=== PATIENT | male | born 1955 | race American Indian/Alaskan Native ===

== ENCOUNTER 2021-02-24 15:54 | Inpatient (IN) | payer MEDICARE ==
--- NOTE | 2021-02-24 18:06 | Event Note ---
ED Screening Note Date of service: 02/24/21 Time: 18:01 ED Screening Note: Patient was brought to the ER today via EMS for hypoglycemia. Patient was at dialysis today when his blood sugar dropped to 24. He states that he was given orange juice. He states that he is not sure why they checked his blood sugar at dialysis, he states that he thinks he may have "blacked out" but is not sure. He states that he did have breakfast prior to going to dialysis this morning but he also stated that he felt dizzy this morning but he states that he did not mention this to the dialysis staff. Patient blood sugar now is in the 60s. He denies any symptoms currently. This initial assessment/diagnostic orders/clinical plan/treatment(s) is/are subject to change based on patients health status, clinical progression and re- assessment by fellow clinical providers in the ED. Further treatment and workup at subsequent clinical providers discretion. Patient/guardian urged not to elope from the ED as their condition may be serious if not clinically assessed and managed. Initial orders include: Labs/EKG
[2021-02-24 18:20] LABS: Basophils # (Auto) 0.1 K/mm3 (0.0-0.1); Basophils % (Auto) 0.8 % (0.0-1.8); Eosinophils % (Auto) 0.4 % (0.0-4.3); Hematocrit 40.9 % (35.5-45.6); Hemoglobin 13.8 gm/dl (11.8-15.2); Lymphocytes # (Auto) 0.5 K/mm3 (1.2-5.4); Lymphocytes % (Auto) 5.1 % (13.4-35.0); Mean Corpuscular HGB Conc 34 % (32-34); Mean Corpuscular Volume 90 fl (84-94); Monocytes # (Auto) 0.4 K/mm3 (0.0-0.8); Monocytes % (Auto) 4.3 % (0.0-7.3); Platelet Count 364 K/mm3 (140-440); Red Blood Count 4.53 M/mm3 (3.65-5.03); Red Cell Distribution Width 14.5 % (13.2-15.2)
[2021-02-24 18:43] LABS: Albumin 4.4 g/dL (3.9-5); Calcium 9.6 mg/dL (8.4-10.2)
--- NOTE | 2021-02-24 19:31 | Emergency Department Report ---
ED General Adult HPI - General Chief complaint: Hypoglycemia Stated complaint: HYPOGLYCEMIA PUI?: No Time Seen by Provider: 02/24/21 19:30 Source: patient, EMS ( EMS documentation not available at time of chart dictation ), RN notes reviewed Mode of arrival: Ambulatory Limitations: No Limitations - History of Present Illness Initial comments: [facility] Dr. Chaney The patient is a 65-year-old gentleman. He is not known to myself previously. His past medical history includes end-stage renal disease on hemodialysis, Wednesday, Wednesday, Wednesday. He also has a history of hypertension, high cholesterol. He also reports a chronic history of "heart murmur", and also reports that he is up-to-date with his COVID-19 vaccination status. Patient reports that he was at hemodialysis today, and was referred here for hypoglycemia, apparently had a glucose of 22. The patient states he ate a meal this morning. He also states that he ate lunch. The patient states he does not have a history of diabetes that he is aware of, nor does he take any oral or injectable insulin therapy or hypoglycemic therapy. He has a dry cough. He denies headache, neck pain, chest pain, abdominal pain. He has mild chronic shortness of breath. He does not produce urine. He reports 6 months of nonbloody painless diarrhea. He feels like he is back to his baseline at this time. He reports no history of hypoglycemia in the past that he is aware of. -: Sudden Consistency: now resolved Improves with: eating, medication Worsens with: none ED Review of Systems ROS: Stated complaint: HYPOGLYCEMIA Other details as noted in HPI Constitutional: other (Denies loss of taste and smell). denies: fever Eyes: denies: eye discharge ENT: congestion Respiratory: cough. denies: shortness of breath Cardiovascular: denies: chest pain Gastrointestinal: diarrhea. denies: abdominal pain Genitourinary: denies: dysuria, frequency Musculoskeletal: denies: back pain Neurological: denies: weakness Hematological/Lymphatic: denies: easy bleeding ED Past Medical Hx - Past Medical History Previous Medical History?: Yes Hx Hypertension: Yes Hx Diabetes: Yes - Surgical History Past Surgical History?: No ED Physical Exam - General Limitations: No Limitations General appearance: alert, in no apparent distress - Head Head exam: Present: atraumatic, normocephalic - Eye Eye exam: Present: normal appearance, EOMI. Absent: nystagmus - ENT ENT exam: Present: normal exam, normal orophraynx, mucous membranes moist, normal external ear exam - Neck Neck exam: Present: normal inspection, full ROM. Absent: tenderness, meningismus - Respiratory Respiratory exam: Present: rhonchi (Rhonchi noted in the right hemithorax). Absent: respiratory distress, rales, stridor - Cardiovascular Cardiovascular Exam: Present: regular rate, normal rhythm, systolic murmur (2 out of 6 systolic murmur noted). Absent: bradycardia, tachycardia, irregular rhythm, rubs, gallop - GI/Abdominal GI/Abdominal exam: Present: soft. Absent: distended, tenderness, guarding, rebound, rigid, pulsatile mass - Rectal Rectal exam: Present: deferred - Extremities Exam Extremities exam: Present: normal inspection (Right upper extremity fistula not ed, without redness, pus or streaking), full ROM, pedal edema (1-2+ edema in the bilateral lower extremities), other (2+ pulses noted in the bilateral upper and lower extremities. There is no palpable cord. negative Homans sign. Muscular compartments are soft. The pelvis is stable.) - Back Exam Back exam: Present: normal inspection, full ROM. Absent: tenderness, CVA tenderness (R), CVA tenderness (L), paraspinal tenderness, vertebral tenderness - Neurological Exam Neurological exam: Present: alert, other (No facial droop. Tongue midline. Extraocular movements intact bilaterally. Facial sensation intact to light touch in V1, V2, V3 distribution bilaterally. 5 and a 5 strength in 4 extremities. Sensation intact to light touch in 4 extremities.) - Psychiatric Psychiatric exam: Present: flat affect - Skin Skin exam: Present: warm, dry, intact, normal color. Absent: rash ED Course Vital Signs 02/24/21 17:07 Temperature 98.5 F Pulse Rate 75 Respiratory 18 Rate Blood Pressure 162/75 [Right] O2 Sat by Pulse 97 Oximetry ED Medical Decision Making - Lab Data Result diagrams: 02/24/21 18:06 02/24/21 18:06 Vital Signs 02/24/21 17:07 Temperature 98.5 F Pulse Rate 75 Respiratory 18 Rate Blood Pressure 162/75 [Right] O2 Sat by Pulse 97 Oximetry - EKG Data -: EKG Interpreted by [facility] EKG shows normal: sinus rhythm - EKG Data When compared to previous EKG there are: previous EKG unavailable 02/24/21 20:28 The EKG is interpreted at 19: 40 This is a sinus rhythm, with a rate of 82 bpm. There is a left axis deviation, with a borderline left anterior fascicular block. There is normal P wave axis. There is left ventricular hypertrophy. The QTC is prolonged. This is an abnormal EKG. This is not a STEMI. There is motion artifact. There is no prior for comparison. - Radiology Data Radiology results: report reviewed, image reviewed [facility] [address] [place] [address] XRay Report Signed Patient: HECTOR EATON MR#: [id number] : 1955 Acct:[id number] Age/Sex: 65 / M ADM Date: 02/24/21 Loc: ED Attending Dr: Ordering Physician: ELENO CHANG Date of Service: 02/24/21 Procedure(s): XR chest routine 2V Accession Number(s): [id number] cc: ELENO CHANG Fluoro Time In Minutes: CHEST 2 VIEWS INDICATION / CLINICAL INFORMATION: cough/lightheaded dizzy. FINDINGS: SUPPORT DEVICES: None. HEART / MEDIASTINUM: No significant abnormality. LUNGS / PLEURA: Mild bibasilar airspace opacity noted especially within the right lower lung. Signer Name: Magno Simons MD Signed: 02/24/2021 8:16 PM Workstation Name: [id number] Transcribed By: Dictated By: Magno Simons MD Electronically Authenticated By: Magno Simons MD Signed Date/Time: 02/24/212015 DD/ 14 - Medical Decision Making Differential diagnosis, including but not limited to: End-stage renal disease on hemodialysis, renal insufficiency, hepatic insufficiency, thyroid derangement, pneumonia, bronchitis, hypoglycemia Assessment and plan: 65-year-old gentleman, who was afebrile, with reassuring v ital signs, with a GCS of 15, who does not take any diabetic medications, who also reports that he is not on [id number] supplements, presenting with resolved complaint of hypoglycemia, found to have clinical and radiographic evidence of pneumonia. Given medical comorbidities, including relative immune compromise associated with end-stage renal disease, hypoglycemia in the field, hypoglycemia here in the emergency room, we have recommended admission to the medical service for glycemic monitoring, and initiation of IV antibiotics. Troponin was ordered prior to my personal evaluation of this patient, he denies chest pain, his EKG is not consistent with a STEMI, this is likely a type II troponin leak, likely secondary to his renal insufficiency. Patient is amenable to admission for IV antibiotics, and for glycemic monitoring. Hospital physician, Dr. Telly Sanz to admit to [facility] Critical care attestation.: If time is entered above; I have spent that time in minutes in the direct care of this critically ill patient, excluding procedure time. ED Disposition Clinical Impression: Hypoglycemia, End stage renal disease on dialysis, Pulmonary infiltrate Disposition: OP ADMIT IP TO THIS HOSP Is pt being admited?: Yes Does the pt Need Aspirin: No Condition: Good Referrals: PRIMARY CARE, [Primary Care Provider] - 3-5 Days
[2021-02-24 19:33] LABS: Chol/HDL Ratio 2.09 %
--- NOTE | 2021-02-24 20:20 | XRay Report ---
CHEST 2 VIEWS INDICATION / CLINICAL INFORMATION: cough/lightheaded dizzy. FINDINGS: SUPPORT DEVICES: None. HEART / MEDIASTINUM: No significant abnormality. LUNGS / PLEURA: Mild bibasilar airspace opacity noted especially within the right lower lung. Signer Name: Magno Simons MD Signed: 02/24/2021 8:16 PM Workstation Name: [id number]
[2021-02-24] MEDS ORDERED: DEXTROSE 50% IN WATER (25GM) 50 ML VIAL IV PRN (20:31)
[2021-02-24] MEDS ORDERED: cefTRIAXone/NS 1 GM/50 ML 1 GM/50 ML BAG IV ONE (21:00)
--- NOTE | 2021-02-24 21:10 | History and Physical Report ---
History of Present Illness Date of examination: 02/24/21 Date of admission: 02/24/21 Chief complaint: Hypoglycemia Pneumonia History of present illness: The patient is a 65-year-old gentleman. He is not known to myself previously. His past medical history includes end-stage renal disease on hemodialysis, Wednesday, Wednesday, Wednesday. He also has a history of hypertension, high cholesterol. He also reports a chronic history of "heart murmur", and also reports that he is up-to-date with his COVID-19 vaccination status. Patient reports that he was at hemodialysis today, and was referred here for hypoglycemia, apparently had a glucose of 22. The patient states he ate a meal this morning. He also states that he ate lunch. The patient states he does not have a history of diabetes that he is aware of, nor does he take any oral or injectable insulin therapy or hypoglycemic therapy. He has a dry cough. He denies headache, neck pain, chest pain, abdominal pain. He has mild chronic shortness of breath. He does not produce urine. He reports 6 months of nonbloody painless diarrhea. He feels like he is back to his baseline at this time. He reports no history of hypoglycemia in the past that he is aware of. WBC 9.0 hemoglobin 13.8 platelets 364 sodium 133, potassium 4.4, BUN 28 creatinine 6.9. Troponin elevated 0.262 and 0.6262. Patient is started on heparin drip and rn unit manager is consulted. Patient seen in the ED at bedside patient is alert oriented x3. Patient reported dizziness while he was on dialysis and blood sugar was checked and it was very low in 20. Patient was brought to the hospital for further care management. I reviewed patient medication record history and physical and vital signs. Checks x-ray done and showed a mild to Shar airspace opacity noted especially within the right lower lung. Patient started on antibiotic empirically blood culture ordered. Past History Past Medical History: ESRD, heart failure, hypertension, hyperlipidemia Past Surgical History: No surgical history Social history: no significant social history, other (Lives in nursing home) Family history: diabetes, hypertension Medications and Allergies Allergies Allergy/AdvReac Type Severity Reaction Status Date / Time shellfish derived AdvReac Anaphylaxis Verified 02/24/21 20:44 Home Medications Medication Instructions Recorded Confirmed Last Taken Type Aspirin [Aspirin BABY CHEW TAB] 81 mg PO QDAY 02/25/21 02/25/21 Unknown History AtorvaSTATin [Lipitor] 40 mg PO QHS 02/25/21 02/25/21 Unknown History Cinacalcet [Sensipar] 60 mg 02/25/21 Unknown History ISOSORBIDE MONOnitrate 60 mg PO QDAY 02/25/21 02/25/21 Unknown History Latanoprost 1 drop OU QDAY 02/25/21 02/25/21 Unknown History Losartan [Cozaar] 100 mg PO QDAY 02/25/21 02/25/21 Unknown History NIFEdipine [Adalat cc] 90 mg PO 02/25/21 Unknown History Vit B Complx C/Folic Acid/Zinc 1 tab PO DAILY 02/25/21 02/25/21 Unknown History [Dialyvite 800-Zinc 50 mg Tab] Vit B Complx C/Folic Acid/Zinc 1 tab PO DAILY 02/25/21 02/25/21 Unknown History [Dialyvite 800-Zinc 50 mg Tab] Vitamin D3 1 tab 02/25/21 Unknown History Zofran 4 mg PO 02/25/21 Unknown History carvediloL [Coreg] 12.5 mg PO BID 02/25/21 02/25/21 Unknown History Active Meds: Active Medications Dextrose (Dextrose 50% In Water (25gm) 50 Ml Vial) 50 gm IV Q30MIN PRN; Protocol PRN Reason: Hypoglycemia Azithromycin (Zithromax/Ns) 500 mg in 250 mls @ 250 mls/hr IV ONCE ONE; Protocol Stop: 02/24/21 22:59 Ceftriaxone Sodium (Rocephin/Ns 1 Gm/50 Ml) 1 gm in 50 mls @ 100 mls/hr IV ONCE ONE; Protocol Stop: 02/24/21 21:29 Review of Systems Ears, nose, mouth and throat: no epistaxis, no bleeding gums Respiratory: cough Gastrointestinal: no melena Rectal: no itching, no hemorrhoids Neurological: no seizures, no tremors Psychiatric: no disorientation, no hallucinations Hematologic/Lymphatic: no easy bruising, no easy bleeding Allergic/Immunologic: no urticaria Exam - Constitutional Vitals: Temp Pulse Resp BP Pulse Ox 98.5 F 80 17 158/75 98 02/24/21 17:07 02/24/21 20:30 02/24/21 20:30 02/24/21 20:30 02/24/21 20:30 General appearance: Present: mild distress, well-nourished - EENT Eyes: Present: PERRL ENT: hearing intact, clear oral mucosa - Neck Neck: Present: supple, normal ROM - Respiratory Respiratory effort: normal Respiratory: bilateral: CTA - Cardiovascular Heart Sounds: Present: S1 & S2. Absent: rub, click - Extremities Extremities: pulses symmetrical, No edema Peripheral Pulses: within normal limits - Abdominal General gastrointestinal: Present: soft, non-tender, non-distended, normal bowel sounds Male genitourinary: Present: normal - Integumentary Integumentary: Present: clear, warm, dry - Musculoskeletal Musculoskeletal: gait normal, strength equal bilaterally - Psychiatric Psychiatric: appropriate mood/affect, intact judgment & insight, cooperative - Neurologic Neurologic: CNII-XII intact, moves all extremities - Allied Health Allied health notes reviewed: nursing, PT HEART Score - HEART Score Troponin: Troponin T 0.262 ng/mL (0.00-0.029) H* 02/24/21 18:06 Results - Labs CBC & Chem 7: 02/25/21 00:35 02/24/21 18:06 Labs: Abnormal lab results 02/24/21 02/24/21 02/24/21 Range/Units 17:09 18:06 18:06 Lymph % (Auto) 5.1 L (13.4-35.0) % Lymph # (Auto) 0.5 L (1.2-5.4) K/mm3 Seg Neutrophils % 89.4 H (40.0-70.0) % Seg Neutrophils # 8.1 H (1.8-7.7) K/mm3 Sodium 133 L (137-145) mmol/L Chloride 93.1 L (98-107) mmol/L BUN 28 H (9-20) mg/dL Creatinine 6.9 H (0.8-1.3) mg/dL Glucose 63 L (75-100) mg/dL POC Glucose 62 L (70-105) mg/dL Troponin T (0.00-0.029) ng/mL Total Protein 8.4 H (6.3-8.2) g/dL 02/24/21 Range/Units 18:06 Lymph % (Auto) (13.4-35.0) % Lymph # (Auto) (1.2-5.4) K/mm3 Seg Neutrophils % (40.0-70.0) % Seg Neutrophils # (1.8-7.7) K/mm3 Sodium (137-145) mmol/L Chloride (98-107) mmol/L BUN (9-20) mg/dL Creatinine (0.8-1.3) mg/dL Glucose (75-100) mg/dL POC Glucose (70-105) mg/dL Troponin T 0.262 H* (0.00-0.029) ng/mL Total Protein (6.3-8.2) g/dL Assessment and Plan - Patient Problems (1) Right lower lobe pneumonia Current Visit: Yes Status: Acute Plan to address problem: Start antibiotic empirically with azithromycin and Rocephin. Respiratory care with bronchodilator oxygen supplement as needed Patient is on room air not in acute distress (2) Hypoglycemia Current Visit: Yes Status: Acute Plan to address problem: Monitor blood sugar Check hemoglobin A1c (3) End stage renal disease on dialysis Current Visit: Yes Status: Acute Plan to address problem: Nephrology consulted Resume hemodialysis today when Monitor electrolytes and kidney function (4) Hyponatremia Current Visit: Yes Status: Acute Plan to address problem: Likely secondary to kidney failure Monitor sodium level Nephrology is following (5) Hypertension Current Visit: Yes Status: Acute Plan to address problem: Monitor blood pressure Resume home antihypertensive As needed hydralazine. (6) DVT prophylaxis Current Visit: Yes Status: Acute Plan to address problem: Subcutaneous heparin
[2021-02-24] MEDS ORDERED: AZITHROMYCIN/NS 500 MG/250 ML 500 MG/250 ML BAG IV ONE (22:00)
[2021-02-24] MEDS ORDERED: DEXTROSE 50% IN WATER (25GM) 50 ML SYRINGE IV ONE (23:10)
[2021-02-24] MEDS ORDERED: MAGNESIUM HYDROXIDE (MOM) ORAL LIQD UDC PO PRN (23:17)
[2021-02-24] MEDS ORDERED: ALUM-MAG HYDROXIDE-SIMETHICONE 200-200-20MG/5ML ORAL LIQD 30 ML PO PRN (23:17)
[2021-02-24] MEDS ORDERED: ACETAMINOPHEN 325 MG TAB PO PRN (23:17)
[2021-02-24] MEDS ORDERED: METOCLOPRAMIDE 10 MG/2 ML INJ IV PRN (23:17)
[2021-02-24] MEDS ORDERED: SENNOSIDES 8.6 MG TAB PO PRN (23:17)
[2021-02-24] MEDS ORDERED: ONDANSETRON 4 MG/2 ML INJ IV PRN (23:17)
[2021-02-24] MEDS ORDERED: traZODone 50 MG TAB PO PRN (23:19)
[2021-02-24] MEDS ORDERED: traMADol 50 MG TAB PO PRN (23:19)
[2021-02-25] MEDS ORDERED: HEPARIN 10,000 UNITS/10 ML VIAL IV PRN (00:25)
[2021-02-25] MEDS ORDERED: HEPARIN/ 0.45% NACL DRIP 25,000 UNIT/500 ML BAG IV SCH (01:00)
[2021-02-25 01:23] LABS: Hematocrit 36.2 % (35.5-45.6); Hemoglobin 12.2 gm/dl (11.8-15.2)
[2021-02-25 01:31] LABS: INR 0.67 (0.87-1.13)
[2021-02-25 01:35] LABS: Partial Thromboplastin Time < 20.0 Sec. (24.2-36.6)
[2021-02-25] MEDS: guaiFENesin 200 MG TAB PO PRN ×2 (02:02→08:00)
[2021-02-25] MEDS: LOPERAMIDE 2 MG CAP PO PRN ×2 (02:23→08:00)
[2021-02-25] MEDS ORDERED: DEXTROSE 50% IN WATER (25GM) 50 ML SYRINGE IV ONE (06:42)
[2021-02-25 07:32] LABS: Basophils # (Auto) 0.1 K/mm3 (0.0-0.1); Basophils % (Auto) 1.3 % (0.0-1.8); Eosinophils # (Auto) 0.1 K/mm3 (0.0-0.4); Eosinophils % (Auto) 1.5 % (0.0-4.3); Hematocrit 35.2 % (35.5-45.6); Hemoglobin 11.7 gm/dl (11.8-15.2); Lymphocytes # (Auto) 1.9 K/mm3 (1.2-5.4); Lymphocytes % (Auto) 22.1 % (13.4-35.0); Mean Corpuscular HGB Conc 33 % (32-34); Mean Corpuscular Volume 90 fl (84-94); Monocytes # (Auto) 0.5 K/mm3 (0.0-0.8); Monocytes % (Auto) 6.3 % (0.0-7.3); Platelet Count 342 K/mm3 (140-440); Red Blood Count 3.93 M/mm3 (3.65-5.03); Red Cell Distribution Width 14.6 % (13.2-15.2)
[2021-02-25 07:46] LABS: Calcium 9.4 mg/dL (8.4-10.2)
[2021-02-25] MEDS ORDERED: METOCLOPRAMIDE 10 MG/2 ML INJ IV PRN (08:00)
[2021-02-25] MEDS: INSULIN LISPRO 100 UNIT/ML SUB-Q SCH ×4 (08:07→22:47)
--- NOTE | 2021-02-25 09:12 | Consultation ---
History of Present Illness - Reason for Consult Consult date: 02/25/21 end stage renal disease Past History Past Medical History: ESRD, heart failure, hypertension, hyperlipidemia Past Surgical History: No surgical history Social history: no significant social history, other (Lives in assisted) Family history: diabetes, hypertension Medications and Allergies Allergies Allergy/AdvReac Type Severity Reaction Status Date / Time shellfish derived AdvReac Anaphylaxis Verified 02/24/21 20:44 Home Medications Medication Instructions Recorded Confirmed Last Taken Type Aspirin [Aspirin BABY CHEW TAB] 81 mg PO QDAY 02/25/21 02/25/21 Unknown History AtorvaSTATin [Lipitor] 40 mg PO QHS 02/25/21 02/25/21 Unknown History Cinacalcet [Sensipar] 60 mg 02/25/21 Unknown History ISOSORBIDE MONOnitrate 60 mg PO QDAY 02/25/21 02/25/21 Unknown History Latanoprost 1 drop OU QDAY 02/25/21 02/25/21 Unknown History Losartan [Cozaar] 100 mg PO QDAY 02/25/21 02/25/21 Unknown History NIFEdipine [Adalat cc] 90 mg PO 02/25/21 Unknown History Vit B Complx C/Folic Acid/Zinc 1 tab PO DAILY 02/25/21 02/25/21 Unknown History [Dialyvite 800-Zinc 50 mg Tab] Vit B Complx C/Folic Acid/Zinc 1 tab PO DAILY 02/25/21 02/25/21 Unknown History [Dialyvite 800-Zinc 50 mg Tab] Vitamin D3 1 tab 02/25/21 Unknown History Zofran 4 mg PO 02/25/21 Unknown History carvediloL [Coreg] 12.5 mg PO BID 02/25/21 02/25/21 Unknown History Active Meds: Active Medications Acetaminophen (Acetaminophen 325 Mg Tab) 650 mg PO Q4H PRN PRN Reason: Pain MILD(1-3)/Fever >100.5/GOINS Al Hydrox/Mg Hydrox/Simethicone (Alum-Mag Hydroxide-Simethicone [id number]/5ml Oral Liqd 30 Ml) 30 ml PO Q4H PRN PRN Reason: Indigestion Amlodipine Besylate (Amlodipine 10 Mg Tab) 10 mg PO QDAY [facility] Carvedilol (Carvedilol 12.5 Mg Tab) 12.5 mg PO BID [facility] Dextrose (Dextrose 50% In Water (25gm) 50 Ml Vial) 50 gm IV Q30MIN PRN; Protocol PRN Reason: Hypoglycemia Last Admin: 02/25/21 06:40 Dose: 50 gm Documented by: Famotidine (Famotidine 20 Mg/2 Ml Inj) 10 mg IV BID [facility] Guaifenesin (Guaifenesin 200 Mg Tab) 200 mg PO Q6H PRN PRN Reason: Cough Last Admin: 02/25/21 08:00 Dose: 200 mg Documented by: Hydralazine HCl (Hydralazine 20 Mg/1 Ml Inj) 5 mg IV Q4HR PRN PRN Reason: Hypertension Azithromycin (Zithromax/Ns) 500 mg in 250 mls @ 250 mls/hr IV Q24H [facility] Stop: 02/28/21 23:59 Heparin Sodium/Sodium Chloride (Heparin/ 0.45% Nacl-25,000 Unit/500 Ml) 25,000 unit in 500 mls @ 30 mls/hr IV TITR [facility]; Protocol Last Titration: 02/25/21 08:09 Dose: 1,524 units/hr, 30.48 mls/hr Documented by: Ceftriaxone Sodium (Rocephin/Ns 2 Gm/100 Ml) 2 gm in 100 mls @ 200 mls/hr IV QHS [facility] Stop: 03/01/21 23:59 Insulin Human Lispro (Insulin Lispro 100 Unit/Ml) 0 unit SUB-Q ACHS [facility]; Protocol Last Admin: 02/25/21 08:07 Dose: Not Given Documented by: Loperamide HCl (Loperamide 2 Mg Cap) 2 mg PO Q2H PRN PRN Reason: Diarrhea Last Admin: 02/25/21 08:00 Dose: 2 mg Documented by: Losartan Potassium (Losartan 50 Mg Tab) 100 mg PO QDAY [facility] Magnesium Hydroxide (Magnesium Hydroxide (Mom) Oral Liqd Udc) 30 ml PO Q4H PRN PRN Reason: Constipation Metoclopramide HCl (Metoclopramide 10 Mg/2 Ml Inj) 5 mg IV Q6H PRN PRN Reason: Nausea And Vomiting Ondansetron HCl (Ondansetron 4 Mg/2 Ml Inj) 4 mg IV Q8H PRN PRN Reason: Nausea And Vomiting Senna (Sennosides 8.6 Mg Tab) 8.6 mg PO Q12HR PRN PRN Reason: Constipation Sodium Chloride (Sodium Chloride 0.9% 10 Ml Flush Syringe) 10 ml IV BID [facility] Sodium Chloride (Sodium Chloride 0.9% 10 Ml Flush Syringe) 10 ml IV PRN PRN PRN Reason: LINE FLUSH Tramadol HCl (Tramadol 50 Mg Tab) 50 mg PO Q6H PRN PRN Reason: Pain, Moderate (4-6) Trazodone HCl (Trazodone 50 Mg Tab) 50 mg PO QHS PRN PRN Reason: Insomnia Exam - Vital Signs Vital signs: Vital Signs Temp Pulse Resp BP Pulse Ox 98.5 F 75 18 162/75 97 02/24/21 17:07 02/24/21 17:07 02/24/21 17:07 02/24/21 17:07 02/24/21 17:07 Results - Lab Results 02/25/21 06:38 02/25/21 06:38 Most recent lab results Calcium 9.4 mg/dL (8.4-10.2) 02/25/21 06:38
[2021-02-25] MEDS ORDERED: HEPARIN 5,000 UNIT/1 ML VIAL SUB-Q SCH (10:00)
[2021-02-25] MEDS: LOSARTAN 50 MG TAB PO SCH (10:13)
[2021-02-25] MEDS: FAMOTIDINE 20 MG/2 ML INJ IV SCH ×2 (10:13→21:33)
[2021-02-25] MEDS: amLODIPine 10 MG TAB PO SCH (10:14)
[2021-02-25] MEDS: carvediloL 12.5 MG TAB PO SCH ×2 (10:14→21:33)
--- NOTE | 2021-02-25 10:52 | Consultation ---
History of Present Illness Consult date: 02/25/21 Consult reason: elevated troponin History of present illness: This is a 65-year old M with end-stage renal disease, who was brought in from dialysis with hypoglycemia, reported blood glucose of 22. On presentation to the emergency department his blood glucose was 61. Patient denies a history of Diabetes. He is managed routinely for hypertension and hyperlipidemia. A cardiac consultation was requested for elevated troponin measurement in the setting of renal disease. Patient has no history of coronary disease. He denies chest pain, denies unusual shortness of breath, and denies palpitations. No edema. Chest x-ray reports evidence of pneumonia. An ECG is sinus rhythm. No acute ST or T wave changes. Past History Past Medical History: ESRD, hypertension, hyperlipidemia Past Surgical History: No surgical history Social history: no significant social history, other (Lives in [facility]) Family history: diabetes, hypertension Medications and Allergies Allergies Allergy/AdvReac Type Severity Reaction Status Date / Time shellfish derived AdvReac Anaphylaxis Verified 02/24/21 20:44 Home Medications Medication Instructions Recorded Confirmed Last Taken Type Aspirin [Aspirin BABY CHEW TAB] 81 mg PO QDAY 02/25/21 02/25/21 02/24/21 History AtorvaSTATin [Lipitor] 40 mg PO QHS 02/25/21 02/25/21 02/24/21 History Cinacalcet [Sensipar] 60 mg PO DAILY 02/25/21 02/25/21 02/24/21 History ISOSORBIDE MONOnitrate 60 mg PO QDAY 02/25/21 02/25/21 02/24/21 History Latanoprost 1 drop OU QDAY 02/25/21 02/25/21 02/24/21 History Losartan [Cozaar] 100 mg PO QDAY 02/25/21 02/25/21 02/24/21 History NIFEdipine [Adalat cc] 90 mg PO DAILY 02/25/21 02/25/21 02/24/21 History Vit B Complx C/Folic Acid/Zinc 1 tab PO DAILY 02/25/21 02/25/21 02/24/21 History [Dialyvite 800-Zinc 50 mg Tab] Vit B Complx C/Folic Acid/Zinc 1 tab PO DAILY 02/25/21 02/25/21 02/24/21 History [Dialyvite 800-Zinc 50 mg Tab] Vitamin D3 1,000 tab PO DAILY 02/25/21 02/25/21 02/24/21 History Zofran 4 mg PO PRN PRN 02/25/21 02/25/21 02/23/21 History carvediloL [Coreg] 12.5 mg PO BID 02/25/21 02/25/21 02/24/21 History Active Meds: Active Medications Acetaminophen (Acetaminophen 325 Mg Tab) 650 mg PO Q4H PRN PRN Reason: Pain MILD(1-3)/Fever >100.5/GOINS Al Hydrox/Mg Hydrox/Simethicone (Alum-Mag Hydroxide-Simethicone [phone]/5ml Oral Liqd 30 Ml) 30 ml PO Q4H PRN PRN Reason: Indigestion Amlodipine Besylate (Amlodipine 10 Mg Tab) 10 mg PO QDAY [facility] Last Admin: 02/25/21 10:14 Dose: 10 mg Documented by: Carvedilol (Carvedilol 12.5 Mg Tab) 12.5 mg PO BID [facility] Last Admin: 02/25/21 10:14 Dose: 12.5 mg Documented by: Dextrose (Dextrose 50% In Water (25gm) 50 Ml Vial) 50 gm IV Q30MIN PRN; Protocol PRN Reason: Hypoglycemia Last Admin: 02/25/21 06:40 Dose: 50 gm Documented by: Famotidine (Famotidine 20 Mg/2 Ml Inj) 10 mg IV BID [facility] Last Admin: 02/25/21 10:13 Dose: 10 mg Documented by: Guaifenesin (Guaifenesin 200 Mg Tab) 200 mg PO Q6H PRN PRN Reason: Cough Last Admin: 02/25/21 08:00 Dose: 200 mg Documented by: Hydralazine HCl (Hydralazine 20 Mg/1 Ml Inj) 5 mg IV Q4HR PRN PRN Reason: Hypertension Azithromycin (Zithromax/Ns) 500 mg in 250 mls @ 250 mls/hr IV Q24H [facility] Stop: 02/28/21 23:59 Heparin Sodium/Sodium Chloride (Heparin/ 0.45% Nacl-25,000 Unit/500 Ml) 25,000 unit in 500 mls @ 30 mls/hr IV TITR [facility]; Protocol Last Titration: 02/25/21 08:09 Dose: 1,524 units/hr, 30.48 mls/hr Documented by: Ceftriaxone Sodium (Rocephin/Ns 2 Gm/100 Ml) 2 gm in 100 mls @ 200 mls/hr IV QHS [facility] Stop: 03/01/21 23:59 Insulin Human Lispro (Insulin Lispro 100 Unit/Ml) 0 unit SUB-Q ACHS [facility]; Protocol Last Admin: 02/25/21 08:07 Dose: Not Given Documented by: Loperamide HCl (Loperamide 2 Mg Cap) 2 mg PO Q2H PRN PRN Reason: Diarrhea Last Admin: 02/25/21 08:00 Dose: 2 mg Documented by: Losartan Potassium (Losartan 50 Mg Tab) 100 mg PO QDAY [facility] Last Admin: 02/25/21 10:13 Dose: 100 mg Documented by: Magnesium Hydroxide (Magnesium Hydroxide (Mom) Oral Liqd Udc) 30 ml PO Q4H PRN PRN Reason: Constipation Metoclopramide HCl (Metoclopramide 10 Mg/2 Ml Inj) 5 mg IV Q6H PRN PRN Reason: Nausea And Vomiting Ondansetron HCl (Ondansetron 4 Mg/2 Ml Inj) 4 mg IV Q8H PRN PRN Reason: Nausea And Vomiting Senna (Sennosides 8.6 Mg Tab) 8.6 mg PO Q12HR PRN PRN Reason: Constipation Sodium Chloride (Sodium Chloride 0.9% 10 Ml Flush Syringe) 10 ml IV BID [facility] Last Admin: 02/25/21 10:15 Dose: 10 ml Documented by: Sodium Chloride (Sodium Chloride 0.9% 10 Ml Flush Syringe) 10 ml IV PRN PRN PRN Reason: LINE FLUSH Tramadol HCl (Tramadol 50 Mg Tab) 50 mg PO Q6H PRN PRN Reason: Pain, Moderate (4-6) Trazodone HCl (Trazodone 50 Mg Tab) 50 mg PO QHS PRN PRN Reason: Insomnia Review of Systems Cardiovascular: no chest pain, no palpitations, no rapid/irregular heart beat, no edema, no syncope, no lightheadedness, no shortness of breath Physical Examination Vital Signs Temp Pulse Resp BP Pulse Ox 98.5 F 75 18 162/75 97 02/24/21 17:07 02/24/21 17:07 02/24/21 17:07 02/24/21 17:07 02/24/21 17:07 General appearance: no acute distress HEENT: Positive: PERRL Neck: Positive: trachea midline Cardiac: Positive: Reg Rate and Rhythm, Systolic Murmur Lungs: Positive: Normal Breath Sounds Neuro: Positive: Grossly Intact Extremities: Absent: edema Results 02/25/21 06:38 02/25/21 06:38 Cardiac Enzymes 02/24/21 Range/Units 18:06 AST 32 (5-40) units/L Coagulation 02/25/21 Range/Units 00:35 PT 10.1 L (12.2-14.9) Sec. INR 0.67 L (0.87-1.13) APTT < 20.0 L (24.2-36.6) Sec. Lipids 02/24/21 Range/Units 18:06 Triglycerides 78 (2-149) mg/dL Cholesterol 111 (50-199) mg/dL HDL Cholesterol 53 (40-59) mg/dL Cholesterol/HDL Ratio 2.09 % CBC 02/24/21 02/25/21 02/25/21 Range/Units 18:06 00:35 06:38 WBC 9.0 8.7 (4.5-11.0) K/mm3 RBC 4.53 3.93 (3.65-5.03) M/mm3 Hgb 13.8 12.2 11.7 L (11.8-15.2) gm/dl Hct 40.9 36.2 35.2 L (35.5-45.6) % Plt Count 364 362 342 (140-440) K/mm3 Lymph # (Auto) 0.5 L 1.9 (1.2-5.4) K/mm3 [place] # (Auto) 0.4 0.5 (0.0-0.8) K/mm3 Eos # (Auto) 0.0 0.1 (0.0-0.4) K/mm3 Baso # (Auto) 0.1 0.1 (0.0-0.1) K/mm3 Comprehensive Metabolic Panel 02/24/21 02/25/21 Range/Units 18:06 06:38 Sodium 133 L 133 L (137-145) mmol/L Potassium 4.4 4.6 (3.6-5.0) mmol/L Chloride 93.1 L 95.3 L (98-107) mmol/L Carbon Dioxide 26 23 (22-30) mmol/L BUN 28 H 36 H (9-20) mg/dL Creatinine 6.9 H 8.0 H (0.8-1.3) mg/dL Glucose 63 L 103 H (75-100) mg/dL Calcium 9.6 9.4 (8.4-10.2) mg/dL AST 32 (5-40) units/L ALT 12 (7-56) units/L Alkaline Phosphatase 102 (35-129) units/L Total Protein 8.4 H (6.3-8.2) g/dL Albumin 4.4 (3.9-5) g/dL Assessment and Plan Elevated troponin, nonspecific in the setting of renal disease an echo this presentation shows a normal LVEF 50-55%. Moderate LA dilated and mild RV dilation. Mild aortic stenosis, mean gradient 16. Hypoglycemia -reason for admission Pneumonia Hypertension ESRD on hemodialysis
--- NOTE | 2021-02-25 11:20 | Progress Note ---
Assessment and Plan Assessment and plan: The patient is a 65-year-old gentleman. He is not known to myself previously. His past medical history includes end-stage renal disease on hemodialysis, Wednesday, Wednesday, Wednesday. He also has a history of hypertension, high cholesterol. He also reports a chronic history of "heart murmur", and also re ports that he is up-to-date with his COVID-19 vaccination status. Patient reports that he was at hemodialysis today, and was referred here for hypoglycemia, apparently had a glucose of 22. The patient states he ate a meal this morning. He also states that he ate lunch. The patient states he does not have a history of diabetes that he is aware of, nor does he take any oral or injectable insulin therapy or hypoglycemic therapy. He has a dry cough. He denies headache, neck pain, chest pain, abdominal pain. He has mild chronic shortness of breath. He does not produce urine. He reports 6 months of nonbloody painless diarrhea. He feels like he is back to his baseline at this time. He reports no history of hypoglycemia in the past that he is aware of. WBC 9.0 hemoglobin 13.8 platelets 364 sodium 133, potassium 4.4, BUN 28 creatinine 6.9. Troponin elevated 0.262 and 0.6262. Patient is started on heparin drip and pay agent is consulted. Patient seen in the ED at bedside patient is alert oriented x3. Patient reported dizziness while he was on dialysis and blood sugar was checked and it was very low in 20. Patient was brought to the hospital for further care management. I reviewed patient medication record history and physical and vital signs. Checks x-ray done and showed a mild to Shar airspace opacity noted especially within the right lower lung. Patient started on antibiotic empirically blood culture ordered. 02/25: Patient with no chest pain. No changes in EKG. Will stop heparin drip start subcu heparin. Discussed with technician support association will try to get further records to further evaluate the low blood sugar will also get a noncontrast CT of the abdomen to evaluate the pancreas. Will like to monitor patient additional night as blood sugar still in the low 90s. If continues to be stable will discharge in a.m. (1) Right lower lobe pneumonia Current Visit: Yes Status: Acute Plan to address problem: Start antibiotic empirically with azithromycin and Rocephin. Respiratory care with bronchodilator oxygen supplement as needed Patient is on room air not in acute distress (2) Hypoglycemia Current Visit: Yes Status: Acute Plan to address problem: Monitor blood sugar Check hemoglobin A1c (3) End stage renal disease on dialysis Current Visit: Yes Status: Acute Plan to address problem: Nephrology consulted Resume hemodialysis today when Monitor electrolytes and kidney function (4) Hyponatremia Current Visit: Yes Status: Acute Plan to address problem: Likely secondary to kidney failure Monitor sodium level Nephrology is following (5) Hypertension Current Visit: Yes Status: Acute Plan to address problem: Monitor blood pressure Resume home antihypertensive As needed hydralazine. (6) type II NSTEMI (7) DVT prophylaxis Current Visit: Yes Status: Acute Plan to address problem: Subcutaneous heparin History Interval history: Patient seen and examined sitting up doing well no acute distress. Still not sure why he became hypoglycemic. Hospitalist Physical - Physical exam Narrative exam: VITAL SIGNS: Reviewed. GENERAL: The patient appears normally developed, Vital signs as documented. HEAD: No signs of head trauma. EYES: Pupils are equal. Extraocular motions intact. EARS: Hearing grossly intact. MOUTH: Oropharynx is normal. NECK: No adenopathy, no JVD. CHEST: Chest with clear breath sounds bilaterally. No wheezes, rales, or rhonchi. CARDIAC: Regular rate and rhythm. S1 and S2, without murmurs, gallops, or rubs. VASCULAR: AV fistula noted no Edema. Peripheral pulses normal and equal in all extremities. ABDOMEN: Soft, non tender and non distended. No rebound or guarding, and no masses palpated. Bowel Sounds normal. MUSCULOSKELETAL: Good range of motion of all major joints. Extremities without clubbing, cyanosis or edema. NEUROLOGIC EXAM: Alert and oriented x 3 No focal sensory or strength deficits. Speech normal. Follows commands. PSYCHIATRIC: Mood normal. SKIN: detail exam as documented in skin assessment - Constitutional Vitals: Temp Pulse Resp BP Pulse Ox 99.1 F 110 H 20 180/100 97 02/25/21 05:02 02/25/21 10:13 02/25/21 05:02 02/25/21 10:13 02/25/21 05:02 General appearance: Present: no acute distress HEART Score - HEART Score Troponin: Troponin T 0.262 ng/mL (0.00-0.029) H* 02/25/21 00:24 Results - Labs CBC & Chem 7: 02/25/21 06:38 02/25/21 06:38 Labs: Laboratory Last Values WBC 8.7 K/mm3 (4.5-11.0) 02/25/21 06:38 RBC 3.93 M/mm3 (3.65-5.03) 02/25/21 06:38 Hgb 11.7 gm/dl (11.8-15.2) L 02/25/21 06:38 Hct 35.2 % (35.5-45.6) L 02/25/21 06:38 MCV 90 fl (84-94) 02/25/21 06:38 MCH 30 pg (28-32) 02/25/21 06:38 MCHC 33 % (32-34) 02/25/21 06:38 RDW 14.6 % (13.2-15.2) 02/25/21 06:38 Plt Count 342 K/mm3 (140-440) 02/25/21 06:38 Lymph % (Auto) 22.1 % (13.4-35.0) 02/25/21 06:38 [place] % (Auto) 6.3 % (0.0-7.3) 02/25/21 06:38 Eos % (Auto) 1.5 % (0.0-4.3) 02/25/21 06:38 Baso % (Auto) 1.3 % (0.0-1.8) 02/25/21 06:38 Lymph # (Auto) 1.9 K/mm3 (1.2-5.4) 02/25/21 06:38 [place] # (Auto) 0.5 K/mm3 (0.0-0.8) 02/25/21 06:38 Eos # (Auto) 0.1 K/mm3 (0.0-0.4) 02/25/21 06:38 Baso # (Auto) 0.1 K/mm3 (0.0-0.1) 02/25/21 06:38 Seg Neutrophils % 68.8 % (40.0-70.0) 02/25/21 06:38 Seg Neutrophils # 6.0 K/mm3 (1.8-7.7) 02/25/21 06:38 PT 10.1 Sec. (12.2-14.9) L 02/25/21 00:35 INR 0.67 (0.87-1.13) L 02/25/21 00:35 APTT < 20.0 Sec. (24.2-36.6) L 02/25/21 00:35 Heparin Anti-Xa Level 0.29 U.I./ml (0.3-0.7) L 02/25/21 06:38 Sodium 133 mmol/L (137-145) L 02/25/21 06:38 Potassium 4.6 mmol/L (3.6-5.0) 02/25/21 06:38 Chloride 95.3 mmol/L (98-107) L 02/25/21 06:38 Carbon Dioxide 23 mmol/L (22-30) 02/25/21 06:38 Anion Gap 19 mmol/L 02/25/21 06:38 BUN 36 mg/dL (9-20) H 02/25/21 06:38 Creatinine 8.0 mg/dL (0.8-1.3) H 02/25/21 06:38 Estimated GFR 8 ml/min 02/25/21 06:38 BUN/Creatinine Ratio 5 % 02/25/21 06:38 Glucose 103 mg/dL (75-100) H 02/25/21 06:38 POC Glucose 45 mg/dL (70-105) L 02/25/21 06:26 Hemoglobin A1c 4.8 % (4-6) 02/25/21 06:38 Lactic Acid 1.60 mmol/L (0.7-2.0) 02/24/21 20:33 Calcium 9.4 mg/dL (8.4-10.2) 02/25/21 06:38 Total Bilirubin 0.30 mg/dL (0.1-1.2) 02/24/21 18:06 AST 32 units/L (5-40) 02/24/21 18:06 ALT 12 units/L (7-56) 02/24/21 18:06 Alkaline Phosphatase 102 units/L (35-129) 02/24/21 18:06 Troponin T 0.262 ng/mL (0.00-0.029) H* 02/25/21 00:24 Total Protein 8.4 g/dL (6.3-8.2) H 02/24/21 18:06 Albumin 4.4 g/dL (3.9-5) 02/24/21 18:06 Albumin/Globulin Ratio 1.1 % 02/24/21 18:06 Triglycerides 78 mg/dL (2-149) 02/24/21 18:06 Cholesterol 111 mg/dL (50-199) 02/24/21 18:06 LDL Cholesterol Direct 53 mg/dL (50-130) 02/24/21 18:06 HDL Cholesterol 53 mg/dL (40-59) 02/24/21 18:06 Cholesterol/HDL Ratio 2.09 % 02/24/21 18:06 TSH 0.518 mlU/mL (0.270-4.200) 02/24/21 19:00 Microbiology: Microbiology 02/24/21 20:33 Peripheral/Venous Blood Culture - Preliminary Culture in Progress 02/24/21 20:39 Peripheral/Venous Blood Culture - Preliminary Culture in Progress Monk/IV: Voiding Method Toilet Active Medications - Current Medications Current Medications: Generic Name Dose Route Start Last Admin Trade Name Freq PRN Reason Stop Dose Admin Acetaminophen 650 mg 02/24/21 23:17 Acetaminophen 325 Mg Tab PO Q4H PRN Pain MILD(1-3)/Fever >100.5/GOINS Al Hydrox/Mg Hydrox/Simethicone 30 ml 02/24/21 23:17 Alum-Mag Hydroxide-Simethicone [phone]/5ml Oral Liqd 30 Ml PO Q4H PRN Indigestion Amlodipine Besylate 10 mg 02/25/21 10:00 02/25/21 10:14 Amlodipine 10 Mg Tab PO 10 mg QDAY [facility] Administration Carvedilol 12.5 mg 02/25/21 10:00 02/25/21 10:14 Carvedilol 12.5 Mg Tab PO 12.5 mg BID [facility] Administration Dextrose 50 gm 02/24/21 20:31 02/25/21 06:40 Dextrose 50% In Water (25gm) 50 Ml Vial IV 50 gm Q30MIN PRN Administration Hypoglycemia Protocol Famotidine 10 mg 02/25/21 10:00 02/25/21 10:13 Famotidine 20 Mg/2 Ml Inj IV 10 mg BID [facility] Administration Guaifenesin 200 mg 02/24/21 23:24 02/25/21 08:00 Guaifenesin 200 Mg Tab PO 200 mg Q6H PRN Administration Cough Hydralazine HCl 5 mg 02/24/21 23:19 Hydralazine 20 Mg/1 Ml Inj IV Q4HR PRN Hypertension Azithromycin 500 mg in 250 mls @ 250 mls/hr 02/25/21 23:00 Zithromax/Ns IV 02/28/21 23:59 Q24H [facility] Heparin Sodium/Sodium Chloride 25,000 unit in 500 mls @ 30 mls/hr 02/25/21 01:00 02/25/21 08:09 Heparin/ 0.45% Nacl-25,000 Unit/500 Ml IV 1,524 units/hr TITR [facility] 30.48 mls/hr Titration Protocol 1,500 UNITS/HR Ceftriaxone Sodium 2 gm in 100 mls @ 200 mls/hr 02/25/21 22:00 Rocephin/Ns 2 Gm/100 Ml IV 03/01/21 23:59 QHS [facility] Insulin Human Lispro 0 unit 02/25/21 07:30 02/25/21 08:07 Insulin Lispro 100 Unit/Ml SUB-Q Not Given ACHS [facility] Protocol Loperamide HCl 2 mg 02/25/21 02:13 02/25/21 08:00 Loperamide 2 Mg Cap PO 2 mg Q2H PRN Administration Diarrhea Losartan Potassium 100 mg 02/25/21 10:00 02/25/21 10:13 Losartan 50 Mg Tab PO 100 mg QDAY [facility] Administration Magnesium Hydroxide 30 ml 02/24/21 23:17 Magnesium Hydroxide (Mom) Oral Liqd Udc PO Q4H PRN Constipation Metoclopramide HCl 5 mg 02/25/21 08:00 Metoclopramide 10 Mg/2 Ml Inj IV Q6H PRN Nausea And Vomiting Ondansetron HCl 4 mg 02/24/21 23:17 Ondansetron 4 Mg/2 Ml Inj IV Q8H PRN Nausea And Vomiting Senna 8.6 mg 02/24/21 23:17 Sennosides 8.6 Mg Tab PO Q12HR PRN Constipation Sodium Chloride 10 ml 02/25/21 10:00 02/25/21 10:15 Sodium Chloride 0.9% 10 Ml Flush Syringe IV 10 ml BID [facility] Administration Sodium Chloride 10 ml 02/24/21 23:17 Sodium Chloride 0.9% 10 Ml Flush Syringe IV PRN PRN LINE FLUSH Tramadol HCl 50 mg 02/24/21 23:19 Tramadol 50 Mg Tab PO Q6H PRN Pain, Moderate (4-6) Trazodone HCl 50 mg 02/24/21 23:19 Trazodone 50 Mg Tab PO QHS PRN Insomnia
[2021-02-25] MEDS ORDERED: guaiFENesin 100 MG/5 ML ORAL LIQD PO PRN (14:11)
[2021-02-25] MEDS: hydrALAZINE 20 MG/1 ML INJ IV PRN (15:14)
--- NOTE | 2021-02-25 16:00 | Cat Scan Report ---
CT ABDOMEN AND PELVIS WITHOUT CONTRAST HISTORY: pancreatic mass. COMPARISON: None. TECHNIQUE: CT images of the abdomen and pelvis were obtained without administration of intravenous co ntrast. All CT scans at this location are performed using CT dose reduction for ALARA by means of au tomated exposure control. FINDINGS: Limited evaluation of the lung bases shows right basilar areas of subtle ground glass and nodular opa cities. The appearance may reflect some degree of infection in the appropriate clinical setting. Pres ence of pulmonary nodule cannot be excluded, particularly a 1 cm nodular within the posterior right m iddle lobe is noted for which follow-up imaging is recommended. Partially visualized density in the l eft inferior breast. The clinical history states the presence of a pancreatic mass. Evaluation is significantly limited du e to lack of intravenous contrast, no discrete mass is identified, however there is generalized fulln ess in the region of the pancreatic head. Presence of a mass in this region cannot be excluded. No ev idence of common bile duct dilation. No intrahepatic biliary ductal dilation. The partially visualize d pancreatic duct is unremarkable in appearance. Trace amount of perihepatic ascites is present. There is a 2.8 cm low-density right adrenal nodule wi th appears most consistent with an adenoma. Diffuse fairly symmetric bilateral adrenal gland thickeni ng. The kidneys demonstrate numerous cysts in an appearance most consistent with polycystic change. N o hydronephrosis. Extensive atherosclerotic calcifications throughout the abdominal aorta and its major branch vessels. The spleen, gallbladder, and liver are unremarkable. There is a fat-containing periumbilical hernia without protrusion measuring 3.1 cm. Evidence of suspe cted prior ventral abdominal wall hernia repair. Gastrointestinal tract shows no evidence of pathologic distention or focal bowel wall thickening. No pathologically enlarged lymph nodes. The urinary bladder is collapsed and is poorly evaluated. The prostate is enlarged measuring up to 6. 6 cm in transverse dimension. The appendix is normal in appearance. Osseous structures show no evidence of acute fracture or aggressive osseous destructive lesion. Exten sive spondylosis throughout the thoracic and portions of the mid lumbar spine. The lack of intravenous and oral contrast limits evaluation of solid parenchymal organs, vasculature, and gastrointestinal tract. This report should not be felt to be definitive for exclusion of soft ti ssue and vascular pathology. IMPRESSION: 1. Clinical history states the presence of a pancreatic mass. Evaluation is significantly limited due to lack of intravenous contrast and no discrete mass is identified, however there is generalized ful lness in the region of the pancreatic head and an indistinct mass cannot be excluded. If patient is a ble to tolerate intravenous contrast, a dedicated CT of the pancreas with intravenous contrast is rec ommended. If intravenous contrast is not possible, an MRI may be beneficial for further characterizat ion. 2. Partially visualized groundglass and nodular opacities within the right lung base. This may repres ent infection in the appropriate clinical setting. Consider short interval follow-up CT in 2-3 months if the patient has signs and symptoms of infection to ensure resolution. 3. Polycystic appearance of the kidneys. 4. Trace amount of perihepatic ascites. 5. Partially visualized density within the left inferior breast. This may represent portions of gynec omastia. Recommend clinical exam to exclude the presence of breast mass. Signer Name: Edgardo Casas MD Signed: 02/25/2021 3:55 PM Workstation Name: [id number]
[2021-02-25] MEDS: BENZOCAINE/MENTHOL LOZENGE MM PRN (16:25)
[2021-02-25] MEDS: CALCIUM ACETATE 667 MG CAP PO SCH (17:16)
[2021-02-25] MEDS ORDERED: cefTRIAXone/NS 1 GM/50 ML 1 GM/50 ML BAG IV SCH (21:00)
[2021-02-25] MEDS: HEPARIN 5,000 UNIT/1 ML VIAL SUB-Q SCH (21:33)
[2021-02-25] MEDS: cefTRIAXone/NS 2 GM/100 ML 2 GM/100 ML BAG IV SCH (21:33)
[2021-02-25] MEDS: AZITHROMYCIN/NS 500 MG/250 ML 500 MG/250 ML BAG IV SCH (22:43)
[2021-02-26] MEDS: HEPARIN 5,000 UNIT/1 ML VIAL SUB-Q SCH ×3 (06:04→22:15)
[2021-02-26] MEDS: hydrALAZINE 20 MG/1 ML INJ IV PRN (06:04)
[2021-02-26 06:42] LABS: Calcium 9.9 mg/dL (8.4-10.2)
--- NOTE | 2021-02-26 09:12 | Progress Note ---
Assessment and Plan Impression: * End stage renal disease * Hypoglycemia * Anemia secondary to ESRD * Secondary hyperparathyroidism Plan: * Hemodialysis today - UF as tolerated * Continue MWF schedule * Dose medications for renal function * Epogen TIW prn * Renal diet Subjective Date of service: 02/26/21 Objective - Vital Signs Vital signs: Vital Signs - 12hr 02/25/21 02/25/21 02/26/21 21:31 22:54 04:34 Temperature 98.4 F 98.6 F 97.8 F Pulse Rate 69 69 68 Respiratory 18 20 22 Rate Blood Pressure 164/73 157/73 179/76 O2 Sat by Pulse 100 97 99 Oximetry 02/26/21 02/26/21 05:58 07:09 Temperature Pulse Rate 76 73 Respiratory 18 18 Rate Blood Pressure 179/80 165/65 O2 Sat by Pulse 95 99 Oximetry - Lab 02/25/21 06:38 02/26/21 05:42 Most recent lab results Calcium 9.9 mg/dL (8.4-10.2) 02/26/21 05:42 Medications & Allergies - Medications Allergies/Adverse Reactions: Allergies shellfish derived Adverse Reaction (Verified 02/24/21 20:44) Anaphylaxis Home Medications: Home Medications Medication Instructions Recorded Confirmed Last Taken Type Aspirin [Aspirin BABY CHEW TAB] 81 mg PO QDAY 02/25/21 02/25/21 02/24/21 History AtorvaSTATin [Lipitor] 40 mg PO QHS 02/25/21 02/25/21 02/24/21 History Cinacalcet [Sensipar] 60 mg PO DAILY 02/25/21 02/25/21 02/24/21 History ISOSORBIDE MONOnitrate 60 mg PO QDAY 02/25/21 02/25/21 02/24/21 History Latanoprost 1 drop OU QDAY 02/25/21 02/25/21 02/24/21 History Losartan [Cozaar] 100 mg PO QDAY 02/25/21 02/25/21 02/24/21 History NIFEdipine [Adalat cc] 90 mg PO DAILY 02/25/21 02/25/21 02/24/21 History Vit B Complx C/Folic Acid/Zinc 1 tab PO DAILY 02/25/21 02/25/21 02/24/21 History [Dialyvite 800-Zinc 50 mg Tab] Vit B Complx C/Folic Acid/Zinc 1 tab PO DAILY 02/25/21 02/25/21 02/24/21 History [Dialyvite 800-Zinc 50 mg Tab] Vitamin D3 1,000 tab PO DAILY 02/25/21 02/25/21 02/24/21 History Zofran 4 mg PO PRN PRN 02/25/21 02/25/21 02/23/21 History carvediloL [Coreg] 12.5 mg PO BID 02/25/21 02/25/21 02/24/21 History Active Medications: Generic Name Dose Route Start Last Admin Trade Name Freq PRN Reason Stop Dose Admin Acetaminophen 650 mg 02/24/21 23:17 Acetaminophen 325 Mg Tab PO Q4H PRN Pain MILD(1-3)/Fever >100.5/GOINS Al Hydrox/Mg Hydrox/Simethicone 30 ml 02/24/21 23:17 Alum-Mag Hydroxide-Simethicone [id number]/5ml Oral Liqd 30 Ml PO Q4H PRN Indigestion Amlodipine Besylate 10 mg 02/25/21 10:00 02/25/21 10:14 Amlodipine 10 Mg Tab PO 10 mg QDAY LYNDON Administration Benzocaine/Menthol 1 each 02/25/21 15:00 02/25/21 16:25 Benzocaine/Menthol Lozenge MM 1 each Q2HR PRN Administration Sore Throat Calcium Acetate 1,334 mg 02/25/21 17:00 02/25/21 17:16 Calcium Acetate 667 Mg Cap PO 1,334 mg TIDWM LYNDON Administration Carvedilol 12.5 mg 02/25/21 10:00 02/25/21 21:33 Carvedilol 12.5 Mg Tab PO 12.5 mg BID LYNDON Administration Dextrose 50 gm 02/24/21 20:31 02/25/21 06:40 Dextrose 50% In Water (25gm) 50 Ml Vial IV 50 gm Q30MIN PRN Administration Hypoglycemia Protocol Famotidine 10 mg 02/26/21 10:00 Famotidine 10 Mg Tab PO BID LYNDON Guaifenesin 200 mg 02/25/21 14:11 02/25/21 14:28 Guaifenesin 100 Mg/5 Ml Oral Liqd PO 200 mg Q4H PRN Administration Cough Heparin Sodium (Porcine) 5,000 unit 02/25/21 22:00 02/26/21 06:04 Heparin 5,000 Unit/1 Ml Vial SUB-Q 5,000 unit Q8HR LYNDON Administration Hydralazine HCl 5 mg 02/24/21 23:19 02/26/21 06:04 Hydralazine 20 Mg/1 Ml Inj IV 5 mg Q4HR PRN Administration Hypertension Azithromycin 500 mg in 250 mls @ 250 mls/hr 02/25/21 23:00 02/25/21 22:43 Zithromax/Ns IV 02/28/21 23:59 250 mls/hr Q24H LYNDON Administration Ceftriaxone Sodium 2 gm in 100 mls @ 200 mls/hr 02/25/21 22:00 02/25/21 21:33 Rocephin/Ns 2 Gm/100 Ml IV 03/01/21 23:59 200 mls/hr QHS LYNDON Administration Insulin Human Lispro 0 unit 02/25/21 07:30 02/25/21 22:47 Insulin Lispro 100 Unit/Ml SUB-Q Not Given ACHS [facility] Protocol Loperamide HCl 2 mg 02/25/21 02:13 02/25/21 08:00 Loperamide 2 Mg Cap PO 2 mg Q2H PRN Administration Diarrhea Losartan Potassium 100 mg 02/25/21 10:00 02/25/21 10:13 Losartan 50 Mg Tab PO 100 mg QDAY LYNDON Administration Magnesium Hydroxide 30 ml 02/24/21 23:17 Magnesium Hydroxide (Mom) Oral Liqd Udc PO Q4H PRN Constipation Metoclopramide HCl 5 mg 02/25/21 08:00 Metoclopramide 10 Mg/2 Ml Inj IV Q6H PRN Nausea And Vomiting Ondansetron HCl 4 mg 02/24/21 23:17 Ondansetron 4 Mg/2 Ml Inj IV Q8H PRN Nausea And Vomiting Senna 8.6 mg 02/24/21 23:17 Sennosides 8.6 Mg Tab PO Q12HR PRN Constipation Sodium Chloride 10 ml 02/25/21 10:00 02/25/21 21:34 Sodium Chloride 0.9% 10 Ml Flush Syringe IV 10 ml BID LYNDON Administration Sodium Chloride 10 ml 02/24/21 23:17 Sodium Chloride 0.9% 10 Ml Flush Syringe IV PRN PRN LINE FLUSH Tramadol HCl 50 mg 02/24/21 23:19 Tramadol 50 Mg Tab PO Q6H PRN Pain, Moderate (4-6) Trazodone HCl 50 mg 02/24/21 23:19 Trazodone 50 Mg Tab PO QHS PRN Insomnia
[2021-02-26] MEDS ORDERED: SODIUM CHLORIDE 0.9% 100 ML IV PRN (09:30)
[2021-02-26] MEDS: carvediloL 12.5 MG TAB PO SCH ×2 (10:56→22:15)
[2021-02-26] MEDS: amLODIPine 10 MG TAB PO SCH (10:56)
[2021-02-26] MEDS: CALCIUM ACETATE 667 MG CAP PO SCH ×4 (10:56→22:26)
[2021-02-26] MEDS: LOSARTAN 50 MG TAB PO SCH (10:57)
[2021-02-26] MEDS: FAMOTIDINE 10 MG TAB PO SCH ×2 (10:58→22:14)
--- NOTE | 2021-02-26 10:59 | Progress Note ---
Assessment and Plan Elevated troponin, nonspecific in the setting of renal disease an echo this presentation shows a normal LVEF 50-55%. Moderate LA dilated and mild RV dilation. Mild aortic stenosis, mean gradient 16. Hypoglycemia -reason for admission Pneumonia Hypertension ESRD on hemodialysis Recommend: Mild aortic stenosis seen on echo will be managed conservatively. Subjective Date of service: 02/26/21 Interval history: Patient is resting in bed comfortably. No cardiac complaints. Objective Vital Signs Temp Pulse Resp BP Pulse Ox 02/26/21 07:09 73 18 165/65 99 02/26/21 05:58 76 18 179/80 95 02/26/21 04:34 97.8 F 68 22 179/76 99 02/25/21 22:54 98.6 F 69 20 157/73 97 02/25/21 21:31 98.4 F 69 18 164/73 100 02/25/21 16:55 73 99 02/25/21 15:14 67 175/59 02/25/21 15:05 68 100 02/25/21 11:13 75 99 02/25/21 11:12 95.7 F L 75 20 184/82 99 - Physical Examination General: No Apparent Distress HEENT: Positive: PERRL Neck: Positive: trachea midline Cardiac: Positive: Reg Rate and Rhythm Lungs: Positive: Normal Breath Sounds Neuro: Positive: Grossly Intact Extremities: Absent: edema - Labs and Meds Comprehensive Metabolic Panel 02/26/21 Range/Units 05:42 Sodium 134 L (137-145) mmol/L Potassium 5.6 H D (3.6-5.0) mmol/L Chloride 95.6 L (98-107) mmol/L Carbon Dioxide 23 (22-30) mmol/L BUN 48 H (9-20) mg/dL Creatinine 9.5 H (0.8-1.3) mg/dL Glucose 74 L (75-100) mg/dL Calcium 9.9 (8.4-10.2) mg/dL
--- NOTE | 2021-02-26 13:40 | Progress Note ---
Assessment and Plan Assessment and plan: The patient is a 65-year-old gentleman. He is not known to myself previously. His past medical history includes end-stage renal disease on hemodialysis, Wednesday, Wednesday, Wednesday. He also has a history of hypertension, high cholesterol. He also reports a chronic history of "heart murmur", and also re ports that he is up-to-date with his COVID-19 vaccination status. Patient reports that he was at hemodialysis today, and was referred here for hypoglycemia, apparently had a glucose of 22. The patient states he ate a meal this morning. He also states that he ate lunch. The patient states he does not have a history of diabetes that he is aware of, nor does he take any oral or injectable insulin therapy or hypoglycemic therapy. He has a dry cough. He denies headache, neck pain, chest pain, abdominal pain. He has mild chronic shortness of breath. He does not produce urine. He reports 6 months of nonbloody painless diarrhea. He feels like he is back to his baseline at this time. He reports no history of hypoglycemia in the past that he is aware of. WBC 9.0 hemoglobin 13.8 platelets 364 sodium 133, potassium 4.4, BUN 28 creatinine 6.9. Troponin elevated 0.262 and 0.6262. Patient is started on heparin drip and kinesiotherapist is consulted. Patient seen in the ED at bedside patient is alert oriented x3. Patient reported dizziness while he was on dialysis and blood sugar was checked and it was very low in 20. Patient was brought to the hospital for further care management. I reviewed patient medication record history and physical and vital signs. Checks x-ray done and showed a mild to Shar airspace opacity noted especially within the right lower lung. Patient started on antibiotic empirically blood culture ordered. 02/25: Patient with no chest pain. No changes in EKG. Will stop heparin drip start subcu heparin. Discussed with ibm bpm developer will try to get further records to further evaluate the low blood sugar will also get a noncontrast CT of the abdomen to evaluate the pancreas. Will like to monitor patient additional night as blood sugar still in the low 90s. If continues to be stable will discharge in a.m. 02/26: Obtain CT abdomen and Pelvis to evaluate for possible Insulin mass. Discussed plan with Foot Specialist and Patient. Imaging study reviewed, shows some fullness at the pancreatic head, some groundglass opacities noted. Check insulin level and c-peptid (1) Right lower lobe pneumonia Current Visit: Yes Status: Acute Plan to address problem: Start antibiotic empirically with azithromycin and Rocephin. Respiratory care with bronchodilator oxygen supplement as needed Patient is on room air not in acute distress (2) Hypoglycemia Current Visit: Yes Status: Acute Plan to address problem: Monitor blood sugar Check hemoglobin A1c (3) End stage renal disease on dialysis Current Visit: Yes Status: Acute Plan to address problem: Nephrology consulted Resume hemodialysis today when Monitor electrolytes and kidney function (4) Hyponatremia Current Visit: Yes Status: Acute Plan to address problem: Likely secondary to kidney failure Monitor sodium level Nephrology is following (5) Hypertension Current Visit: Yes Status: Acute Plan to address problem: Monitor blood pressure Resume home antihypertensive As needed hydralazine. (6) type II NSTEMI (7) DVT prophylaxis Current Visit: Yes Status: Acute Plan to address problem: Subcutaneous heparin History Interval history: Patient seen and examined sitting up doing well no acute distress. Still with hypoglycemia. Hospitalist Physical - Physical exam Narrative exam: VITAL SIGNS: Reviewed. GENERAL: The patient appears normally developed, Vital signs as documented. HEAD: No signs of head trauma. EYES: Pupils are equal. Extraocular motions intact. EARS: Hearing grossly intact. MOUTH: Oropharynx is normal. NECK: No adenopathy, no JVD. CHEST: Chest with clear breath sounds bilaterally. No wheezes, rales, or rhonchi. CARDIAC: Regular rate and rhythm. S1 and S2, without murmurs, gallops, or rubs. VASCULAR: AV fistula noted no Edema. Peripheral pulses normal and equal in all extremities. ABDOMEN: Soft, non tender and non distended. No rebound or guarding, and no masses palpated. Bowel Sounds normal. MUSCULOSKELETAL: Good range of motion of all major joints. Extremities without clubbing, cyanosis or edema. NEUROLOGIC EXAM: Alert and oriented x 3 No focal sensory or strength deficits. Speech normal. Follows commands. PSYCHIATRIC: Mood normal. SKIN: detail exam as documented in skin assessment - Constitutional Vitals: Temp Pulse Resp BP Pulse Ox 98.3 F 71 16 192/92 100 02/26/21 13:00 02/26/21 13:00 02/26/21 13:00 02/26/21 13:00 02/26/21 11:37 General appearance: Present: no acute distress HEART Score - HEART Score Troponin: Troponin T 0.262 ng/mL (0.00-0.029) H* 02/25/21 00:24 Results - Labs CBC & Chem 7: 02/25/21 06:38 02/26/21 05:42 Labs: Laboratory Last Values WBC 8.7 K/mm3 (4.5-11.0) 02/25/21 06:38 RBC 3.93 M/mm3 (3.65-5.03) 02/25/21 06:38 Hgb 11.7 gm/dl (11.8-15.2) L 02/25/21 06:38 Hct 35.2 % (35.5-45.6) L 02/25/21 06:38 MCV 90 fl (84-94) 02/25/21 06:38 MCH 30 pg (28-32) 02/25/21 06:38 MCHC 33 % (32-34) 02/25/21 06:38 RDW 14.6 % (13.2-15.2) 02/25/21 06:38 Plt Count 342 K/mm3 (140-440) 02/25/21 06:38 Lymph % (Auto) 22.1 % (13.4-35.0) 02/25/21 06:38 [place] % (Auto) 6.3 % (0.0-7.3) 02/25/21 06:38 Eos % (Auto) 1.5 % (0.0-4.3) 02/25/21 06:38 Baso % (Auto) 1.3 % (0.0-1.8) 02/25/21 06:38 Lymph # (Auto) 1.9 K/mm3 (1.2-5.4) 02/25/21 06:38 [place] # (Auto) 0.5 K/mm3 (0.0-0.8) 02/25/21 06:38 Eos # (Auto) 0.1 K/mm3 (0.0-0.4) 02/25/21 06:38 Baso # (Auto) 0.1 K/mm3 (0.0-0.1) 02/25/21 06:38 Seg Neutrophils % 68.8 % (40.0-70.0) 02/25/21 06:38 Seg Neutrophils # 6.0 K/mm3 (1.8-7.7) 02/25/21 06:38 PT 10.1 Sec. (12.2-14.9) L 02/25/21 00:35 INR 0.67 (0.87-1.13) L 02/25/21 00:35 APTT < 20.0 Sec. (24.2-36.6) L 02/25/21 00:35 Heparin Anti-Xa Level < 0.10 U.I./ml (0.3-0.7) L 02/26/21 09:09 Sodium 134 mmol/L (137-145) L 02/26/21 05:42 Potassium 5.6 mmol/L (3.6-5.0) H D 02/26/21 05:42 Chloride 95.6 mmol/L (98-107) L 02/26/21 05:42 Carbon Dioxide 23 mmol/L (22-30) 02/26/21 05:42 Anion Gap 21 mmol/L 02/26/21 05:42 BUN 48 mg/dL (9-20) H 02/26/21 05:42 Creatinine 9.5 mg/dL (0.8-1.3) H 02/26/21 05:42 Estimated GFR 7 ml/min 02/26/21 05:42 BUN/Creatinine Ratio 5 % 02/26/21 05:42 Glucose 74 mg/dL (75-100) L 02/26/21 05:42 POC Glucose 109 mg/dL (70-105) H 02/26/21 11:39 Hemoglobin A1c 4.8 % (4-6) 02/25/21 06:38 Lactic Acid 1.60 mmol/L (0.7-2.0) 02/24/21 20:33 Calcium 9.9 mg/dL (8.4-10.2) 02/26/21 05:42 Total Bilirubin 0.30 mg/dL (0.1-1.2) 02/24/21 18:06 AST 32 units/L (5-40) 02/24/21 18:06 ALT 12 units/L (7-56) 02/24/21 18:06 Alkaline Phosphatase 102 units/L (35-129) 02/24/21 18:06 Troponin T 0.262 ng/mL (0.00-0.029) H* 02/25/21 00:24 Total Protein 8.4 g/dL (6.3-8.2) H 02/24/21 18:06 Albumin 4.4 g/dL (3.9-5) 02/24/21 18:06 Albumin/Globulin Ratio 1.1 % 02/24/21 18:06 Triglycerides 78 mg/dL (2-149) 02/24/21 18:06 Cholesterol 111 mg/dL (50-199) 02/24/21 18:06 LDL Cholesterol Direct 53 mg/dL (50-130) 02/24/21 18:06 HDL Cholesterol 53 mg/dL (40-59) 02/24/21 18:06 Cholesterol/HDL Ratio 2.09 % 02/24/21 18:06 TSH 0.518 mlU/mL (0.270-4.200) 02/24/21 19:00 Microbiology: Microbiology 02/24/21 20:33 Peripheral/Venous Blood Culture - Preliminary NO GROWTH AFTER 24 HOURS 02/24/21 20:39 Peripheral/Venous Blood Culture - Preliminary NO GROWTH AFTER 24 HOURS Monk/IV: Voiding Method Toilet Active Medications - Current Medications Current Medications: Generic Name Dose Route Start Last Admin Trade Name Freq PRN Reason Stop Dose Admin Acetaminophen 650 mg 02/24/21 23:17 Acetaminophen 325 Mg Tab PO Q4H PRN Pain MILD(1-3)/Fever >100.5/GOINS Al Hydrox/Mg Hydrox/Simethicone 30 ml 02/24/21 23:17 Alum-Mag Hydroxide-Simethicone [id number]/5ml Oral Liqd 30 Ml PO Q4H PRN Indigestion Amlodipine Besylate 10 mg 02/25/21 10:00 02/26/21 10:56 Amlodipine 10 Mg Tab PO 10 mg QDAY LYNDON Administration Benzocaine/Menthol 1 each 02/25/21 15:00 02/25/21 16:25 Benzocaine/Menthol Lozenge MM 1 each Q2HR PRN Administration Sore Throat Calcium Acetate 1,334 mg 02/25/21 17:00 02/26/21 10:56 Calcium Acetate 667 Mg Cap PO 1,334 mg TIDWM LYNDON Administration Carvedilol 12.5 mg 06/22/21 10:00 02/26/21 10:56 Carvedilol 12.5 Mg Tab PO 12.5 mg BID LYNDON Administration Dextrose 50 gm 02/24/21 20:31 02/25/21 06:40 Dextrose 50% In Water (25gm) 50 Ml Vial IV 50 gm Q30MIN PRN Administration Hypoglycemia Protocol Famotidine 10 mg 02/26/21 10:00 02/26/21 10:58 Famotidine 10 Mg Tab PO 10 mg BID LYNDON Administration Guaifenesin 200 mg 02/25/21 14:11 02/25/21 14:28 Guaifenesin 100 Mg/5 Ml Oral Liqd PO 200 mg Q4H PRN Administration Cough Heparin Sodium (Porcine) 5,000 unit 02/25/21 22:00 02/26/21 06:04 Heparin 5,000 Unit/1 Ml Vial SUB-Q 5,000 unit Q8HR LYNDON Administration Hydralazine HCl 5 mg 02/24/21 23:19 02/26/21 06:04 Hydralazine 20 Mg/1 Ml Inj IV 5 mg Q4HR PRN Administration Hypertension Azithromycin 500 mg in 250 mls @ 250 mls/hr 02/25/21 23:00 02/25/21 22:43 Zithromax/Ns IV 02/28/21 23:59 250 mls/hr Q24H LYNDON Administration Ceftriaxone Sodium 2 gm in 100 mls @ 200 mls/hr 02/25/21 22:00 02/25/21 21:33 Rocephin/Ns 2 Gm/100 Ml IV 03/01/21 23:59 200 mls/hr QHS LYNDON Administration Sodium Chloride 100 mls @ 999 mls/hr 02/26/21 09:30 Nacl 0.9% IV CALI PRN Hypotension Loperamide HCl 2 mg 02/25/21 02:13 02/25/21 08:00 Loperamide 2 Mg Cap PO 2 mg Q2H PRN Administration Diarrhea Losartan Potassium 100 mg 02/25/21 10:00 02/26/21 10:57 Losartan 50 Mg Tab PO 100 mg QDAY LYNDON Administration Magnesium Hydroxide 30 ml 02/24/21 23:17 Magnesium Hydroxide (Mom) Oral Liqd Udc PO Q4H PRN Constipation Metoclopramide HCl 5 mg 02/25/21 08:00 Metoclopramide 10 Mg/2 Ml Inj IV Q6H PRN Nausea And Vomiting Ondansetron HCl 4 mg 02/24/21 23:17 Ondansetron 4 Mg/2 Ml Inj IV Q8H PRN Nausea And Vomiting Senna 8.6 mg 02/24/21 23:17 Sennosides 8.6 Mg Tab PO Q12HR PRN Constipation Sodium Chloride 10 ml 02/25/21 10:00 02/26/21 10:59 Sodium Chloride 0.9% 10 Ml Flush Syringe IV 10 ml BID LYNDON Administration Sodium Chloride 10 ml 02/24/21 23:17 02/26/21 10:58 Sodium Chloride 0.9% 10 Ml Flush Syringe IV 10 ml PRN PRN Administration LINE FLUSH Tramadol HCl 50 mg 02/24/21 23:19 Tramadol 50 Mg Tab PO Q6H PRN Pain, Moderate (4-6) Trazodone HCl 50 mg 02/24/21 23:19 Trazodone 50 Mg Tab PO QHS PRN Insomnia
--- NOTE | 2021-02-26 13:42 | Cat Scan Report ---
CT ABDOMEN AND PELVIS WITH CONTRAST INDICATION / CLINICAL INFORMATION: pancreatic mass, [id number] 100ml. TECHNIQUE: Axial CT images were obtained through the abdomen and pelvis after 100 cc of Omnipaque [address] scans at this location are performed using CT dose reduction for ALARA by means of automated exposure control. COMPARISON: Noncontrast CT scan of the abdomen and pelvis dated 02/25/2021 FINDINGS: LOWER CHEST: Nodular groundglass opacities in the right lung base are again noted. LIVER: No acute abnormality GALLBLADDER: No significant abnormality. BILE DUCTS: No significant abnormality. PANCREAS: No significant abnormality. SPLEEN: No significant abnormality. ADRENALS: There are bilateral adrenal nodules. Right adrenal nodule measures 9 Hounsfield units and m easures 3 cm there is a 4.5 cm nodule left adrenal gland. There are additional smaller nodules in bot h adrenal glands. RIGHT KIDNEY / URETER: Polycystic kidney disease LEFT KIDNEY / URETER: Polycystic kidney disease is again noted. STOMACH / SMALL BOWEL: There is some wall thickening noted in the distal stomach COLON: No significant abnormality. APPENDIX: No significant abnormality. PERITONEUM: No free fluid. No free air. No fluid collection. LYMPH NODES: No significant adenopathy. AORTA / ARTERIES: Moderate atherosclerotic calcification without acute abnormality. IVC / VEINS: No significant abnormality. URINARY BLADDER: No significant abnormality. REPRODUCTIVE ORGANS: Prostate is enlarged. ADDITIONAL FINDINGS: There is a fat-containing ventral hernia. SKELETAL SYSTEM: No significant abnormality. IMPRESSION: 1. No discrete pancreatic mass is identified. There is no biliary or pancreatic ductal dilatation. 2. There are bilateral adrenal nodules differential diagnosis includes benign and malignant etiologie s. 3. Nodular groundglass densities in the right lower lung zone appear unchanged from yesterday's study . 4. There is wall thickening noted in the distal stomach which is not specific but could indicate vic ritis. 5. Polycystic kidney disease. Signer Name: Gilberto Payne MD Signed: 02/26/2021 1:37 PM Workstation Name: [email or web address]
[2021-02-26 17:07] LABS: Hepatitis B Surface Antigen Non-Reactive (Negative); Hepatitis C Virus Antibody Non-Reactive (NonReactive)
--- NOTE | 2021-02-26 19:15 | Electrocardiograph Report ---
[facility] Test Date: 2021-02-24 Test Time: 19:38:59 Pat Name: HECTOR EATON Department: Room: A376 1 Gender: M [employer]: ROSEMARY : [id number] Requested By: ELENO CHANG Order Number: [id number] Reading MD: Ugo Cody Measurements Intervals [place] Rate: 82 P: 62 OK: 167 QRS: -22 QRSD: 83 T: 60 QT: 421 QTc: 492 Interpretive Statements Sinus rhythm Probable left atrial enlargement No previous ECG available for comparison Electronically Signed On 02-26-2021 19:15:03 EDT by Ugo Cody
[2021-02-26] MEDS: cefTRIAXone/NS 2 GM/100 ML 2 GM/100 ML BAG IV SCH (22:14)
[2021-02-26] MEDS: AZITHROMYCIN/NS 500 MG/250 ML 500 MG/250 ML BAG IV SCH (23:15)
[2021-02-27] MEDS: HEPARIN 5,000 UNIT/1 ML VIAL SUB-Q SCH ×2 (05:41→13:09)
[2021-02-27] MEDS: hydrALAZINE 20 MG/1 ML INJ IV PRN (05:42)
[2021-02-27 08:21] LABS: Hematocrit 36.3 % (35.5-45.6); Hemoglobin 12.2 gm/dl (11.8-15.2); Mean Corpuscular HGB Conc 34 % (32-34); Mean Corpuscular Volume 89 fl (84-94); Platelet Count 331 K/mm3 (140-440); Red Cell Distribution Width 14.4 % (13.2-15.2)
[2021-02-27 08:44] LABS: Albumin 3.7 g/dL (3.9-5); Calcium 9.9 mg/dL (8.4-10.2)
[2021-02-27] MEDS: CALCIUM ACETATE 667 MG CAP PO SCH ×2 (09:52→13:08)
[2021-02-27] MEDS: LOSARTAN 50 MG TAB PO SCH (09:52)
[2021-02-27] MEDS: amLODIPine 10 MG TAB PO SCH (09:53)
[2021-02-27] MEDS: carvediloL 12.5 MG TAB PO SCH (09:53)
[2021-02-27] MEDS: FAMOTIDINE 10 MG TAB PO SCH (09:53)
[2021-02-27] MEDS ORDERED: ISOSORBIDE MONONITRATE 60 MG PO SCH (10:00)
[2021-02-27] MEDS ORDERED: NON-FORMULARY EACH (Nifedipine [Adalat Cc] 90 MG Tablet.Er) PO SCH (10:00)
[2021-02-27] MEDS ORDERED: CINACALCET 30 MG TAB PO SCH (10:00)
--- NOTE | 2021-02-27 10:17 | Progress Note ---
Assessment and Plan Elevated troponin, nonspecific in the setting of renal disease an echo this presentation shows a normal LVEF 50-55%. Moderate LA dilated and mild RV dilation. Mild aortic stenosis, mean gradient 16. Hypoglycemia -reason for admission Pneumonia Hypertension ESRD on hemodialysis Conservative cardiac management. Subjective Date of service: 02/27/21 Interval history: No cardiac complaints. Objective Vital Signs Temp Pulse Resp BP Pulse Ox 02/27/21 05:42 76 190/89 02/27/21 04:10 98.8 F 73 16 171/78 97 02/27/21 04:07 98.8 F 76 18 190/89 95 02/26/21 22:15 74 162/68 02/26/21 22:00 100 02/26/21 21:15 98.3 F 74 16 162/68 100 02/26/21 17:33 98.5 F 79 16 189/90 99 02/26/21 17:15 74 156/80 02/26/21 17:00 70 148/64 02/26/21 16:45 71 167/93 02/26/21 16:30 71 182/88 02/26/21 16:15 73 148/74 02/26/21 16:00 75 146/86 02/26/21 15:45 70 204/90 02/26/21 15:30 69 201/92 02/26/21 15:15 71 194/91 02/26/21 15:00 69 197/95 02/26/21 14:45 70 200/90 02/26/21 14:30 69 202/92 02/26/21 14:15 72 190/95 02/26/21 14:00 70 192/95 02/26/21 13:45 73 186/92 02/26/21 13:30 73 186/101 02/26/21 13:15 71 192/92 02/26/21 13:00 98.3 F 71 16 192/92 02/26/21 11:37 98.6 F 76 16 182/81 100 - Physical Examination General: No Apparent Distress HEENT: Positive: PERRL Neck: Positive: trachea midline Cardiac: Positive: Reg Rate and Rhythm Lungs: Positive: Decreased Breath Sounds Neuro: Positive: Grossly Intact Extremities: Absent: edema - Labs and Meds Cardiac Enzymes 02/27/21 Range/Units 07:30 AST 19 (5-40) units/L CBC 02/27/21 Range/Units 07:30 WBC 6.3 (4.5-11.0) K/mm3 RBC 4.10 (3.65-5.03) M/mm3 Hgb 12.2 (11.8-15.2) gm/dl Hct 36.3 (35.5-45.6) % Plt Count 331 (140-440) K/mm3 Comprehensive Metabolic Panel 02/27/21 Range/Units 07:30 Sodium 138 (137-145) mmol/L Potassium 4.6 (3.6-5.0) mmol/L Chloride 97.6 L (98-107) mmol/L Carbon Dioxide 26 (22-30) mmol/L BUN 34 H (9-20) mg/dL Creatinine 7.9 H (0.8-1.3) mg/dL Glucose 70 L (75-100) mg/dL Calcium 9.9 (8.4-10.2) mg/dL AST 19 (5-40) units/L ALT 9 (7-56) units/L Alkaline Phosphatase 88 (35-129) units/L Total Protein 6.0 L D (6.3-8.2) g/dL Albumin 3.7 L (3.9-5) g/dL
[2021-02-27] MEDS ORDERED: NIFEdipine XL 90 MG TAB PO SCH (12:00)
[2021-02-27] MEDS ORDERED: ASPIRIN 81 MG TAB CHEW PO SCH (12:00)
--- NOTE | 2021-02-27 12:02 | Discharge Summary ---
Providers - Providers Date of Admission: 02/25/21 15:57 Attending physician: OCTAVIA BUTTERFIELD MD 02/24/21 23:21 Consult to Physician [CONS] Routine Comment: Consulting Provider: JENNY NIXON Physician Instructions: Reason For Exam: esrd 02/25/21 03:22 Consult to Physician [CONS] Routine Comment: Consulting Provider: BOLA MANJARREZ Physician Instructions: Reason For Exam: troponin Primary care physician: RADIATION PHYSICIST Hospitalization Reason for admission: Altered mental status Condition: Good Hospital course: The patient is a 65-year-old gentleman. He is not known to myself previously. His past medical history includes end-stage renal disease on hemodialysis, Wednesday, Wednesday, Wednesday. He also has a history of hypertension, high cholesterol. He also reports a chronic history of "heart murmur", and also reports that he is up-to-date with his COVID-19 vaccination status. Patient reports that he was at hemodialysis today, and was referred here for hypoglycemia, apparently had a glucose of 22. The patient states he ate a meal this morning. He also states that he ate lunch. The patient states he does not have a history of diabetes that he is aware of, nor does he take any oral or injectable insulin therapy or hypoglycemic therapy. He has a dry cough. He denies headache, neck pain, chest pain, abdominal pain. He has mild chronic shortness of breath. He does not produce urine. He reports 6 months of nonbloody painless diarrhea. He feels like he is back to his baseline at this time. He reports no history of hypoglycemia in the past that he is aware of. WBC 9.0 hemoglobin 13.8 platelets 364 sodium 133, potassium 4.4, BUN 28 creatinine 6.9. Troponin elevated 0.262 and 0.6262. Patient is started on heparin drip and cp bleacher operator is consulted. Patient seen in the ED at bedside patient is alert oriented x3. Patient reported dizziness while he was on dialysis and blood sugar was checked and it was very low in 20. Patient was brought to the hospital for further care management. I reviewed patient medication record history and physical and vital signs. Checks x-ray done and showed a mild to Shar airspace opacity noted especially within the right lower lung. Patient started on antibiotic empirically blood culture ordered. 02/25: Patient with no chest pain. No changes in EKG. Will stop heparin drip start subcu heparin. Discussed with siebel architect will try to get further records to further evaluate the low blood sugar will also get a noncontrast CT of the abdomen to evaluate the pancreas. Will like to monitor patient additional night as blood sugar still in the low 90s. If continues to be stable will discharge in a.m. 02/26: Obtain CT abdomen and Pelvis to evaluate for possible Insulin mass. Discussed plan with Marketing Producer and Patient. Imaging study reviewed, shows some fullness at the pancreatic head, some groundglass opacities noted. Check insulin level and c-peptid 02/27: Patient clinically stable and improving. CT abdomen and pelvis with contrast did not reveal any discrete pancreatic mass. I have discussed with the patient importance of following up outpatient for continued work-up. He verbalized understanding. Especially during dialysis days to ensure that he eats. (1) Right lower lobe pneumonia Current Visit: Yes Status: Acute Plan to address problem: Start antibiotic empirically with azithromycin and Rocephin. Respiratory care with bronchodilator oxygen supplement as needed Patient is on room air not in acute distress (2) Hypoglycemia Current Visit: Yes Status: Acute Plan to address problem: Monitor blood sugar Check hemoglobin A1c (3) End stage renal disease on dialysis Current Visit: Yes Status: Acute Plan to address problem: Nephrology consulted Resume hemodialysis today when Monitor electrolytes and kidney function (4) Hyponatremia Current Visit: Yes Status: Acute Plan to address problem: Likely secondary to kidney failure Monitor sodium level Nephrology is following (5) Hypertension Current Visit: Yes Status: Acute Plan to address problem: Monitor blood pressure Resume home antihypertensive As needed hydralazine. (6) type II NSTEMI Disposition: - TO HOME OR SELFCARE Final Discharge Diagnosis (Prints w/discharge instructions): Hypoglycemia with altered mental status Time spent for discharge: 35 minutes Core Measure Documentation - Palliative Care Palliative Care/ Comfort Measures: Not Applicable - Core Measures Any of the following diagnoses?: none Exam - Physical Exam Narrative exam: VITAL SIGNS: Reviewed. GENERAL: The patient appears normally developed, Vital signs as documented. HEAD: No signs of head trauma. EYES: Pupils are equal. Extraocular motions intact. EARS: Hearing grossly intact. MOUTH: Oropharynx is normal. NECK: No adenopathy, no JVD. CHEST: Chest with clear breath sounds bilaterally. No wheezes, rales, or rhonchi. CARDIAC: Regular rate and rhythm. S1 and S2, without murmurs, gallops, or rubs. VASCULAR: AV fistula noted no Edema. Peripheral pulses normal and equal in all extremities. ABDOMEN: Soft, non tender and non distended. No rebound or guarding, and no masses palpated. Bowel Sounds normal. MUSCULOSKELETAL: Good range of motion of all major joints. Extremities without clubbing, cyanosis or edema. NEUROLOGIC EXAM: Alert and oriented x 3 No focal sensory or strength deficits. Speech normal. Follows commands. PSYCHIATRIC: Mood normal. SKIN: detail exam as documented in skin assessment - Constitutional Vitals: Temp Pulse Resp BP Pulse Ox 98.8 F 76 16 190/89 97 02/27/21 04:10 02/27/21 05:42 02/27/21 04:10 02/27/21 05:42 02/27/21 04:10 Plan Activity: advance as tolerated, fall precautions Diet: renal Special Instructions: record daily weights, record daily BP diary, record blood sugar diary Follow up with: PRIMARY MD YARI [Primary Care Provider] - 3-5 Days JOSE DANIEL MILLER MD [Staff Physician] - 7 Days Prescriptions: Dextrose/Maltodextrin [Glucose Powder Packets] 1 each PO PRN #30 [email or web address]
[2021-02-27 12:51] VITALS: BP 169/81
[2021-02-27] MEDS: BENZOCAINE/MENTHOL LOZENGE MM PRN (14:51)
== END 2021-02-27 16:15 | disposition home or self-care (01) | DRG 193 ==
LOC: ED 15:54 → 3A 20:52 → OBSVTOIN 02-25 15:57
PROVIDERS: ADMIT Internal Medicine Geriatric Medicine; ATTEND Internal Medicine
PROC: 5A1D70Z Performance of Urinary Filtration, Intermittent, Less than 6 Hours Per Day (ICD-10-PCS; principal; 2021-02-26)
DX: J18.1 Lobar pneumonia, unspecified organism (principal); N18.6 End stage renal disease; I21.A1 Myocardial infarction type 2; I13.2 Hypertensive heart and chronic kidney disease with heart failure and with stage 5 chronic kidney disease, or end stage renal disease; E87.1 Hypo-osmolality and hyponatremia; N25.81 Secondary hyperparathyroidism of renal origin; E16.2 Hypoglycemia, unspecified; I50.9 Heart failure, unspecified; E78.00 Pure hypercholesterolemia, unspecified; E78.5 Hyperlipidemia, unspecified; I35.0 Nonrheumatic aortic (valve) stenosis; D63.1 Anemia in chronic kidney disease; Z99.2 Dependence on renal dialysis; Z79.4 Long term (current) use of insulin; Z83.3 Family history of diabetes mellitus; Z82.49 Family history of ischemic heart disease and other diseases of the circulatory system; Z88.2 Allergy status to sulfonamides; Z79.899 Other long term (current) drug therapy; Z79.891 Long term (current) use of opiate analgesic; Z79.01 Long term (current) use of anticoagulants; Z79.82 Long term (current) use of aspirin
CPT/HCPCS: 36415; 71046; 74176; 74177; 80048; 80053; 80061; 80074; 82140; 82962; 83036; 83525; 84443; 84484; 84681; 85014; 85018; 85025; 85027; 85049; 85520; 85610; 85730; 87040; 93005; 93306; 96374; 96375; G0378; J0360; J0456; J0696; J1644; Q9967

== ENCOUNTER 2021-09-22 08:13 | Inpatient (IN) | payer MEDICARE ==
--- NOTE | 2021-09-22 08:21 | Emergency Department Report ---
ED General Adult HPI - General Chief complaint: Dyspnea/Respdistress Stated complaint: DIFFICULTY BREATHING PUI?: No Time Seen by Provider: 09/22/21 08:16 Source: patient, EMS (Verbal report received from emergency medical services. EMS documentation not available at time of chart dictation ), RN notes reviewed, old records reviewed Limitations: Physical Limitation - History of Present Illness Initial comments: The patient was evaluated in the emergency department for symptoms described in the history of present illness. He/she was evaluated in the context of the global COVID-19 pandemic, which necessitated consideration that the patient might be at risk for infection with the virus that causes COVID-19. Institutional protocols and algorithms that pertain to the evaluation of patients at risk for COVID-19 are in a state of rapid change based on information released by regulatory bodies including the CDC and federal and state organizations. These policies and algorithms were followed during the patient's care in the emergency department. Please note that these policies, procedures and recommendations changed on a rapid basis. Nephrology: Dr. Perez Past medical history: End-stage renal disease on hemodialysis, Wednesday. Hypertension, hypoxic respiratory failure, hyperlipidemia, does not produce urine, recently had CT scan of the chest at this hospital which demonstrated no pulmonary embolism, but prominent left lower lobe pneumonia. The patient was discharged from this hospital yesterday. He is brought to the hospital today by emergency medical services with a complaint of painless shortness of breath. The patient reports that he is not having physical pain, he endorses that he has received his COVID-19 vaccinations and boosters. He also reports that he has lower extremity swelling. He was found to be hypoxic in the field by EMS, and they started him on CPAP. The patient states this improved his symptoms. -: Sudden Consistency: constant Improves with: rest Worsens with: movement - Related Data Home Medications Medication Instructions Recorded Confirmed Last Taken AtorvaSTATin [Lipitor] 40 mg PO QHS 02/25/21 09/22/21 09/14/21 Cinacalcet [Sensipar] 60 mg PO DAILY 02/25/21 09/22/21 09/14/21 Losartan [Cozaar] 100 mg PO QDAY 02/25/21 09/22/21 09/14/21 Vit B Complx C/Folic Acid/Zinc 1 tab PO DAILY 02/25/21 09/22/21 09/14/21 [Dialyvite 800-Zinc 50 mg Tab] carvediloL [Coreg] 12.5 mg PO QDAY 02/25/21 09/22/21 09/14/21 Calcium Acetate 2,001 mg PO TID 09/15/21 09/22/21 09/14/21 Aspirin EC [Halfprin EC] 81 mg PO QDAY 09/18/21 09/22/21 09/14/21 Isosorbide Mononitrate [Isosorbide 60 mg PO QAM 09/18/21 09/22/21 09/14/21 Mononitrate ER] Latanoprost 0.005% 1 drop OU QPM 09/18/21 09/22/21 09/14/21 Previous Rx's Medication Instructions Recorded Last Taken Type Cholecalciferol Vit D3 [Vitamin D3 1,000 unit PO DAILY tablet 09/21/21 Unknown Rx 1,000 UNIT TAB] Latanoprost 0.005% 1 drops OU QPM #1 bottle 09/21/21 Unknown Rx NIFEdipine [Adalat cc] 90 mg PO DAILY #90 09/21/21 Unknown Rx levoFLOXacin [Levaquin TAB] 500 mg PO QDAY #7 tablet 09/21/21 Unknown Rx Allergies Allergy/AdvReac Type Severity Reaction Status Date / Time shellfish derived AdvReac Anaphylaxis Verified 09/22/21 09:46 ED Review of Systems ROS: Stated complaint: DIFFICULTY BREATHING Other details as noted in HPI Comment: Unobtainable due to pts medical conditions Constitutional: malaise, weakness ENT: congestion Respiratory: shortness of breath Cardiovascular: dyspnea on exertion, edema. denies: chest pain Gastrointestinal: denies: abdominal pain Neurological: weakness ED Past Medical Hx - Past Medical History Hx Hypertension: Yes Hx Diabetes: Yes Hx Renal Disease: Yes (HD mwf) Hx HIV: No - Social History Smoking Status: Unknown if ever smoked - Medications Home Medications: Home Medications Medication Instructions Recorded Confirmed Last Taken Type AtorvaSTATin [Lipitor] 40 mg PO QHS 02/25/21 09/22/21 09/14/21 History Cinacalcet [Sensipar] 60 mg PO DAILY 02/25/21 09/22/21 09/14/21 History Losartan [Cozaar] 100 mg PO QDAY 02/25/21 09/22/21 09/14/21 History Vit B Complx C/Folic Acid/Zinc 1 tab PO DAILY 02/25/21 09/22/21 09/14/21 History [Dialyvite 800-Zinc 50 mg Tab] carvediloL [Coreg] 12.5 mg PO QDAY 02/25/21 09/22/21 09/14/21 History Calcium Acetate 2,001 mg PO TID 09/15/21 09/22/21 09/14/21 History Aspirin EC [Halfprin EC] 81 mg PO QDAY 09/18/21 09/22/21 09/14/21 History Isosorbide Mononitrate [Isosorbide 60 mg PO QAM 09/18/21 09/22/21 09/14/21 History Mononitrate ER] Latanoprost 0.005% 1 drop OU QPM 09/18/21 09/22/21 09/14/21 History Cholecalciferol Vit D3 [Vitamin D3 1,000 unit PO DAILY tablet 09/21/21 09/22/21 Unknown Rx 1,000 UNIT TAB] Latanoprost 0.005% 1 drops OU QPM #1 bottle 09/21/21 09/22/21 Unknown Rx NIFEdipine [Adalat cc] 90 mg PO DAILY #90 09/21/21 09/22/21 Unknown Rx levoFLOXacin [Levaquin TAB] 500 mg PO QDAY #7 tablet 09/21/21 09/22/21 Unknown Rx ED Physical Exam - General Limitations: Physical Limitation General appearance: anxious, in distress - Head Head exam: Present: atraumatic, normocephalic - Eye Eye exam: Present: normal appearance, EOMI. Absent: nystagmus - ENT ENT exam: Present: normal exam, normal orophraynx, mucous membranes moist, normal external ear exam - Neck Neck exam: Present: normal inspection, full ROM. Absent: tenderness, meningismus - Respiratory Respiratory exam: Present: respiratory distress, wheezes, rales, rhonchi - Cardiovascular Cardiovascular Exam: Present: regular rate, normal rhythm, JVD. Absent: bradycardia, tachycardia, irregular rhythm, systolic murmur, diastolic murmur, rubs, gallop - GI/Abdominal GI/Abdominal exam: Present: soft. Absent: distended, tenderness, guarding, rebound, rigid, pulsatile mass - Rectal Rectal exam: Present: deferred - Extremities Exam Extremities exam: Present: normal inspection (Right upper extremity fistula, without redness, pus or streaking.), full ROM, pedal edema (2-3+ edema in the bilateral lower extremities.), other (2+ pulses noted in the bilateral upper and lower extremities. There is no palpable cord. negative Homans sign. Muscular compartments are soft. The pelvis is stable.). Absent: calf tenderness - Back Exam Back exam: Present: normal inspection. Absent: tenderness, CVA tenderness (R), CVA tenderness (L), paraspinal tenderness, vertebral tenderness - Neurological Exam Neurological exam: Present: alert, other (No facial droop. Tongue midline. Extraocular movements intact bilaterally. Facial sensation intact to light touch in V1, V2, V3 distribution bilaterally. 5 and a 5 strength in 4 extre mities. Sensation intact to light touch in 4 extremities.) - Psychiatric Psychiatric exam: Present: anxious - Skin Skin exam: Present: warm, dry, intact, normal color. Absent: rash ED Course Vital Signs 09/22/21 09/22/21 09/22/21 08:24 08:30 08:46 Temperature Pulse Rate 86 87 Respiratory 22 19 Rate Blood Pressure 197/62 197/62 O2 Sat by Pulse 93 92 94 Oximetry 09/22/21 09/22/21 09/22/21 08:53 09:00 09:16 Temperature 98.5 F Pulse Rate 90 84 74 Respiratory 21 20 17 Rate Blood Pressure 191/61 162/47 162/47 O2 Sat by Pulse 91 97 100 Oximetry 09/22/21 09/22/21 09/22/21 09:30 09:35 09:46 Temperature Pulse Rate 73 74 Respiratory 17 21 18 Rate Blood Pressure 179/58 179/58 O2 Sat by Pulse 98 100 99 Oximetry - Reevaluation(s) Reevaluation #1: 09/22/21 08:56 Differential diagnosis, including but not limited to: Hypertensive cardiomyopathy, flash pulmonary edema, pneumonia, DVT, pulmonary embolism Assessment and plan: 66-year-old gentleman with acute hypoxic respiratory failure, who is COVID-19 vaccinated, recently admitted to this hospital for acute hypoxic respiratory failure, had CT scan of the chest, CT angiogram chest recently which were negative for pulmonary embolism but positive for left lower lobe pneumonia, who presents today with recurrent hypoxic respiratory failure. Patient rather hypertensive and has labored work of breathing. He will not be able to lay flat for recurrent CT angiogram chest, and I suspect flash pulmonary edema and recurrence of pneumonia symptoms as the primary etiology of his presentation. We will obtain appropriate laboratory studies, x-ray the chest, bilateral lower extremity DVT study, and admit this patient to the medical service once his initial diagnostics have resulted. We will also discuss with his nephrology group once his diagnostics have resulted. I discussed this plan of care with the patient. He articulated understanding. 09/22/21 10:06 Patient clinically improved on BiPAP. Laboratory studies demonstrate azotemia, uremia, mild hyperkalemia, leukocytosis and elevated troponin. Nephrology consultation pending. X-ray shows worsening multilobar infiltrates. Uncertain if this is worsening community-acquired pneumonia or healthcare associated pneumonia. We will therefore cover with vancomycin, cefepime and azithromycin. Aspirin ordered, although elevated troponin is likely a type II troponin leak. Hospital physician, Dr. Prasad, to admit patient to the IMCU. 09/22/21 10:08 Appreciate that patient ruling in sepsis/systemic inflammatory response syndrome. However, he has objective evidence of fluid overload, manifest by JVD, hypoxia, and lower extremity edema. Therefore, we will not administer 30 cc/kg bolus of IV fluids. Reevaluation #2: 09/22/21 10:31 Bilateral lower extremity DVT study negative for DVT. - Consultations Consultation #1: 09/22/21 10:13 Discussed the patient's history, physical, laboratory studies imaging studies and clinical impression with nephrology on-call, Dr. Barriga. She is in agreement with the plan of care, and the nephrology group will follow in consultation. ED Medical Decision Making - Lab Data Result diagrams: 09/22/21 09:07 09/22/21 09:07 Vital Signs 09/22/21 08:46 Pulse Rate 81 Respiratory 22 Rate Blood Pressure 197/62 O2 Sat by Pulse 96 Oximetry Lab Results 09/22/21 09/22/21 09/22/21 Range/Units 09:07 09:07 09:07 WBC 18.5 H (4.5-11.0) K/mm3 RBC 3.39 L (3.65-5.03) M/mm3 Hgb 9.7 L (11.8-15.2) gm/dl Hct 29.6 L (35.5-45.6) % MCV 87 (84-94) fl MCH 29 (28-32) pg MCHC 33 (32-34) % RDW 15.3 H (13.2-15.2) % Plt Count 450 H (140-440) K/mm3 Eos % (Auto) Private Wealth Advisor PT 14.0 (12.2-14.9) Sec. INR 0.97 (0.87-1.13) APTT 31.1 (24.2-36.6) Sec. Sodium 135 L (137-145) mmol/L Potassium 5.5 H (3.6-5.0) mmol/L Chloride 96.1 L (98-107) mmol/L Carbon Dioxide 19 L (22-30) mmol/L Anion Gap 25 mmol/L BUN 63 H (9-20) mg/dL Creatinine 10.6 H (0.8-1.3) mg/dL Estimated GFR 6 ml/min BUN/Creatinine Ratio 6 % Glucose 124 H (75-100) mg/dL Lactic Acid (0.7-2.0) mmol/L Calcium 9.5 (8.4-10.2) mg/dL Magnesium 2.10 (1.7-2.3) mg/dL Total Bilirubin 0.30 (0.1-1.2) mg/dL AST 61 H (5-40) units/L ALT 50 (7-56) units/L Alkaline Phosphatase 92 (35-129) units/L Troponin T 1.410 H* (0.00-0.029) ng/mL Total Protein 7.3 (6.3-8.2) g/dL Albumin 3.6 L (3.9-5) g/dL Albumin/Globulin Ratio 1.0 % Triglycerides 150 H (2-149) mg/dL Cholesterol 113 (50-199) mg/dL LDL Cholesterol Direct 52 (50-130) mg/dL HDL Cholesterol 39 L (40-59) mg/dL Cholesterol/HDL Ratio 2.89 % 09/22/21 Range/Units 09:07 WBC (4.5-11.0) K/mm3 RBC (3.65-5.03) M/mm3 Hgb (11.8-15.2) gm/dl Hct (35.5-45.6) % MCV (84-94) fl MCH (28-32) pg MCHC (32-34) % RDW (13.2-15.2) % Plt Count (140-440) K/mm3 Eos % (Auto) PT (12.2-14.9) Sec. INR (0.87-1.13) APTT (24.2-36.6) Sec. Sodium (137-145) mmol/L Potassium (3.6-5.0) mmol/L Chloride (98-107) mmol/L Carbon Dioxide (22-30) mmol/L Anion Gap mmol/L BUN (9-20) mg/dL Creatinine (0.8-1.3) mg/dL Estimated GFR ml/min BUN/Creatinine Ratio % Glucose (75-100) mg/dL Lactic Acid 0.90 (0.7-2.0) mmol/L Calcium (8.4-10.2) mg/dL Magnesium (1.7-2.3) mg/dL Total Bilirubin (0.1-1.2) mg/dL AST (5-40) units/L ALT (7-56) units/L Alkaline Phosphatase (35-129) units/L Troponin T (0.00-0.029) ng/mL Total Protein (6.3-8.2) g/dL Albumin (3.9-5) g/dL Albumin/Globulin Ratio % Triglycerides (2-149) mg/dL Cholesterol (50-199) mg/dL LDL Cholesterol Direct (50-130) mg/dL HDL Cholesterol (40-59) mg/dL Cholesterol/HDL Ratio % - EKG Data -: EKG Interpreted by Ga EKG shows normal: sinus rhythm Rate: normal - EKG Data 09/22/21 09:01 The EKG is interpreted at 08: 53 Sinus rhythm, rate 76 bpm. Motion artifact. Normal axis, normal P wave axis, left ventricular hypertrophy. Abnormal EKG. Not a STEMI. - Radiology Data Radiology results: pending, report reviewed, image reviewed CHEST 1 VIEW 09/22/2021 8:21 AM INDICATION / CLINICAL INFORMATION: Dyspnea. COMPARISON: 09/19/2021 FINDINGS: SUPPORT DEVICES: None. HEART / MEDIASTINUM: No significant abnormality. LUNGS / PLEURA: Diffuse bilateral pulmonary opacities have increased since prior exam No pneumothorax. ADDITIONAL FINDINGS: No significant additional findings. IMPRESSION: 1. Worsening bilateral pulmonary opacities Signer Name: Cedric love MD Signed: 09/22/2021 8:32 AM Workstation Name: [id number] Critical Care Time: Yes Critical care time in (mins) excluding proc time.: 35 Critical care attestation.: If time is entered above; I have spent that time in minutes in the direct care of this critically ill patient, excluding procedure time. ED Disposition Clinical Impression: End stage renal disease on dialysis, Pulmonary infiltrate, Acute respiratory failure with hypoxia, Hypertension, Lower extremity edema Disposition: 09 ADMITTED INPATIENT Is pt being admited?: Yes Condition: Fair Instructions: Hypertension (ED) Referrals: PRIMARY CAREMD [Primary Care Provider] - 3-5 Days
[2021-09-22 09:20] LABS: Hematocrit 29.6 % (35.5-45.6); Hemoglobin 9.7 gm/dl (11.8-15.2); Mean Corpuscular HGB Conc 33 % (32-34); Mean Corpuscular Volume 87 fl (84-94); Platelet Count 450 K/mm3 (140-440); Red Blood Count 3.39 M/mm3 (3.65-5.03); Red Cell Distribution Width 15.3 % (13.2-15.2)
--- NOTE | 2021-09-22 09:37 | XRay Report ---
CHEST 1 VIEW 09/22/2021 8:21 AM INDICATION / CLINICAL INFORMATION: Dyspnea. COMPARISON: 09/19/2021 FINDINGS: SUPPORT DEVICES: None. HEART / MEDIASTINUM: No significant abnormality. LUNGS / PLEURA: Diffuse bilateral pulmonary opacities have increased since prior exam No pneumothorax . ADDITIONAL FINDINGS: No significant additional findings. IMPRESSION: 1. Worsening bilateral pulmonary opacities Signer Name: Cderic Moore MD Signed: 09/22/2021 9:32 AM Workstation Name: [id number]
[2021-09-22 09:40] LABS: INR 0.97 (0.87-1.13)
[2021-09-22 09:42] LABS: Albumin 3.6 g/dL (3.9-5); Calcium 9.5 mg/dL (8.4-10.2); Partial Thromboplastin Time 31.1 Sec. (24.2-36.6)
[2021-09-22 10:00] LABS: Chol/HDL Ratio 2.89 %
[2021-09-22] MEDS ORDERED: VANCOMYCIN/NS 1 GM/250 ML 1 GM/250 ML BAG IV ONE ×2 (10:05→16:00)
[2021-09-22] MEDS ORDERED: ASPIRIN 325 MG TAB PO ONE (10:05)
[2021-09-22] MEDS ORDERED: AZITHROMYCIN/NS 500 MG/250 ML 500 MG/250 ML BAG IV ONE (10:05)
[2021-09-22] MEDS ORDERED: CEFEPIME/NS 1 GM/100 ML 1 GM/100 ML BAG IV ONE (10:05)
--- NOTE | 2021-09-22 10:11 | Vascular Lab Report ---
DUPLEX DOPPLER LOWER EXTREMITY VEINS, BILATERAL INDICATION / CLINICAL INFORMATION: Shortness of Breath R/O DVT. TECHNIQUE: Duplex doppler imaging was performed through the veins of both lower extremities using venous gayla jackeline and other maneuvers. COMPARISON: None available. FINDINGS: RIGHT COMMON FEMORAL VEIN: Negative. RIGHT FEMORAL VEIN: Negative. RIGHT POPLITEAL VEIN: Negative. RIGHT CALF VEINS: Negative. LEFT COMMON FEMORAL VEIN: Negative. LEFT FEMORAL VEIN: Negative. LEFT POPLITEAL VEIN: Negative. LEFT CALF VEINS: Negative. ADDITIONAL FINDINGS: None. IMPRESSION: 1. No sonographic evidence for DVT in either lower extremity. Signer Name: Lenin Adame MD Signed: 09/22/2021 10:07 AM Workstation Name: [id number]
[2021-09-22 10:24] LABS: Anisocytosis 1+; Platelet Estimate Consistent w Auto; Total Cells Counted 100
--- NOTE | 2021-09-22 10:34 | History and Physical Report ---
History of Present Illness Date of examination: 09/22/21 History of present illness: HPI: 66-year-old female with past medical history of ESRD on HD, hypertension who presents as a readmission to our facility after being discharged yesterday for shortness of breath. Patient was found on the field with swelling in lower extremities and was tachypneic. CPAP was admitted initiated by emergency medical services with immediate improvement of symptomology. Patient states that he was feeling well yesterday. This morning, he noticed he was very short of breath. Denied GOINS, Chest pain, jaw pain, abd pain, n/v, change in bowel habits. He denied leg swelling however leg swelling was noted on his exam. Remainder of ROS negative. ED Course: ASA, zithromax, cefepime, vanocmycin. Initiation of BIPAP. PMHx: ESRD on HD MWF, HTN, PSHx: right arm fistula placement FHx: hypertension SHx: Tobacco use- denies ETOH Use-denies Recreational Drug Use- denies COVID vaccination x3 Lives in a detention Medications and Allergies Allergies Allergy/AdvReac Type Severity Reaction Status Date / Time shellfish derived AdvReac Anaphylaxis Verified 09/22/21 09:46 Home Medications Medication Instructions Recorded Confirmed Last Taken Type AtorvaSTATin [Lipitor] 40 mg PO QHS 02/25/21 09/22/21 09/14/21 History Cinacalcet [Sensipar] 60 mg PO DAILY 02/25/21 09/22/21 09/14/21 History Losartan [Cozaar] 100 mg PO QDAY 02/25/21 09/22/21 09/14/21 History Vit B Complx C/Folic Acid/Zinc 1 tab PO DAILY 02/25/21 09/22/21 09/14/21 History [Dialyvite 800-Zinc 50 mg Tab] carvediloL [Coreg] 12.5 mg PO QDAY 02/25/21 09/22/21 09/14/21 History Calcium Acetate 2,001 mg PO TID 09/15/21 09/22/21 09/14/21 History Aspirin EC [Halfprin EC] 81 mg PO QDAY 09/18/21 09/22/21 09/14/21 History Isosorbide Mononitrate [Isosorbide 60 mg PO QAM 09/18/21 09/22/21 09/14/21 History Mononitrate ER] Latanoprost 0.005% 1 drop OU QPM 09/18/21 09/22/21 09/14/21 History Cholecalciferol Vit D3 [Vitamin D3 1,000 unit PO DAILY tablet 09/21/21 09/22/21 Unknown Rx 1,000 UNIT TAB] Latanoprost 0.005% 1 drops OU QPM #1 bottle 09/21/21 09/22/21 Unknown Rx NIFEdipine [Adalat cc] 90 mg PO DAILY #90 09/21/21 09/22/21 Unknown Rx levoFLOXacin [Levaquin TAB] 500 mg PO QDAY #7 tablet 09/21/21 09/22/21 Unknown Rx Active Meds: Active Medications Azithromycin (Zithromax/Ns) 500 mg in 250 mls @ 250 mls/hr IV ONCE ONE; Protocol Stop: 09/22/21 11:04 Cefepime HCl (Cefepime/Ns 1 Gm/100 Ml) 1 gm in 100 mls @ 200 mls/hr IV ONCE ONE; Protocol Stop: 09/22/21 10:34 Vancomycin HCl (Vancomycin/Ns 1 Gm/250 Ml) 1 gm in 250 mls @ 167.007 mls/hr IV ONCE ONE; Protocol Stop: 09/22/21 11:34 Review of Systems All systems: negative Cardiovascular: edema Respiratory: shortness of breath Exam - Physical Exam Narrative exam: Physical Exam: VITAL SIGNS: Reviewed. GENERAL: The patient appears normally developed, Vital signs as documented. B IPAP mask in place. morbid obese male in no distress. HEAD: No signs of head trauma. EYES: Pupils are equal. Extraocular motions intact. EARS: Hearing grossly intact. MOUTH: Oropharynx is normal. NECK: No adenopathy, no JVD. CHEST: BL Rales. SYstolic ejection murmur 4/6 noted on left chest wall. VASCULAR: BL lower extremity edema. right arm fistula noted. Peripheral pulses normal and equal in all extremities. ABDOMEN: Soft, non tender and non distended. No rebound or guarding, and no masses palpated. Bowel Sounds normal. MUSCULOSKELETAL: Good range of motion of all major joints. BL LE edema 1-2 + NEUROLOGIC EXAM: Alert and oriented x 4. no focal sensory or strength deficits. PSYCHIATRIC: Mood normal. SKIN: detail exam as documented in skin assessment - Constitutional Vitals: Temp Pulse Resp BP Pulse Ox 98.5 F 74 18 179/58 99 09/22/21 08:53 09/22/21 09:46 09/22/21 09:46 09/22/21 09:46 09/22/21 09:46 HEART Score - HEART Score Troponin: Troponin T 1.410 ng/mL (0.00-0.029) H* 09/22/21 09:07 Results - Labs CBC & Chem 7: 09/22/21 09:07 09/22/21 09:07 Labs: Laboratory Last Values WBC 18.5 K/mm3 (4.5-11.0) H 09/22/21 09:07 RBC 3.39 M/mm3 (3.65-5.03) L 09/22/21 09:07 Hgb 9.7 gm/dl (11.8-15.2) L 09/22/21 09:07 Hct 29.6 % (35.5-45.6) L 09/22/21 09:07 MCV 87 fl (84-94) 09/22/21 09:07 MCH 29 pg (28-32) 09/22/21 09:07 MCHC 33 % (32-34) 09/22/21 09:07 RDW 15.3 % (13.2-15.2) H 09/22/21 09:07 Plt Count 450 K/mm3 (140-440) H 09/22/21 09:07 Eos % (Auto) Corrosion Control Specialist 09/22/21 09:07 Add Manual Diff Complete 09/22/21 09:07 Total Counted 100 09/22/21 09:07 Seg Neuts % (Manual) 60.0 % (40.0-70.0) 09/22/21 09:07 Band Neutrophils % 0 % 09/22/21 09:07 Lymphocytes % (Manual) 4.0 % (13.4-35.0) L 09/22/21 09:07 Reactive Lymphs % (Man) 0 % 09/22/21 09:07 Monocytes % (Manual) 1.0 % (0.0-7.3) 09/22/21 09:07 Eosinophils % (Manual) 34.0 % (0.0-4.3) H 09/22/21 09:07 Basophils % (Manual) 1.0 % (0.0-1.8) 09/22/21 09:07 Metamyelocytes % 0 % 09/22/21 09:07 Myelocytes % 0 % 09/22/21 09:07 Promyelocytes % 0 % 09/22/21 09:07 Blast Cells % 0 % 09/22/21 09:07 Nucleated RBC % Not Reportable 09/22/21 09:07 Seg Neutrophils # Man 11.1 K/mm3 (1.8-7.7) H 09/22/21 09:07 Band Neutrophils # 0.0 K/mm3 09/22/21 09:07 Lymphocytes # (Manual) 0.7 K/mm3 (1.2-5.4) L 09/22/21 09:07 Abs React Lymphs (Man) 0.0 K/mm3 09/22/21 09:07 Monocytes # (Manual) 0.2 K/mm3 (0.0-0.8) 09/22/21 09:07 Eosinophils # (Manual) 6.3 K/mm3 (0.0-0.4) H 09/22/21 09:07 Basophils # (Manual) 0.2 K/mm3 (0.0-0.1) H 09/22/21 09:07 Metamyelocytes # 0.0 K/mm3 09/22/21 09:07 Myelocytes # 0.0 K/mm3 09/22/21 09:07 Promyelocytes # 0.0 K/mm3 09/22/21 09:07 Blast Cells # 0.0 K/mm3 09/22/21 09:07 WBC Morphology Not Reportable 09/22/21 09:07 Hypersegmented Neuts Not Reportable 09/22/21 09:07 Hyposegmented Neuts Not Reportable 09/22/21 09:07 Hypogranular Neuts Not Reportable 09/22/21 09:07 Smudge Cells Not Reportable 09/22/21 09:07 Toxic Granulation Not Reportable 09/22/21 09:07 Toxic Vacuolation Not Reportable 09/22/21 09:07 Dohle Bodies Not Reportable 09/22/21 09:07 Pelger-Huet Anomaly Not Reportable 09/22/21 09:07 Jessica Rods Not Reportable 09/22/21 09:07 Platelet Estimate Consistent w auto 09/22/21 09:07 Clumped Platelets Not Reportable 09/22/21 09:07 Plt Clumps, EDTA Not Reportable 09/22/21 09:07 Large Platelets Not Reportable 09/22/21 09:07 Giant Platelets Not Reportable 09/22/21 09:07 Platelet Satelliting Not Reportable 09/22/21 09:07 Plt Morphology Comment Not Reportable 09/22/21 09:07 RBC Morphology Not Reportable 09/22/21 09:07 Dimorphic RBCs Not Reportable 09/22/21 09:07 Polychromasia Not Reportable 09/22/21 09:07 Hypochromasia Not Reportable 09/22/21 09:07 Poikilocytosis Not Reportable 09/22/21 09:07 Anisocytosis 1+ 09/22/21 09:07 Microcytosis Not Reportable 09/22/21 09:07 Macrocytosis Not Reportable 09/22/21 09:07 Spherocytes Not Reportable 09/22/21 09:07 Pappenheimer Bodies Not Reportable 09/22/21 09:07 Sickle Cells Not Reportable 09/22/21 09:07 Target Cells Not Reportable 09/22/21 09:07 Tear Drop Cells Not Reportable 09/22/21 09:07 Ovalocytes Not Reportable 09/22/21 09:07 Helmet Cells Not Reportable 09/22/21 09:07 Vill[place] Bodies Not Reportable 09/22/21 09:07 [place] Rings Not Reportable 09/22/21 09:07 [place] Cells Not Reportable 09/22/21 09:07 Bite Cells Not Reportable 09/22/21 09:07 Crenated Cell Not Reportable 09/22/21 09:07 Elliptocytes Not Reportable 09/22/21 09:07 Acanthocytes (Spur) Not Reportable 09/22/21 09:07 Rouleaux Not Reportable 09/22/21 09:07 Hemoglobin C Crystals Not Reportable 09/22/21 09:07 Schistocytes Not Reportable 09/22/21 09:07 Malaria parasites Not Reportable 09/22/21 09:07 Giovani Bodies Not Reportable 09/22/21 09:07 Hem Pathologist Commnt No 09/22/21 09:07 PT 14.0 Sec. (12.2-14.9) 09/22/21 09:07 INR 0.97 (0.87-1.13) 09/22/21 09:07 APTT 31.1 Sec. (24.2-36.6) 09/22/21 09:07 Sodium 135 mmol/L (137-145) L 09/22/21 09:07 Potassium 5.5 mmol/L (3.6-5.0) H 09/22/21 09:07 Chloride 96.1 mmol/L (98-107) L 09/22/21 09:07 Carbon Dioxide 19 mmol/L (22-30) L 09/22/21 09:07 Anion Gap 25 mmol/L 09/22/21 09:07 BUN 63 mg/dL (9-20) H 09/22/21 09:07 Creatinine 10.6 mg/dL (0.8-1.3) H 09/22/21 09:07 Estimated GFR 6 ml/min 09/22/21 09:07 BUN/Creatinine Ratio 6 % 09/22/21 09:07 Glucose 124 mg/dL (75-100) H 09/22/21 09:07 Lactic Acid 0.90 mmol/L (0.7-2.0) 09/22/21 09:07 Calcium 9.5 mg/dL (8.4-10.2) 09/22/21 09:07 Magnesium 2.10 mg/dL (1.7-2.3) 09/22/21 09:07 Total Bilirubin 0.30 mg/dL (0.1-1.2) 09/22/21 09:07 AST 61 units/L (5-40) H 09/22/21 09:07 ALT 50 units/L (7-56) 09/22/21 09:07 Alkaline Phosphatase 92 units/L (35-129) 09/22/21 09:07 Troponin T 1.410 ng/mL (0.00-0.029) H* 09/22/21 09:07 Total Protein 7.3 g/dL (6.3-8.2) 09/22/21 09:07 Albumin 3.6 g/dL (3.9-5) L 09/22/21 09:07 Albumin/Globulin Ratio 1.0 % 09/22/21 09:07 Triglycerides 150 mg/dL (2-149) H 09/22/21 09:07 Cholesterol 113 mg/dL (50-199) 09/22/21 09:07 LDL Cholesterol Direct 52 mg/dL (50-130) 09/22/21 09:07 HDL Cholesterol 39 mg/dL (40-59) L 09/22/21 09:07 Cholesterol/HDL Ratio 2.89 % 09/22/21 09:07 Assessment and Plan Assessment and plan: #Acute hypoxic respiratory failure -Currently requiring BiPAP 08/11 ,50%, will admit to IMCU -Multifactorial between pulmonary edema and treatment failure for community- acquired pneumonia treated last admission (was d/c on 07/22) - CT chest noncontrast and CTA chest were performed on 09/17/2021 revealing no PE but significant pneumonia of left lower lobe with consolidations present. - 07/23 admission CXR worsening of bilateral pulmonary opacities - pulmonology consultation - albuterol/budesonide ordered COVID PCR negative on 09/17, reordered by emergency room physician IV antibiotics as below #Pulmonary edema Cardiogenic (?HFpEF) versus fluid overload from IV fluid administration last admission. -Lower extremity edema, systolic ejection murmur noted on exam BNP [id number] - 02/2021 echo: LVEF 50-55%. calcified aortic valve, mean gradient 16, mitral annular calcification Pulmonology consulted Cardiology consulted -We will hold off on echocardiogram at this time and follow-up assessments by both pulmonology and cardiology -May benefit from fluid removal, will defer to nephrology for this. #Hospital-acquired pneumonia - initiated on vancomycin/cefepime IV, pharamcy to dose #Sepsis POA - tachycardic, tachypneic, wbc: 18.5 - bcx/ucx/scx, - Bcx 1/2 coag negative Staphylococcus on 09/17 however this was ruled out to be contaminant - covid pcr ordered this admission - abx as above #Recent diagnosis of left lower lobe pneumonia - was treated with azithromycin and rocephin, treatment failure #ESRD on hemodialysis - MWF dialysis OP, appears to be anuric. - avoid nephrotoxic agents - renally adjust medications - strict I/O monitoring - nephrology consulted on admission #Type II HI - troponin 1.410, was 0.373 - likley supply demand - will re-consult cardiology #Systolic ejection murmur - 4/6 MATT noted on exam. -Appears to be in the mitral region -will follow-up with cardiology regarding the significance of this #Thrombocytosis Likely reactive to underlying sepsis #Hypertension - resume home coreg/imdur #Hyperkalemia - K= 5.5, hold losartan at this time - will continue to monitor - correct with HD #Hyperlipidemia - resume home atorvastatin/asa #Morbid obesity - behavioral health counseling on calorie restricted diet, +15 mins #Advance care planning Disease education conducted, care plan discussed, diagnoses discussed, prognosis discussed, patient is full code, patient acknowledges understanding and agree with care plan, +30 minutes. Code Status: Full Code Diet: NPO VTE PPx: Heparin 5000 units subq bid Dispo: IMCU The high probability of a clinically significant, sudden or life threatening deterioration of the [pulmonary, neuro] system(s) required my full and direct attention, intervention and personal management. The aggregate critical care time was [60] minutes. This time is in addition to time spent performing reported procedures but includes the following: [x] Data Review and interpretation [x] Patient assessment and monitoring of vital signs [x] Documentation [x] Medication orders and management
[2021-09-22] MEDS ORDERED: ACETAMINOPHEN 325 MG TAB PO PRN (13:47)
[2021-09-22] MEDS ORDERED: ONDANSETRON 4 MG/2 ML INJ IV PRN (13:47)
[2021-09-22] MEDS ORDERED: ALBUTEROL 2.5 MG/3 ML NEBU IH NR (14:00)
[2021-09-22] MEDS ORDERED: BUDESONIDE 0.5 MG/2 ML NEBU IH NR (14:00)
[2021-09-22] MEDS ORDERED: NON-FORMULARY EACH (Nifedipine [Adalat Cc] 90 MG Tablet.Er) PO SCH (14:30)
[2021-09-22] MEDS ORDERED: SODIUM CHLORIDE 0.9% 100 ML IV PRN (14:30)
[2021-09-22] MEDS ORDERED: VANCOMYCIN PHARMACY TO DOSE IV SCH (15:00)
[2021-09-22] MEDS ORDERED: CEFEPIME/NS 1 GM/100 ML 1 GM/100 ML BAG IV SCH (15:00)
[2021-09-22] MEDS: CINACALCET 30 MG TAB PO SCH (15:15)
[2021-09-22] MEDS: carvediloL 12.5 MG TAB PO SCH (15:15)
[2021-09-22] MEDS: HEPARIN 5,000 UNIT/1 ML VIAL SUB-Q SCH (15:15)
[2021-09-22] MEDS: NIFEdipine XL 90 MG TAB PO SCH (15:15)
[2021-09-22] MEDS: CHOLECALCIFEROL (VIT D3) 1000 UNIT (25 mcg) TAB PO SCH (15:15)
[2021-09-22] MEDS: ASPIRIN EC 81 MG TAB PO SCH (15:30)
[2021-09-22] MEDS ORDERED: CEFEPIME 0.5 GM in SODIUM CHLORIDE 0.9% 100 ML IV ONE (15:45)
[2021-09-22] MEDS ORDERED: LATANOPROST 0.005% OPHTH SOLN 2.5 ML OU SCH (18:00)
[2021-09-22] MEDS: LATANOPROST 0.005% OPHTH SOLN 2.5 ML OU SCH (18:40)
[2021-09-23 07:12] LABS: Hematocrit 29.2 % (35.5-45.6); Hemoglobin 9.2 gm/dl (11.8-15.2); Mean Corpuscular HGB Conc 31 % (32-34); Mean Corpuscular Volume 89 fl (84-94); Platelet Count 431 K/mm3 (140-440); Red Blood Count 3.29 M/mm3 (3.65-5.03); Red Cell Distribution Width 15.2 % (13.2-15.2)
[2021-09-23 07:32] LABS: Albumin 3.6 g/dL (3.9-5); Calcium 9.2 mg/dL (8.4-10.2)
[2021-09-23 08:28] LABS: Anisocytosis 1+; Band Neutrophils # (Manual) 0.3 K/mm3; Platelet Estimate Consistent w Auto; Total Cells Counted 100
--- NOTE | 2021-09-23 09:08 | Progress Note ---
Assessment and Plan Impression: * End stage renal disease * Acute hypoxic respiratory failure secondary to pulmonary edema --COVID 19 negative x 2 (Sep 17 and Sep 22) * Elevated troponin * Anemia secondary to ESRD * Secondary hyperparathyroidism Plan: * Patient is s/p HD yesterday * Will plan for isolated UF today for additional fluid removal * Continue MWF schedule * Cardiology consultation pending - patient will benefit from ischemic evaluation given readmission for pulmonary edema * Dose medications for renal function * Epogen TIW prn * Renal diet Subjective Date of service: 09/23/21 Interval history: Patient recently discharged from [facility] on Sep 21, 2021 following hospitalization for acute hypoxic respiratory failure. He represented to the ED the following day, Sep 22, with difficulty breathing and hypoxia Presently, patient denies chest pain, cough, fever. Objective - Vital Signs Vital signs: Vital Signs - 12hr 09/22/21 09/22/21 09/22/21 21:30 21:45 22:00 Temperature 98.5 F Pulse Rate 79 67 69 Respiratory 18 Rate Blood Pressure 177/101 174/95 172/91 O2 Sat by Pulse Oximetry O2 Sat by Pulse 97 Oximetry [ Throughout] 09/22/21 09/22/21 09/22/21 22:15 22:30 22:45 Temperature Pulse Rate 70 69 70 Respiratory Rate Blood Pressure 163/80 170/84 159/79 O2 Sat by Pulse Oximetry O2 Sat by Pulse Oximetry [ Throughout] 09/22/21 09/22/21 09/22/21 23:00 23:15 23:30 Temperature Pulse Rate 70 74 69 Respiratory Rate Blood Pressure 159/79 169/90 159/86 O2 Sat by Pulse Oximetry O2 Sat by Pulse Oximetry [ Throughout] 09/22/21 09/23/21 09/23/21 23:45 00:00 00:15 Temperature Pulse Rate 74 70 75 Respiratory Rate Blood Pressure 155/85 177/89 171/97 O2 Sat by Pulse Oximetry O2 Sat by Pulse Oximetry [ Throughout] 09/23/21 09/23/21 09/23/21 00:30 00:45 01:00 Temperature Pulse Rate 74 72 74 Respiratory Rate Blood Pressure 170/96 168/94 170/90 O2 Sat by Pulse Oximetry O2 Sat by Pulse Oximetry [ Throughout] 09/23/21 09/23/21 09/23/21 01:12 01:30 01:34 Temperature 98.4 F Pulse Rate 75 76 Respiratory 21 18 Rate Blood Pressure 172/96 O2 Sat by Pulse 99 100 Oximetry O2 Sat by Pulse 97 Oximetry [ Throughout] 09/23/21 09/23/21 09/23/21 01:46 02:00 02:30 Temperature Pulse Rate 71 69 72 Respiratory 17 13 15 Rate Blood Pressure 150/80 156/73 145/72 O2 Sat by Pulse 100 100 100 Oximetry O2 Sat by Pulse Oximetry [ Throughout] 09/23/21 09/23/21 09/23/21 03:00 03:30 04:00 Temperature Pulse Rate 73 72 78 Respiratory 11 L 17 16 Rate Blood Pressure 149/72 132/112 136/70 O2 Sat by Pulse 99 100 99 Oximetry O2 Sat by Pulse Oximetry [ Throughout] 09/23/21 09/23/21 09/23/21 04:30 05:00 05:03 Temperature Pulse Rate 71 69 72 Respiratory 16 18 18 Rate Blood Pressure 152/71 159/70 132/112 O2 Sat by Pulse 100 100 99 Oximetry O2 Sat by Pulse Oximetry [ Throughout] 09/23/21 09/23/21 09/23/21 05:30 06:00 06:30 Temperature Pulse Rate 70 67 78 Respiratory 26 H 16 17 Rate Blood Pressure 148/64 151/60 149/68 O2 Sat by Pulse 99 99 97 Oximetry O2 Sat by Pulse Oximetry [ Throughout] 09/23/21 09/23/21 09/23/21 07:00 07:30 08:00 Temperature Pulse Rate 70 69 67 Respiratory 30 H 16 17 Rate Blood Pressure 147/65 145/63 141/61 O2 Sat by Pulse 99 99 100 Oximetry O2 Sat by Pulse Oximetry [ Throughout] - General Appearance General appearance: well-developed, well-nourished EENT: ATNC Respiratory: Present: Decreased Breath Sounds Cardiology: regular, S1S2 Gastrointestinal: normal Integumentary: no rash, warm and dry Neurologic: no focal deficit, alert and oriented x3 - Lab 09/23/21 05:16 09/23/21 05:16 Most recent lab results Calcium 9.2 mg/dL (8.4-10.2) 09/23/21 05:16 Magnesium 2.10 mg/dL (1.7-2.3) 09/22/21 09:07 Medications & Allergies - Medications Allergies/Adverse Reactions: Allergies shellfish derived Adverse Reaction (Verified 09/22/21 09:46) Anaphylaxis Home Medications: Home Medications Medication Instructions Recorded Confirmed Last Taken Type AtorvaSTATin [Lipitor] 40 mg PO QHS 02/25/21 09/22/21 09/14/21 History Cinacalcet [Sensipar] 60 mg PO DAILY 02/25/21 09/22/21 09/14/21 History Losartan [Cozaar] 100 mg PO QDAY 02/25/21 09/22/21 09/14/21 History Vit B Complx C/Folic Acid/Zinc 1 tab PO DAILY 02/25/21 09/22/21 09/14/21 History [Dialyvite 800-Zinc 50 mg Tab] carvediloL [Coreg] 12.5 mg PO QDAY 02/25/21 09/22/21 09/14/21 History Calcium Acetate 2,001 mg PO TID 09/15/21 09/22/21 09/14/21 History Aspirin EC [Halfprin EC] 81 mg PO QDAY 09/18/21 09/22/21 09/14/21 History Isosorbide Mononitrate [Isosorbide 60 mg PO QAM 09/18/21 09/22/21 09/14/21 History Mononitrate ER] Latanoprost 0.005% 1 drop OU QPM 09/18/21 09/22/21 09/14/21 History Cholecalciferol Vit D3 [Vitamin D3 1,000 unit PO DAILY tablet 09/21/21 09/22/21 Unknown Rx 1,000 UNIT TAB] Latanoprost 0.005% 1 drops OU QPM #1 bottle 09/21/21 09/22/21 Unknown Rx NIFEdipine [Adalat cc] 90 mg PO DAILY #90 09/21/21 09/22/21 Unknown Rx levoFLOXacin [Levaquin TAB] 500 mg PO QDAY #7 tablet 09/21/21 09/22/21 Unknown Rx Active Medications: Generic Name Dose Route Start Last Admin Trade Name Freq PRN Reason Stop Dose Admin Acetaminophen 650 mg 09/22/21 13:47 Acetaminophen 325 Mg Tab PO Q4H PRN Pain MILD(1-3)/Fever >100.5/GOINS Aspirin 81 mg 09/22/21 15:00 09/22/21 15:30 Aspirin Ec 81 Mg Tab PO 81 mg QDAY LYNDON Administration Atorvastatin Calcium 40 mg 09/22/21 22:00 Atorvastatin 40 Mg Tab PO QHS LYNDON Carvedilol 12.5 mg 09/22/21 15:00 09/22/21 15:15 Carvedilol 12.5 Mg Tab PO 12.5 mg QDAY LYNDON Administration Cholecalciferol 1,000 unit 09/22/21 15:00 09/22/21 15:15 Cholecalciferol (Vit D3) 1000 Unit (25 Mcg) Tab PO 1,000 unit DAILY LYNDON Administration Cinacalcet 60 mg 09/22/21 15:00 09/22/21 15:15 Cinacalcet 30 Mg Tab PO 60 mg DAILY [facility] Administration Heparin Sodium (Porcine) 5,000 unit 09/22/21 14:00 09/22/21 15:15 Heparin 5,000 Unit/1 Ml Vial SUB-Q 5,000 unit Q12HR [facility] Administration Sodium Chloride 100 mls @ 999 mls/hr 09/22/21 14:30 Nacl 0.9% IV CALI PRN Hypotension Cefepime HCl 2 gm in 100 mls @ 200 mls/hr 09/23/21 10:00 Cefepime/Ns 2 Gm/100 Ml IV Q24HR [facility] Protocol Isosorbide Mononitrate 60 mg 09/23/21 10:00 Isosorbide Mononitrate Er 60 Mg Tab PO QAM [facility] Latanoprost 1 drops 09/22/21 18:00 09/22/21 18:40 Latanoprost 0.005% Ophth Soln 2.5 Ml OU 1 drops QPM LYNDON Administration Morphine Sulfate 2 mg 09/22/21 13:47 Morphine 2 Mg/1 Ml Inj IV Q4H PRN Pain, Moderate (4-6) Nifedipine 90 mg 09/22/21 14:30 09/22/21 15:15 Nifedipine Xl 90 Mg Tab PO 90 mg QDAY [facility] Administration Ondansetron HCl 4 mg 09/22/21 13:47 Ondansetron 4 Mg/2 Ml Inj IV Q8H PRN Nausea And Vomiting Sodium Chloride 10 ml 09/22/21 14:00 09/22/21 15:00 Sodium Chloride 0.9% 10 Ml Flush Syringe IV 10 ml BID LYNDON Administration Sodium Chloride 10 ml 09/22/21 13:47 Sodium Chloride 0.9% 10 Ml Flush Syringe IV PRN PRN LINE FLUSH
--- NOTE | 2021-09-23 09:46 | Progress Note ---
Assessment and Plan Assessment and plan: HPI: 66-year-old female with past medical history of ESRD on HD, hypertension who presents as a readmission to our facility after being discharged yesterday for shortness of breath. Patient was found on the field with swelling in lower extremities and was tachypneic. CPAP was admitted initiated by emergency medical services with immediate improvement of symptomology. Patient states that he was feeling well yesterday. This morning, he noticed he was very short of breath. Denied GOINS, Chest pain, jaw pain, abd pain, n/v, change in bowel habits. He denied leg swelling however leg swelling was noted on his exam. Admitted to [facility] for respiratory failure on bipap. Hospital Course: 09/23: Currently on minimal bipap settings. Sats excellent. COVID 19 pcr negative. Recieved dialysis x 1 tx yesterday. D/w nephrology who will continue to pull fluid, recs noted. Cardiology recs noted. D/w Dr Cook (Pulmonology) case, will see patient today. Will titrate bipap down as patient tolerates. Once off bipap, can be downgraded to regular medical floor. Assessment and Plan: #Acute hypoxic respiratory failure -Currently requiring BiPAP 08/11 ,50%, will admit to IMCU -Multifactorial between pulmonary edema and treatment failure for community- acquired pneumonia treated last admission (was d/c on 07/22) - CT chest noncontrast and CTA chest were performed on 09/17/2021 revealing no PE but significant pneumonia of left lower lobe with consolidations present. - 07/23 admission CXR worsening of bilateral pulmonary opacities - pulmonology consultation - albuterol/budesonide ordered COVID PCR negative on 09/17, reordered by emergency room physician IV antibiotics as below #Pulmonary edema Cardiogenic (?HFpEF) versus fluid overload from IV fluid administration last admission. -Lower extremity edema, systolic ejection murmur noted on exam BNP [id number] - 02/2021 echo: LVEF 50-55%. calcified aortic valve, mean gradient 16, mitral annular calcification Pulmonology consulted Cardiology consulted -We will hold off on echocardiogram at this time and follow-up assessments by both pulmonology and cardiology -May benefit from fluid removal, will defer to nephrology for this. #Hospital-acquired pneumonia - initiated on vancomycin/cefepime IV, pharmacy to dose #Sepsis POA - tachycardic, tachypneic, wbc: 18.5 - bcx/ucx/scx, - Bcx 09/07 coag negative Staphylococcus on 09/17 however this was ruled out to be contaminant - covid pcr ordered 09/22: negative - abx as above #Recent diagnosis of left lower lobe pneumonia - was treated with azithromycin and rocephin, treatment failure - covid pcr ordered 09/22: negative #ESRD on hemodialysis - MWF dialysis OP, appears to be anuric. - avoid nephrotoxic agents - renally adjust medications - strict I/O monitoring - nephrology consulted on admission #Type II SD - troponin 1.410, was 0.373 - likley supply demand - will re-consult cardiology #Systolic ejection murmur - 4/6 MATT noted on exam. -Appears to be in the mitral region -will follow-up with cardiology regarding the significance of this #Thrombocytosis Likely reactive to underlying sepsis #Hypertension - resume home coreg/imdur #Hyperkalemia - K= 5.5, hold losartan at this time - will continue to monitor - correct with HD #Hyperlipidemia - resume home atorvastatin/asa #Morbid obesity - behavioral health counseling on calorie restricted diet, +15 mins #Advance care planning Disease education conducted, care plan discussed, diagnoses discussed, prognosis discussed, patient is full code, patient acknowledges understanding and agree with care plan, +30 minutes. Code Status: Full Code Diet: NPO VTE PPx: Heparin 5000 units subq bid Dispo: IMCU The high probability of a clinically significant, sudden or life threatening deterioration of the [pulmonary, neuro] system(s) required my full and direct attention, intervention and personal management. The aggregate critical care ti me was [60] minutes. This time is in addition to time spent performing reported procedures but includes the following: [x] Data Review and interpretation [x] Patient assessment and monitoring of vital signs [x] Documentation [x] Medication orders and management History Interval history: Doing well on encounter. Satting 100%, on bipap Fio2: 15%. Hospitalist Physical - Physical exam Narrative exam: Physical Exam: VITAL SIGNS: Reviewed. GENERAL: The patient appears normally developed, Vital signs as documented. BIPAP mask in place. morbid obese male in no distress. HEAD: No signs of head trauma. EYES: Pupils are equal. Extraocular motions intact. EARS: Hearing grossly intact. MOUTH: Oropharynx is normal. NECK: No adenopathy, no JVD. CHEST: BL Rales. SYstolic ejection murmur 4/6 noted on left chest wall. VASCULAR: BL lower extremity edema. right arm fistula noted. Peripheral pulses normal and equal in all extremities. ABDOMEN: Soft, non tender and non distended. No rebound or guarding, and no masses palpated. Bowel Sounds normal. MUSCULOSKELETAL: Good range of motion of all major joints. BL LE edema 1-2 + NEUROLOGIC EXAM: Alert and oriented x 4. no focal sensory or strength deficits. PSYCHIATRIC: Mood normal. SKIN: detail exam as documented in skin assessment - Constitutional Vitals: Temp Pulse Resp BP Pulse Ox 98.4 F 67 15 132/58 100 09/23/21 01:30 09/23/21 08:51 09/23/21 08:51 09/23/21 08:51 09/23/21 08:51 HEART Score - HEART Score Troponin: Troponin T 1.410 ng/mL (0.00-0.029) H* 09/22/21 09:07 Results - Labs CBC & Chem 7: 09/23/21 05:16 09/23/21 05:16 Labs: Laboratory Last Values WBC 11.6 K/mm3 (4.5-11.0) H 09/23/21 05:16 RBC 3.29 M/mm3 (3.65-5.03) L 09/23/21 05:16 Hgb 9.2 gm/dl (11.8-15.2) L 09/23/21 05:16 Hct 29.2 % (35.5-45.6) L 09/23/21 05:16 MCV 89 fl (84-94) 09/23/21 05:16 MCH 28 pg (28-32) 09/23/21 05:16 MCHC 31 % (32-34) L 09/23/21 05:16 RDW 15.2 % (13.2-15.2) 09/23/21 05:16 Plt Count 431 K/mm3 (140-440) 09/23/21 05:16 Eos % (Auto) [employer] 09/23/21 05:16 Add Manual Diff Complete 09/23/21 05:16 Total Counted 100 09/23/21 05:16 Seg Neuts % (Manual) 58.0 % (40.0-70.0) 09/23/21 05:16 Band Neutrophils % 3.0 % 09/23/21 05:16 Lymphocytes % (Manual) 3.0 % (13.4-35.0) L 09/23/21 05:16 Reactive Lymphs % (Man) 0 % 09/23/21 05:16 Monocytes % (Manual) 6.0 % (0.0-7.3) 09/23/21 05:16 Eosinophils % (Manual) 29.0 % (0.0-4.3) H 09/23/21 05:16 Basophils % (Manual) 1.0 % (0.0-1.8) 09/23/21 05:16 Metamyelocytes % 0 % 09/23/21 05:16 Myelocytes % 0 % 09/23/21 05:16 Promyelocytes % 0 % 09/23/21 05:16 Blast Cells % 0 % 09/23/21 05:16 Nucleated RBC % Not Reportable 09/23/21 05:16 Seg Neutrophils # Man 6.7 K/mm3 (1.8-7.7) 09/23/21 05:16 Band Neutrophils # 0.3 K/mm3 09/23/21 05:16 Lymphocytes # (Manual) 0.3 K/mm3 (1.2-5.4) L 09/23/21 05:16 Abs React Lymphs (Man) 0.0 K/mm3 09/23/21 05:16 Monocytes # (Manual) 0.7 K/mm3 (0.0-0.8) 09/23/21 05:16 Eosinophils # (Manual) 3.4 K/mm3 (0.0-0.4) H 09/23/21 05:16 Basophils # (Manual) 0.1 K/mm3 (0.0-0.1) 09/23/21 05:16 Metamyelocytes # 0.0 K/mm3 09/23/21 05:16 Myelocytes # 0.0 K/mm3 09/23/21 05:16 Promyelocytes # 0.0 K/mm3 09/23/21 05:16 Blast Cells # 0.0 K/mm3 09/23/21 05:16 WBC Morphology Not Reportable 09/23/21 05:16 Hypersegmented Neuts Not Reportable 09/23/21 05:16 Hyposegmented Neuts Not Reportable 09/23/21 05:16 Hypogranular Neuts Not Reportable 09/23/21 05:16 Smudge Cells Not Reportable 09/23/21 05:16 Toxic Granulation Not Reportable 09/23/21 05:16 Toxic Vacuolation Not Reportable 09/23/21 05:16 Dohle Bodies Not Reportable 09/23/21 05:16 Pelger-Huet Anomaly Not Reportable 09/23/21 05:16 Jessica Rods Not Reportable 09/23/21 05:16 Platelet Estimate Consistent w auto 09/23/21 05:16 Clumped Platelets Not Reportable 09/23/21 05:16 Plt Clumps, EDTA Not Reportable 09/23/21 05:16 Large Platelets Not Reportable 09/23/21 05:16 Giant Platelets Not Reportable 09/23/21 05:16 Platelet Satelliting Not Reportable 09/23/21 05:16 Plt Morphology Comment Not Reportable 09/23/21 05:16 RBC Morphology Not Reportable 09/23/21 05:16 Dimorphic RBCs Not Reportable 09/23/21 05:16 Polychromasia Not Reportable 09/23/21 05:16 Hypochromasia Not Reportable 09/23/21 05:16 Poikilocytosis Not Reportable 09/23/21 05:16 Anisocytosis 1+ 09/23/21 05:16 Microcytosis Not Reportable 09/23/21 05:16 Macrocytosis Not Reportable 09/23/21 05:16 Spherocytes Not Reportable 09/23/21 05:16 Pappenheimer Bodies Not Reportable 09/23/21 05:16 Sickle Cells Not Reportable 09/23/21 05:16 Target Cells Not Reportable 09/23/21 05:16 Tear Drop Cells Not Reportable 09/23/21 05:16 Ovalocytes Not Reportable 09/23/21 05:16 Helmet Cells Not Reportable 09/23/21 05:16 Villanueva-Matlacha Bodies Not Reportable 09/23/21 05:16 [place] Rings Not Reportable 09/23/21 05:16 Jameel Cells Not Reportable 09/23/21 05:16 Bite Cells Not Reportable 09/23/21 05:16 Crenated Cell Not Reportable 09/23/21 05:16 Elliptocytes Not Reportable 09/23/21 05:16 Acanthocytes (Spur) Not Reportable 09/23/21 05:16 Rouleaux Not Reportable 09/23/21 05:16 Hemoglobin C Crystals Not Reportable 09/23/21 05:16 Schistocytes Not Reportable 09/23/21 05:16 Malaria parasites Not Reportable 09/23/21 05:16 Giovani Bodies Not Reportable 09/23/21 05:16 Hem Pathologist Commnt No 09/23/21 05:16 PT 14.0 Sec. (12.2-14.9) 09/22/21 09:07 INR 0.97 (0.87-1.13) 09/22/21 09:07 APTT 31.1 Sec. (24.2-36.6) 09/22/21 09:07 Sodium 134 mmol/L (137-145) L 09/23/21 05:16 Potassium 4.5 mmol/L (3.6-5.0) 09/23/21 05:16 Chloride 93.8 mmol/L (98-107) L 09/23/21 05:16 Carbon Dioxide 26 mmol/L (22-30) D 09/23/21 05:16 Anion Gap 19 mmol/L 09/23/21 05:16 BUN 43 mg/dL (9-20) H 09/23/21 05:16 Creatinine 7.9 mg/dL (0.8-1.3) H 09/23/21 05:16 Estimated GFR 8 ml/min 09/23/21 05:16 BUN/Creatinine Ratio 5 % 09/23/21 05:16 Glucose 73 mg/dL (75-100) L 09/23/21 05:16 Lactic Acid 0.90 mmol/L (0.7-2.0) 09/22/21 09:07 Calcium 9.2 mg/dL (8.4-10.2) 09/23/21 05:16 Magnesium 2.10 mg/dL (1.7-2.3) 09/22/21 09:07 Total Bilirubin 0.40 mg/dL (0.1-1.2) 09/23/21 05:16 AST 56 units/L (5-40) H 09/23/21 05:16 ALT 45 units/L (7-56) 09/23/21 05:16 Alkaline Phosphatase 94 units/L (35-129) 09/23/21 05:16 Troponin T 1.410 ng/mL (0.00-0.029) H* 09/22/21 09:07 NT-Pro-B Natriuret Pep 46122 pg/mL (0-900) H 09/22/21 09:07 Total Protein 6.9 g/dL (6.3-8.2) 09/23/21 05:16 Albumin 3.6 g/dL (3.9-5) L 09/23/21 05:16 Albumin/Globulin Ratio 1.1 % 09/23/21 05:16 Triglycerides 150 mg/dL (2-149) H 09/22/21 09:07 Cholesterol 113 mg/dL (50-199) 09/22/21 09:07 LDL Cholesterol Direct 52 mg/dL (50-130) 09/22/21 09:07 HDL Cholesterol 39 mg/dL (40-59) L 09/22/21 09:07 Cholesterol/HDL Ratio 2.89 % 09/22/21 09:07 Coronavirus (PCR) Negative (Negative) 09/22/21 08:53 Microbiology: Microbiology 09/22/21 09:07 Peripheral/Venous Blood Culture - Preliminary Culture in Progress 09/22/21 09:07 Peripheral/Venous Blood Culture - Preliminary Culture in Progress Active Medications - Current Medications Current Medications: Generic Name Dose Route Start Last Admin Trade Name Freq PRN Reason Stop Dose Admin Acetaminophen 650 mg 09/22/21 13:47 Acetaminophen 325 Mg Tab PO Q4H PRN Pain MILD(1-3)/Fever >100.5/GOINS Aspirin 81 mg 09/22/21 15:00 09/22/21 15:30 Aspirin Ec 81 Mg Tab PO 81 mg QDAY LYNDON Administration Atorvastatin Calcium 40 mg 09/22/21 22:00 Atorvastatin 40 Mg Tab PO QHS LYNDON Carvedilol 12.5 mg 09/22/21 15:00 09/22/21 15:15 Carvedilol 12.5 Mg Tab PO 12.5 mg QDAY LYNDON Administration Cholecalciferol 1,000 unit 09/22/21 15:00 09/22/21 15:15 Cholecalciferol (Vit D3) 1000 Unit (25 Mcg) Tab PO 1,000 unit DAILY LYNDON Administration Cinacalcet 60 mg 09/22/21 15:00 09/22/21 15:15 Cinacalcet 30 Mg Tab PO 60 mg DAILY LYNDON Administration Heparin Sodium (Porcine) 5,000 unit 09/22/21 14:00 09/22/21 15:15 Heparin 5,000 Unit/1 Ml Vial SUB-Q 5,000 unit Q12HR LYNDON Administration Sodium Chloride 100 mls @ 999 mls/hr 09/22/21 14:30 Nacl 0.9% IV CALI PRN Hypotension Cefepime HCl 2 gm in 100 mls @ 200 mls/hr 09/23/21 10:00 Cefepime/Ns 2 Gm/100 Ml IV Q24HR [facility] Protocol Isosorbide Mononitrate 60 mg 09/23/21 10:00 Isosorbide Mononitrate Er 60 Mg Tab PO QAM LYNDON Latanoprost 1 drops 09/22/21 18:00 09/22/21 18:40 Latanoprost 0.005% Ophth Soln 2.5 Ml OU 1 drops QPM LYNDON Administration Morphine Sulfate 2 mg 09/22/21 13:47 Morphine 2 Mg/1 Ml Inj IV Q4H PRN Pain, Moderate (4-6) Nifedipine 90 mg 09/22/21 14:30 09/22/21 15:15 Nifedipine Xl 90 Mg Tab PO 90 mg QDAY LYNDON Administration Ondansetron HCl 4 mg 09/22/21 13:47 Ondansetron 4 Mg/2 Ml Inj IV Q8H PRN Nausea And Vomiting Sodium Chloride 10 ml 09/22/21 14:00 09/22/21 15:00 Sodium Chloride 0.9% 10 Ml Flush Syringe IV 10 ml BID LYNDON Administration Sodium Chloride 10 ml 09/22/21 13:47 Sodium Chloride 0.9% 10 Ml Flush Syringe IV PRN PRN LINE FLUSH
[2021-09-23] MEDS: HEPARIN 5,000 UNIT/1 ML VIAL SUB-Q SCH ×3 (10:30→23:02)
[2021-09-23] MEDS: CHOLECALCIFEROL (VIT D3) 1000 UNIT (25 mcg) TAB PO SCH (10:30)
[2021-09-23] MEDS: ASPIRIN EC 81 MG TAB PO SCH (10:30)
--- NOTE | 2021-09-23 11:50 | Consultation ---
History of Present Illness Consult date: 09/23/21 Consult reason: elevated troponin History of present illness: The patient is a 66-year-old man with end-stage renal disease on hemodialysis, admitted with shortness of breath. He denies any missed dialysis sessions. On the chest x-ray, there is bilateral acute pulmonary edema. Previous work-up in this hospital with an echocardiogram done 8 months ago showed normal left ventricular systolic function with ejection fraction 55 to 60%. There is no documented history of coronary artery disease, or prior invasive cardiac work-up. On the current presentation, the troponin level was elevated at 1.4, but the ECG was sinus rhythm with no acute ST or T wave changes of ischemia or infarction. Past History Past Medical History: hypertension Medications and Allergies Allergies Allergy/AdvReac Type Severity Reaction Status Date / Time shellfish derived AdvReac Anaphylaxis Verified 09/22/21 09:46 Home Medications Medication Instructions Recorded Confirmed Last Taken Type AtorvaSTATin [Lipitor] 40 mg PO QHS 02/25/21 09/22/21 09/14/21 History Cinacalcet [Sensipar] 60 mg PO DAILY 02/25/21 09/22/21 09/14/21 History Losartan [Cozaar] 100 mg PO QDAY 02/25/21 09/22/21 09/14/21 History Vit B Complx C/Folic Acid/Zinc 1 tab PO DAILY 02/25/21 09/22/21 09/14/21 History [Dialyvite 800-Zinc 50 mg Tab] carvediloL [Coreg] 12.5 mg PO QDAY 02/25/21 09/22/21 09/14/21 History Calcium Acetate 2,001 mg PO TID 09/15/21 09/22/21 09/14/21 History Aspirin EC [Halfprin EC] 81 mg PO QDAY 09/18/21 09/22/21 09/14/21 History Isosorbide Mononitrate [Isosorbide 60 mg PO QAM 09/18/21 09/22/21 09/14/21 History Mononitrate ER] Latanoprost 0.005% 1 drop OU QPM 09/18/21 09/22/21 09/14/21 History Cholecalciferol Vit D3 [Vitamin D3 1,000 unit PO DAILY tablet 09/21/21 09/22/21 Unknown Rx 1,000 UNIT TAB] Latanoprost 0.005% 1 drops OU QPM #1 bottle 09/21/21 09/22/21 Unknown Rx NIFEdipine [Adalat cc] 90 mg PO DAILY #90 09/21/21 09/22/21 Unknown Rx levoFLOXacin [Levaquin TAB] 500 mg PO QDAY #7 tablet 09/21/21 09/22/21 Unknown Rx Active Meds: Active Medications Acetaminophen (Acetaminophen 325 Mg Tab) 650 mg PO Q4H PRN PRN Reason: Pain MILD(1-3)/Fever >100.5/GOINS Aspirin (Aspirin Ec 81 Mg Tab) 81 mg PO QDAY [facility] Last Admin: 09/22/21 15:30 Dose: 81 mg Atorvastatin Calcium (Atorvastatin 40 Mg Tab) 40 mg PO QHS [facility] Carvedilol (Carvedilol 12.5 Mg Tab) 12.5 mg PO QDAY [facility] Last Admin: 09/22/21 15:15 Dose: 12.5 mg Cholecalciferol (Cholecalciferol (Vit D3) 1000 Unit (25 Mcg) Tab) 1,000 unit PO DAILY [facility] Last Admin: 09/22/21 15:15 Dose: 1,000 unit Cinacalcet (Cinacalcet 30 Mg Tab) 60 mg PO DAILY [facility] Last Admin: 09/22/21 15:15 Dose: 60 mg Heparin Sodium (Porcine) (Heparin 5,000 Unit/1 Ml Vial) 5,000 unit SUB-Q Q12HR [facility] Last Admin: 09/22/21 15:15 Dose: 5,000 unit Sodium Chloride (Nacl 0.9%) 100 mls @ 999 mls/hr IV CALI PRN PRN Reason: Hypotension Cefepime HCl (Cefepime/Ns 2 Gm/100 Ml) 2 gm in 100 mls @ 200 mls/hr IV Q24HR [facility]; Protocol Isosorbide Mononitrate (Isosorbide Mononitrate Er 60 Mg Tab) 60 mg PO QAM [facility] Latanoprost (Latanoprost 0.005% Ophth Soln 2.5 Ml) 1 drops OU QPM [facility] Last Admin: 09/22/21 18:40 Dose: 1 drops Morphine Sulfate (Morphine 2 Mg/1 Ml Inj) 2 mg IV Q4H PRN PRN Reason: Pain, Moderate (4-6) Nifedipine (Nifedipine Xl 90 Mg Tab) 90 mg PO QDAY [facility] Last Admin: 09/22/21 15:15 Dose: 90 mg Ondansetron HCl (Ondansetron 4 Mg/2 Ml Inj) 4 mg IV Q8H PRN PRN Reason: Nausea And Vomiting Sodium Chloride (Sodium Chloride 0.9% 10 Ml Flush Syringe) 10 ml IV BID [facility] Last Admin: 09/22/21 15:00 Dose: 10 ml Sodium Chloride (Sodium Chloride 0.9% 10 Ml Flush Syringe) 10 ml IV PRN PRN PRN Reason: LINE FLUSH Review of Systems Cardiovascular: shortness of breath, no chest pain, no orthopnea, no palpitations, no rapid/irregular heart beat, no edema, no syncope, no lightheadedness Physical Examination Vital Signs Pulse Ox 93 09/22/21 08:24 General appearance: no acute distress HEENT: Positive: PERRL Neck: Positive: neck supple Cardiac: Positive: Reg Rate and Rhythm Lungs: Positive: Decreased Breath Sounds Neuro: Positive: Grossly Intact Abdomen: Positive: Soft Male genitourinary: Positive: deferred Skin: Positive: Clear Extremities: Absent: edema Results 09/23/21 05:16 09/23/21 05:16 Cardiac Enzymes 09/23/21 Range/Units 05:16 AST 56 H (5-40) units/L CBC 09/23/21 Range/Units 05:16 WBC 11.6 H (4.5-11.0) K/mm3 RBC 3.29 L (3.65-5.03) M/mm3 Hgb 9.2 L (11.8-15.2) gm/dl Hct 29.2 L (35.5-45.6) % Plt Count 431 (140-440) K/mm3 Comprehensive Metabolic Panel 09/23/21 Range/Units 05:16 Sodium 134 L (137-145) mmol/L Potassium 4.5 (3.6-5.0) mmol/L Chloride 93.8 L (98-107) mmol/L Carbon Dioxide 26 D (22-30) mmol/L BUN 43 H (9-20) mg/dL Creatinine 7.9 H (0.8-1.3) mg/dL Glucose 73 L (75-100) mg/dL Calcium 9.2 (8.4-10.2) mg/dL AST 56 H (5-40) units/L ALT 45 (7-56) units/L Alkaline Phosphatase 94 (35-129) units/L Total Protein 6.9 (6.3-8.2) g/dL Albumin 3.6 L (3.9-5) g/dL EKG interpretations - Telemetry EKG Rhythm: Sinus Rhythm Assessment and Plan - Patient Problems (1) Acute pulmonary edema Current Visit: Yes Status: Acute Plan to address problem: 66-year-old male with end-stage renal disease, presents with acute pulmonary edema representing heart failure with preserved ejection fraction. Previous echocardiogram had demonstrated left ventricular ejection fraction normal at 55 to 60%. EKG shows no acute ischemic changes, but troponin level is elevated at 1.4. The patient has not missed any dialysis sessions. Continue optimal hemodialysis for fluid management. Further cardiac ischemic evaluation will depend on clinical course. Invasive angiography may be indicated for further evaluation of heart failure and pulmonary edema.
--- NOTE | 2021-09-23 12:38 | Consultation ---
History of Present Illness Consult date: 09/23/21 Reason for consult: dyspnea, pneumonia History of present illness: The patient was discharged from this hospital yesterday. He is brought to the hospital today by emergency medical services with a complaint of shortness of breath. The patient reports that he is not having physical pain, he endorses that he has received his COVID-19 vaccinations and boosters. He also reports that he has lower extremity swelling. He was found to be hypoxic in the field by EMS, and they started him on CPAP. The patient states this improved his symptoms. The patient was evaluated in the emergency department . He was evaluated in the context of the global COVID-19 pandemic, which necessitated consideration that the patient might be at risk for infection with the virus that causes COVID-19. Institutional protocols and algorithms that pertain to the evaluation of patients at risk for COVID-19 are followed. Past medical history: End-stage renal disease on hemodialysis, Wednesday. Hypertension, hypoxic respiratory failure, hyperlipidemia, does not produce urine, recently had CT scan of the chest at this hospital which demonstrated no pulmonary embolism, but prominent left lower lobe pneumonia. Patient lives in alf. Denies smoking, alcohol or drug abuse. Patient allergic to shellfish derivatives. Patients schwarz virus PCR test reported negative. Patient was seen in the emergency room. Patient sleeping at this time. Patient is on BIPAP 08/11, rate 25,FIO2 50% and o2 saturation running 98%. Patient afebrile, Has leukocytosis, Blood pressure 155/79, Pulse 73, Respirations 15. Chest xray done 07/23/22 reported Worsening bilateral pulmonary opacities . Venous doppler studies of legs 09/22/21 reported No sonographic evidence for DVT in either lower extremity. Patient is on cefepime and S/C Heparin. Past History Past Medical History: ESRD, hypertension Medications and Allergies Allergies Allergy/AdvReac Type Severity Reaction Status Date / Time shellfish derived AdvReac Anaphylaxis Verified 09/22/21 09:46 Home Medications Medication Instructions Recorded Confirmed Last Taken Type AtorvaSTATin [Lipitor] 40 mg PO QHS 02/25/21 09/22/21 09/14/21 History Cinacalcet [Sensipar] 60 mg PO DAILY 02/25/21 09/22/21 09/14/21 History Losartan [Cozaar] 100 mg PO QDAY 02/25/21 09/22/21 09/14/21 History Vit B Complx C/Folic Acid/Zinc 1 tab PO DAILY 02/25/21 09/22/21 09/14/21 History [Dialyvite 800-Zinc 50 mg Tab] carvediloL [Coreg] 12.5 mg PO QDAY 02/25/21 09/22/21 09/14/21 History Calcium Acetate 2,001 mg PO TID 09/15/21 09/22/21 09/14/21 History Aspirin EC [Halfprin EC] 81 mg PO QDAY 09/18/21 09/22/21 09/14/21 History Isosorbide Mononitrate [Isosorbide 60 mg PO QAM 09/18/21 09/22/21 09/14/21 History Mononitrate ER] Latanoprost 0.005% 1 drop OU QPM 09/18/21 09/22/21 09/14/21 History Cholecalciferol Vit D3 [Vitamin D3 1,000 unit PO DAILY tablet 09/21/21 09/22/21 Unknown Rx 1,000 UNIT TAB] Latanoprost 0.005% 1 drops OU QPM #1 bottle 09/21/21 09/22/21 Unknown Rx NIFEdipine [Adalat cc] 90 mg PO DAILY #90 09/21/21 09/22/21 Unknown Rx levoFLOXacin [Levaquin TAB] 500 mg PO QDAY #7 tablet 09/21/21 09/22/21 Unknown Rx Active Meds: Active Medications Acetaminophen (Acetaminophen 325 Mg Tab) 650 mg PO Q4H PRN PRN Reason: Pain MILD(1-3)/Fever >100.5/GOINS Aspirin (Aspirin Ec 81 Mg Tab) 81 mg PO QDAY [facility] Last Admin: 09/22/21 15:30 Dose: 81 mg Atorvastatin Calcium (Atorvastatin 40 Mg Tab) 40 mg PO QHS [facility] Carvedilol (Carvedilol 12.5 Mg Tab) 12.5 mg PO QDAY [facility] Last Admin: 09/22/21 15:15 Dose: 12.5 mg Cholecalciferol (Cholecalciferol (Vit D3) 1000 Unit (25 Mcg) Tab) 1,000 unit PO DAILY [facility] Last Admin: 09/22/21 15:15 Dose: 1,000 unit Cinacalcet (Cinacalcet 30 Mg Tab) 60 mg PO DAILY [facility] Last Admin: 09/22/21 15:15 Dose: 60 mg Heparin Sodium (Porcine) (Heparin 5,000 Unit/1 Ml Vial) 5,000 unit SUB-Q Q12HR [facility] Last Admin: 09/22/21 15:15 Dose: 5,000 unit Sodium Chloride (Nacl 0.9%) 100 mls @ 999 mls/hr IV CALI PRN PRN Reason: Hypotension Cefepime HCl (Cefepime/Ns 2 Gm/100 Ml) 2 gm in 100 mls @ 200 mls/hr IV Q24HR [facility]; Protocol Sodium Chloride (Nacl 0.9%) 100 mls @ 999 mls/hr IV CALI PRN PRN Reason: Hypotension Isosorbide Mononitrate (Isosorbide Mononitrate Er 60 Mg Tab) 60 mg PO QAM [facility] Latanoprost (Latanoprost 0.005% Ophth Soln 2.5 Ml) 1 drops OU QPM [facility] Last Admin: 09/22/21 18:40 Dose: 1 drops Morphine Sulfate (Morphine 2 Mg/1 Ml Inj) 2 mg IV Q4H PRN PRN Reason: Pain, Moderate (4-6) Nifedipine (Nifedipine Xl 90 Mg Tab) 90 mg PO QDAY [facility] Last Admin: 09/22/21 15:15 Dose: 90 mg Ondansetron HCl (Ondansetron 4 Mg/2 Ml Inj) 4 mg IV Q8H PRN PRN Reason: Nausea And Vomiting Sodium Chloride (Sodium Chloride 0.9% 10 Ml Flush Syringe) 10 ml IV BID [facility] Last Admin: 09/22/21 15:00 Dose: 10 ml Sodium Chloride (Sodium Chloride 0.9% 10 Ml Flush Syringe) 10 ml IV PRN PRN PRN Reason: LINE FLUSH Review of Systems All systems: negative Physical Examination Vital signs: Vital Signs Pulse Ox 93 09/22/21 08:24 General appearance: no acute distress, asleep, other (Resting on BIPAP.) Eyes: non-icteric ENT: oropharynx moist Neck: supple, no JVD Effort: mildly labored Ascultation: Bilateral: rales, rhonchi Cardiovascular: regular rate and rhythm Gastrointestinal: normoactive bowel sounds, soft, non-tender Integumentary: normal Extremities: no cyanosis, no edema Musculoskeletal: no deformities Gait: other (Patient is in bed.) non-focal exam, pupils equal and round other (Unable to assess. Patient sleeping.) Results - Laboratory Findings CBC and BMP: 09/24/21 11:58 09/23/21 05:16 PT/INR, D-dimer PT 14.0 Sec. (12.2-14.9) 09/22/21 09:07 INR 0.97 (0.87-1.13) 09/22/21 09:07 Abnormal lab findings: Abnormal Labs 09/22/21 09/22/21 09/22/21 09:07 09:07 09:07 WBC 18.5 H RBC 3.39 L Hgb 9.7 L Hct 29.6 L MCHC RDW 15.3 H Plt Count 450 H Lymphocytes % (Manual) 4.0 L Eosinophils % (Manual) 34.0 H Seg Neutrophils # Man 11.1 H Lymphocytes # (Manual) 0.7 L Eosinophils # (Manual) 6.3 H Basophils # (Manual) 0.2 H Sodium 135 L Potassium 5.5 H Chloride 96.1 L Carbon Dioxide 19 L BUN 63 H Creatinine 10.6 H Glucose 124 H AST 61 H Troponin T 1.410 H* NT-Pro-B Natriuret Pep 81147 H Albumin 3.6 L Triglycerides 150 H HDL Cholesterol 39 L 09/23/21 09/23/21 05:16 05:16 WBC 11.6 H RBC 3.29 L Hgb 9.2 L Hct 29.2 L MCHC 31 L RDW Plt Count Lymphocytes % (Manual) 3.0 L Eosinophils % (Manual) 29.0 H Seg Neutrophils # Man Lymphocytes # (Manual) 0.3 L Eosinophils # (Manual) 3.4 H Basophils # (Manual) Sodium 134 L Potassium Chloride 93.8 L Carbon Dioxide BUN 43 H Creatinine 7.9 H Glucose 73 L AST 56 H Troponin T NT-Pro-B Natriuret Pep Albumin 3.6 L Triglycerides HDL Cholesterol - Diagnostic Findings Chest x-ray: report reviewed, image reviewed U/S of Legs: report reviewed, image reviewed Additional studies: CHEST 1 VIEW 09/22/2021 8:21 AM INDICATION / CLINICAL INFORMATION: Dyspnea. COMPARISON: 09/19/2021 FINDINGS: SUPPORT DEVICES: None. HEART / MEDIASTINUM: No significant abnormality. LUNGS / PLEURA: Diffuse bilateral pulmonary opacities have increased since prior exam No pneumothorax. ADDITIONAL FINDINGS: No significant additional findings. IMPRESSION: 1. Worsening bilateral pulmonary opacities DUPLEX DOPPLER LOWER EXTREMITY VEINS, BILATERAL 09/22/21 INDICATION / CLINICAL INFORMATION: Shortness of Breath R/O DVT. TECHNIQUE: Duplex doppler imaging was performed through the veins of both lower extremities using venous compression and other maneuvers. COMPARISON: None available. FINDINGS: RIGHT COMMON FEMORAL VEIN: Negative. RIGHT FEMORAL VEIN: Negative. RIGHT POPLITEAL VEIN: Negative. RIGHT CALF VEINS: Negative. LEFT COMMON FEMORAL VEIN: Negative. LEFT FEMORAL VEIN: Negative. LEFT POPLITEAL VEIN: Negative. LEFT CALF VEINS: Negative. ADDITIONAL FINDINGS: None. IMPRESSION: 1. No sonographic evidence for DVT in either lower extremity. Assessment and Plan The patient was discharged from this hospital yesterday. He is brought to the hospital today by emergency medical services with a complaint of shortness of breath. The patient reports that he is not having physical pain, he endorses that he has received his COVID-19 vaccinations and boosters. He also reports that he has lower extremity swelling. He was found to be hypoxic in the field by EMS, and they started him on CPAP. The patient states this improved his s ymptoms. The patient was evaluated in the emergency department . He was evaluated in the context of the global COVID-19 pandemic, which necessitated consideration that the patient might be at risk for infection with the virus that causes COVID-19. Institutional protocols and algorithms that pertain to the evaluation of patients at risk for COVID-19 are followed. Past medical history: End-stage renal disease on hemodialysis, Wednesday. Hypertension, hypoxic respiratory failure, hyperlipidemia, does not produce urine, recently had CT scan of the chest at this hospital which demon strated no pulmonary embolism, but prominent left lower lobe pneumonia. Patient lives in alf. Denies smoking, alcohol or drug abuse. Patient allergic to shellfish derivatives. Patients schwarz virus PCR test reported negative. Patient was seen in the emergency room. Patient sleeping at this time. Patient is on BIPAP 08/11, rate 25,FIO2 50% and o2 saturation running 98%. Patient afebrile, Has leukocytosis, Blood pressure 155/79, Pulse 73, Respirations 15. Chest xray done 07/23/22 reported Worsening bilateral pulmonary opacities . Venous doppler studies of legs 09/22/21 reported No sonographic evidence for DVT in either lower extremity. Patient is on cefepime and S/C Heparin. I spent critical care time of 40 minutes, reviewing the chart, examine the patient, review xrays and labs, talking to the nursing staff and respiratory therapy and work up plan of treatment in this citically ill patient. - Patient Problems (1) Acute respiratory failure with hypoxia Current Visit: Yes Status: Acute Plan to address problem: BIPAP 12/6, rate 25, FIO2 50%. Recommend Albuterol/atrovent aerosol treatments q 6 hours Continue S/C Heparin. ABGs on BIPAP. (2) Acute pulmonary edema Current Visit: Yes Status: Acute Plan to address problem: Patient is on Hemodialysis. (3) Lower extremity edema Current Visit: Yes Status: Acute Plan to address problem: Venous doppler studies of both legs reported negative. (4) Pulmonary infiltrate Current Visit: Yes Status: Acute Plan to address problem: Patient is on cefepime. (5) End stage renal disease on dialysis Current Visit: Yes Status: Chronic Plan to address problem: Patient is on hemodialysis. Management as per nephrology. (6) Suspected COVID-19 virus infection Current Visit: No Status: Acute Plan to address problem: Coronavirus PCR test reported Negative.
[2021-09-23] MEDS ORDERED: SODIUM CHLORIDE 0.9% 100 ML IV PRN (13:00)
[2021-09-23] MEDS: CEFEPIME/NS 2 GM/100 ML 2 GM/100 ML BAG IV SCH (13:30)
[2021-09-23] MEDS: carvediloL 12.5 MG TAB PO SCH (13:45)
[2021-09-23] MEDS: CINACALCET 30 MG TAB PO SCH (14:15)
[2021-09-23] MEDS: NIFEdipine XL 90 MG TAB PO SCH (14:15)
[2021-09-23] MEDS: LATANOPROST 0.005% OPHTH SOLN 2.5 ML OU SCH (18:31)
[2021-09-24] MEDS: MORPHINE 2 MG/1 ML INJ IV PRN (00:36)
--- NOTE | 2021-09-24 09:18 | Progress Note ---
Assessment and Plan Assessment and plan: HPI: 66-year-old female with past medical history of ESRD on HD, hypertension who presents as a readmission to our facility after being discharged yesterday for shortness of breath. Patient was found on the field with swelling in lower extremities and was tachypneic. CPAP was admitted initiated by emergency medical services with immediate improvement of symptomology. Patient states that he was feeling well yesterday. This morning, he noticed he was very short of breath. Denied GOINS, Chest pain, jaw pain, abd pain, n/v, change in bowel habits. He denied leg swelling however leg swelling was noted on his exam. Admitted to [facility] for respiratory failure on bipap. Hospital Course: 09/23: Currently on minimal bipap settings. Sats excellent. COVID 19 pcr negative. Recieved dialysis x 1 tx yesterday. D/w nephrology who will continue to pull fluid, recs noted. Cardiology recs noted. D/w Dr Cook (Pulmonology) case, will see patient today. Will titrate bipap down as patient tolerates. Once off bipap, can be downgraded to regular medical floor. 09/24 : off bipap, on nasal cannula. transfer to [facility] bed. GPC positive in blood culture. Can start vancomycin IV. Cardiology plan for cath potentially tomorrow. Assessment and Plan: #Acute hypoxic respiratory failure -Currently requiring BiPAP 08/11 ,50%, will admit to IMCU -Multifactorial between pulmonary edema and treatment failure for community- acquired pneumonia treated last admission (was d/c on 07/22) - CT chest noncontrast and CTA chest were performed on 09/17/2021 revealing no PE but significant pneumonia of left lower lobe with consolidations present. - 07/23 admission CXR worsening of bilateral pulmonary opacities - pulmonology consultation - albuterol/budesonide ordered COVID PCR negative on 09/17, reordered by emergency room physician IV antibiotics as below #Pulmonary edema Cardiogenic (?HFpEF) versus fluid overload from IV fluid administration last admission. -Lower extremity edema, systolic ejection murmur noted on exam BNP 48769 - 02/2021 echo: LVEF 50-55%. calcified aortic valve, mean gradient 16, mitral annular calcification Pulmonology consulted Cardiology consulted -We will hold off on echocardiogram at this time and follow-up assessments by both pulmonology and cardiology -May benefit from fluid removal, will defer to nephrology for this. #Hospital-acquired pneumonia - initiated on vancomycin/cefepime IV, pharmacy to dose #Sepsis POA - tachycardic, tachypneic, wbc: 18.5 - bcx/ucx/scx, - Bcx 1/ coag negative Staphylococcus on 09/17 however this was ruled out to be contaminant - covid pcr ordered 09/22: negative - abx as above #Recent diagnosis of left lower lobe pneumonia - was treated with azithromycin and rocephin, treatment failure - covid pcr ordered 09/22: negative #ESRD on hemodialysis - MWF dialysis OP, appears to be anuric. - avoid nephrotoxic agents - renally adjust medications - strict I/O monitoring - nephrology consulted on admission #Type II MO - troponin 1.410, was 0.373 - likley supply demand - will re-consult cardiology #Systolic ejection murmur - 4/6 MATT noted on exam. -Appears to be in the mitral region -will follow-up with cardiology regarding the significance of this #Thrombocytosis Likely reactive to underlying sepsis #Hypertension - resume home coreg/imdur #Hyperkalemia - K= 5.5, hold losartan at this time - will continue to monitor - correct with HD #Hyperlipidemia - resume home atorvastatin/asa #Morbid obesity - behavioral health counseling on calorie restricted diet, +15 mins #Advance care planning Disease education conducted, care plan discussed, diagnoses discussed, prognosis discussed, patient is full code, patient acknowledges understanding and agree with care plan, +30 minutes. Code Status: Full Code Diet: NPO VTE PPx: Heparin 5000 units subq bid Dispo: IMCU The high probability of a clinically significant, sudden or life threatening deterioration of the [pulmonary, neuro] system(s) required my full and direct attention, intervention and personal management. The aggregate critical care time was [60] minutes. This time is in addition to time spent performing reported procedures but includes the following: [x] Data Review and interpretation [x] Patient assessment and monitoring of vital signs [x] Documentation [x] Medication orders and management History Interval history: Doing well on nasal cannula now. Hospitalist Physical - Physical exam Narrative exam: Physical Exam: VITAL SIGNS: Reviewed. GENERAL: The patient appears normally developed, Vital signs as documented. BIPAP mask in place. morbid obese male in no distress. HEAD: No signs of head trauma. EYES: Pupils are equal. Extraocular motions intact. EARS: Hearing grossly intact. MOUTH: Oropharynx is normal. NECK: No adenopathy, no JVD. CHEST: BL Rales. SYstolic ejection murmur 4/6 noted on left chest wall. VASCULAR: BL lower extremity edema. right arm fistula noted. Peripheral pulses normal and equal in all extremities. ABDOMEN: Soft, non tender and non distended. No rebound or guarding, and no masses palpated. Bowel Sounds normal. MUSCULOSKELETAL: Good range of motion of all major joints. BL LE edema 1-2 + NEUROLOGIC EXAM: Alert and oriented x 4. no focal sensory or strength deficits. PSYCHIATRIC: Mood normal. SKIN: detail exam as documented in skin assessment - Constitutional Vitals: Temp Pulse Resp BP Pulse Ox 98.4 F 73 16 157/64 98 09/24/21 08:00 09/24/21 08:56 09/24/21 04:11 09/24/21 08:30 09/24/21 08:55 General appearance: Present: no acute distress HEART Score - HEART Score Troponin: Troponin T 1.480 ng/mL (0.00-0.029) H* 09/23/21 14:41 Results - Labs CBC & Chem 7: 09/24/21 11:58 09/24/21 11:58 Labs: Laboratory Last Values WBC 11.6 K/mm3 (4.5-11.0) H 09/23/21 05:16 RBC 3.29 M/mm3 (3.65-5.03) L 09/23/21 05:16 Hgb 9.2 gm/dl (11.8-15.2) L 09/23/21 05:16 Hct 29.2 % (35.5-45.6) L 09/23/21 05:16 MCV 89 fl (84-94) 09/23/21 05:16 MCH 28 pg (28-32) 09/23/21 05:16 MCHC 31 % (32-34) L 09/23/21 05:16 RDW 15.2 % (13.2-15.2) 09/23/21 05:16 Plt Count 431 K/mm3 (140-440) 09/23/21 05:16 Eos % (Auto) Top Precipitator Operator 09/23/21 05:16 Add Manual Diff Complete 09/23/21 05:16 Total Counted 100 09/23/21 05:16 Seg Neuts % (Manual) 58.0 % (40.0-70.0) 09/23/21 05:16 Band Neutrophils % 3.0 % 09/23/21 05:16 Lymphocytes % (Manual) 3.0 % (13.4-35.0) L 09/23/21 05:16 Reactive Lymphs % (Man) 0 % 09/23/21 05:16 Monocytes % (Manual) 6.0 % (0.0-7.3) 09/23/21 05:16 Eosinophils % (Manual) 29.0 % (0.0-4.3) H 09/23/21 05:16 Basophils % (Manual) 1.0 % (0.0-1.8) 09/23/21 05:16 Metamyelocytes % 0 % 09/23/21 05:16 Myelocytes % 0 % 09/23/21 05:16 Promyelocytes % 0 % 09/23/21 05:16 Blast Cells % 0 % 09/23/21 05:16 Nucleated RBC % Not Reportable 09/23/21 05:16 Seg Neutrophils # Man 6.7 K/mm3 (1.8-7.7) 09/23/21 05:16 Band Neutrophils # 0.3 K/mm3 09/23/21 05:16 Lymphocytes # (Manual) 0.3 K/mm3 (1.2-5.4) L 09/23/21 05:16 Abs React Lymphs (Man) 0.0 K/mm3 09/23/21 05:16 Monocytes # (Manual) 0.7 K/mm3 (0.0-0.8) 09/23/21 05:16 Eosinophils # (Manual) 3.4 K/mm3 (0.0-0.4) H 09/23/21 05:16 Basophils # (Manual) 0.1 K/mm3 (0.0-0.1) 09/23/21 05:16 Metamyelocytes # 0.0 K/mm3 09/23/21 05:16 Myelocytes # 0.0 K/mm3 09/23/21 05:16 Promyelocytes # 0.0 K/mm3 09/23/21 05:16 Blast Cells # 0.0 K/mm3 09/23/21 05:16 WBC Morphology Not Reportable 09/23/21 05:16 Hypersegmented Neuts Not Reportable 09/23/21 05:16 Hyposegmented Neuts Not Reportable 09/23/21 05:16 Hypogranular Neuts Not Reportable 09/23/21 05:16 Smudge Cells Not Reportable 09/23/21 05:16 Toxic Granulation Not Reportable 09/23/21 05:16 Toxic Vacuolation Not Reportable 09/23/21 05:16 Dohle Bodies Not Reportable 09/23/21 05:16 Pelger-Huet Anomaly Not Reportable 09/23/21 05:16 Jessica Rods Not Reportable 09/23/21 05:16 Platelet Estimate Consistent w auto 09/23/21 05:16 Clumped Platelets Not Reportable 09/23/21 05:16 Plt Clumps, EDTA Not Reportable 09/23/21 05:16 Large Platelets Not Reportable 09/23/21 05:16 Giant Platelets Not Reportable 09/23/21 05:16 Platelet Satelliting Not Reportable 09/23/21 05:16 Plt Morphology Comment Not Reportable 09/23/21 05:16 RBC Morphology Not Reportable 09/23/21 05:16 Dimorphic RBCs Not Reportable 09/23/21 05:16 Polychromasia Not Reportable 09/23/21 05:16 Hypochromasia Not Reportable 09/23/21 05:16 Poikilocytosis Not Reportable 09/23/21 05:16 Anisocytosis 1+ 09/23/21 05:16 Microcytosis Not Reportable 09/23/21 05:16 Macrocytosis Not Reportable 09/23/21 05:16 Spherocytes Not Reportable 09/23/21 05:16 Pappenheimer Bodies Not Reportable 09/23/21 05:16 Sickle Cells Not Reportable 09/23/21 05:16 Target Cells Not Reportable 09/23/21 05:16 Tear Drop Cells Not Reportable 09/23/21 05:16 Ovalocytes Not Reportable 09/23/21 05:16 Helmet Cells Not Reportable 09/23/21 05:16 [place] Bodies Not Reportable 09/23/21 05:16 [place] Rings Not Reportable 09/23/21 05:16 Jameel Cells Not Reportable 09/23/21 05:16 Bite Cells Not Reportable 09/23/21 05:16 Crenated Cell Not Reportable 09/23/21 05:16 Elliptocytes Not Reportable 09/23/21 05:16 Acanthocytes (Spur) Not Reportable 09/23/21 05:16 Rouleaux Not Reportable 09/23/21 05:16 Hemoglobin C Crystals Not Reportable 09/23/21 05:16 Schistocytes Not Reportable 09/23/21 05:16 Malaria parasites Not Reportable 09/23/21 05:16 Giovani Bodies Not Reportable 09/23/21 05:16 Hem Pathologist Commnt No 09/23/21 05:16 PT 14.0 Sec. (12.2-14.9) 09/22/21 09:07 INR 0.97 (0.87-1.13) 09/22/21 09:07 APTT 31.1 Sec. (24.2-36.6) 09/22/21 09:07 Sodium 134 mmol/L (137-145) L 09/23/21 05:16 Potassium 4.5 mmol/L (3.6-5.0) 09/23/21 05:16 Chloride 93.8 mmol/L (98-107) L 09/23/21 05:16 Carbon Dioxide 26 mmol/L (22-30) D 09/23/21 05:16 Anion Gap 19 mmol/L 09/23/21 05:16 BUN 43 mg/dL (9-20) H 09/23/21 05:16 Creatinine 7.9 mg/dL (0.8-1.3) H 09/23/21 05:16 Estimated GFR 8 ml/min 09/23/21 05:16 BUN/Creatinine Ratio 5 % 09/23/21 05:16 Glucose 73 mg/dL (75-100) L 09/23/21 05:16 Lactic Acid 0.90 mmol/L (0.7-2.0) 09/22/21 09:07 Calcium 9.2 mg/dL (8.4-10.2) 09/23/21 05:16 Magnesium 2.10 mg/dL (1.7-2.3) 09/22/21 09:07 Total Bilirubin 0.40 mg/dL (0.1-1.2) 09/23/21 05:16 AST 56 units/L (5-40) H 09/23/21 05:16 ALT 45 units/L (7-56) 09/23/21 05:16 Alkaline Phosphatase 94 units/L (35-129) 09/23/21 05:16 Troponin T 1.480 ng/mL (0.00-0.029) H* 09/23/21 14:41 NT-Pro-B Natriuret Pep 74693 pg/mL (0-900) H 09/22/21 09:07 Total Protein 6.9 g/dL (6.3-8.2) 09/23/21 05:16 Albumin 3.6 g/dL (3.9-5) L 09/23/21 05:16 Albumin/Globulin Ratio 1.1 % 09/23/21 05:16 Triglycerides 150 mg/dL (2-149) H 09/22/21 09:07 Cholesterol 113 mg/dL (50-199) 09/22/21 09:07 LDL Cholesterol Direct 52 mg/dL (50-130) 09/22/21 09:07 HDL Cholesterol 39 mg/dL (40-59) L 09/22/21 09:07 Cholesterol/HDL Ratio 2.89 % 09/22/21 09:07 Coronavirus (PCR) Negative (Negative) 09/22/21 08:53 Microbiology: Microbiology 09/22/21 09:07 Peripheral/Venous Blood Culture - Preliminary 09/22/21 09:07 Peripheral/Venous Blood Culture - Preliminary NO GROWTH AFTER 24 HOURS Active Medications - Current Medications Current Medications: Generic Name Dose Route Start Last Admin Trade Name Joeq PRN Reason Stop Dose Admin Acetaminophen 650 mg 09/22/21 13:47 Acetaminophen 325 Mg Tab PO Q4H PRN Pain MILD(1-3)/Fever >100.5/GOINS Aspirin 81 mg 09/22/21 15:00 09/23/21 10:30 Aspirin Ec 81 Mg Tab PO 81 mg QDAY [facility] Administration Atorvastatin Calcium 40 mg 09/22/21 22:00 09/23/21 22:56 Atorvastatin 40 Mg Tab PO Not Given QHS [facility] Carvedilol 12.5 mg 09/22/21 15:00 09/23/21 13:45 Carvedilol 12.5 Mg Tab PO 12.5 mg QDAY [facility] Administration Cholecalciferol 1,000 unit 09/22/21 15:00 09/23/21 10:30 Cholecalciferol (Vit D3) 1000 Unit (25 Mcg) Tab PO 1,000 unit DAILY LYNDON Administration Cinacalcet 60 mg 09/22/21 15:00 09/23/21 14:15 Cinacalcet 30 Mg Tab PO 60 mg DAILY LYNDON Administration Heparin Sodium (Porcine) 5,000 unit 09/22/21 14:00 09/23/21 23:02 Heparin 5,000 Unit/1 Ml Vial SUB-Q Not Given Q12HR LYNDON Cefepime HCl 2 gm in 100 mls @ 200 mls/hr 09/23/21 10:00 09/23/21 13:30 Cefepime/Ns 2 Gm/100 Ml IV 200 mls/hr Q24HR LYNDON Administration Protocol Sodium Chloride 100 mls @ 999 mls/hr 09/23/21 13:00 Nacl 0.9% IV CALI PRN Hypotension Isosorbide Mononitrate 60 mg 09/23/21 10:00 09/23/21 14:15 Isosorbide Mononitrate Er 60 Mg Tab PO 60 mg QAM LYNDON Administration Latanoprost 1 drops 09/22/21 18:00 09/23/21 18:31 Latanoprost 0.005% Ophth Soln 2.5 Ml OU 1 drops QPM LYNDON Administration Morphine Sulfate 2 mg 09/22/21 13:47 09/24/21 00:36 Morphine 2 Mg/1 Ml Inj IV 2 mg Q4H PRN Administration Pain, Moderate (4-6) Nifedipine 90 mg 09/22/21 14:30 09/23/21 14:15 Nifedipine Xl 90 Mg Tab PO 90 mg QDAY LYNDON Administration Ondansetron HCl 4 mg 09/22/21 13:47 Ondansetron 4 Mg/2 Ml Inj IV Q8H PRN Nausea And Vomiting Pneumococcal Polyvalent Vaccine 0.5 ml 09/24/21 12:00 Pneumococcal 23 Valent 0.5 Ml Vial IM 09/24/21 12:01 .ONCE ONE Sodium Chloride 10 ml 09/22/21 14:00 09/23/21 22:56 Sodium Chloride 0.9% 10 Ml Flush Syringe IV 10 ml BID LYNDON Administration Sodium Chloride 10 ml 09/22/21 13:47 Sodium Chloride 0.9% 10 Ml Flush Syringe IV PRN PRN LINE FLUSH
--- NOTE | 2021-09-24 09:57 | Progress Note ---
Assessment and Plan Impression: * End stage renal disease * Acute hypoxic respiratory failure secondary to pulmonary edema --COVID 19 negative x 2 (Sep 17 and Sep 22) * Elevated troponin * Anemia secondary to ESRD * Secondary hyperparathyroidism Plan: * Patient is s/p HD on Wednesday. Isolated UF was ordered for Wednesday but not performed * Hemodialysis today - UF as tolerated * Continue MWF schedule * Cardiology recommendations noted * Dose medications for renal function * Epogen TIW prn * Renal diet Subjective Date of service: 09/24/21 Interval history: Patient has no complaints. Reports breathing has improved. Objective - Vital Signs Vital signs: Vital Signs - 12hr 09/23/21 09/23/21 09/23/21 22:00 22:30 23:00 Temperature Pulse Rate 69 72 Pulse Rate [ From Monitor] Respiratory 19 19 Rate Blood Pressure 161/75 169/80 138/89 O2 Sat by Pulse 98 98 100 Oximetry 09/24/21 09/24/21 09/24/21 00:02 00:10 00:20 Temperature Pulse Rate 75 94 H 87 Pulse Rate [ From Monitor] Respiratory Rate Blood Pressure 159/76 O2 Sat by Pulse 100 91 94 Oximetry 09/24/21 09/24/21 09/24/21 00:30 00:36 00:40 Temperature Pulse Rate 83 83 Pulse Rate [ From Monitor] Respiratory 20 Rate Blood Pressure 159/76 159/76 O2 Sat by Pulse 91 92 Oximetry 09/24/21 09/24/21 09/24/21 00:50 01:00 01:10 Temperature Pulse Rate 79 81 84 Pulse Rate [ From Monitor] Respiratory Rate Blood Pressure 159/76 155/83 155/83 O2 Sat by Pulse 98 99 98 Oximetry 09/24/21 09/24/21 09/24/21 01:20 01:23 01:30 Temperature 98.5 F Pulse Rate 85 90 Pulse Rate [ From Monitor] Respiratory Rate Blood Pressure 155/83 155/83 O2 Sat by Pulse 98 96 Oximetry 09/24/21 09/24/21 09/24/21 02:00 02:30 03:00 Temperature Pulse Rate 80 79 82 Pulse Rate [ From Monitor] Respiratory Rate Blood Pressure 134/56 134/56 135/60 O2 Sat by Pulse 99 96 95 Oximetry 09/24/21 09/24/21 09/24/21 03:30 04:00 04:11 Temperature 98.6 F Pulse Rate 82 78 Pulse Rate [ From Monitor] Respiratory 16 Rate Blood Pressure 135/60 141/61 O2 Sat by Pulse 100 98 97 Oximetry 09/24/21 09/24/21 09/24/21 04:20 04:30 05:00 Temperature Pulse Rate 75 75 73 Pulse Rate [ From Monitor] Respiratory Rate Blood Pressure 141/61 154/72 O2 Sat by Pulse 97 100 Oximetry 09/24/21 09/24/21 09/24/21 05:08 05:30 06:00 Temperature Pulse Rate 79 76 Pulse Rate [ 78 From Monitor] Respiratory Rate Blood Pressure 154/72 148/58 O2 Sat by Pulse 98 95 98 Oximetry 09/24/21 09/24/21 09/24/21 06:30 07:00 07:30 Temperature Pulse Rate 78 71 79 Pulse Rate [ From Monitor] Respiratory Rate Blood Pressure 148/58 158/79 158/79 O2 Sat by Pulse 97 100 91 Oximetry 09/24/21 09/24/21 09/24/21 08:00 08:30 08:55 Temperature 98.4 F Pulse Rate 71 66 Pulse Rate [ 78 From Monitor] Respiratory Rate Blood Pressure 157/64 157/64 O2 Sat by Pulse 98 98 98 Oximetry 09/24/21 08:56 Temperature Pulse Rate 73 Pulse Rate [ From Monitor] Respiratory Rate Blood Pressure O2 Sat by Pulse Oximetry - General Appearance General appearance: well-developed, well-nourished EENT: ATNC Respiratory: Present: Decreased Breath Sounds Gastrointestinal: normal, no tenderness, no distended Integumentary: no rash, warm and dry Psychiatric: cooperative - Lab 09/24/21 11:58 09/24/21 11:58 Most recent lab results Calcium 9.2 mg/dL (8.4-10.2) 09/23/21 05:16 Magnesium 2.10 mg/dL (1.7-2.3) 09/22/21 09:07 Medications & Allergies - Medications Allergies/Adverse Reactions: Allergies shellfish derived Adverse Reaction (Verified 09/22/21 09:46) Anaphylaxis Home Medications: Home Medications Medication Instructions Recorded Confirmed Last Taken Type AtorvaSTATin [Lipitor] 40 mg PO QHS 02/25/21 09/22/21 09/14/21 History Cinacalcet [Sensipar] 60 mg PO DAILY 02/25/21 09/22/21 09/14/21 History Losartan [Cozaar] 100 mg PO QDAY 02/25/21 09/22/21 09/14/21 History Vit B Complx C/Folic Acid/Zinc 1 tab PO DAILY 02/25/21 09/22/21 09/14/21 History [Dialyvite 800-Zinc 50 mg Tab] carvediloL [Coreg] 12.5 mg PO QDAY 02/25/21 09/22/21 09/14/21 History Calcium Acetate 2,001 mg PO TID 09/15/21 09/22/21 09/14/21 History Aspirin EC [Halfprin EC] 81 mg PO QDAY 09/18/21 09/22/21 09/14/21 History Isosorbide Mononitrate [Isosorbide 60 mg PO QAM 09/18/21 09/22/21 09/14/21 History Mononitrate ER] Latanoprost 0.005% 1 drop OU QPM 09/18/21 09/22/21 09/14/21 History Cholecalciferol Vit D3 [Vitamin D3 1,000 unit PO DAILY tablet 09/21/21 09/22/21 Unknown Rx 1,000 UNIT TAB] Latanoprost 0.005% 1 drops OU QPM #1 bottle 09/21/21 09/22/21 Unknown Rx NIFEdipine [Adalat cc] 90 mg PO DAILY #90 09/21/21 09/22/21 Unknown Rx levoFLOXacin [Levaquin TAB] 500 mg PO QDAY #7 tablet 09/21/21 09/22/21 Unknown Rx Active Medications: Generic Name Dose Route Start Last Admin Trade Name Blayne PRN Reason Stop Dose Admin Acetaminophen 650 mg 09/22/21 13:47 Acetaminophen 325 Mg Tab PO Q4H PRN Pain MILD(1-3)/Fever >100.5/GOINS Aspirin 81 mg 09/22/21 15:00 09/23/21 10:30 Aspirin Ec 81 Mg Tab PO 81 mg QDAY [facility] Administration Atorvastatin Calcium 40 mg 09/22/21 22:00 09/23/21 22:56 Atorvastatin 40 Mg Tab PO Not Given QHS LYNDON Carvedilol 12.5 mg 09/22/21 15:00 09/23/21 13:45 Carvedilol 12.5 Mg Tab PO 12.5 mg QDAY [facility] Administration Cholecalciferol 1,000 unit 09/22/21 15:00 09/23/21 10:30 Cholecalciferol (Vit D3) 1000 Unit (25 Mcg) Tab PO 1,000 unit DAILY LYNDON Administration Cinacalcet 60 mg 09/22/21 15:00 09/23/21 14:15 Cinacalcet 30 Mg Tab PO 60 mg DAILY LYNDON Administration Heparin Sodium (Porcine) 5,000 unit 09/22/21 14:00 09/23/21 23:02 Heparin 5,000 Unit/1 Ml Vial SUB-Q Not Given Q12HR [facility]ON Cefepime HCl 2 gm in 100 mls @ 200 mls/hr 09/23/21 10:00 09/23/21 13:30 Cefepime/Ns 2 Gm/100 Ml IV 200 mls/hr Q24HR [facility]YNDON Administration Protocol Sodium Chloride 100 mls @ 999 mls/hr 09/23/21 13:00 Nacl 0.9% IV CALI PRN Hypotension Isosorbide Mononitrate 60 mg 09/23/21 10:00 09/23/21 14:15 Isosorbide Mononitrate Er 60 Mg Tab PO 60 mg QAM [facility] Administration Latanoprost 1 drops 09/22/21 18:00 09/23/21 18:31 Latanoprost 0.005% Ophth Soln 2.5 Ml OU 1 drops QPM [facility] Administration Morphine Sulfate 2 mg 09/22/21 13:47 09/24/21 00:36 Morphine 2 Mg/1 Ml Inj IV 2 mg Q4H PRN Administration Pain, Moderate (4-6) Nifedipine 90 mg 09/22/21 14:30 09/23/21 14:15 Nifedipine Xl 90 Mg Tab PO 90 mg QDAY [facility] Administration Ondansetron HCl 4 mg 09/22/21 13:47 Ondansetron 4 Mg/2 Ml Inj IV Q8H PRN Nausea And Vomiting Pneumococcal Polyvalent Vaccine 0.5 ml 09/24/21 12:00 Pneumococcal 23 Valent 0.5 Ml Vial IM 09/24/21 12:01 .ONCE ONE Sodium Chloride 10 ml 09/22/21 14:00 09/23/21 22:56 Sodium Chloride 0.9% 10 Ml Flush Syringe IV 10 ml BID LYNDON Administration Sodium Chloride 10 ml 09/22/21 13:47 Sodium Chloride 0.9% 10 Ml Flush Syringe IV PRN PRN LINE FLUSH
[2021-09-24] MEDS ORDERED: SODIUM CHLORIDE 0.9% 100 ML IV PRN (10:00)
[2021-09-24] MEDS: ASPIRIN EC 81 MG TAB PO SCH (10:00)
--- NOTE | 2021-09-24 10:16 | Progress Note ---
Assessment and Plan - Patient Problems (1) Acute pulmonary edema Current Visit: Yes Status: Acute Plan to address problem: 66-year-old male with end-stage renal disease, presents with acute pulmonary edema representing heart failure with preserved ejection fraction. Previous echocardiogram had demonstrated left ventricular ejection fraction normal at 55 to 60%. EKG shows no acute ischemic changes, but troponin level is elevated at 1.4. The patient has not missed any dialysis sessions. Continue optimal hemodialysis for fluid management. Further cardiac ischemic evaluation will depend on clinical course. Invasive angiography may be indicated for further evaluation of heart failure and pulmonary edema. Subjective Date of service: 09/24/21 Interval history: Patient is comfortable in no acute distress, on monitor technician he has a stable sinus rhythm. Objective Vital Signs Temp Pulse Pulse Resp BP BP Pulse Ox 09/24/21 08:56 73 09/24/21 08:55 78 98 09/24/21 08:30 66 157/64 98 09/24/21 08:00 98.4 F 71 157/64 98 09/24/21 07:30 79 158/79 91 09/24/21 07:00 71 158/79 100 09/24/21 06:30 78 148/58 97 09/24/21 06:00 76 148/58 98 09/24/21 05:30 79 154/72 95 09/24/21 05:08 78 98 09/24/21 05:00 73 154/72 100 09/24/21 04:30 75 141/61 97 09/24/21 04:20 75 09/24/21 04:11 98.6 F 16 97 09/24/21 04:00 78 141/61 98 09/24/21 03:30 82 135/60 100 09/24/21 03:00 82 135/60 95 09/24/21 02:30 79 134/56 96 09/24/21 02:00 80 134/56 99 09/24/21 01:30 90 155/83 96 09/24/21 01:23 98.5 F 09/24/21 01:20 85 155/83 98 09/24/21 01:10 84 155/83 98 09/24/21 01:00 81 155/83 99 09/24/21 00:50 79 159/76 98 09/24/21 00:40 83 159/76 92 09/24/21 00:36 20 09/24/21 00:30 83 159/76 91 09/24/21 00:20 87 159/76 94 09/24/21 00:10 94 H 91 09/24/21 00:02 75 100 09/23/21 23:00 138/89 100 09/23/21 22:30 72 19 169/80 98 09/23/21 22:00 69 19 161/75 98 09/23/21 21:30 78 17 161/74 97 09/23/21 21:00 76 17 163/73 98 09/23/21 20:30 71 27 H 154/70 96 09/23/21 20:00 70 15 154/68 98 09/23/21 19:30 97.7 F 73 16 155/79 155/79 99 09/23/21 19:00 73 18 178/76 93 09/23/21 18:42 76 21 161/74 98 09/23/21 18:30 72 14 173/78 97 09/23/21 18:00 73 16 171/78 99 09/23/21 17:30 72 14 165/77 100 09/23/21 17:00 75 15 160/85 100 09/23/21 16:30 74 19 161/78 98 09/23/21 16:00 79 16 161/82 100 09/23/21 15:45 70 14 160/77 100 09/23/21 15:30 67 16 160/77 100 09/23/21 15:00 68 18 160/82 96 09/23/21 14:30 71 16 160/77 82 L 09/23/21 14:00 66 14 153/76 100 09/23/21 13:30 75 14 154/69 100 09/23/21 13:00 69 14 176/83 100 09/23/21 12:30 73 15 161/78 90 09/23/21 12:00 72 13 152/83 100 09/23/21 11:30 72 14 152/74 100 09/23/21 11:28 71 28 H 158/81 100 09/23/21 11:00 75 15 158/81 99 09/23/21 10:30 73 15 133/54 99 - Physical Examination General: No Apparent Distress HEENT: Positive: PERRL Neck: Positive: neck supple Cardiac: Positive: Reg Rate and Rhythm Lungs: Positive: Decreased Breath Sounds Neuro: Positive: Grossly Intact Abdomen: Positive: Soft Skin: Positive: Clear Extremities: Absent: edema
[2021-09-24] MEDS: HEPARIN 5,000 UNIT/1 ML VIAL SUB-Q SCH ×2 (10:36→22:10)
[2021-09-24] MEDS: CINACALCET 30 MG TAB PO SCH (10:37)
[2021-09-24] MEDS: CEFEPIME/NS 2 GM/100 ML 2 GM/100 ML BAG IV SCH (10:37)
[2021-09-24] MEDS: NIFEdipine XL 90 MG TAB PO SCH (10:37)
[2021-09-24] MEDS: CHOLECALCIFEROL (VIT D3) 1000 UNIT (25 mcg) TAB PO SCH (10:38)
[2021-09-24] MEDS: carvediloL 12.5 MG TAB PO SCH (10:38)
[2021-09-24] MEDS ORDERED: PNEUMOCOCCAL 23 Valent 0.5 ML VIAL IM ONE (12:00)
[2021-09-24 13:00] LABS: Hematocrit 25.4 % (35.5-45.6); Hemoglobin 8.3 gm/dl (11.8-15.2); Mean Corpuscular HGB Conc 33 % (32-34); Mean Corpuscular Volume 89 fl (84-94); Platelet Count 382 K/mm3 (140-440); Red Blood Count 2.87 M/mm3 (3.65-5.03); Red Cell Distribution Width 15.3 % (13.2-15.2)
[2021-09-24 13:19] LABS: Calcium 8.7 mg/dL (8.4-10.2)
[2021-09-24 13:44] LABS: Total Cells Counted 100
[2021-09-24 13:45] LABS: Anisocytosis 1+; Platelet Estimate Consistent w Auto
[2021-09-24] MEDS ORDERED: VANCOMYCIN 1,500 MG in SODIUM CHLORIDE 0.9% 500 ML 500 ML IV SCH (15:30)
--- NOTE | 2021-09-24 16:26 | Progress Note ---
Assessment and Plan The patient was discharged from this hospital yesterday. He is brought to the hospital today by emergency medical services with a complaint of shortness of breath. The patient reports that he is not having physical pain, he endorses that he has received his COVID-19 vaccinations and boosters. He also reports that he has lower extremity swelling. He was found to be hypoxic in the field by EMS, and they started him on CPAP. The patient states this improved his symptoms. The patient was evaluated in the emergency department . He was evaluated in the context of the global COVID-19 pandemic, which necessitated consideration that t he patient might be at risk for infection with the virus that causes COVID-19. Institutional protocols and algorithms that pertain to the evaluation of patients at risk for COVID-19 are followed. Past medical history: End-stage renal disease on hemodialysis, Wednesday. Hypertension, hypoxic respiratory failure, hyperlipidemia, does not produce urine, recently had CT scan of the chest at this hospital which demonstrated no pulmonary embolism, but prominent left lower lobe pneumonia. Patient lives in [place]. Denies smoking, alcohol or drug abuse. Patient allergic to shellfish derivatives. Patients schwarz virus PCR test reported negative. Patient sleepy at this time.But arousable. Patient is on 1 litre O2. O2 saturation 97%. BIPAP 12/6, rate 25,FIO2 50% stand by in the room. Patient afebrile, Has leukocytosis, Blood pressure 151/61, Pulse 71, Respirations 16 Chest xray done 07/23/22 reported Worsening bilateral pulmonary opacities . Venous doppler studies of legs 09/22/21 reported No sonographic evidence for DVT in either lower extremity. Patient is on cefepime and S/C Heparin. I spent critical care time of 35 minutes, reviewing the chart, examine the patient, review xrays and labs, talking to the nursing staff and respiratory therapy and work up plan of treatment in this citically ill patient. - Patient Problems (1) Acute respiratory failure with hypoxia Current Visit: Yes Status: Acute Plan to address problem: Improved. On 1 litre O2 via nasal canula. BIPAP 12/6, rate 25, FIO2 50%. stand by in the room. Recommend Albuterol/atrovent aerosol treatments q 6 hours Continue S/C Heparin. ABGs on room air. (2) Acute pulmonary edema Current Visit: Yes Status: Acute Plan to address problem: Patient is on Hemodialysis. (3) Lower extremity edema Current Visit: Yes Status: Acute Plan to address problem: Venous doppler studies of both legs reported negative. (4) Pulmonary infiltrate Current Visit: Yes Status: Acute Plan to address problem: Patient is on cefepime. (5) End stage renal disease on dialysis Current Visit: Yes Status: Chronic Plan to address problem: Patient is on hemodialysis. Management as per nephrology. (6) Suspected COVID-19 virus infection Current Visit: No Status: Acute Plan to address problem: Coronavirus PCR test reported Negative. Subjective Date of service: 09/24/21 Interval history: The patient was discharged from this hospital yesterday. He is brought to the hospital today by emergency medical services with a complaint of shortness of breath. The patient reports that he is not having physical pain, he endorses that he has received his COVID-19 vaccinations and boosters. He also reports that he has lower extremity swelling. He was found to be hypoxic in the field by EMS, and they started him on CPAP. The patient states this improved his symptoms. The patient was evaluated in the emergency department . He was evaluated in the context of the global COVID-19 pandemic, which necessitated consideration that the patient might be at risk for infection with the virus that causes COVID-19. Institutional protocols and algorithms that pertain to the evaluation of patients at risk for COVID-19 are followed. Past medical history: End-stage renal disease on hemodialysis, Wednesday. Hypertension, hypoxic respiratory failure, hyperlipidemia, does not produce urine, recently had CT scan of the chest at this hospital which demonstrated no pulmonary embolism, but prominent left lower lobe pneumonia. Patient lives in [place]. Denies smoking, alcohol or drug abuse. Patient allergic to shellfish derivatives. Patients schwarz virus PCR test reported negative. Patient sleepy at this time.But arousable. Patient is on 1 litre O2. O2 satur ation 97%. BIPAP /, rate 25,FIO2 50% stand by in the room. Patient afebrile, Has leukocytosis, Blood pressure 151/61, Pulse 71, Respirations 16. Chest xray done 07/23/22 reported Worsening bilateral pulmonary opacities . Venous doppler studies of legs 09/22/21 reported No sonographic evidence for DVT in either lower extremity. Patient is on cefepime and S/C Heparin. Objective Vital Signs - 12hr 09/24/21 09/24/21 09/24/21 04:30 05:00 05:08 Temperature Pulse Rate 75 73 Pulse Rate [ 78 From Monitor] Blood Pressure 141/61 154/72 O2 Sat by Pulse 97 100 98 Oximetry 09/24/21 09/24/21 09/24/21 05:30 06:00 06:30 Temperature Pulse Rate 79 76 78 Pulse Rate [ From Monitor] Blood Pressure 154/72 148/58 148/58 O2 Sat by Pulse 95 98 97 Oximetry 09/24/21 09/24/21 09/24/21 07:00 07:30 08:00 Temperature 98.4 F Pulse Rate 71 79 71 Pulse Rate [ From Monitor] Blood Pressure 158/79 158/79 157/64 O2 Sat by Pulse 100 91 98 Oximetry 09/24/21 09/24/21 09/24/21 08:30 08:55 08:56 Temperature Pulse Rate 66 73 Pulse Rate [ 78 From Monitor] Blood Pressure 157/64 O2 Sat by Pulse 98 98 Oximetry 09/24/21 09/24/21 09/24/21 09:00 09:30 09:45 Temperature 98.4 F Pulse Rate 81 73 Pulse Rate [ From Monitor] Blood Pressure 146/73 146/73 O2 Sat by Pulse 92 98 97 Oximetry 09/24/21 09/24/21 09/24/21 10:00 10:30 10:38 Temperature Pulse Rate 75 70 74 Pulse Rate [ From Monitor] Blood Pressure 155/67 155/67 O2 Sat by Pulse 94 92 Oximetry 09/24/21 09/24/21 09/24/21 11:00 11:30 12:00 Temperature Pulse Rate 72 70 70 Pulse Rate [ From Monitor] Blood Pressure 148/66 148/66 140/77 O2 Sat by Pulse 95 96 97 Oximetry 09/24/21 09/24/21 09/24/21 12:30 12:53 13:00 Temperature 98.2 F Pulse Rate 74 71 Pulse Rate [ 78 From Monitor] Blood Pressure 140/77 158/74 O2 Sat by Pulse 94 97 Oximetry 09/24/21 09/24/21 09/24/21 13:30 14:00 14:30 Temperature Pulse Rate 75 75 69 Pulse Rate [ From Monitor] Blood Pressure 158/74 152/84 152/84 O2 Sat by Pulse 98 100 Oximetry 09/24/21 09/24/21 09/24/21 15:00 15:30 16:00 Temperature Pulse Rate 71 71 75 Pulse Rate [ From Monitor] Blood Pressure 152/68 152/68 152/68 O2 Sat by Pulse 98 99 100 Oximetry Constitutional: no acute distress, asleep Eyes: non-icteric ENT: oropharynx moist Neck: supple, no JVD Effort: mildly labored Ascultation: Bilateral: rales, rhonchi Cardiovascular: regular rate and rhythm Gastrointestinal: normoactive bowel sounds, soft, non-tender Integumentary: normal Extremities: no cyanosis, no edema Neurologic: non-focal exam, pupils equal and round Psychiatric: other (Unable to assess. Patient sleeping.) CBC and BMP: 09/24/21 11:58 09/24/21 11:58 ABG, PT/INR, D-dimer: PT/INR, D-dimer PT 14.0 Sec. (12.2-14.9) 09/22/21 09:07 INR 0.97 (0.87-1.13) 09/22/21 09:07 Abnormal lab findings: Abnormal Labs 09/22/21 09/22/21 09/22/21 09:07 09:07 09:07 WBC 18.5 H RBC 3.39 L Hgb 9.7 L Hct 29.6 L MCHC RDW 15.3 H Plt Count 450 H Lymphocytes % (Manual) 4.0 L Eosinophils % (Manual) 34.0 H Basophils % (Manual) Seg Neutrophils # Man 11.1 H Lymphocytes # (Manual) 0.7 L Monocytes # (Manual) Eosinophils # (Manual) 6.3 H Basophils # (Manual) 0.2 H Sodium 135 L Potassium 5.5 H Chloride 96.1 L Carbon Dioxide 19 L BUN 63 H Creatinine 10.6 H Glucose 124 H AST 61 H Troponin T 1.410 H* NT-Pro-B Natriuret Pep 09113 H Albumin 3.6 L Triglycerides 150 H HDL Cholesterol 39 L 09/23/21 09/23/21 09/23/21 05:16 05:16 14:41 WBC 11.6 H RBC 3.29 L Hgb 9.2 L Hct 29.2 L MCHC 31 L RDW Plt Count Lymphocytes % (Manual) 3.0 L Eosinophils % (Manual) 29.0 H Basophils % (Manual) Seg Neutrophils # Man Lymphocytes # (Manual) 0.3 L Monocytes # (Manual) Eosinophils # (Manual) 3.4 H Basophils # (Manual) Sodium 134 L Potassium Chloride 93.8 L Carbon Dioxide BUN 43 H Creatinine 7.9 H Glucose 73 L AST 56 H Troponin T 1.480 H* NT-Pro-B Natriuret Pep Albumin 3.6 L Triglycerides HDL Cholesterol 09/24/21 09/24/21 11:58 11:58 WBC 15.5 H RBC 2.87 L Hgb 8.3 L Hct 25.4 L MCHC RDW 15.3 H Plt Count Lymphocytes % (Manual) 8.0 L Eosinophils % (Manual) 39.0 H Basophils % (Manual) 4.0 H Seg Neutrophils # Man Lymphocytes # (Manual) Monocytes # (Manual) 0.9 H Eosinophils # (Manual) 6.0 H Basophils # (Manual) 0.6 H Sodium 134 L Potassium 5.3 H Chloride 95.4 L Carbon Dioxide BUN 63 H Creatinine 10.9 H Glucose AST Troponin T NT-Pro-B Natriuret Pep Albumin Triglycerides HDL Cholesterol
[2021-09-24] MEDS: LATANOPROST 0.005% OPHTH SOLN 2.5 ML OU SCH (18:17)
[2021-09-25] MEDS: MORPHINE 2 MG/1 ML INJ IV PRN (02:31)
--- NOTE | 2021-09-25 08:05 | Progress Note ---
Assessment and Plan Acute hypoxic respiratory failure Pulmonary edema Hospital-acquired pneumonia Sepsis POA Recent diagnosis of left lower lobe pneumonia ESRD on hemodialysis Type II AR Thrombocytosis Hyperkalemia -Titrate supplemental oxygen to keep SpO2 88-90% -BIPAP qhs and prn -Follow ABG once done -On antibiotics for HAP( Vancomycin and Cefepime)-deescalate based on culture data and clinical response - Bronchodilators as clinically indicated -Supportive HD, optimize UF as tolerated by renal function and hemodynamics -[facility] today -Heart failure measures per Cardiology -PT/OT to evaluate and treat, increase activity -Adjust all medications for CrCL/GFR -Weight loss and lifestyle modifications -Optimization of medical management of heart failure -Follow up CXR -Home oxygen evaluation prior to discharge Subjective Date of service: 09/25/21 Interval history: SUMMARY 66-year-old female with past medical history of ESRD on HD, hypertension who presents as a readmission to our facility after being discharged yesterday for shortness of breath. Patient was found on the field with swelling in lower extremities and was tachypneic. CPAP was admitted initiated by emergency medical services with immediate improvement of symptomology. ED Course: ASA, zithromax, cefepime, vanocmycin. Initiation of BIPAP. Follow up for acute hypoxemic resp failure; Patient seen and examined. Vitals, labs, medications,chart reviewed. Discussed with respiratory care and nursing staff. When I evaluated the patient he had increased work of breathing and appeared cponfused. A CXR and ABG was ordered. Cardiac catheterization today Objective Vital Signs - 12hr 09/24/21 09/24/21 09/24/21 20:17 20:30 20:41 Temperature Pulse Rate 71 75 Pulse Rate [ From Monitor] Respiratory Rate Blood Pressure 128/58 132/58 O2 Sat by Pulse 98 100 Oximetry O2 Sat by Pulse Oximetry [ Posterior Bilateral Throughout] 09/24/21 09/24/21 09/24/21 20:45 21:00 21:15 Temperature Pulse Rate 74 71 75 Pulse Rate [ 84 From Monitor] Respiratory Rate Blood Pressure 128/61 128/61 128/60 O2 Sat by Pulse 98 Oximetry O2 Sat by Pulse Oximetry [ Posterior Bilateral Throughout] 09/24/21 09/24/21 09/24/21 21:30 21:45 22:00 Temperature Pulse Rate 75 75 76 Pulse Rate [ From Monitor] Respiratory Rate Blood Pressure 125/58 137/62 134/63 O2 Sat by Pulse 99 98 Oximetry O2 Sat by Pulse Oximetry [ Posterior Bilateral Throughout] 09/24/21 09/24/21 09/24/21 22:22 22:30 23:00 Temperature 98.1 F Pulse Rate 77 82 76 Pulse Rate [ From Monitor] Respiratory 16 Rate Blood Pressure 145/63 145/63 140/70 O2 Sat by Pulse 96 93 Oximetry O2 Sat by Pulse 100 Oximetry [ Posterior Bilateral Throughout] 09/24/21 09/25/21 09/25/21 23:30 00:00 00:01 Temperature 98.3 F Pulse Rate 80 Pulse Rate [ From Monitor] Respiratory Rate Blood Pressure 142/69 159/83 O2 Sat by Pulse 92 91 Oximetry O2 Sat by Pulse Oximetry [ Posterior Bilateral Throughout] 09/25/21 09/25/21 09/25/21 00:31 01:00 01:30 Temperature Pulse Rate 84 80 Pulse Rate [ From Monitor] Respiratory Rate Blood Pressure 159/83 140/96 140/50 O2 Sat by Pulse 92 96 92 Oximetry O2 Sat by Pulse Oximetry [ Posterior Bilateral Throughout] 09/25/21 09/25/21 09/25/21 02:00 03:15 03:34 Temperature 98.3 F Pulse Rate 88 77 Pulse Rate [ From Monitor] Respiratory 18 Rate Blood Pressure 144/51 120/41 O2 Sat by Pulse 89 98 94 Oximetry O2 Sat by Pulse Oximetry [ Posterior Bilateral Throughout] Constitutional: asleep, appears uncomfortable, other (mild resp distress, tachypnea) Eyes: non-icteric ENT: oropharynx moist Neck: supple, no JVD, other (short neck) Effort: mildly labored Ascultation: Bilateral: rales, rhonchi Cardiovascular: regular rate and rhythm, other (S1,S2) Gastrointestinal: normoactive bowel sounds, soft, non-tender Integumentary: normal Extremities: no cyanosis, no edema Neurologic: non-focal exam, pupils equal and round Psychiatric: other (Unable to assess. Patient sleeping.) CBC and BMP: 09/25/21 10:07 09/25/21 10:04 ABG, PT/INR, D-dimer: PT/INR, D-dimer PT 14.0 Sec. (12.2-14.9) 09/22/21 09:07 INR 0.97 (0.87-1.13) 09/22/21 09:07 Abnormal lab findings: Abnormal Labs 09/22/21 09/22/21 09/22/21 09:07 09:07 09:07 WBC 18.5 H RBC 3.39 L Hgb 9.7 L Hct 29.6 L MCHC RDW 15.3 H Plt Count 450 H Lymphocytes % (Manual) 4.0 L Eosinophils % (Manual) 34.0 H Basophils % (Manual) Seg Neutrophils # Man 11.1 H Lymphocytes # (Manual) 0.7 L Monocytes # (Manual) Eosinophils # (Manual) 6.3 H Basophils # (Manual) 0.2 H Sodium 135 L Potassium 5.5 H Chloride 96.1 L Carbon Dioxide 19 L BUN 63 H Creatinine 10.6 H Glucose 124 H AST 61 H Troponin T 1.410 H* NT-Pro-B Natriuret Pep 29440 H Albumin 3.6 L Triglycerides 150 H HDL Cholesterol 39 L 09/23/21 09/23/21 09/23/21 05:16 05:16 14:41 WBC 11.6 H RBC 3.29 L Hgb 9.2 L Hct 29.2 L MCHC 31 L RDW Plt Count Lymphocytes % (Manual) 3.0 L Eosinophils % (Manual) 29.0 H Basophils % (Manual) Seg Neutrophils # Man Lymphocytes # (Manual) 0.3 L Monocytes # (Manual) Eosinophils # (Manual) 3.4 H Basophils # (Manual) Sodium 134 L Potassium Chloride 93.8 L Carbon Dioxide BUN 43 H Creatinine 7.9 H Glucose 73 L AST 56 H Troponin T 1.480 H* NT-Pro-B Natriuret Pep Albumin 3.6 L Triglycerides HDL Cholesterol 09/24/21 09/24/21 11:58 11:58 WBC 15.5 H RBC 2.87 L Hgb 8.3 L Hct 25.4 L MCHC RDW 15.3 H Plt Count Lymphocytes % (Manual) 8.0 L Eosinophils % (Manual) 39.0 H Basophils % (Manual) 4.0 H Seg Neutrophils # Man Lymphocytes # (Manual) Monocytes # (Manual) 0.9 H Eosinophils # (Manual) 6.0 H Basophils # (Manual) 0.6 H Sodium 134 L Potassium 5.3 H Chloride 95.4 L Carbon Dioxide BUN 63 H Creatinine 10.9 H Glucose AST Troponin T NT-Pro-B Natriuret Pep Albumin Triglycerides HDL Cholesterol Chest x-ray: image reviewed Additional Studies: 02/2021 echo: LVEF 50-55%. calcified aortic valve, mean gradient 16, mitral annular calcification Allied health notes reviewed: RT (Bilateral alveolar infiltrates with right layering pleural effusion)
[2021-09-25 09:28] LABS: ABG Base Excess 2.5 mmol/L (-2.0-3.0); ABG HCO3 26.2 mmol/L (20.0-26.0); ABG Methemoglobin 0.4 % (0.0-1.5); ABG Oxygen Saturation 89.9 % (95.0-99.0); ABG PCO2 36.8 mm Hg; ABG PH 7.471 pH Units (7.350-7.450); ABG PO2 57.6 mm Hg (80.0-90.0)
--- NOTE | 2021-09-25 09:38 | Progress Note ---
Assessment and Plan Impression: * End stage renal disease * Acute hypoxic respiratory failure secondary to pulmonary edema --COVID 19 negative x 2 (Sep 17 and Sep 22) * Elevated troponin * Anemia secondary to ESRD * Secondary hyperparathyroidism Plan: * Patient is scheduled for [facility] today * Continue MWF schedule * UF as tolerated * Dose medications for renal function * Epogen TIW prn * Renal diet Subjective Date of service: 09/25/21 Interval history: Patient has no complaints today. Objective - Vital Signs Vital signs: Vital Signs - 12hr 09/24/21 09/24/21 09/24/21 21:45 22:00 22:22 Temperature 98.1 F Pulse Rate 75 76 77 Respiratory 16 Rate Blood Pressure 137/62 134/63 145/63 O2 Sat by Pulse 98 Oximetry O2 Sat by Pulse 100 Oximetry [ Posterior Bilateral Throughout] 09/24/21 09/24/21 09/24/21 22:30 23:00 23:30 Temperature Pulse Rate 82 76 80 Respiratory Rate Blood Pressure 145/63 140/70 142/69 O2 Sat by Pulse 96 93 92 Oximetry O2 Sat by Pulse Oximetry [ Posterior Bilateral Throughout] 09/25/21 09/25/21 09/25/21 00:00 00:01 00:31 Temperature 98.3 F Pulse Rate Respiratory Rate Blood Pressure 159/83 159/83 O2 Sat by Pulse 91 92 Oximetry O2 Sat by Pulse Oximetry [ Posterior Bilateral Throughout] 09/25/21 09/25/21 09/25/21 01:00 01:30 02:00 Temperature Pulse Rate 84 80 88 Respiratory Rate Blood Pressure 140/96 140/50 144/51 O2 Sat by Pulse 96 92 89 Oximetry O2 Sat by Pulse Oximetry [ Posterior Bilateral Throughout] 09/25/21 09/25/21 09/25/21 03:15 03:34 09:31 Temperature 98.3 F Pulse Rate 77 Respiratory 18 Rate Blood Pressure 120/41 O2 Sat by Pulse 98 94 98 Oximetry O2 Sat by Pulse Oximetry [ Posterior Bilateral Throughout] - General Appearance General appearance: well-developed, well-nourished EENT: ATNC Respiratory: Present: Clear to Ascultation Cardiology: regular, S1S2 Gastrointestinal: normal, no tenderness, no distended Integumentary: warm and dry Neurologic: alert and oriented x3 Psychiatric: cooperative - Lab 09/25/21 10:07 09/25/21 10:04 Most recent lab results ABG pH 7.471 pH Units (7.350-7.450) H 09/25/21 09:15 ABG pCO2 36.8 mm Hg 09/25/21 09:15 ABG pO2 57.6 mm Hg (80.0-90.0) L 09/25/21 09:15 ABG HCO3 26.2 mmol/L (20.0-26.0) H 09/25/21 09:15 ABG O2 Saturation 89.9 % (95.0-99.0) L 09/25/21 09:15 Calcium 8.7 mg/dL (8.4-10.2) 09/24/21 11:58 Magnesium 2.10 mg/dL (1.7-2.3) 09/22/21 09:07 Medications & Allergies - Medications Allergies/Adverse Reactions: Allergies shellfish derived Adverse Reaction (Verified 09/22/21 09:46) Anaphylaxis Home Medications: Home Medications Medication Instructions Recorded Confirmed Last Taken Type AtorvaSTATin [Lipitor] 40 mg PO QHS 02/25/21 09/22/21 09/14/21 History Cinacalcet [Sensipar] 60 mg PO DAILY 02/25/21 09/22/21 09/14/21 History Losartan [Cozaar] 100 mg PO QDAY 02/25/21 09/22/21 09/14/21 History Vit B Complx C/Folic Acid/Zinc 1 tab PO DAILY 02/25/21 09/22/21 09/14/21 History [Dialyvite 800-Zinc 50 mg Tab] carvediloL [Coreg] 12.5 mg PO QDAY 02/25/21 09/22/21 09/14/21 History Calcium Acetate 2,001 mg PO TID 09/15/21 09/22/21 09/14/21 History Aspirin EC [Halfprin EC] 81 mg PO QDAY 09/18/21 09/22/21 09/14/21 History Isosorbide Mononitrate [Isosorbide 60 mg PO QAM 09/18/21 09/22/21 09/14/21 History Mononitrate ER] Latanoprost 0.005% 1 drop OU QPM 09/18/21 09/22/21 09/14/21 History Cholecalciferol Vit D3 [Vitamin D3 1,000 unit PO DAILY tablet 09/21/21 09/22/21 Unknown Rx 1,000 UNIT TAB] Latanoprost 0.005% 1 drops OU QPM #1 bottle 09/21/21 09/22/21 Unknown Rx NIFEdipine [Adalat cc] 90 mg PO DAILY #90 09/21/21 09/22/21 Unknown Rx levoFLOXacin [Levaquin TAB] 500 mg PO QDAY #7 tablet 09/21/21 09/22/21 Unknown Rx Active Medications: Generic Name Dose Route Start Last Admin Trade Name Freq PRN Reason Stop Dose Admin Acetaminophen 650 mg 09/22/21 13:47 Acetaminophen 325 Mg Tab PO Q4H PRN Pain MILD(1-3)/Fever >100.5/GOINS Aspirin 81 mg 09/22/21 15:00 09/24/21 10:00 Aspirin Ec 81 Mg Tab PO 81 mg QDAY LYNDON Administration Atorvastatin Calcium 40 mg 09/22/21 22:00 09/24/21 22:10 Atorvastatin 40 Mg Tab PO 40 mg QHS LYNDON Administration Carvedilol 12.5 mg 09/22/21 15:00 09/24/21 10:38 Carvedilol 12.5 Mg Tab PO 12.5 mg QDAY LYNDON Administration Cholecalciferol 1,000 unit 09/22/21 15:00 09/24/21 10:38 Cholecalciferol (Vit D3) 1000 Unit (25 Mcg) Tab PO 1,000 unit DAILY LYNDON Administration Cinacalcet 60 mg 09/22/21 15:00 09/24/21 10:37 Cinacalcet 30 Mg Tab PO 60 mg DAILY LYNDON Administration Heparin Sodium (Porcine) 5,000 unit 09/22/21 14:00 09/24/21 22:10 Heparin 5,000 Unit/1 Ml Vial SUB-Q 5,000 unit Q12HR LYNDON Administration Cefepime HCl 2 gm in 100 mls @ 200 mls/hr 09/23/21 10:00 09/24/21 10:37 Cefepime/Ns 2 Gm/100 Ml IV 200 mls/hr Q24HR LYNDON Administration Protocol Sodium Chloride 100 mls @ 999 mls/hr 09/24/21 10:00 Nacl 0.9% IV CALI PRN Hypotension Isosorbide Mononitrate 60 mg 09/23/21 10:00 09/24/21 10:38 Isosorbide Mononitrate Er 60 Mg Tab PO 60 mg QAM LYNDON Administration Latanoprost 1 drops 09/22/21 18:00 09/24/21 18:17 Latanoprost 0.005% Ophth Soln 2.5 Ml OU 1 drops QPM LYNDON Administration Morphine Sulfate 2 mg 09/22/21 13:47 09/25/21 02:31 Morphine 2 Mg/1 Ml Inj IV 2 mg Q4H PRN Administration Pain, Moderate (4-6) Nifedipine 90 mg 09/22/21 14:30 09/24/21 10:37 Nifedipine Xl 90 Mg Tab PO 90 mg QDAY LYNDON Administration Ondansetron HCl 4 mg 09/22/21 13:47 Ondansetron 4 Mg/2 Ml Inj IV Q8H PRN Nausea And Vomiting Sodium Chloride 10 ml 09/22/21 14:00 09/24/21 22:10 Sodium Chloride 0.9% 10 Ml Flush Syringe IV 10 ml BID LYNDON Administration Sodium Chloride 10 ml 09/22/21 13:47 Sodium Chloride 0.9% 10 Ml Flush Syringe IV PRN PRN LINE FLUSH
--- NOTE | 2021-09-25 09:39 | Progress Note ---
Assessment and Plan 66-year-old female with past medical history of ESRD on HD, hypertension who presents as a readmission to our facility after being discharged yesterday for shortness of breath. Patient was found on the field with swelling in lower extremities and was tachypneic. CPAP was admitted initiated by emergency medical services with immediate improvement of symptomology. Patient states that he was feeling well yesterday. This morning, he noticed he was very short of breath. Denied GOINS, Chest pain, jaw pain, abd pain, n/v, change in bowel habits. He denied leg swelling however leg swelling was noted on his exam. Admitted to [facility] for respiratory failure on bipap. Hospital Course: 09/23: Currently on minimal bipap settings. Sats excellent. COVID 19 pcr negative. Recieved dialysis x 1 tx yesterday. D/w nephrology who will continue to pull fluid, recs noted. Cardiology recs noted. D/w Dr Cook (Pulmonology) case, will see patient today. Will titrate bipap down as patient tolerates. Once off bipap, can be downgraded to regular medical floor. 09/24 : off bipap, on nasal cannula. transfer to tele bed. GPC positive in blood culture. Can start vancomycin IV. Cardiology plan for cath potentially tomorrow. 09/25; patient is planned for cardiac cath today, continue to follow clinically, hemodialysis tomorrow. If cleared by cardiology patient will be possible discharge tomorrow after hemodialysis. Assessment and Plan: #Acute hypoxic respiratory failure -s/p Bipap -Multifactorial between pulmonary edema and treatment failure for community- acquired pneumonia treated last admission (was d/c on 07/22) - CT chest noncontrast and CTA chest were performed on 09/17/2021 revealing no PE but significant pneumonia of left lower lobe with consolidations present. - 07/23 admission CXR worsening of bilateral pulmonary opacities - pulmonology consultation requested - albuterol/budesonide ordered COVID PCR negative on 09/17, reordered by emergency room physician Continue IV antibiotics #Pulmonary edema Cardiogenic (?HFpEF) versus fluid overload from IV fluid administration last admission. -Lower extremity edema, systolic ejection murmur noted on exam BNP 70810 - 02/2021 echo: LVEF 50-55%. calcified aortic valve, mean gradient 16, mitral annular calcification Pulmonology consulted Cardiology consulted -We will hold off on echocardiogram at this time and follow-up assessments by both pulmonology and cardiology -May benefit from fluid removal, will defer to nephrology for this. #Hospital-acquired pneumonia - initiated on vancomycin/cefepime IV, pharmacy to dose #Sepsis POA - tachycardic, tachypneic, wbc: 18.5 - bcx/ucx/scx, - Bcx 1/ coag negative Staphylococcus on 09/17 however this was ruled out to be contaminant - covid pcr ordered 09/22: negative - abx as above #Recent diagnosis of left lower lobe pneumonia - was treated with azithromycin and rocephin, treatment failure - covid pcr ordered 09/22: negative #ESRD on hemodialysis - MWF dialysis OP, appears to be anuric. - avoid nephrotoxic agents - renally adjust medications - strict I/O monitoring - nephrology consulted on admission #Type II NJ - troponin 1.410, was 0.373 - likley supply demand - will re-consult cardiology #Systolic ejection murmur - 4/6 MATT noted on exam. -Appears to be in the mitral region -will follow-up with cardiology regarding the significance of this #Thrombocytosis Likely reactive to underlying sepsis #Hypertension - resume home coreg/imdur #Hyperkalemia - K= 5.5, hold losartan at this time - will continue to monitor - correct with HD #Hyperlipidemia - resume home atorvastatin/asa # obesity - behavioral health counseling on calorie restricted diet, +15 mins #Advance care planning Disease education conducted, care plan discussed, diagnoses discussed, prognosis discussed, patient is full code, patient acknowledges understanding and agree with care plan, +30 minutes. Code Status: Full Code Diet: Renal VTE PPx: Heparin 5000 units subq bid Dispo: DC likely tomorrow if cleared by cardiology. Subjective Date of service: 09/25/21 Objective - Exam Narrative Exam: GENERAL: well-developed and well-nourished -Maldivian male lying on bed appeared to be in no discomfort. HEENT: Normocephalic. Atraumatic. No conjunctival congestion or icterus. Patient has moist mucous membranes. NECK: Supple. Trachea midline. CHEST/LUNGS: breathing nonlabored. No wheezes crackles or rhonchi. HEART/CARDIOVASCULAR: Regular in rate and rhythm. S1 and S2 positive. ABDOMEN: Abdomen is soft, nontender. Patient has normal bowel sounds. SKIN: There is no rash. Warm and dry. NEURO: No focal motor deficit. Follows command. MUSCULOSKELETAL: No joint effusion or tenderness. EXTRIMITY: No edema, no cyanosis or clubbing. PSYCH: Cooperative. - Constitutional Vitals: Vital Signs - 12hr 09/24/21 09/24/21 09/24/21 21:45 22:00 22:22 Temperature 98.1 F Pulse Rate 75 76 77 Respiratory 16 Rate Blood Pressure 137/62 134/63 145/63 O2 Sat by Pulse 98 Oximetry O2 Sat by Pulse 100 Oximetry [ Posterior Bilateral Throughout] 09/24/21 09/24/21 09/24/21 22:30 23:00 23:30 Temperature Pulse Rate 82 76 80 Respiratory Rate Blood Pressure 145/63 140/70 142/69 O2 Sat by Pulse 96 93 92 Oximetry O2 Sat by Pulse Oximetry [ Posterior Bilateral Throughout] 09/25/21 09/25/21 09/25/21 00:00 00:01 00:31 Temperature 98.3 F Pulse Rate Respiratory Rate Blood Pressure 159/83 159/83 O2 Sat by Pulse 91 92 Oximetry O2 Sat by Pulse Oximetry [ Posterior Bilateral Throughout] 09/25/21 09/25/21 09/25/21 01:00 01:30 02:00 Temperature Pulse Rate 84 80 88 Respiratory Rate Blood Pressure 140/96 140/50 144/51 O2 Sat by Pulse 96 92 89 Oximetry O2 Sat by Pulse Oximetry [ Posterior Bilateral Throughout] 09/25/21 09/25/21 09/25/21 03:15 03:34 09:31 Temperature 98.3 F Pulse Rate 77 Respiratory 18 Rate Blood Pressure 120/41 O2 Sat by Pulse 98 94 98 Oximetry O2 Sat by Pulse Oximetry [ Posterior Bilateral Throughout] - Labs CBC & Chem 7: 09/26/21 13:35 09/26/21 13:35 Labs: Abnormal lab results 09/24/21 09/24/21 09/25/21 Range/Units 11:58 11:58 09:15 WBC 15.5 H (4.5-11.0) K/mm3 RBC 2.87 L (3.65-5.03) M/mm3 Hgb 8.3 L (11.8-15.2) gm/dl Hct 25.4 L (35.5-45.6) % RDW 15.3 H (13.2-15.2) % Lymphocytes % (Manual) 8.0 L (13.4-35.0) % Eosinophils % (Manual) 39.0 H (0.0-4.3) % Basophils % (Manual) 4.0 H (0.0-1.8) % Monocytes # (Manual) 0.9 H (0.0-0.8) K/mm3 Eosinophils # (Manual) 6.0 H (0.0-0.4) K/mm3 Basophils # (Manual) 0.6 H (0.0-0.1) K/mm3 ABG pH 7.471 H (7.350-7.450) pH Units ABG pO2 57.6 L (80.0-90.0) mm Hg ABG HCO3 26.2 H (20.0-26.0) mmol/L ABG O2 Saturation 89.9 L (95.0-99.0) % ABG Hemoglobin 8.0 L (14.0-18.0) gm/dl Oxyhemoglobin 88.0 L (95.0-99.0) % Sodium 134 L (137-145) mmol/L Potassium 5.3 H (3.6-5.0) mmol/L Chloride 95.4 L (98-107) mmol/L BUN 63 H (9-20) mg/dL Creatinine 10.9 H (0.8-1.3) mg/dL HEART Score - HEART Score Troponin: Troponin T 1.480 ng/mL (0.00-0.029) H* 09/23/21 14:41
--- NOTE | 2021-09-25 09:54 | XRay Report ---
CHEST 1 VIEW 09/25/2021 9:37 AM INDICATION / CLINICAL INFORMATION: resp failure. COMPARISON: 09/22/2021 FINDINGS: SUPPORT DEVICES: None. HEART / MEDIASTINUM: Unchanged LUNGS / PLEURA: There is worsening airspace opacity bilaterally greater on the right than the left. N o pneumothorax. ADDITIONAL FINDINGS: No significant additional findings. IMPRESSION: 1. Interval worsening. Signer Name: Gilberto Payne MD Signed: 09/25/2021 9:49 AM Workstation Name: [id number]
--- NOTE | 2021-09-25 10:11 | Progress Note ---
Assessment and Plan - Patient Problems (1) Acute pulmonary edema Current Visit: Yes Status: Acute Plan to address problem: 66-year-old male with end-stage renal disease, presents with acute pulmonary edema representing heart failure with preserved ejection fraction. Previous echocardiogram had demonstrated left ventricular ejection fraction normal at 55 to 60%. EKG shows no acute ischemic changes, but troponin level is elevated at 1.4. The patient has not missed any dialysis sessions. Continue optimal hemodialysis for fluid management. Cardiac catheterization and invasive angiography is recommended for further evaluation of heart failure and pulmonary edema. Subjective Date of service: 09/25/21 Interval history: Patient is comfortable, alert and oriented x3, we discussed extensively, risks and benefits of cardiac catheterization, patient affirms understanding, and has signed the consent. Objective Vital Signs Temp Pulse Pulse Resp BP Pulse Ox Pulse Ox 09/25/21 09:31 98 09/25/21 03:34 98.3 F 77 18 120/41 94 09/25/21 03:15 98 09/25/21 02:00 88 144/51 89 09/25/21 01:30 80 140/50 92 09/25/21 01:00 84 140/96 96 09/25/21 00:31 159/83 92 09/25/21 00:01 159/83 91 09/25/21 00:00 98.3 F 09/24/21 23:30 80 142/69 92 09/24/21 23:00 76 140/70 93 09/24/21 22:30 82 145/63 96 09/24/21 22:22 98.1 F 77 16 145/63 100 09/24/21 22:00 76 134/63 98 09/24/21 21:45 75 137/62 09/24/21 21:30 75 125/58 99 09/24/21 21:15 75 128/60 09/24/21 21:00 71 84 128/61 98 09/24/21 20:45 74 128/61 09/24/21 20:41 100 09/24/21 20:30 75 132/58 98 09/24/21 20:17 71 128/58 09/24/21 20:00 97.6 F 71 134/62 100 09/24/21 19:45 98.1 F 72 16 124/56 100 09/24/21 19:30 71 140/77 100 09/24/21 19:01 74 140/77 99 09/24/21 18:31 74 145/75 98 09/24/21 18:05 76 145/75 100 09/24/21 18:00 74 145/75 98 09/24/21 17:31 77 150/51 97 09/24/21 17:01 81 151/61 97 09/24/21 17:00 78 98 09/24/21 16:43 98.1 F 09/24/21 16:30 67 151/61 98 09/24/21 16:00 75 152/68 100 09/24/21 15:30 71 152/68 99 09/24/21 15:00 71 152/68 98 09/24/21 14:30 69 152/84 100 09/24/21 14:00 75 152/84 98 09/24/21 13:30 75 158/74 09/24/21 13:00 71 78 158/74 97 09/24/21 12:53 98.2 F 09/24/21 12:30 74 140/77 94 09/24/21 12:00 70 140/77 97 09/24/21 11:30 70 148/66 96 09/24/21 11:00 72 148/66 95 09/24/21 10:38 74 09/24/21 10:30 70 155/67 92 - Physical Examination General: No Apparent Distress HEENT: Positive: PERRL Neck: Positive: neck supple Cardiac: Positive: Reg Rate and Rhythm Lungs: Positive: Decreased Breath Sounds Neuro: Positive: Grossly Intact Abdomen: Positive: Soft Skin: Positive: Clear Extremities: Absent: edema - Labs and Meds CBC 09/24/21 Range/Units 11:58 WBC 15.5 H (4.5-11.0) K/mm3 RBC 2.87 L (3.65-5.03) M/mm3 Hgb 8.3 L (11.8-15.2) gm/dl Hct 25.4 L (35.5-45.6) % Plt Count 382 (140-440) K/mm3 Comprehensive Metabolic Panel 09/24/21 Range/Units 11:58 Sodium 134 L (137-145) mmol/L Potassium 5.3 H (3.6-5.0) mmol/L Chloride 95.4 L (98-107) mmol/L Carbon Dioxide 23 (22-30) mmol/L BUN 63 H (9-20) mg/dL Creatinine 10.9 H (0.8-1.3) mg/dL Glucose 78 (75-100) mg/dL Calcium 8.7 (8.4-10.2) mg/dL
[2021-09-25] MEDS: ASPIRIN EC 81 MG TAB PO SCH ×2 (10:21)
[2021-09-25] MEDS: CEFEPIME/NS 2 GM/100 ML 2 GM/100 ML BAG IV SCH (10:21)
[2021-09-25] MEDS: CINACALCET 30 MG TAB PO SCH (10:24)
[2021-09-25] MEDS: carvediloL 12.5 MG TAB PO SCH (10:24)
[2021-09-25] MEDS: NIFEdipine XL 90 MG TAB PO SCH (10:24)
[2021-09-25] MEDS: HEPARIN 5,000 UNIT/1 ML VIAL SUB-Q SCH ×2 (10:24→21:27)
[2021-09-25] MEDS: CHOLECALCIFEROL (VIT D3) 1000 UNIT (25 mcg) TAB PO SCH (10:25)
[2021-09-25 10:32] LABS: Hematocrit 25.8 % (35.5-45.6); Hemoglobin 8.3 gm/dl (11.8-15.2); Mean Corpuscular HGB Conc 32 % (32-34); Mean Corpuscular Volume 88 fl (84-94); Red Blood Count 2.92 M/mm3 (3.65-5.03); Red Cell Distribution Width 15.6 % (13.2-15.2)
[2021-09-25 10:33] LABS: Platelet Count 360 K/mm3 (140-440)
[2021-09-25 10:43] LABS: INR 0.93 (0.87-1.13)
[2021-09-25 10:44] LABS: Partial Thromboplastin Time 35.3 Sec. (24.2-36.6)
[2021-09-25 10:53] LABS: Calcium 8.6 mg/dL (8.4-10.2)
[2021-09-25] MEDS ORDERED: HEPARIN 10,000 UNITS/10 ML VIAL ONE (11:03)
[2021-09-25] MEDS ORDERED: HEPARIN/NS 5000 UNIT/500ML 1,000 ML IR ONE (11:03)
[2021-09-25] MEDS ORDERED: LIDOCAINE (2%) 20 MG/1 ML VIAL 20 ML MDV INFILTRATI ONE (11:04)
[2021-09-25] MEDS ORDERED: fentaNYL 100 MCG/2 ML INJ ONE (11:04)
[2021-09-25] MEDS ORDERED: MIDAZOLAM 2 MG/2 ML INJ ONE (11:04)
[2021-09-25] MEDS ORDERED: HYDROCORTISONE SOD SUCC 100 MG/2 ML VIAL ONE (11:17)
[2021-09-25] MEDS ORDERED: diphenhydrAMINE 50 MG/ML VIAL ONE (11:17)
[2021-09-25] MEDS ORDERED: traMADol 50 MG TAB PO PRN (17:17)
--- NOTE | 2021-09-25 17:24 | Event Note ---
Date: 09/25/21 Cardiac catheterization completed via the right femoral approach, no complications. Cardiac catheterization showed nonobstructive atherosclerosis and a mild to moderate nonischemic cardiomyopathy. Please see dictated report for details. Patient is recommended for medical therapy and aggressive risk factor modification.
--- NOTE | 2021-09-25 19:33 | Cardiac Catherization Report ---
DATE OF SERVICE: 09/25/2021 CARDIAC CATHETERIZATION REPORT REASON FOR PROCEDURE: Acute pulmonary edema. PROCEDURES: 1. Left heart catheterization. 2. Selective left and right coronary angiography. 3. Left ventricular angiography. 4. Sedation time start 11:40, end 11:55. DESCRIPTION OF PROCEDURE: The patient was prepped and draped in a sterile fashion after informed consent. The right femoral artery was entered using Seldinger technique followed by placement of a 6-Khmer sheath. Selective left and right coronary angiography was performed using a #4 left Flory and a #4 right Flory. The pigtail catheter was used for left ventricular angiography. The catheters were then removed, sheath removed and hemostasis achieved using manual compression. The patient was returned to the postprocedure unit in stable condition. There were no complications. FINDINGS: HEMODYNAMICS: Left ventricular end-diastolic pressure was 27, following coronary angiography. Ascending aortic pressure was 160/71. There was no significant pressure gradient on pullback across the aortic valve. CORONARY ANGIOGRAPHY: The left main coronary artery contained moderate ectasia with mild luminal irregularities, no significant obstructive disease. There was severe, heavy calcification of the proximal to mid LAD, associated with mild luminal irregularities. Following that, there was another 30-40% stenosis of the mid LAD, just after the origin of his small mid diagonal branch. The rest of the LAD including the apical segments contained diffuse mild atherosclerosis. The diagonal branches of the LAD were very small caliber vessels that contained diffuse [id number] atherosclerosis. The circumflex artery contained a 60-70% stenosis of its proximal segment, extending from its ostium. This vessel also contained [id number] calcification in its proximal to mid segments. The rest of the circumflex system and the obtuse marginals contained mild luminal irregularities. The right coronary artery was a small caliber, but dominant vessel. This vessel contained diffuse moderate atherosclerosis involving its proximal and mid segments. No severe obstructive lesions were noted. A small caliber acute marginal branch of the right coronary artery was completely occluded in its mid segment, this appeared to be a chronic total occlusion of this small right ventricular branch of the right coronary artery. The left ventricle was moderately dilated. There was moderate left ventricular systolic dysfunction with diffuse hypokinesis, left ventricular ejection fraction 40-45%. CONCLUSION: 1. Small vessel coronary disease, with diffuse calcification and nonobstructive lesions in the large vessels as detailed above. 2. Moderate severity, nonischemic cardiomyopathy, ejection fraction 40-45%. RECOMMENDATIONS: 1. Aggressive risk factor modification. 2. Medical therapy for small vessel disease. TID: [id number] RECEIPT: [id number] FRANK/RUTH MTDD
--- NOTE | 2021-09-26 09:30 | Progress Note ---
Assessment and Plan Impression: * End stage renal disease * Acute hypoxic respiratory failure secondary to pulmonary edema --COVID 19 negative x 2 (Sep 17 and Sep 22) * Nonischemic cardiomyopathy --[facility] nonobstructive atherosclerosis and a mild to moderate nonischemic cardiomyopathy (Sep 25) * Elevated troponin * Anemia secondary to ESRD * Secondary hyperparathyroidism Plan: * Continue MWF schedule * UF as tolerated * Cardiology findings noted * Dose medications for renal function * Epogen TIW prn * Renal diet Subjective Date of service: 09/26/21 Interval history: Patient is s/p [facility] yesterday. Objective - Vital Signs Vital signs: Vital Signs - 12hr 09/25/21 09/26/21 09/26/21 23:35 00:00 02:35 Temperature 98.3 F Pulse Rate 78 77 Respiratory 18 Rate Blood Pressure 154/52 O2 Sat by Pulse 99 98 Oximetry 09/26/21 09/26/21 03:23 07:29 Temperature 98.5 F 98.1 F Pulse Rate 82 76 Respiratory 18 18 Rate Blood Pressure 140/47 140/63 O2 Sat by Pulse 99 99 Oximetry - General Appearance General appearance: well-developed, well-nourished EENT: ATNC Respiratory: Present: Clear to Ascultation Cardiology: regular, S1S2, systolic murmur Gastrointestinal: normal - Lab 09/26/21 13:35 09/26/21 13:35 Most recent lab results ABG pH 7.471 pH Units (7.350-7.450) H 09/25/21 09:15 ABG pCO2 36.8 mm Hg 09/25/21 09:15 ABG pO2 57.6 mm Hg (80.0-90.0) L 09/25/21 09:15 ABG HCO3 26.2 mmol/L (20.0-26.0) H 09/25/21 09:15 ABG O2 Saturation 89.9 % (95.0-99.0) L 09/25/21 09:15 Calcium 8.6 mg/dL (8.4-10.2) 09/25/21 10:04 Magnesium 2.10 mg/dL (1.7-2.3) 09/22/21 09:07 Medications & Allergies - Medications Allergies/Adverse Reactions: Allergies shellfish derived Adverse Reaction (Verified 09/22/21 09:46) Anaphylaxis Home Medications: Home Medications Medication Instructions Recorded Confirmed Last Taken Type AtorvaSTATin [Lipitor] 40 mg PO QHS 02/25/21 09/22/21 09/14/21 History Cinacalcet [Sensipar] 60 mg PO DAILY 02/25/21 09/22/21 09/14/21 History Vit B Complx C/Folic Acid/Zinc 1 tab PO DAILY 02/25/21 09/22/21 09/14/21 History [Dialyvite 800-Zinc 50 mg Tab] carvediloL [Coreg] 12.5 mg PO QDAY 02/25/21 09/22/21 09/14/21 History Calcium Acetate 2,001 mg PO TID 09/15/21 09/22/21 09/14/21 History Aspirin EC [Halfprin EC] 81 mg PO QDAY 09/18/21 09/22/21 09/14/21 History Isosorbide Mononitrate [Isosorbide 60 mg PO QAM 09/18/21 09/22/21 09/14/21 History Mononitrate ER] Latanoprost 0.005% 1 drop OU QPM 09/18/21 09/22/21 09/14/21 History Cholecalciferol Vit D3 [Vitamin D3 1,000 unit PO DAILY tablet 09/21/21 09/22/21 Unknown Rx 1,000 UNIT TAB] Latanoprost 0.005% 1 drops OU QPM #1 bottle 09/21/21 09/22/21 Unknown Rx NIFEdipine [Adalat cc] 90 mg PO DAILY #90 09/21/21 09/22/21 Unknown Rx levoFLOXacin [Levaquin] 250 mg PO QDAY #3 tablet 09/26/21 Unknown Rx Active Medications: Generic Name Dose Route Start Last Admin Trade Name Freq PRN Reason Stop Dose Admin Acetaminophen 650 mg 09/22/21 13:47 Acetaminophen 325 Mg Tab PO Q4H PRN Pain MILD(1-3)/Fever >100.5/GOINS Aspirin 81 mg 09/22/21 15:00 09/25/21 10:21 Aspirin Ec 81 Mg Tab PO 81 mg QDAY LYNDON Administration Atorvastatin Calcium 40 mg 09/22/21 22:00 09/25/21 21:27 Atorvastatin 40 Mg Tab PO 40 mg QHS LYNDON Administration Carvedilol 12.5 mg 09/22/21 15:00 09/25/21 10:24 Carvedilol 12.5 Mg Tab PO 12.5 mg QDAY LYNDON Administration Cholecalciferol 1,000 unit 09/22/21 15:00 09/25/21 10:25 Cholecalciferol (Vit D3) 1000 Unit (25 Mcg) Tab PO 1,000 unit DAILY LYNDON Administration Cinacalcet 60 mg 09/22/21 15:00 09/25/21 10:24 Cinacalcet 30 Mg Tab PO 60 mg DAILY LYNDON Administration Heparin Sodium (Porcine) 5,000 unit 09/22/21 14:00 09/25/21 21:27 Heparin 5,000 Unit/1 Ml Vial SUB-Q 5,000 unit Q12HR LYNDON Administration Sodium Chloride 100 mls @ 999 mls/hr 09/24/21 10:00 Nacl 0.9% IV CALI PRN Hypotension Isosorbide Mononitrate 60 mg 09/23/21 10:00 09/25/21 10:24 Isosorbide Mononitrate Er 60 Mg Tab PO 60 mg QAM LYNDON Administration Latanoprost 1 drops 09/22/21 18:00 09/24/21 18:17 Latanoprost 0.005% Ophth Soln 2.5 Ml OU 1 drops QPM LYNDON Administration Morphine Sulfate 2 mg 09/22/21 13:47 09/25/21 02:31 Morphine 2 Mg/1 Ml Inj IV 2 mg Q4H PRN Administration Pain, Moderate (4-6) Nifedipine 90 mg 09/22/21 14:30 09/25/21 10:24 Nifedipine Xl 90 Mg Tab PO 90 mg QDAY LYNDON Administration Ondansetron HCl 4 mg 09/22/21 13:47 Ondansetron 4 Mg/2 Ml Inj IV Q8H PRN Nausea And Vomiting Sodium Chloride 10 ml 09/22/21 14:00 09/25/21 21:27 Sodium Chloride 0.9% 10 Ml Flush Syringe IV 10 ml BID LYNDON Administration Sodium Chloride 10 ml 09/22/21 13:47 Sodium Chloride 0.9% 10 Ml Flush Syringe IV PRN PRN LINE FLUSH Tramadol HCl 50 mg 09/25/21 17:17 Tramadol 50 Mg Tab PO Q4H PRN Pain, Mild (1-3)
[2021-09-26] MEDS: NIFEdipine XL 90 MG TAB PO SCH (09:52)
[2021-09-26] MEDS: ASPIRIN EC 81 MG TAB PO SCH (09:52)
[2021-09-26] MEDS: carvediloL 12.5 MG TAB PO SCH (09:52)
[2021-09-26] MEDS: CHOLECALCIFEROL (VIT D3) 1000 UNIT (25 mcg) TAB PO SCH (09:52)
[2021-09-26] MEDS: CINACALCET 30 MG TAB PO SCH (09:52)
[2021-09-26] MEDS: HEPARIN 5,000 UNIT/1 ML VIAL SUB-Q SCH ×2 (09:52→21:36)
--- NOTE | 2021-09-26 12:43 | Progress Note ---
Assessment and Plan - Patient Problems (1) Acute pulmonary edema Current Visit: Yes Status: Acute Plan to address problem: 66-year-old male with end-stage renal disease, presented with acute pulmonary edema representing heart failure with preserved ejection fraction. Cardiac catheterization showed small vessel disease, and patent but calcified larger caliber coronaries. Recommended for aggressive risk factor modification and medical therapy. Subjective Date of service: 09/26/21 Interval history: Patient is comfortable, no cardiac complaints. Right groin cath site is well-h ealed, no significant hematoma. On environmental monitoring specialist he has a sinus rhythm at 81. Objective Vital Signs Temp Pulse Pulse Pulse Pulse Resp BP 09/26/21 10:00 09/26/21 07:29 98.1 F 76 18 140/63 09/26/21 03:23 98.5 F 82 18 140/47 09/26/21 02:35 09/26/21 00:00 77 09/25/21 23:35 98.3 F 78 18 154/52 09/25/21 19:36 98.5 F 102 H 18 128/41 09/25/21 17:17 86 85 98 H 09/25/21 16:50 98.2 F 99 H 18 201/68 BP BP BP Pulse Ox 09/26/21 10:00 99 09/26/21 07:29 99 09/26/21 03:23 99 09/26/21 02:35 98 09/26/21 00:00 09/25/21 23:35 99 09/25/21 19:36 96 09/25/21 17:17 137/80 140/76 144/64 09/25/21 16:50 92 - Physical Examination General: Appears Well, No Apparent Distress HEENT: Positive: PERRL Neck: Positive: neck supple Cardiac: Positive: Reg Rate and Rhythm Lungs: Positive: Decreased Breath Sounds Neuro: Positive: Grossly Intact Abdomen: Positive: Soft Skin: Positive: Clear Extremities: Absent: edema
--- NOTE | 2021-09-26 14:01 | Progress Note ---
Assessment and Plan Acute hypoxic respiratory failure Pulmonary edema Hospital-acquired pneumonia Sepsis POA Recent diagnosis of left lower lobe pneumonia ESRD on hemodialysis Type II [place] Thrombocytosis Hyperkalemia -Titrate supplemental oxygen to keep SpO2 88-90% -BIPAP qhs and prne -On antibiotics for HAP( Vancomycin and Cefepime)-deescalate based on culture data and clinical response - Bronchodilators as clinically indicated -Supportive HD, optimize UF as tolerated by renal function and hemodynamics -Heart failure measures per Cardiology -PT/OT- increase activity -Adjust all medications for CrCL/GFR -Weight loss and lifestyle modifications -Optimization of medical management of heart failure -Follow up CXR -Home oxygen evaluation prior to discharge Discharge planning per hospital medicine Subjective Date of service: 09/26/21 Interval history: SUMMARY 66-year-old female with past medical history of ESRD on HD, hypertension who presents as a readmission to our facility after being discharged yesterday for shortness of breath. Patient was found on the field with swelling in lower extremities and was tachypneic. CPAP was admitted initiated by emergency medical services with immediate improvement of symptomology. ED Course: ASA, zithromax, cefepime, vanocmycin. Initiation of BIPAP. Follow up for acute hypoxemic resp failure; Patient seen and examined. Vitals, labs, medications,chart reviewed. No acute events overnight. Cardiac catheterization showed nonobstructive atherosclerosis and a mild to moderate nonischemic cardiomyopathy Discharge planning Objective Vital Signs - 12hr 09/26/21 09/26/21 09/26/21 02:35 03:23 07:29 Temperature 98.5 F 98.1 F Pulse Rate 82 76 Respiratory 18 18 Rate Blood Pressure 140/47 140/63 O2 Sat by Pulse 98 99 99 Oximetry 09/26/21 10:00 Temperature Pulse Rate Respiratory Rate Blood Pressure O2 Sat by Pulse 99 Oximetry Constitutional: no acute distress Eyes: non-icteric ENT: oropharynx moist Neck: supple, no JVD, other (short neck) Effort: mildly labored Ascultation: Bilateral: rales, rhonchi Cardiovascular: regular rate and rhythm, other (S1,S2) Gastrointestinal: normoactive bowel sounds, soft, non-tender Integumentary: normal Extremities: no cyanosis, no edema Neurologic: non-focal exam, pupils equal and round Psychiatric: mood appropriate, affect normal CBC and BMP: 09/26/21 13:35 01/21/22 13:35 ABG, PT/INR, D-dimer: ABG ABG pH 7.471 pH Units (7.350-7.450) H 09/25/21 09:15 ABG pCO2 36.8 mm Hg 09/25/21 09:15 ABG pO2 57.6 mm Hg (80.0-90.0) L 09/25/21 09:15 ABG O2 Saturation 89.9 % (95.0-99.0) L 09/25/21 09:15 PT/INR, D-dimer PT 13.5 Sec. (12.2-14.9) 09/25/21 10:17 INR 0.93 (0.87-1.13) 09/25/21 10:17 Abnormal lab findings: Abnormal Labs 09/22/21 09/22/21 09/22/21 09:07 09:07 09:07 WBC 18.5 H RBC 3.39 L Hgb 9.7 L Hct 29.6 L MCHC RDW 15.3 H Plt Count 450 H Lymphocytes % (Manual) 4.0 L Eosinophils % (Manual) 34.0 H Basophils % (Manual) Seg Neutrophils # Man 11.1 H Lymphocytes # (Manual) 0.7 L Monocytes # (Manual) Eosinophils # (Manual) 6.3 H Basophils # (Manual) 0.2 H ABG pH ABG pO2 ABG HCO3 ABG O2 Saturation ABG Hemoglobin Oxyhemoglobin Sodium 135 L Potassium 5.5 H Chloride 96.1 L Carbon Dioxide 19 L BUN 63 H Creatinine 10.6 H Glucose 124 H AST 61 H Troponin T 1.410 H* NT-Pro-B Natriuret Pep 20532 H Albumin 3.6 L Triglycerides 150 H HDL Cholesterol 39 L 09/23/21 09/23/21 09/23/21 05:16 05:16 14:41 WBC 11.6 H RBC 3.29 L Hgb 9.2 L Hct 29.2 L MCHC 31 L RDW Plt Count Lymphocytes % (Manual) 3.0 L Eosinophils % (Manual) 29.0 H Basophils % (Manual) Seg Neutrophils # Man Lymphocytes # (Manual) 0.3 L Monocytes # (Manual) Eosinophils # (Manual) 3.4 H Basophils # (Manual) ABG pH ABG pO2 ABG HCO3 ABG O2 Saturation ABG Hemoglobin Oxyhemoglobin Sodium 134 L Potassium Chloride 93.8 L Carbon Dioxide BUN 43 H Creatinine 7.9 H Glucose 73 L AST 56 H Troponin T 1.480 H* NT-Pro-B Natriuret Pep Albumin 3.6 L Triglycerides HDL Cholesterol 09/24/21 09/24/21 09/25/21 11:58 11:58 09:15 WBC 15.5 H RBC 2.87 L Hgb 8.3 L Hct 25.4 L MCHC RDW 15.3 H Plt Count Lymphocytes % (Manual) 8.0 L Eosinophils % (Manual) 39.0 H Basophils % (Manual) 4.0 H Seg Neutrophils # Man Lymphocytes # (Manual) Monocytes # (Manual) 0.9 H Eosinophils # (Manual) 6.0 H Basophils # (Manual) 0.6 H ABG pH 7.471 H ABG pO2 57.6 L ABG HCO3 26.2 H ABG O2 Saturation 89.9 L ABG Hemoglobin 8.0 L Oxyhemoglobin 88.0 L Sodium 134 L Potassium 5.3 H Chloride 95.4 L Carbon Dioxide BUN 63 H Creatinine 10.9 H Glucose AST Troponin T NT-Pro-B Natriuret Pep Albumin Triglycerides HDL Cholesterol 09/25/21 09/25/21 10:04 10:07 WBC 18.4 H RBC 2.92 L Hgb 8.3 L Hct 25.8 L MCHC RDW 15.6 H Plt Count Lymphocytes % (Manual) Eosinophils % (Manual) Basophils % (Manual) Seg Neutrophils # Man Lymphocytes # (Manual) Monocytes # (Manual) Eosinophils # (Manual) Basophils # (Manual) ABG pH ABG pO2 ABG HCO3 ABG O2 Saturation ABG Hemoglobin Oxyhemoglobin Sodium Potassium Chloride Carbon Dioxide BUN 56 H Creatinine 9.2 H Glucose AST Troponin T NT-Pro-B Natriuret Pep Albumin Triglycerides HDL Cholesterol
[2021-09-26 14:30] LABS: Hematocrit 27.3 % (35.5-45.6); Hemoglobin 8.8 gm/dl (11.8-15.2); Mean Corpuscular HGB Conc 32 % (32-34); Mean Corpuscular Volume 89 fl (84-94); Platelet Count 364 K/mm3 (140-440); Red Blood Count 3.08 M/mm3 (3.65-5.03); Red Cell Distribution Width 15.5 % (13.2-15.2)
[2021-09-26 14:45] LABS: Calcium 9.1 mg/dL (8.4-10.2)
--- NOTE | 2021-09-26 16:08 | Discharge Summary ---
Providers - Providers Date of Admission: 09/22/21 13:47 Date of discharge: 09/26/21 Attending physician: ERUM JACOBO 09/22/21 08:19 Consult to Physician [CONS] Urgent Comment: Consulting Provider: CONG JACKMAN Physician Instructions: Reason For Exam: esrd 09/22/21 13:47 Consult to Physician [CONS] Routine Comment: Consulting Provider: EDDIE COOK Physician Instructions: Reason For Exam: hap , covid, 09/22/21 13:53 Consult to Physician [CONS] Routine Comment: Consulting Provider: KATERIN MADRIGAL Physician Instructions: Reason For Exam: elevated troponin 09/25/21 17:17 Consult to Cardiac Rehabilitation [CONS] Routine Reason For Exam: Cardiac Rehab Evaluation 09/26/21 10:03 Physical Therapy Evaluation and Treat [CONS] Routine Comment: Reason For Exam: Debility Primary care physician: PRODUCTION EXPEDITER Hospitalization Condition: Fair Hospital course: 66-year-old female with past medical history of ESRD on HD, hypertension who presents as a readmission to our facility after being discharged yesterday for shortness of breath. Patient was found on the field with swelling in lower extremities and was tachypneic. CPAP was admitted initiated by emergency medical services with immediate improvement of symptomology. Patient states that he was feeling well yesterday. This morning, he noticed he was very short of breath. Denied GOINS, Chest pain, jaw pain, abd pain, n/v, change in bowel habits. He denied leg swelling however leg swelling was noted on his exam. Admitted to [facility] for respiratory failure on bipap. Hospital Course: 09/23: Currently on minimal bipap settings. Sats excellent. COVID 19 pcr negative. Recieved dialysis x 1 tx yesterday. D/w nephrology who will continue to pull fluid, recs noted. Cardiology recs noted. D/w Dr Cook (Pulmonology) case, will see patient today. Will titrate bipap down as patient tolerates. Once off bipap, can be downgraded to regular medical floor. 09/24 : off bipap, on nasal cannula. transfer to [facility]. GPC positive in blood culture. Can start vancomycin IV. Cardiology plan for cath potentially tomorrow. 09/25; patient is planned for cardiac cath today, continue to follow clinically, hemodialysis tomorrow. If cleared by cardiology patient will be possible discharge tomorrow after hemodialysis. 09/27: Blood culture 1 out of 2 positive for coag negative staph, likely contamination. Cardiac cath yesterday showed small vessel disease, patent but calcified major coronary arteries. Cardiology recommended medical management and risk factors modification. EF found to be 40 to 45%. Patient clinically stable and cleared for discharge by cardiology. Patient will be discharged home with home health after dialysis. Disposition: 01 HOME / SELF CARE / HOMELESS Final Discharge Diagnosis (Prints w/discharge instructions): #Acute hypoxic respiratory failure. -Multifactorial : pulmonary edema and treatment failure for community-acquired pneumonia treated last admission (was d/c on 07/22). - CT chest noncontrast and CTA chest were performed on 09/17/2021 revealing no PE but significant pneumonia of left lower lobe with consolidations present. #Pulmonary edema. Cardiogenic (?HFpEF) versus fluid overload from IV fluid administration last admission. #Hospital-acquired pneumonia. -Treated with vancomycin and cefepime. #Sepsis POA. - tachycardic, tachypneic, wbc: 18.5. #Recent diagnosis of left lower lobe pneumonia. - was treated with azithromycin and rocephin, treatment failure. - covid pcr ordered 09/22: negative. #ESRD on hemodialysis. - MWF dialysis OP, appears to be anuric. #Type II MO, status post cardiac cath showed small vessel disease. #Thrombocytosis. Likely reactive to underlying sepsis. #Hypertension. - resumed home coreg/imdur. #Hyperkalemia. - K= 5.5, hold losartan at this time. #Hyperlipidemia. - r esume home atorvastatin/asa. # obesity. - behavioral health counseling on calorie restricted diet, +15 mins Time spent for discharge: 34 minutes Core Measure Documentation - Palliative Care Palliative Care/ Comfort Measures: Not Applicable - Core Measures Any of the following diagnoses?: history only Exam - Physical Exam Narrative exam: GENERAL: well-developed and well-nourished -Mal[place]ian male lying on bed appeared to be in no discomfort. HEENT: Normocephalic. Atraumatic. No conjunctival congestion or icterus. Patient has moist mucous membranes. NECK: Supple. Trachea midline. CHEST/LUNGS: breathing nonlabored. No wheezes crackles or rhonchi. HEART/CARDIOVASCULAR: Regular in rate and rhythm. S1 and S2 positive. ABDOMEN: Abdomen is soft, nontender. Patient has normal bowel sounds. SKIN: There is no rash. Warm and dry. NEURO: No focal motor deficit. Follows command. MUSCULOSKELETAL: No joint effusion or tenderness. EXTRIMITY: No edema, no cyanosis or clubbing. PSYCH: Cooperative. - Constitutional Vitals: Temp Pulse Resp BP Pulse Ox 98.1 F 76 18 140/63 97 09/26/21 07:29 09/26/21 07:29 09/26/21 07:29 09/26/21 07:09/26/21 10:00 Plan Activity: advance as tolerated Weight Bearing Status: Weight Bear as Tolerated Diet: renal Special Instructions: restrict fluid intake to (1.2L per day) Follow up with: PRIMARY MD YARI [Primary Care Provider] - 3-5 Days MARCELINO REBOLLAR MD [Staff Physician] - 7 Days Prescriptions: levoFLOXacin [Levaquin] 250 mg PO QDAY #3 tablet
[2021-09-26 21:38] VITALS: BP 125/61
--- NOTE | 2021-09-28 20:29 | Electrocardiograph Report ---
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
== END 2021-09-27 01:55 | disposition home or self-care (01) | DRG 871 ==
LOC: ED 08:13 → IMCU 13:47 → 4A 09-25 02:58
PROVIDERS: ADMIT Internal Medicine; ATTEND Internal Medicine
PROC: 5A1D70Z Performance of Urinary Filtration, Intermittent, Less than 6 Hours Per Day (ICD-10-PCS; 2021-09-22)
PROC: 5A09457 Assistance with Respiratory Ventilation, 24-96 Consecutive Hours, Continuous Positive Airway Pressure (ICD-10-PCS; 2021-09-22)
PROC: 5A1D70Z Performance of Urinary Filtration, Intermittent, Less than 6 Hours Per Day (ICD-10-PCS; 2021-09-24)
PROC: 4A023N7 Measurement of Cardiac Sampling and Pressure, Left Heart, Percutaneous Approach (ICD-10-PCS; principal; 2021-09-25)
PROC: B2111ZZ Fluoroscopy of Multiple Coronary Arteries using Low Osmolar Contrast (ICD-10-PCS; 2021-09-25)
PROC: B2151ZZ Fluoroscopy of Left Heart using Low Osmolar Contrast (ICD-10-PCS; 2021-09-25)
PROC: 4A033R1 Measurement of Arterial Saturation, Peripheral, Percutaneous Approach (ICD-10-PCS; 2021-09-25)
PROC: 5A1D70Z Performance of Urinary Filtration, Intermittent, Less than 6 Hours Per Day (ICD-10-PCS; 2021-09-26)
DX: A41.9 Sepsis, unspecified organism (principal); J96.01 Acute respiratory failure with hypoxia; J18.9 Pneumonia, unspecified organism; I21.A1 Myocardial infarction type 2; N18.6 End stage renal disease; J81.1 Chronic pulmonary edema; I12.0 Hypertensive chronic kidney disease with stage 5 chronic kidney disease or end stage renal disease; N25.81 Secondary hyperparathyroidism of renal origin; I42.8 Other cardiomyopathies; E87.5 Hyperkalemia; E78.5 Hyperlipidemia, unspecified; D75.839 Thrombocytosis, unspecified; E66.01 Morbid (severe) obesity due to excess calories; Z68.37 Body mass index [BMI] 37.0-37.9, adult; Z20.822 Contact with and (suspected) exposure to COVID-19; D63.1 Anemia in chronic kidney disease
CPT/HCPCS: 36415; 36600; 71045; 80048; 80053; 80061; 80202; 82140; 82803; 82962; 83735; 83880; 84484; 85007; 85014; 85018; 85025; 85027; 85610; 85730; 87040; 87641; 93005; 93458; 93970; 94660; 94760; G0378; J3490; C1894; J0456; J0692; J1200; J1644; J1720; J2250; J2270; J3010; J3370; J7040; Q9967; U0003

== ENCOUNTER 2021-10-02 18:31 | Inpatient (IN) | payer MEDICARE ==
[2021-10-02] MEDS ORDERED: SODIUM CHLORIDE 0.9% 250ML 250 ML IV ONE ×2 (18:51→19:35)
--- NOTE | 2021-10-02 19:18 | Emergency Department Report ---
- General Chief complaint: Weakness Stated complaint: WEAKNESS Time Seen by Provider: 10/02/21 18:34 Source: patient, EMS, old records reviewed Mode of arrival: Stretcher Limitations: No Limitations - History of Present Illness Initial comments: 66-year-old male with a past medical history end-stage renal disease on dialysis Wednesday, Wednesday, and Wednesday presents to the hospital complaints of generalized weakness since receiving dialysis yesterday. Patient complains of back pain. Questionable fever. Denies cough, chest pain, or abdominal pain. Patient is drowsy upon ED arrival and somewhat lethargic. When aroused he is oriented x3 then falls back to sleep. Room air saturation 90 to 91% with a systolic blood pressure in the 80s. 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 Patient had a cardiac cath performed on September 25. EF 40 to 45%. Medical management for small vessel disease recommended. Acute hypoxic respiratory failure felt to be multifactorial secondary to pulmonary edema and treatment failure community- acquired pneumonia during last admission. He had a CT chest noncontrast and CTA chest performed September 17 that was negative for pulmonary embolism but positive for pneumonia. Patient was treated with vancomycin and cefepime for community- acquired pneumonia after treatment failure with azithromycin and Rocephin. Patient has 2 negative Covid test during these admissions Severity scale (0 -10): 0 - Related Data Allergies Allergy/AdvReac Type Severity Reaction Status Date / Time shellfish derived AdvReac Rash Verified 10/02/21 18:38 ED Review of Systems ROS: Stated complaint: WEAKNESS Other details as noted in HPI Comment: All other systems reviewed and negative ED Physical Exam - General Limitations: No Limitations - Other Other exam information: General: No acute distress Head: Atraumatic Eyes: normal appearance ENT: Moist mucous membranes Neck: Normal appearance, no midline tenderness Chest: Clear to auscultation bilaterally CV: Regular rate and rhythm, systolic murmur Abdomen: Soft, normal bowel sounds, nontender, nondistended, no rebound or guarding Back: Normal inspection Extremity: Right arm dialysis access with thrill Neuro: Drowsy O x 3, no facial asymmetry, slow speech, equal handgrip Psych: Appropriate behavior Skin: No rash ED Course Vital Signs 10/02/21 10/02/21 10/02/21 18:37 18:39 18:56 Temperature 99.9 F H Pulse Rate 76 66 Respiratory 18 22 Rate Blood Pressure Blood Pressure 96/51 [Left] O2 Sat by Pulse 92 97 83 L Oximetry 10/02/21 10/02/21 10/02/21 19:00 19:16 19:31 Temperature Pulse Rate 63 65 68 Respiratory 18 25 H 26 H Rate Blood Pressure 92/53 81/39 92/53 Blood Pressure [Left] O2 Sat by Pulse 91 93 93 Oximetry - ABG Interpretation Ph: 7.47 PCO2: 35.6 PO2: 56.9 Bicarbonate: 25 Interpretation: respiratory alkalosis Additional Comments: hypoxia abg performed on 3 L NC O2 ED Medical Decision Making - Lab Data Result diagrams: 10/02/21 19:19 10/02/21 19:19 Lab Results 10/02/21 10/02/21 10/02/21 Range/Units 19:18 19:19 19:19 WBC 15.4 H (4.5-11.0) K/mm3 RBC 2.39 L (3.65-5.03) M/mm3 Hgb 6.8 L (11.8-15.2) gm/dl Hct 21.3 L (35.5-45.6) % MCV 89 (84-94) fl MCH 29 (28-32) pg MCHC 32 (32-34) % RDW 17.0 H (13.2-15.2) % Plt Count 396 (140-440) K/mm3 Lymph % (Auto) 4.6 L (13.4-35.0) % [place] % (Auto) 8.6 H (0.0-7.3) % Eos % (Auto) 0.0 (0.0-4.3) % Baso % (Auto) 0.2 (0.0-1.8) % Lymph # (Auto) 0.7 L (1.2-5.4) K/mm3 [place] # (Auto) 1.3 H (0.0-0.8) K/mm3 Eos # (Auto) 0.0 (0.0-0.4) K/mm3 Baso # (Auto) 0.0 (0.0-0.1) K/mm3 Seg Neutrophils % 86.6 H (40.0-70.0) % Seg Neutrophils # 13.3 H (1.8-7.7) K/mm3 PT (12.2-14.9) Sec. INR (0.87-1.13) APTT (24.2-36.6) Sec. Sodium 137 (137-145) mmol/L Potassium 5.6 H (3.6-5.0) mmol/L Chloride 95.6 L (98-107) mmol/L Carbon Dioxide 22 (22-30) mmol/L Anion Gap 25 mmol/L BUN 64 H (9-20) mg/dL Creatinine 7.7 H (0.8-1.3) mg/dL Estimated GFR 7 ml/min BUN/Creatinine Ratio 8 % Glucose 147 H (75-100) mg/dL Lactic Acid 2.30 H* (0.7-2.0) mmol/L Calcium 9.1 (8.4-10.2) mg/dL Magnesium (1.7-2.3) mg/dL Total Bilirubin 0.20 (0.1-1.2) mg/dL AST 76 H (5-40) units/L ALT 56 (7-56) units/L Alkaline Phosphatase 131 H (35-129) units/L Total Creatine Kinase (55-170) units/L Troponin T (0.00-0.029) ng/mL Total Protein 6.9 (6.3-8.2) g/dL Albumin 3.7 L (3.9-5) g/dL Albumin/Globulin Ratio 1.2 % Triglycerides (2-149) mg/dL Cholesterol (50-199) mg/dL LDL Cholesterol Direct (50-130) mg/dL HDL Cholesterol (40-59) mg/dL Cholesterol/HDL Ratio % TSH (0.270-4.200) mlU/mL Free T4 (0.76-1.46) ng/dL 10/02/21 10/02/21 10/02/21 Range/Units 19:19 19:19 19:19 WBC (4.5-11.0) K/mm3 RBC (3.65-5.03) M/mm3 Hgb (11.8-15.2) gm/dl Hct (35.5-45.6) % MCV (84-94) fl MCH (28-32) pg MCHC (32-34) % RDW (13.2-15.2) % Plt Count (140-440) K/mm3 Lymph % (Auto) (13.4-35.0) % [place] % (Auto) (0.0-7.3) % Eos % (Auto) (0.0-4.3) % Baso % (Auto) (0.0-1.8) % Lymph # (Auto) (1.2-5.4) K/mm3 [place] # (Auto) (0.0-0.8) K/mm3 Eos # (Auto) (0.0-0.4) K/mm3 Baso # (Auto) (0.0-0.1) K/mm3 Seg Neutrophils % (40.0-70.0) % Seg Neutrophils # (1.8-7.7) K/mm3 PT 16.2 H (12.2-14.9) Sec. INR 1.17 H (0.87-1.13) APTT 42.5 H (24.2-36.6) Sec. Sodium (137-145) mmol/L Potassium (3.6-5.0) mmol/L Chloride (98-107) mmol/L Carbon Dioxide (22-30) mmol/L Anion Gap mmol/L BUN (9-20) mg/dL Creatinine (0.8-1.3) mg/dL Estimated GFR ml/min BUN/Creatinine Ratio % Glucose (75-100) mg/dL Lactic Acid (0.7-2.0) mmol/L Calcium (8.4-10.2) mg/dL Magnesium 2.10 (1.7-2.3) mg/dL Total Bilirubin (0.1-1.2) mg/dL AST (5-40) units/L ALT (7-56) units/L Alkaline Phosphatase (35-129) units/L Total Creatine Kinase 199 H (55-170) units/L Troponin T 1.690 H* (0.00-0.029) ng/mL Total Protein (6.3-8.2) g/dL Albumin (3.9-5) g/dL Albumin/Globulin Ratio % Triglycerides 66 (2-149) mg/dL Cholesterol 90 (50-199) mg/dL LDL Cholesterol Direct 38 L (50-130) mg/dL HDL Cholesterol 48 (40-59) mg/dL Cholesterol/HDL Ratio 1.87 % TSH 1.470 (0.270-4.200) mlU/mL Free T4 1.53 H (0.76-1.46) ng/dL - EKG Data -: EKG Interpreted by [place] EKG shows normal: sinus rhythm, intervals (QTC 440), QRS complexes (QRS duration 94), ST-T waves (Lateral T wave inversions T waves no ST elevation MS) Rate: normal - EKG Data When compared to previous EKG there are: no significant change - Radiology Data Radiology results: report reviewed CHEST 1 VIEW INDICATION: weakness, hypotension. COMPARISON: 09/25/2021 FINDINGS: Support devices: None. Heart: Stable. Lungs/Pleura: Previously seen bilateral pulmonary opacities have improved but persist. On today's exam, airspace disease is greatest in the left mid to lower lung. No pneumothorax. IMPRESSION: 1. Bilateral pulmonary opacities persist but have improved, particularly in the right lung. - Medical Decision Making 66-year-old male presents to the hospital with generalized weakness since receiving dialysis yesterday. Patient was recently admitted here 2 times this month for respiratory failure and pneumonia. Patient also had a cardiac cath performed and has chronic troponin elevation which is unchanged today. EKG also unchanged today. Patient does have worsening and chronic anemia. Guaiac negative stools. Case discussed with Dr. Barriga who suggest that patient needs Epogen adjustment. Type and screen ordered. Patient has mild hypotension that responded to small IV fluid bolus. Mild hyperkalemia meds ordered. X-ray results reviewed with improving chronic infiltrates. Sepsis protocol was initiated with mild elevation in lactic acid. Repeat antibiotics will be started empirically. Patient has tested negative for Covid x2. Repeat test will be ordered Critical Care Time: Yes Critical care time in (mins) excluding proc time.: 35 Critical care attestation.: If time is entered above; I have spent that time in minutes in the direct care of this critically ill patient, excluding procedure time. Critical Care Time: 35 Minutes of critical care time excluding procedures were used in the care of the patient. I came immediately to the bedside upon patient's arrival. I obtained history from EMS at the bedside. I discussed treatment plan with the nursing team members. I reviewed electronic record. I Patient required multiple interventions and reassessments. Spoke with hospitalist and consultants For collaborative care ED Disposition Clinical Impression: Generalized weakness, Anemia, Hypotension, Hyperkalemia, Pulmonary infiltrate, End stage renal disease on dialysis, Hypoxia Disposition: ADMITTED INPATIENT Is pt being admited?: Yes Condition: Stable Time of Disposition: 20:54 (Dr SILVESTRE/hospitalist CASE D/W dR Rodriguez)
--- NOTE | 2021-10-02 19:44 | XRay Report ---
CHEST 1 VIEW INDICATION: weakness, hypotension. COMPARISON: 09/25/2021 FINDINGS: Support devices: None. Heart: Stable. Lungs/Pleura: Previously seen bilateral pulmonary opacities have improved but persist. On today's exa m, airspace disease is greatest in the left mid to lower lung. No pneumothorax. IMPRESSION: 1. Bilateral pulmonary opacities persist but have improved, particularly in the right lung. Signer Name: Jacky Humphreys MD Signed: 10/02/2021 7:40 PM Workstation Name: [id number]
[2021-10-02 20:01] LABS: Basophils % (Auto) 0.2 % (0.0-1.8); Hematocrit 21.3 % (35.5-45.6); Hemoglobin 6.8 gm/dl (11.8-15.2); Lymphocytes # (Auto) 0.7 K/mm3 (1.2-5.4); Lymphocytes % (Auto) 4.6 % (13.4-35.0); Mean Corpuscular HGB Conc 32 % (32-34); Mean Corpuscular Volume 89 fl (84-94); Monocytes # (Auto) 1.3 K/mm3 (0.0-0.8); Monocytes % (Auto) 8.6 % (0.0-7.3); Platelet Count 396 K/mm3 (140-440); Red Blood Count 2.39 M/mm3 (3.65-5.03)
[2021-10-02 20:08] LABS: Albumin 3.7 g/dL (3.9-5); Calcium 9.1 mg/dL (8.4-10.2)
[2021-10-02 20:17] LABS: INR 1.17 (0.87-1.13)
[2021-10-02 20:18] LABS: Partial Thromboplastin Time 42.5 Sec. (24.2-36.6)
[2021-10-02 20:21] LABS: Free T4 (Free Thyroxine) 1.53 ng/dL (0.76-1.46)
[2021-10-02 20:43] LABS: Chol/HDL Ratio 1.87 %
[2021-10-02] MEDS ORDERED: CALC GLUCONATE 1GM/NS 100 ML 1 GM/100 ML BAG IV ONE (20:45)
[2021-10-02] MEDS ORDERED: DEXTROSE 50% IN WATER (25GM) 50 ML SYRINGE IV ONE (20:45)
[2021-10-02] MEDS ORDERED: CALCIUM GLUCONATE 1,000 MG in SODIUM CHLORIDE 0.9% 100 ML IV ONE (20:45)
[2021-10-02] MEDS ORDERED: INSULIN REGULAR, HUMAN 100 UNITS/1 ML IV ONE (20:45)
[2021-10-02] MEDS ORDERED: SODIUM POLYSTYRENE 15 GM/60 ML ORAL LIQD PR ONE (20:45)
[2021-10-02] MEDS ORDERED: ALBUTEROL 2.5 MG/3 ML NEBU IH ONE (20:46)
[2021-10-02] MEDS ORDERED: CEFEPIME/NS 2 GM/100 ML 2 GM/100 ML BAG IV ONE (20:52)
[2021-10-02] MEDS ORDERED: VANCOMYCIN 2,000 MG in SODIUM CHLORIDE 0.9% 500 ML 500 ML IV ONE (20:52)
[2021-10-02] MEDS ORDERED: ACETAMINOPHEN 325 MG TAB PO PRN (22:11)
[2021-10-02] MEDS ORDERED: ONDANSETRON 4 MG/2 ML INJ IV PRN (22:11)
[2021-10-02] MEDS ORDERED: HYDROmorphone 1 MG/1 ML INJ IV PRN (22:11)
[2021-10-02] MEDS ORDERED: ALBUTEROL 2.5 MG/3 ML NEBU IH PRN (22:11)
[2021-10-02] MEDS ORDERED: SODIUM CHLORIDE 0.9% 500 ML 500 ML IV ONE (22:14)
--- NOTE | 2021-10-02 22:21 | History and Physical Report ---
History of Present Illness Date of examination: 10/02/21 Date of admission: 10/02/21 Chief complaint: Weakness History of present illness: 66-year-old male with a past medical history end-stage renal disease on dialysis Wednesday, Wednesday, and Wednesday presents to the hospital complaints of generalized weakness since receiving dialysis yesterday. Patient complains of back pain. Questionable fever. Denies cough, chest pain, or abdominal pain. Patient is drowsy upon ED arrival and somewhat lethargic. When aroused he is oriented x3 then falls back to sleep. Room air saturation 90 to 91% with a systolic blood pressure in the 80s. Supplemental oxygen fluid bolus ordered Patient was admitted here September 22- and apparently patient was just recently discharged the day prior to readmission (admission dates 09/15-09/21) Initial September mission was for respiratory failure and sat in the 60s with pneumonia requiring BiPAP support Readmission was for Respiratory failure requiring BiPAP. Patient had a cardiac cath performed on September 25. EF 40 to 45%. Medical management for small vessel disease recommended. Acute hypoxic respiratory failure felt to be multifactorial secondary to pulmonary edema and treatment failure community- acquired pneumonia during last admission. He had a CT chest noncontrast and CTA chest performed September 17 that was negative for pulmonary embolism but positive for pneumonia. Patient was treated with vancomycin and cefepime for community- acquired pneumonia after treatment failure with azithromycin and Rocephin. Patient has 2 negative Covid test during these admissions In the emergency room patient is found to have WBC of 15.4, hemoglobin 6.8 and hematocrit 21.3, patient lactic acid is 2.30, potassium 5.6 BUN 64 and creatinine 7.7 and troponin I 1.690. patient also had a cardiac cath performed and has chronic troponin elevation which is unchanged today. EKG also unchanged today. Patient does have worse harsh and chronic anemia. Guaiac negative stools. Case discussed with Dr. Barriga who suggest that patient needs Epogen adjustment. Type and screen ordered. Patient will get 1 unit of packed red blood cell. Patient has mild hypotension that responded to small IV fluid bolus. Mild hyperkalemia meds ordered. X-ray results reviewed with improving chronic infiltrates. Sepsis protocol was initiated with mild elevation in lactic acid. Patient has tested negative for Covid x2. Repeat test will be ordered. We will put the patient on vancomycin and cefepime Past History Past Medical History: CAD, ESRD, renal failure, other (Pneumonia) Medications and Allergies Allergies Allergy/AdvReac Type Severity Reaction Status Date / Time shellfish derived AdvReac Anaphylaxis Verified 09/22/21 09:46 Home Medications Medication Instructions Recorded Confirmed Last Taken Type AtorvaSTATin [Lipitor] 40 mg PO QHS 02/25/21 09/22/21 09/14/21 History Cinacalcet [Sensipar] 60 mg PO DAILY 02/25/21 09/22/21 09/14/21 History Vit B Complx C/Folic Acid/Zinc 1 tab PO DAILY 02/25/21 09/22/21 09/14/21 History [Dialyvite 800-Zinc 50 mg Tab] carvediloL [Coreg] 12.5 mg PO QDAY 02/25/21 09/22/21 09/14/21 History Calcium Acetate 2,001 mg PO TID 09/15/21 09/22/21 09/14/21 History Aspirin EC [Halfprin EC] 81 mg PO QDAY 09/18/21 09/22/21 09/14/21 History Isosorbide Mononitrate [Isosorbide 60 mg PO QAM 09/18/21 09/22/21 09/14/21 History Mononitrate ER] Latanoprost 0.005% 1 drop OU QPM 09/18/21 09/22/21 09/14/21 History Cholecalciferol Vit D3 [Vitamin D3 1,000 unit PO DAILY tablet 09/21/21 09/22/21 Unknown Rx 1,000 UNIT TAB] Latanoprost 0.005% 1 drops OU QPM #1 bottle 09/21/21 09/22/21 Unknown Rx NIFEdipine [Adalat cc] 90 mg PO DAILY #90 09/21/21 09/22/21 Unknown Rx levoFLOXacin [Levaquin] 250 mg PO QDAY #3 tablet 09/26/21 Unknown Rx Active Meds: Active Medications Acetaminophen (Acetaminophen 325 Mg Tab) 650 mg PO Q4H PRN PRN Reason: Pain MILD(1-3)/Fever >100.5/GOINS Albuterol (Albuterol 2.5 Mg/3 Ml Nebu) 2.5 mg IH Q3HRT PRN PRN Reason: Shortness Of Breath Albuterol/Ipratropium (Ipratropium/Albuterol Sulfate 3 Ml Ampul.Neb) 1 ampul IH Q6HRT [facility] Atorvastatin Calcium (Atorvastatin 40 Mg Tab) 40 mg PO QHS [facility] Carvedilol (Carvedilol 12.5 Mg Tab) 12.5 mg PO QDAY [facility] Cholecalciferol (Cholecalciferol (Vit D3) 1000 Unit (25 Mcg) Tab) 1,000 unit PO DAILY [facility] Cinacalcet (Cinacalcet 30 Mg Tab) 60 mg PO DAILY [facility] Famotidine (Famotidine 20 Mg Tab) 20 mg PO BID [facility] Hydromorphone HCl (Hydromorphone 1 Mg/1 Ml Inj) 0.5 mg IV Q3H PRN PRN Reason: Pain , Severe (7-10) Vancomycin HCl 2,000 mg/ (Sodium Chloride) 540 mls @ 333 mls/hr IV ONCE ONE; Protocol Stop: 10/02/21 22:30 Vancomycin HCl (Vancomycin/Ns 1 Gm/250 Ml) 1 gm in 250 mls @ 166.667 mls/hr IV Q12H [facility]; Protocol Cefepime HCl (Cefepime/Ns 1 Gm/100 Ml) 1 gm in 100 mls @ 200 mls/hr IV Q8H [facility]; Protocol Sodium Chloride (Nacl 0.9% 500 Ml) 500 mls @ 0 mls/hr IV ONCE ONE Stop: 10/02/21 22:15 Isosorbide Mononitrate (Isosorbide Mononitrate Er 60 Mg Tab) 60 mg PO QAM [facility] Latanoprost (Latanoprost 0.005% Ophth Soln 2.5 Ml) drops OU QPM [facility] Miscellaneous Medication (Calcium Acetate [Calcium Acetate]) 2,001 mg PO TID [facility] Miscellaneous Medication (Nifedipine [Adalat Cc]) 90 mg PO DAILY [facility] Miscellaneous Medication (Vit B Complx C/Folic Acid/Zinc [Dialyvite 800-Zinc 50 Mg Tab]) 1 tab PO DAILY [facility] Morphine Sulfate (Morphine 2 Mg/1 Ml Inj) 2 mg IV Q4H PRN PRN Reason: Pain, Moderate (4-6) Ondansetron HCl (Ondansetron 4 Mg/2 Ml Inj) 4 mg IV Q8H PRN PRN Reason: Nausea And Vomiting Sodium Chloride (Sodium Chloride 0.9% 10 Ml Flush Syringe) 10 ml IV BID [facility] Sodium Chloride (Sodium Chloride 0.9% 10 Ml Flush Syringe) 10 ml IV PRN PRN PRN Reason: LINE FLUSH Review of Systems All systems: negative Constitutional: fatigue, malaise, lethargy Cardiovascular: shortness of breath, dyspnea on exertion Respiratory: shortness of breath, dyspnea on exertion Exam - Constitutional Vitals: Temp Pulse Resp BP Pulse Ox 99.7 F H 72 12 102/58 96 10/02/21 20:47 10/02/21 21:45 10/02/21 21:45 10/02/21 21:45 10/02/21 21:45 General appearance: Present: no acute distress, well-nourished - EENT Eyes: Present: PERRL ENT: hearing intact, clear oral mucosa - Neck Neck: Present: supple, normal ROM - Respiratory Respiratory effort: normal Respiratory: bilateral: diminished - Cardiovascular Heart Sounds: Present: S1 & S2. Absent: rub, click - Extremities Extremities: pulses symmetrical, No edema Peripheral Pulses: within normal limits - Abdominal General gastrointestinal: Present: soft, non-tender, non-distended, normal bowel sounds Male genitourinary: Present: normal - Integumentary Integumentary: Present: clear, warm, dry - Musculoskeletal Musculoskeletal: gait normal, strength equal bilaterally - Psychiatric Psychiatric: appropriate mood/affect, intact judgment & insight - Neurologic Neurologic: CNII-XII intact, moves all extremities HEART Score - HEART Score Troponin: Troponin T 1.690 ng/mL (0.00-0.029) H* 10/02/21 19:19 Results - Labs CBC & Chem 7: 10/02/21 19:19 10/02/21 19:19 Labs: Laboratory Last Values WBC 15.4 K/mm3 (4.5-11.0) H 10/02/21 19:19 RBC 2.39 M/mm3 (3.65-5.03) L 10/02/21 19:19 Hgb 6.8 gm/dl (11.8-15.2) L 10/02/21 19:19 Hct 21.3 % (35.5-45.6) L 10/02/21 19:19 MCV 89 fl (84-94) 10/02/21 19:19 MCH 29 pg (28-32) 10/02/21 19:19 MCHC 32 % (32-34) 10/02/21 19:19 RDW 17.0 % (13.2-15.2) H 10/02/21 19:19 Plt Count 396 K/mm3 (140-440) 10/02/21 19:19 Lymph % (Auto) 4.6 % (13.4-35.0) L 10/02/21 19:19 Tucker % (Auto) 8.6 % (0.0-7.3) H 10/02/21 19:19 Eos % (Auto) 0.0 % (0.0-4.3) 10/02/21 19:19 Baso % (Auto) 0.2 % (0.0-1.8) 10/02/21 19:19 Lymph # (Auto) 0.7 K/mm3 (1.2-5.4) L 10/02/21 19:19 Tucker # (Auto) 1.3 K/mm3 (0.0-0.8) H 10/02/21 19:19 Eos # (Auto) 0.0 K/mm3 (0.0-0.4) 10/02/21 19:19 Baso # (Auto) 0.0 K/mm3 (0.0-0.1) 10/02/21 19:19 Seg Neutrophils % 86.6 % (40.0-70.0) H 10/02/21 19:19 Seg Neutrophils # 13.3 K/mm3 (1.8-7.7) H 10/02/21 19:19 PT 16.2 Sec. (12.2-14.9) H 10/02/21 19:19 INR 1.17 (0.87-1.13) H 10/02/21 19:19 APTT 42.5 Sec. (24.2-36.6) H 10/02/21 19:19 ABG pH 7.472 (7.320-7.450) H 10/02/21 20:28 POC ABG pCO2 35.6 mmHg (32.0-48.0) 10/02/21 20:28 POC ABG pO2 56.9 mmHg (83-108) L 10/02/21 20:28 POC ABG HCO3 25.4 10/02/21 20:28 ABG O2 Saturation 89.1 (0-100) 10/02/21 20:28 POC ABG Base Excess 1.7 10/02/21 20:28 ABG Hemoglobin 7.1 (12.0-17.5) L 10/02/21 20:28 ABG Oxyhemoglobin 87.4 (94-98) L 10/02/21 20:28 ABG Methemoglobin 0.3 (0.0-1.5) 10/02/21 20:28 Carboxyhemoglobin 1.6 (0.5-1.5) H 10/02/21 20:28 FiO2 % 28.0 10/02/21 20:28 Sodium 137 mmol/L (137-145) 10/02/21 19:19 Potassium 5.6 mmol/L (3.6-5.0) H 10/02/21 19:19 Chloride 95.6 mmol/L (98-107) L 10/02/21 19:19 Carbon Dioxide 22 mmol/L (22-30) 10/02/21 19:19 Anion Gap 25 mmol/L 10/02/21 19:19 BUN 64 mg/dL (9-20) H 10/02/21 19:19 Creatinine 7.7 mg/dL (0.8-1.3) H 10/02/21 19:19 Estimated GFR 7 ml/min 10/02/21 19:19 BUN/Creatinine Ratio 8 % 10/02/21 19:19 Glucose 147 mg/dL (75-100) H 10/02/21 19:19 Lactic Acid 1.40 mmol/L (0.7-2.0) 10/02/21 21:25 Calcium 9.1 mg/dL (8.4-10.2) 10/02/21 19:19 Magnesium 2.10 mg/dL (1.7-2.3) 10/02/21 19:19 Total Bilirubin 0.20 mg/dL (0.1-1.2) 10/02/21 19:19 AST 76 units/L (5-40) H 10/02/21 19:19 ALT 56 units/L (7-56) 10/02/21 19:19 Alkaline Phosphatase 131 units/L (35-129) H 10/02/21 19:19 Total Creatine Kinase 199 units/L (55-170) H 10/02/21 19:19 Troponin T 1.690 ng/mL (0.00-0.029) H* 10/02/21 19:19 Total Protein 6.9 g/dL (6.3-8.2) 10/02/21 19:19 Albumin 3.7 g/dL (3.9-5) L 10/02/21 19:19 Albumin/Globulin Ratio 1.2 % 10/02/21 19:19 Triglycerides 66 mg/dL (2-149) 10/02/21 19:19 Cholesterol 90 mg/dL (50-199) 10/02/21 19:19 LDL Cholesterol Direct 38 mg/dL (50-130) L 10/02/21 19:19 HDL Cholesterol 48 mg/dL (40-59) 10/02/21 19:19 Cholesterol/HDL Ratio 1.87 % 10/02/21 19:19 TSH 1.470 mlU/mL (0.270-4.200) 10/02/21 19:19 Free T4 1.53 ng/dL (0.76-1.46) H 10/02/21 19:19 Blood Type O POSITIVE 10/02/21 20:45 Antibody Screen Negative 10/02/21 20:45 Crossmatch See Detail 10/02/21 20:45 - Imaging and Cardiology Chest x-ray: report reviewed Assessment and Plan VTE prophylaxis?: Mechanical Plan of care discussed with patient/family: Yes - Patient Problems (1) End stage renal disease on dialysis Current Visit: Yes Status: Acute Plan to address problem: Admit the patient to the medical telemetry. Put the patient on renal diet. Oxygen via nasal catheter per minute. Will consult nephrology for dialysis also erythropoietin treatment. Recheck CBC BMP in the morning (2) Anemia Current Visit: Yes Status: Acute Plan to address problem: Transfuse 1 unit of packed red blood cell. Consult nephrology for reactivating treatment adjustment. Recheck CBC in the morning. Consult GI if needed (3) Hypoxia Current Visit: Yes Status: Acute Plan to address problem: Oxygen per nasal cannula 3 L/min. DuoNeb by nebulizer every 4 hours. Albuterol via nebulizer every 4 hours as needed. We will continue the home medication (4) Generalized weakness Current Visit: Yes Status: Acute Plan to address problem: Multivitamin 1 tablet p.o. daily. We will continue the home medication (5) Hypotension Current Visit: Yes Status: Acute Plan to address problem: Patient has mild hypotension that responded to small IV fluid bolus. (6) Hyperkalemia Current Visit: Yes Status: Acute Plan to address problem: Insulin 5 units IV x1 dose. Calcium gluconate 1 g IV x1 dose, Kayexalate 45 g as needed x1. Will consult nephrology for hemodialysis (7) Right lower lobe pneumonia Current Visit: No Status: Acute Plan to address problem: Cefepime 1 g IV every 8 hours. Vancomycin 1 g IV every 12 hours. We will do the blood culture sputum culture. We will monitor the patient closely (8) Hypertension Current Visit: No Status: Acute Plan to address problem: Coreg 12.5 mg p.o. daily. Imdur 60 mg p.o. every morning. Nifedipine 90 mg p.o. daily. We will monitor the blood pressure closely (9) Sepsis Current Visit: Yes Status: Acute Plan to address problem: Cefepime 1 g IV every 8 hours. Vancomycin 1 g IV every 12 hours. We will do the blood culture sputum culture. We will monitor the patient closely (10) DVT prophylaxis Current Visit: No Status: Acute
[2021-10-02] MEDS ORDERED: VANCOMYCIN PHARMACY TO DOSE IV SCH (23:00)
[2021-10-02] MEDS ORDERED: VANCOMYCIN/NS 1 GM/250 ML 1 GM/250 ML BAG IV SCH (23:00)
[2021-10-02] MEDS ORDERED: CEFEPIME/NS 1 GM/100 ML 1 GM/100 ML BAG IV SCH (23:00)
[2021-10-03] MEDS ORDERED: SODIUM CHLORIDE 0.9% 500 ML 500 ML ONE (01:26)
[2021-10-03 07:42] LABS: Basophils % (Auto) 0.2 % (0.0-1.8); Eosinophils % (Auto) 0.1 % (0.0-4.3); Hematocrit 25.2 % (35.5-45.6); Hemoglobin 7.6 gm/dl (11.8-15.2); Lymphocytes # (Auto) 0.9 K/mm3 (1.2-5.4); Lymphocytes % (Auto) 6.4 % (13.4-35.0); Mean Corpuscular HGB Conc 30 % (32-34); Mean Corpuscular Volume 89 fl (84-94); Monocytes # (Auto) 1.4 K/mm3 (0.0-0.8); Monocytes % (Auto) 9.4 % (0.0-7.3); Platelet Count 386 K/mm3 (140-440); Red Blood Count 2.83 M/mm3 (3.65-5.03); Red Cell Distribution Width 16.8 % (13.2-15.2)
[2021-10-03] MEDS ORDERED: NON-FORMULARY EACH (Calcium Acetate [Calcium Acetate] 667 MG Tablet) PO SCH (08:00)
[2021-10-03 08:01] LABS: Calcium 8.9 mg/dL (8.4-10.2)
[2021-10-03] MEDS ORDERED: SODIUM CHLORIDE 0.9% 100 ML IV PRN (09:00)
--- NOTE | 2021-10-03 09:10 | Progress Note ---
Assessment and Plan Assessment and plan: --End stage renal disease on dialysis Current Visit: Yes Status: Acute Nephrology consulted, hemodialysis per schedule Avoid nephrotoxins confirm outpatient HD placement, -- Anemia 6.8-7.6 Current Visit: Yes Status: Acute Received 1 unit of PRBC Hb improved to 7.6 Closely monitor H&H and transfuse additional PRBC as needed --Hypoxia Current Visit: Yes Status: Acute Oxygen per nasal cannula 3 L/min. DuoNeb by nebulizer every 4 hours. Albuterol via nebulizer every 4 hours as needed. We will continue the home medication -- Generalized weakness Current Visit: Yes Status: Acute Multivitamin 1 tablet p.o. daily. We will continue the home medication -- Hypotension Current Visit: Yes Status: Acute Patient has mild hypotension that responded to small IV fluid bolus. -- Hyperkalemia Current Visit: Yes Status: Acute Insulin 5 units IV x1 dose. Calcium gluconate 1 g IV x1 dose, Kayexalate 45 g as needed x1. Will consult nephrology for hemodialysis --Right lower lobe pneumonia Current Visit: No Status: Acute Cefepime 1 g IV every 8 hours. Vancomycin 1 g IV every 12 hours. We will do the blood culture sputum culture. We will monitor the patient closely -- Hypertension Current Visit: No Status: Acute Coreg 12.5 mg p.o. daily. Imdur 60 mg p.o. every morning. Nifedipine 90 mg p.o. daily. We will monitor the blood pressure closely -- Sepsis Current Visit: Yes Status: Acute Cefepime 1 g IV every 8 hours. Vancomycin 1 g IV every 12 hours. We will do the blood culture sputum culture. We will monitor the patient closely --PUI; Current Visit: Yes Status: Acute isolation, follow schwarz PCR test Inflammatory markers, ID consult positive --DVT prophylaxis Current Visit: No Status: Acute scd We will closely monitor the patient and adjust the management as needed History Interval history: I have seen and examined the patient at the bedside Patient's chart and medications reviewed Hospitalist Physical - Constitutional Vitals: Temp Pulse Resp BP Pulse Ox 99.5 F 74 19 111/71 89 10/03/21 05:10 10/03/21 07:27 10/03/21 07:37 10/03/21 07:15 10/03/21 07:37 General appearance: Present: no acute distress, well-nourished, obese - EENT Eyes: Present: PERRL, EOM intact - Neck Neck: Present: supple, normal ROM - Respiratory Respiratory effort: normal Respiratory: bilateral: diminished, negative: rales, rhonchi, wheezing - Cardiovascular Rhythm: regular Heart Sounds: Present: S1 & S2 - Extremities Extremities: no ischemia, No edema - Abdominal General gastrointestinal: soft, non-tender, non-distended, normal bowel sounds - Integumentary Integumentary: Present: clear, warm - Psychiatric Psychiatric: appropriate mood/affect, cooperative - Neurologic Neurologic: moves all extremities HEART Score - HEART Score Troponin: Troponin T 1.690 ng/mL (0.00-0.029) H* 10/02/21 19:19 Results - Labs CBC & Chem 7: 10/03/21 07:28 10/03/21 07:28 Labs: Laboratory Last Values WBC 14.7 K/mm3 (4.5-11.0) H 10/03/21 07:28 RBC 2.83 M/mm3 (3.65-5.03) L 10/03/21 07:28 Hgb 7.6 gm/dl (11.8-15.2) L 10/03/21 07:28 Hct 25.2 % (35.5-45.6) L 10/03/21 07:28 MCV 89 fl (84-94) 10/03/21 07:28 MCH 27 pg (28-32) L 10/03/21 07:28 MCHC 30 % (32-34) L 10/03/21 07:28 RDW 16.8 % (13.2-15.2) H 10/03/21 07:28 Plt Count 386 K/mm3 (140-440) 10/03/21 07:28 Lymph % (Auto) 6.4 % (13.4-35.0) L 10/03/21 07:28 Rock % (Auto) 9.4 % (0.0-7.3) H 10/03/21 07:28 Eos % (Auto) 0.1 % (0.0-4.3) 10/03/21 07:28 Baso % (Auto) 0.2 % (0.0-1.8) 10/03/21 07:28 Lymph # (Auto) 0.9 K/mm3 (1.2-5.4) L 10/03/21 07:28 Rock # (Auto) 1.4 K/mm3 (0.0-0.8) H 10/03/21 07: Eos # (Auto) 0.0 K/mm3 (0.0-0.4) 10/03/21 07: Baso # (Auto) 0.0 K/mm3 (0.0-0.1) 10/03/21 07: Seg Neutrophils % 83.9 % (40.0-70.0) H 10/03/21 07: Seg Neutrophils # 12.4 K/mm3 (1.8-7.7) H 10/03/21 07: PT 16.2 Sec. (12.2-14.9) H 10/02/21 19:19 INR 1.17 (0.87-1.13) H 10/02/21 19:19 APTT 42.5 Sec. (24.2-36.6) H 10/02/21 19:19 ABG pH 7.472 (7.320-7.450) H 10/02/21 20: POC ABG pCO2 35.6 mmHg (32.0-48.0) 10/02/21 20: POC ABG pO2 56.9 mmHg (83-108) L 10/02/21 20: POC ABG HCO3 25.4 10/02/21 20: ABG O2 Saturation 89.1 (0-100) 10/02/21 20: POC ABG Base Excess 1.7 10/02/21 20: ABG Hemoglobin 7.1 (12.0-17.5) L 10/02/21 20: ABG Oxyhemoglobin 87.4 (94-98) L 10/02/21 20: ABG Methemoglobin 0.3 (0.0-1.5) 10/02/21 20: Carboxyhemoglobin 1.6 (0.5-1.5) H 10/02/21 20: FiO2 % 28.0 10/02/21 20: Sodium 138 mmol/L (137-145) 10/03/21 07: Potassium 5.5 mmol/L (3.6-5.0) H 10/03/21 07:28 Chloride 100.1 mmol/L (98-107) 10/03/21 07:28 Carbon Dioxide 20 mmol/L (22-30) L 10/03/21 07:28 Anion Gap 23 mmol/L 10/03/21 07:28 BUN 73 mg/dL (9-20) H 10/03/21 07:28 Creatinine 8.6 mg/dL (0.8-1.3) H 10/03/21 07:28 Estimated GFR 8 ml/min 10/03/21 07:28 BUN/Creatinine Ratio 8 % 10/03/21 07:28 Glucose 126 mg/dL (75-100) H 10/03/21 07:28 Lactic Acid 1.40 mmol/L (0.7-2.0) 10/02/21 21:25 Calcium 8.9 mg/dL (8.4-10.2) 10/03/21 07:28 Magnesium 2.10 mg/dL (1.7-2.3) 10/02/21 19:19 Total Bilirubin 0.20 mg/dL (0.1-1.2) 10/02/21 19:19 AST 76 units/L (5-40) H 10/02/21 19:19 ALT 56 units/L (7-56) 10/02/21 19:19 Alkaline Phosphatase 131 units/L (35-129) H 10/02/21 19:19 Total Creatine Kinase 199 units/L (55-170) H 10/02/21 19:19 Troponin T 1.690 ng/mL (0.00-0.029) H* 10/02/21 19:19 Total Protein 6.9 g/dL (6.3-8.2) 10/02/21 19:19 Albumin 3.7 g/dL (3.9-5) L 10/02/21 19:19 Albumin/Globulin Ratio 1.2 % 10/02/21 19:19 Triglycerides 66 mg/dL (2-149) 10/02/21 19:19 Cholesterol 90 mg/dL (50-199) 10/02/21 19:19 LDL Cholesterol Direct 38 mg/dL (50-130) L 10/02/21 19:19 HDL Cholesterol 48 mg/dL (40-59) 10/02/21 19:19 Cholesterol/HDL Ratio 1.87 % 10/02/21 19:19 TSH 1.470 mlU/mL (0.270-4.200) 10/02/21 19:19 Free T4 1.53 ng/dL (0.76-1.46) H 10/02/21 19:19 Blood Type O POSITIVE 10/02/21 20:45 Antibody Screen Negative 10/02/21 20:45 Crossmatch See Detail 10/02/21 20:45 Microbiology: Microbiology 10/02/21 19:18 Peripheral/Venous Blood Culture - Preliminary Culture in Progress 10/02/21 19:18 Peripheral/Venous Blood Culture - Preliminary Culture in Progress 10/02/21 20:39 Stool Stool Occult Blood ([facility]) - Final Active Medications - Current Medications Current Medications: Generic Name Dose Route Start Last Admin Trade Name Freq PRN Reason Stop Dose Admin Acetaminophen 650 mg 10/02/21 22:11 Acetaminophen 325 Mg Tab PO Q4H PRN Pain MILD(1-3)/Fever >100.5/GOINS Albuterol 2.5 mg 10/02/21 22:11 Albuterol 2.5 Mg/3 Ml Nebu IH Q3HRT PRN Shortness Of Breath Albuterol/Ipratropium 1 ampul 10/03/21 02:00 Ipratropium/Albuterol Sulfate 3 Ml Ampul.Neb IH Q6HRT [facility] Atorvastatin Calcium 40 mg 10/03/21 22:00 Atorvastatin 40 Mg Tab PO QHS [facility] Calcium Acetate 2,001 mg 10/03/21 08:00 Calcium Acetate 667 Mg Cap PO TIDWM [facility] Carvedilol 12.5 mg 10/03/21 10:00 Carvedilol 12.5 Mg Tab PO QDAY [facility] Cholecalciferol 1,000 unit 10/03/21 10:00 Cholecalciferol (Vit D3) 1000 Unit (25 Mcg) Tab PO DAILY [facility] Cinacalcet 60 mg 10/03/21 10:00 Cinacalcet 30 Mg Tab PO DAILY [facility] Epoetin Chong-epbx 20,000 unit 10/03/21 09:00 Epoetin Chong-Epbx 20,000 Unit/1 Ml Vial IV CALI PRN hemodialysis Famotidine 10 mg 10/03/21 10:00 Famotidine 10 Mg Tab PO BID [facility] Hydromorphone HCl 0.5 mg 10/02/21 22:11 Hydromorphone 1 Mg/1 Ml Inj IV Q3H PRN Pain , Severe (7-10) Cefepime HCl 1 gm in 100 mls @ 200 mls/hr 10/03/21 22:00 Cefepime/Ns 1 Gm/100 Ml IV Q24H [facility] Protocol Sodium Chloride 100 mls @ 999 mls/hr 10/03/21 09:00 Nacl 0.9% IV CALI PRN Hypotension Isosorbide Mononitrate 60 mg 10/03/21 10:00 Isosorbide Mononitrate Er 60 Mg Tab PO QAM [facility] Latanoprost 1 drops 10/03/21 18:00 Latanoprost 0.005% Ophth Soln 2.5 Ml OU QPM [facility] Morphine Sulfate 2 mg 10/02/21 22:11 Morphine 2 Mg/1 Ml Inj IV Q4H PRN Pain, Moderate (4-6) Multivit/Ca Carb/B Cmplx/FA/Prenat 1 cap 10/03/21 10:00 Folic Acid/Vit B Comp W-C 1 Mg (Renal Caps) PO QDAY [facility] Nifedipine 90 mg 10/03/21 10:00 Nifedipine Xl 90 Mg Tab PO QDAY [facility] Ondansetron HCl 4 mg 10/02/21 22:11 Ondansetron 4 Mg/2 Ml Inj IV Q8H PRN Nausea And Vomiting Sodium Chloride 10 ml 10/03/21 10:00 Sodium Chloride 0.9% 10 Ml Flush Syringe IV BID [facility] Sodium Chloride 10 ml 10/02/21 22:11 Sodium Chloride 0.9% 10 Ml Flush Syringe IV PRN PRN LINE FLUSH
--- NOTE | 2021-10-03 09:25 | Consultation ---
History of Present Illness - Reason for Consult Consult date: 10/03/21 end stage renal disease - History of Present Illness This is a 66 year-old man with ESRD who presents for weakness Patient usually dialyzes MWF at [facility]. Last HD 10/01. Denies any recent issues with HD, including dizziness, lightheadedness, cramping, chest pain on HD. Has been feeling weak in general. Was in [facility] recently for respiratory failure, CAD, pneumonia. Currently, patient denies any issues including dyspnea, edema, access issues, nausea, vomiting, headaches. He is somewhat lethargic and falls asleep during conversation. Past History Past Medical History: CAD, ESRD, renal failure, other (Pneumonia) Medications and Allergies Allergies Allergy/AdvReac Type Severity Reaction Status Date / Time shellfish derived AdvReac Anaphylaxis Verified 09/22/21 09:46 Home Medications Medication Instructions Recorded Confirmed Last Taken Type AtorvaSTATin [Lipitor] 40 mg PO QHS 02/25/21 10/03/21 10/02/21 History Cinacalcet [Sensipar] 60 mg PO DAILY 02/25/21 10/03/21 10/02/21 History Vit B Complx C/Folic Acid/Zinc 1 tab PO DAILY 02/25/21 10/03/21 10/02/21 History [Dialyvite 800-Zinc 50 mg Tab] carvediloL [Coreg] 12.5 mg PO QDAY 02/25/21 10/03/21 10/02/21 History Calcium Acetate 2,001 mg PO TIDWM 09/15/21 10/03/21 10/02/21 History Aspirin EC [Halfprin EC] 81 mg PO QDAY 09/18/21 10/03/21 10/02/21 History Isosorbide Mononitrate [Isosorbide 60 mg PO QAM 09/18/21 10/03/21 10/02/21 History Mononitrate ER] Latanoprost 0.005% 1 drop OU QPM 09/18/21 10/03/21 10/02/21 History NIFEdipine [Adalat cc] 90 mg PO DAILY #90 09/21/21 10/03/21 10/02/21 Rx levoFLOXacin [Levaquin] 250 mg PO QDAY #3 tablet 09/26/21 10/03/21 10/02/21 Rx Dorzolamide HCl/Timolol Maleat 1 drop OU BID 10/03/21 10/03/21 Unknown History [Cosopt Eye Drops] Active Meds: Active Medications Acetaminophen (Acetaminophen 325 Mg Tab) 650 mg PO Q4H PRN PRN Reason: Pain MILD(1-3)/Fever >100.5/GOINS Albuterol (Albuterol 2.5 Mg/3 Ml Nebu) 2.5 mg IH Q3HRT PRN PRN Reason: Shortness Of Breath Albuterol/Ipratropium (Ipratropium/Albuterol Sulfate 3 Ml Ampul.Neb) 1 ampul IH Q6HRT LYNDON Atorvastatin Calcium (Atorvastatin 40 Mg Tab) 40 mg PO QHS LYNDON Calcium Acetate (Calcium Acetate 667 Mg Cap) 2,001 mg PO TIDWM LYNDON Carvedilol (Carvedilol 12.5 Mg Tab) 12.5 mg PO QDAY LYNDON Cholecalciferol (Cholecalciferol (Vit D3) 1000 Unit (25 Mcg) Tab) 1,000 unit PO DAILY LYNDON Cinacalcet (Cinacalcet 30 Mg Tab) 60 mg PO DAILY LYNDON Epoetin Chong-epbx (Epoetin Chong-Epbx 20,000 Unit/1 Ml Vial) 20,000 unit IV CALI PRN PRN Reason: hemodialysis Famotidine (Famotidine 10 Mg Tab) 10 mg PO BID LYNDON Hydromorphone HCl (Hydromorphone 1 Mg/1 Ml Inj) 0.5 mg IV Q3H PRN PRN Reason: Pain , Severe (7-10) Cefepime HCl (Cefepime/Ns 1 Gm/100 Ml) 1 gm in 100 mls @ 200 mls/hr IV Q24H LYNDON; Protocol Sodium Chloride (Nacl 0.9%) 100 mls @ 999 mls/hr IV CALI PRN PRN Reason: Hypotension Isosorbide Mononitrate (Isosorbide Mononitrate Er 60 Mg Tab) 60 mg PO QAM LYNDON Latanoprost (Latanoprost 0.005% Ophth Soln 2.5 Ml) 1 drops OU QPM LYNDON Morphine Sulfate (Morphine 2 Mg/1 Ml Inj) 2 mg IV Q4H PRN PRN Reason: Pain, Moderate (4-6) Multivit/Ca Carb/B Cmplx/FA/Prenat (Folic Acid/Vit B Comp W-C 1 Mg (Renal Caps)) 1 cap PO QDAY LYNDON Nifedipine (Nifedipine Xl 90 Mg Tab) 90 mg PO QDAY LYNDON Ondansetron HCl (Ondansetron 4 Mg/2 Ml Inj) 4 mg IV Q8H PRN PRN Reason: Nausea And Vomiting Sodium Chloride (Sodium Chloride 0.9% 10 Ml Flush Syringe) 10 ml IV BID LYNDON Sodium Chloride (Sodium Chloride 0.9% 10 Ml Flush Syringe) 10 ml IV PRN PRN PRN Reason: LINE FLUSH Review of Systems All systems: negative (as per HPI- general weakness) Exam - Vital Signs Vital signs: Vital Signs Pulse Ox 92 10/02/21 18:37 - Physical Exam Narrative exam: Constitutional: no acute distress Head: NC/AT Neck: supple Lungs: clear to auscultation CV: RRR, no M/R/G Abdomen: soft, non-tender, bowel sounds present Back: nontender Extremities: no edema, pulses WNL Skin: intact Neuro: no focal deficits, alert and oriented x4 but drowsy Results - Lab Results 10/03/21 07:28 10/03/21 07:28 Most recent lab results ABG pH 7.472 (7.320-7.450) H 10/02/21 20:28 ABG O2 Saturation 89.1 (0-100) 10/02/21 20:28 Calcium 8.9 mg/dL (8.4-10.2) 10/03/21 07:28 Magnesium 2.10 mg/dL (1.7-2.3) 10/02/21 19:19 Assessment and Plan This is a 66 year old man with ESRD who presents with weakness # ESRD: HD today for hyperkalemia, solute clearance, volume. Continue HD MWF or prn - daily labs - renally dose meds - avoid nephrotoxins - renal diet - verbal consent obtained for HD # Anemia: last hemoglobin 7.3, stable from prior, ESAs with HD # HTN: UF as tolerated. BP soft but stable. May need to hold nifedipine, isosorbide # Secondary Hyperparathyroidism: continue home binders as needed, vitamin D a nalogs prn
[2021-10-03] MEDS: IPRATROPIUM/ALBUTEROL SULFATE 3 ML AMPUL.NEB IH SCH ×4 (09:26→20:21)
[2021-10-03] MEDS ORDERED: VIT B COMPLX C PO SCH (10:00)
[2021-10-03] MEDS ORDERED: FOLIC ACID PO SCH (10:00)
[2021-10-03] MEDS ORDERED: FAMOTIDINE 20 MG TAB PO SCH (10:00)
[2021-10-03] MEDS ORDERED: ZINC PO SCH (10:00)
[2021-10-03] MEDS ORDERED: [UNRECOGNIZED DRUG - OTHER] PO SCH (10:00)
[2021-10-03] MEDS ORDERED: NON-FORMULARY EACH (Nifedipine [Adalat Cc] 90 MG Tablet.Er) PO SCH (10:00)
--- NOTE | 2021-10-03 10:27 | Electrocardiograph Report ---
[facility] Test Date: 2021-10-02 Test Time: 20:30:26 Pat Name: HETCOR EATON Department: Room: A352 1 Gender: M Fiscal Assistant: MAGDALENO : 1955 Requested By: SHARRI RODRIGUEZ Order Number: [id number] Reading MD: Max Grayson Measurements Intervals [place] Rate: 71 P: 38 IA: 168 QRS: 5 QRSD: 94 T: 72 QT: 405 QTc: 440 Interpretive Statements Sinus rhythm nonspecific st-t No previous ECG available for comparison Electronically Signed On 10-03-2021 10:26:21 EST by Max Grayson
[2021-10-03] MEDS: EPOETIN ALFA-EPBX 20,000 UNIT/1 ML VIAL IV PRN (11:45)
[2021-10-03] MEDS ORDERED: NON-FORMULARY EACH (Dorzolamide Hcl/Timolol Maleat [Cosopt Eye Drops] 10 ML Drops) OP SCH (22:00)
[2021-10-03] MEDS: FAMOTIDINE 10 MG TAB PO SCH (22:35)
[2021-10-03] MEDS: CEFEPIME/NS 1 GM/100 ML 1 GM/100 ML BAG IV SCH (22:37)
[2021-10-04] MEDS: IPRATROPIUM/ALBUTEROL SULFATE 3 ML AMPUL.NEB IH SCH ×4 (02:11→20:16)
--- NOTE | 2021-10-04 08:24 | Progress Note ---
Assessment and Plan Assessment and plan: Patient is on 3 L nasal cannula oxygen -- Hyperkalemia; Current Visit: Yes Status: Acute Patient received hemodialysis, today's labs are pending Closely monitor electrolytes, HD per schedule --End stage renal disease on dialysis Current Visit: Yes Status: Acute Nephrology following, HD per schedule -- Anemia 6.8-7.6 Current Visit: Yes Status: Acute Received 1 unit of PRBC Hb improved to 7.6 Closely monitor H&H and transfuse additional PRBC as needed --Hypoxia Current Visit: Yes Status: Acute On 3 L supplemental oxygen, Wean as tolerated -- Generalized weakness Current Visit: Yes Status: Acute Multifactorial, due to underlying disease process Treat the underlying cause, supportive care -- Hypotension/resolved Current Visit: Yes Status: Acute Blood pressure is reasonable level --Right lower lobe pneumonia Current Visit: No Status: Acute Continue cefepime renally dosed DC vancomycin, follow cultures -- Hypertension Current Visit: No Status: Acute Coreg 12.5 mg p.o. daily. Imdur 60 mg p.o. every morning. Nifedipine 90 mg p.o. daily. We will monitor the blood pressure closely -- Sepsis due to pneumonia Current Visit: Yes Status: Acute Leukocytosis, lactic acidosis, bilateral lung infiltrates Continue empiric antibiotics, follow cultures --PUI; Current Visit: Yes Status: Acute isolation, pending schwarz PCR test Check inflammatory markers, ID consult Oxygen evaluation Home O2 evaluation prior to discharge --DVT prophylaxis Current Visit: No Status: Acute Subcu heparin We will closely monitor the patient and adjust the management as needed Follow pending labs and tests Plan of care reviewed with the patient and his nurse Follow PCR test, home O2 evaluation prior to discharge History Interval history: I have seen and examined the patient at the bedside Patient's chart and medications reviewed Patient feels slightly better Complains of generalized weakness Vital signs reviewed Hospitalist Physical - Constitutional Vitals: Temp Pulse Resp BP Pulse Ox 98.5 F 79 18 132/90 91 10/04/21 05:48 10/04/21 05:48 10/04/21 05:48 10/04/21 05:48 10/04/21 05:48 General appearance: Present: no acute distress, well-nourished, obese - EENT Eyes: Present: PERRL, EOM intact - Neck Neck: Present: supple, normal ROM - Respiratory Respiratory effort: normal Respiratory: bilateral: diminished, rhonchi, negative: rales, wheezing - Cardiovascular Rhythm: regular Heart Sounds: Present: S1 & S2 - Extremities Extremities: no ischemia, No edema - Abdominal General gastrointestinal: soft, non-tender, non-distended, normal bowel sounds - Integumentary Integumentary: Present: clear, warm - Psychiatric Psychiatric: appropriate mood/affect, cooperative - Neurologic Neurologic: moves all extremities HEART Score - HEART Score Troponin: Troponin T 1.690 ng/mL (0.00-0.029) H* 10/02/21 19:19 Results - Labs CBC & Chem 7: 10/04/21 08:54 10/04/21 09:22 Labs: Laboratory Last Values WBC 14.7 K/mm3 (4.5-11.0) H 10/03/21 07:28 RBC 2.83 M/mm3 (3.65-5.03) L 10/03/21 07:28 Hgb 7.6 gm/dl (11.8-15.2) L 10/03/21 07:28 Hct 25.2 % (35.5-45.6) L 10/03/21 07:28 MCV 89 fl (84-94) 10/03/21 07:28 MCH 27 pg (28-32) L 10/03/21 07:28 MCHC 30 % (32-34) L 10/03/21 07:28 RDW 16.8 % (13.2-15.2) H 10/03/21 07:28 Plt Count 386 K/mm3 (140-440) 10/03/21 07:28 Lymph % (Auto) 6.4 % (13.4-35.0) L 10/03/21 07:28 [place] % (Auto) 9.4 % (0.0-7.3) H 10/03/21 07:28 Eos % (Auto) 0.1 % (0.0-4.3) 10/03/21 07:28 Baso % (Auto) 0.2 % (0.0-1.8) 10/03/21 07:28 Lymph # (Auto) 0.9 K/mm3 (1.2-5.4) L 10/03/21 07:28 [place] # (Auto) 1.4 K/mm3 (0.0-0.8) H 10/03/21 07:28 Eos # (Auto) 0.0 K/mm3 (0.0-0.4) 10/03/21 07: Baso # (Auto) 0.0 K/mm3 (0.0-0.1) 10/03/21 07:28 Seg Neutrophils % 83.9 % (40.0-70.0) H 10/03/21 07: Seg Neutrophils # 12.4 K/mm3 (1.8-7.7) H 10/03/21 07:28 PT 16.2 Sec. (12.2-14.9) H 10/02/21 19:19 INR 1.17 (0.87-1.13) H 10/02/21 19:19 APTT 42.5 Sec. (24.2-36.6) H 10/02/21 19:19 ABG pH 7.472 (7.320-7.450) H 10/02/21 20: POC ABG pCO2 35.6 mmHg (32.0-48.0) 10/02/21 20: POC ABG pO2 56.9 mmHg (83-108) L 10/02/21 20: POC ABG HCO3 25.4 10/02/21 20: ABG O2 Saturation 89.1 (0-100) 10/02/21 20: POC ABG Base Excess 1.7 10/02/21 20: ABG Hemoglobin 7.1 (12.0-17.5) L 10/02/21 20: ABG Oxyhemoglobin 87.4 (94-98) L 10/02/21 20: ABG Methemoglobin 0.3 (0.0-1.5) 10/02/21 20: Carboxyhemoglobin 1.6 (0.5-1.5) H 10/02/21 20: FiO2 % 28.0 10/02/21 20: Sodium 138 mmol/L (137-145) 10/03/21 07:28 Potassium 5.5 mmol/L (3.6-5.0) H 10/03/21 07: Chloride 100.1 mmol/L (98-107) 10/03/21 07: Carbon Dioxide 20 mmol/L (22-30) L 01/28/22 07:28 Anion Gap 23 mmol/L 10/03/21 07:28 BUN 73 mg/dL (9-20) H 10/03/21 07:28 Creatinine 8.6 mg/dL (0.8-1.3) H 10/03/21 07:28 Estimated GFR 8 ml/min 10/03/21 07:28 BUN/Creatinine Ratio 8 % 10/03/21 07:28 Glucose 126 mg/dL (75-100) H 10/03/21 07:28 Lactic Acid 1.40 mmol/L (0.7-2.0) 10/02/21 21:25 Calcium 8.9 mg/dL (8.4-10.2) 10/03/21 07:28 Magnesium 2.10 mg/dL (1.7-2.3) 10/02/21 19:19 Total Bilirubin 0.20 mg/dL (0.1-1.2) 10/02/21 19:19 AST 76 units/L (5-40) H 10/02/21 19:19 ALT 56 units/L (7-56) 10/02/21 19:19 Alkaline Phosphatase 131 units/L (35-129) H 10/02/21 19:19 Total Creatine Kinase 199 units/L (55-170) H 10/02/21 19:19 Troponin T 1.690 ng/mL (0.00-0.029) H* 10/02/21 19:19 Total Protein 6.9 g/dL (6.3-8.2) 10/02/21 19:19 Albumin 3.7 g/dL (3.9-5) L 10/02/21 19:19 Albumin/Globulin Ratio 1.2 % 10/02/21 19:19 Triglycerides 66 mg/dL (2-149) 10/02/21 19:19 Cholesterol 90 mg/dL (50-199) 10/02/21 19:19 LDL Cholesterol Direct 38 mg/dL (50-130) L 10/02/21 19:19 HDL Cholesterol 48 mg/dL (40-59) 10/02/21 19:19 Cholesterol/HDL Ratio 1.87 % 10/02/21 19:19 TSH 1.470 mlU/mL (0.270-4.200) 10/02/21 19:19 Free T4 1.53 ng/dL (0.76-1.46) H 10/02/21 19:19 Blood Type O POSITIVE 10/02/21 20:45 Antibody Screen Negative 10/02/21 20:45 Crossmatch See Detail 10/02/21 20:45 Microbiology: Microbiology 10/02/21 19:18 Peripheral/Venous Blood Culture - Preliminary NO GROWTH AFTER 24 HOURS 10/02/21 19:18 Peripheral/Venous Blood Culture - Preliminary NO GROWTH AFTER 24 HOURS Active Medications - Current Medications Current Medications: Generic Name Dose Route Start Last Admin Trade Name Freq PRN Reason Stop Dose Admin Acetaminophen 650 mg 10/02/21 22:11 Acetaminophen 325 Mg Tab PO Q4H PRN Pain MILD(1-3)/Fever >100.5/GOINS Albuterol 2.5 mg 10/02/21 22:11 Albuterol 2.5 Mg/3 Ml Nebu IH Q3HRT PRN Shortness Of Breath Albuterol/Ipratropium 1 ampul 10/03/21 02:00 10/04/21 02:11 Ipratropium/Albuterol Sulfate 3 Ml Ampul.Neb IH 1 ampul Q6HRT LYNDON Administration Atorvastatin Calcium 40 mg 10/03/21 22:00 10/03/21 22:42 Atorvastatin 40 Mg Tab PO 40 mg QHS LYNDON Administration Calcium Acetate 2,001 mg 10/03/21 08:00 Calcium Acetate 667 Mg Cap PO TIDWM [facility] Carvedilol 12.5 mg 10/03/21 10:00 Carvedilol 12.5 Mg Tab PO QDAY [facility] Cholecalciferol 1,000 unit 10/03/21 10:00 Cholecalciferol (Vit D3) 1000 Unit (25 Mcg) Tab PO DAILY [facility] Cinacalcet 60 mg 10/03/21 10:00 Cinacalcet 30 Mg Tab PO DAILY [facility] Epoetin Chong-epbx 20,000 unit 10/03/21 09:00 10/03/21 11:45 Epoetin Chong-Epbx 20,000 Unit/1 Ml Vial IV 20,000 unit CALI PRN Administration hemodialysis Famotidine 10 mg 10/03/21 10:00 10/03/21 22:35 Famotidine 10 Mg Tab PO 10 mg BID LYNDON Administration Hydromorphone HCl 0.5 mg 10/02/21 22:11 10/03/21 13:43 Hydromorphone 1 Mg/1 Ml Inj IV 0.5 mg Q3H PRN Administration Pain , Severe (7-10) Cefepime HCl 1 gm in 100 mls @ 200 mls/hr 10/03/21 22:00 10/03/21 22:37 Cefepime/Ns 1 Gm/100 Ml IV 200 mls/hr Q24H LYNDON Administration Protocol Sodium Chloride 100 mls @ 999 mls/hr 10/03/21 09:00 Nacl 0.9% IV CALI PRN Hypotension Isosorbide Mononitrate 60 mg 10/03/21 10:00 Isosorbide Mononitrate Er 60 Mg Tab PO QAM [facility] Latanoprost 1 drops 10/03/21 18:00 Latanoprost 0.005% Ophth Soln 2.5 Ml OU QPM [facility] Morphine Sulfate 2 mg 10/02/21 22:11 Morphine 2 Mg/1 Ml Inj IV Q4H PRN Pain, Moderate (4-6) Multivit/Ca Carb/B Cmplx/FA/Prenat 1 cap 10/03/21 10:00 Folic Acid/Vit B Comp W-C 1 Mg (Renal Caps) PO QDAY [facility] Nifedipine 90 mg 10/03/21 10:00 Nifedipine Xl 90 Mg Tab PO QDAY [facility] Ondansetron HCl 4 mg 10/02/21 22:11 Ondansetron 4 Mg/2 Ml Inj IV Q8H PRN Nausea And Vomiting Sodium Chloride 10 ml 10/03/21 10:00 10/04/21 01:19 Sodium Chloride 0.9% 10 Ml Flush Syringe IV Not Given BID LYNDON Sodium Chloride 10 ml 10/02/21 22:11 Sodium Chloride 0.9% 10 Ml Flush Syringe IV PRN PRN LINE FLUSH
[2021-10-04] MEDS: FAMOTIDINE 10 MG TAB PO SCH ×2 (09:43→21:50)
[2021-10-04] MEDS: CALCIUM ACETATE 667 MG CAP PO SCH ×3 (09:44→17:12)
[2021-10-04] MEDS: carvediloL 12.5 MG TAB PO SCH (09:45)
[2021-10-04] MEDS: CHOLECALCIFEROL (VIT D3) 1000 UNIT (25 mcg) TAB PO SCH (09:45)
[2021-10-04] MEDS: CINACALCET 30 MG TAB PO SCH (09:46)
[2021-10-04] MEDS: FOLIC ACID/VIT B COMP W-C 1 MG (RENAL CAPS) PO SCH (09:47)
[2021-10-04] MEDS: NIFEdipine XL 90 MG TAB PO SCH (09:47)
[2021-10-04 09:54] LABS: Basophils % (Auto) 0.2 % (0.0-1.8); Eosinophils # (Auto) 0.2 K/mm3 (0.0-0.4); Eosinophils % (Auto) 1.4 % (0.0-4.3); Hematocrit 25.4 % (35.5-45.6); Hemoglobin 8.2 gm/dl (11.8-15.2); Lymphocytes % (Auto) 7.9 % (13.4-35.0); Mean Corpuscular HGB Conc 32 % (32-34); Mean Corpuscular Volume 89 fl (84-94); Monocytes # (Auto) 1.1 K/mm3 (0.0-0.8); Monocytes % (Auto) 8.5 % (0.0-7.3); Platelet Count 345 K/mm3 (140-440); Red Blood Count 2.86 M/mm3 (3.65-5.03); Red Cell Distribution Width 16.7 % (13.2-15.2)
[2021-10-04] MEDS: MORPHINE 2 MG/1 ML INJ IV PRN ×2 (17:16→22:33)
--- NOTE | 2021-10-04 17:16 | Progress Note ---
Assessment and Plan Assessment and plan: Alves PCR negative Patient is on 10 L NC oxygen today Wean as tolerated -- Hyperkalemia; Current Visit: Yes Status: Acute Patient received hemodialysis, today's labs are pending Closely monitor electrolytes, HD per schedule --End stage renal disease on dialysis Current Visit: Yes Status: Acute Nephrology following, HD per schedule -- Anemia 6.8-7.6 Current Visit: Yes Status: Acute Received 1 unit of PRBC Hb improved to 7.6 Closely monitor H&H and transfuse additional PRBC as needed --Hypoxia patient is receiving 10 L of nasal cannula oxygen today Current Visit: Yes Status: Acute Patient was on 3 L supplemental oxygen, today patient is requiring 10 L nasal cannula oxygen Wean as tolerated, home O2 evaluation -- Generalized weakness Current Visit: Yes Status: Acute Multifactorial, due to underlying disease process Treat the underlying cause, supportive care -- Hypotension/resolved Current Visit: Yes Status: Acute Blood pressure is reasonable level --Right lower lobe pneumonia Current Visit: No Status: Acute Continue cefepime renally dosed total 5-7 days DC vancomycin, follow cultures -- Hypertension Current Visit: No Status: Acute Coreg 12.5 mg p.o. daily. Imdur 60 mg p.o. every morning. Nifedipine 90 mg p.o. daily. We will monitor the blood pressure closely -- Sepsis due to pneumonia Current Visit: Yes Status: Acute Leukocytosis, lactic acidosis, bilateral lung infiltrates Continue empiric antibiotics, follow cultures --PUI; Alves PCR test negative Current Visit: Yes Status: Acute isolation, pending alves PCR test Check inflammatory markers, ID consult Oxygen evaluation Home O2 evaluation prior to discharge --DVT prophylaxis Current Visit: No Status: Acute Subcu heparin We will closely monitor the patient and adjust the management as needed Follow pending labs and tests Plan of care reviewed with the patient and his nurse Brief history: 66-year-old male patient with significant history of end-stage renal disease on hemodialysis MWF was admitted through emergency room with generalized weakness and low-grade fever and shortness of breath. Patient was placed as PUI, chest x- ray pneumonia, started on empiric antibiotics cefepime, Alves PCR test is positive. Nephrology evaluated the patient and hemodialysis per schedule 10/05 ;: Alves PCR test negative, home O2 evaluation prior to discharge Patient requiring 10 L nasal cannula oxygen today[was on 3 L yesterday] Wean as tolerated, home O2 evaluation prior to discharge Disposition; follow oxygen needs, home O2 evaluation Discharge when stable and cleared by nephrology History Interval history: I have seen and examined the patient at the bedside Patient's chart and medications reviewed Patient feels slightly better no new complaints, Requiring 10 L of nasal cannula oxygen Wean as tolerated Hospitalist Physical - Constitutional Vitals: Temp Pulse Resp BP Pulse Ox 98.9 F 74 19 133/67 98 10/04/21 10:32 10/04/21 14:35 10/04/21 14:35 10/04/21 10:32 10/04/21 14:36 General appearance: Present: no acute distress, well-nourished, obese - EENT Eyes: Present: PERRL, EOM intact - Neck Neck: Present: supple, normal ROM - Respiratory Respiratory effort: normal Respiratory: bilateral: diminished, negative: rales, rhonchi, wheezing - Cardiovascular Rhythm: regular Heart Sounds: Present: S1 & S2 - Extremities Extremities: no ischemia, No edema - Abdominal General gastrointestinal: soft, non-tender, non-distended, normal bowel sounds - Integumentary Integumentary: Present: clear, warm - Psychiatric Psychiatric: appropriate mood/affect, cooperative - Neurologic Neurologic: CNII-XII intact, moves all extremities HEART Score - HEART Score Troponin: Troponin T 1.690 ng/mL (0.00-0.029) H* 10/02/21 19:19 Results - Labs CBC & Chem 7: 10/04/21 08:54 10/04/21 09:22 Labs: Laboratory Last Values WBC 12.4 K/mm3 (4.5-11.0) H 10/04/21 08:54 RBC 2.86 M/mm3 (3.65-5.03) L 10/04/21 08:54 Hgb 8.2 gm/dl (11.8-15.2) L 10/04/21 08:54 Hct 25.4 % (35.5-45.6) L 10/04/21 08:54 MCV 89 fl (84-94) 10/04/21 08:54 MCH 29 pg (28-32) 10/04/21 08:54 MCHC 32 % (32-34) 10/04/21 08:54 RDW 16.7 % (13.2-15.2) H 10/04/21 08:54 Plt Count 345 K/mm3 (140-440) 10/04/21 08:54 Lymph % (Auto) 7.9 % (13.4-35.0) L 10/04/21 08:54 [place] % (Auto) 8.5 % (0.0-7.3) H 10/04/21 08:54 Eos % (Auto) 1.4 % (0.0-4.3) 10/04/21 08:54 Baso % (Auto) 0.2 % (0.0-1.8) 10/04/21 08:54 Lymph # (Auto) 1.0 K/mm3 (1.2-5.4) L 10/04/21 08:54 [place] # (Auto) 1.1 K/mm3 (0.0-0.8) H 10/04/21 08:54 Eos # (Auto) 0.2 K/mm3 (0.0-0.4) 10/04/21 08:54 Baso # (Auto) 0.0 K/mm3 (0.0-0.1) 10/04/21 08:54 Seg Neutrophils % 82.0 % (40.0-70.0) H 10/04/21 08:54 Seg Neutrophils # 10.1 K/mm3 (1.8-7.7) H 10/04/21 08:54 PT 16.2 Sec. (12.2-14.9) H 10/02/21 19:19 INR 1.17 (0.87-1.13) H 10/02/21 19:19 APTT 42.5 Sec. (24.2-36.6) H 10/02/21 19:19 ABG pH 7.472 (7.320-7.450) H 10/02/21 20:28 POC ABG pCO2 35.6 mmHg (32.0-48.0) 10/02/21 20:28 POC ABG pO2 56.9 mmHg (83-108) L 10/02/21 20:28 POC ABG HCO3 25.4 10/02/21 20:28 ABG O2 Saturation 89.1 (0-100) 10/02/21 20:28 POC ABG Base Excess 1.7 10/02/21 20:28 ABG Hemoglobin 7.1 (12.0-17.5) L 10/02/21 20:28 ABG Oxyhemoglobin 87.4 (94-98) L 10/02/21 20:28 ABG Methemoglobin 0.3 (0.0-1.5) 10/02/21 20:28 Carboxyhemoglobin 1.6 (0.5-1.5) H 10/02/21 20:28 FiO2 % 28.0 10/02/21 20:28 Sodium 133 mmol/L (137-145) L 10/04/21 09:22 Potassium 4.0 mmol/L (3.6-5.0) D 10/04/21 09:22 Chloride 93.1 mmol/L (98-107) L 10/04/21 09:22 Carbon Dioxide 24 mmol/L (22-30) 10/04/21 09:22 Anion Gap 20 mmol/L 10/04/21 09:22 BUN 60 mg/dL (9-20) H 10/04/21 09:22 Creatinine 7.9 mg/dL (0.8-1.3) H 10/04/21 09:22 Estimated GFR 8 ml/min 10/04/21 09:22 BUN/Creatinine Ratio 8 % 10/04/21 09:22 Glucose 131 mg/dL (75-100) H 10/04/21 09:22 Lactic Acid 1.40 mmol/L (0.7-2.0) 10/02/21 21:25 Calcium 9.0 mg/dL (8.4-10.2) 10/04/21 09:22 Magnesium 2.10 mg/dL (1.7-2.3) 10/02/21 19:19 Total Bilirubin 0.20 mg/dL (0.1-1.2) 10/02/21 19:19 AST 76 units/L (5-40) H 10/02/21 19:19 ALT 56 units/L (7-56) 10/02/21 19:19 Alkaline Phosphatase 131 units/L (35-129) H 10/02/21 19:19 Total Creatine Kinase 199 units/L (55-170) H 10/02/21 19:19 Troponin T 1.690 ng/mL (0.00-0.029) H* 10/02/21 19:19 Total Protein 6.9 g/dL (6.3-8.2) 10/02/21 19:19 Albumin 3.7 g/dL (3.9-5) L 10/02/21 19:19 Albumin/Globulin Ratio 1.2 % 10/02/21 19:19 Triglycerides 66 mg/dL (2-149) 10/02/21 19:19 Cholesterol 90 mg/dL (50-199) 10/02/21 19:19 LDL Cholesterol Direct 38 mg/dL (50-130) L 10/02/21 19:19 HDL Cholesterol 48 mg/dL (40-59) 10/02/21 19:19 Cholesterol/HDL Ratio 1.87 % 10/02/21 19:19 TSH 1.470 mlU/mL (0.270-4.200) 10/02/21 19:19 Free T4 1.53 ng/dL (0.76-1.46) H 10/02/21 19:19 Random Vancomycin 18.9 ug/mL (0-40.0) 10/04/21 09:22 Blood Type O POSITIVE 10/02/21 20:45 Antibody Screen Negative 10/02/21 20:45 Crossmatch See Detail 10/02/21 20:45 Microbiology: Microbiology 10/02/21 19:18 Peripheral/Venous Blood Culture - Preliminary NO GROWTH AFTER 24 HOURS 10/02/21 19:18 Peripheral/Venous Blood Culture - Preliminary NO GROWTH AFTER 24 HOURS Active Medications - Current Medications Current Medications: Generic Name Dose Route Start Last Admin Trade Name Freq PRN Reason Stop Dose Admin Acetaminophen 650 mg 10/02/21 22:11 Acetaminophen 325 Mg Tab PO Q4H PRN Pain MILD(1-3)/Fever >100.5/GOINS Albuterol 2.5 mg 10/02/21 22:11 Albuterol 2.5 Mg/3 Ml Nebu IH Q3HRT PRN Shortness Of Breath Albuterol/Ipratropium 1 ampul 10/03/21 02:00 10/04/21 14:35 Ipratropium/Albuterol Sulfate 3 Ml Ampul.Neb IH 1 ampul Q6HRT LYNDON Administration Atorvastatin Calcium 40 mg 10/03/21 22:00 10/03/21 22:42 Atorvastatin 40 Mg Tab PO 40 mg QHS LYNDON Administration Calcium Acetate 2,001 mg 10/03/21 08:00 10/04/21 09:44 Calcium Acetate 667 Mg Cap PO 2,001 mg TIDWM LYNDON Administration Carvedilol 12.5 mg 10/03/21 10:00 10/04/21 09:45 Carvedilol 12.5 Mg Tab PO 12.5 mg QDAY LYNDON Administration Cholecalciferol 1,000 unit 10/03/21 10:00 10/04/21 09:45 Cholecalciferol (Vit D3) 1000 Unit (25 Mcg) Tab PO 1,000 unit DAILY LYNDON Administration Cinacalcet 60 mg 10/03/21 10:00 10/04/21 09:46 Cinacalcet 30 Mg Tab PO 60 mg DAILY LYNDON Administration Epoetin Chong-epbx 20,000 unit 10/03/21 09:00 10/03/21 11:45 Epoetin Chong-Epbx 20,000 Unit/1 Ml Vial IV 20,000 unit CALI PRN Administration hemodialysis Famotidine 10 mg 10/03/21 10:00 10/04/21 09:43 Famotidine 10 Mg Tab PO 10 mg BID [facility] Administration Hydromorphone HCl 0.5 mg 10/02/21 22:11 10/03/21 13:43 Hydromorphone 1 Mg/1 Ml Inj IV 0.5 mg Q3H PRN Administration Pain , Severe (7-10) Cefepime HCl 1 gm in 100 mls @ 200 mls/hr 10/03/21 22:00 10/03/21 22:37 Cefepime/Ns 1 Gm/100 Ml IV 200 mls/hr Q24H [facility] Administration Protocol Sodium Chloride 100 mls @ 999 mls/hr 10/03/21 09:00 Nacl 0.9% IV CALI PRN Hypotension Isosorbide Mononitrate 60 mg 10/03/21 10:00 10/04/21 09:47 Isosorbide Mononitrate Er 60 Mg Tab PO 60 mg QAM [facility] Administration Latanoprost 1 drops 10/03/21 18:00 Latanoprost 0.005% Ophth Soln 2.5 Ml OU QPM [facility] Morphine Sulfate 2 mg 10/02/21 22:11 Morphine 2 Mg/1 Ml Inj IV Q4H PRN Pain, Moderate (4-6) Multivit/Ca Carb/B Cmplx/FA/Prenat 1 cap 10/03/21 10:00 10/04/21 09:47 Folic Acid/Vit B Comp W-C 1 Mg (Renal Caps) PO 1 cap QDAY [facility] Administration Nifedipine 90 mg 10/03/21 10:00 10/04/21 09:47 Nifedipine Xl 90 Mg Tab PO 90 mg QDAY [facility] Administration Ondansetron HCl 4 mg 10/02/21 22:11 Ondansetron 4 Mg/2 Ml Inj IV Q8H PRN Nausea And Vomiting Sodium Chloride 10 ml 10/03/21 10:00 10/04/21 09:48 Sodium Chloride 0.9% 10 Ml Flush Syringe IV 10 ml BID [facility] Administration Sodium Chloride 10 ml 10/02/21 22:11 Sodium Chloride 0.9% 10 Ml Flush Syringe IV PRN PRN LINE FLUSH
--- NOTE | 2021-10-04 19:01 | Progress Note ---
Assessment and Plan This is a 66 year old man with ESRD who presents with weakness # ESRD: HD yesterday for hyperkalemia, solute clearance, volume. Continue HD MWF or prn, no need for HD today, labs stable - daily labs - renally dose meds - avoid nephrotoxins - renal diet - verbal consent obtained for HD # Anemia: last hemoglobin 7.3->8.2, stable from prior, ESAs with HD # HTN: UF as tolerated. BP soft but stable. May need to hold nifedipine, isos orbide # Secondary Hyperparathyroidism: continue home binders as needed, vitamin D analogs prn Subjective Date of service: 10/04/21 Interval history: Chart, labs, vitals reviewed in detail Objective - Exam Narrative Exam: Exam deferred given COVID-19 pandemic, primary team exam reviewed in detail - Vital Signs Vital signs: Vital Signs - 12hr 10/04/21 10/04/21 10/04/21 09:45 09:47 10:32 Temperature 98.9 F Pulse Rate 72 72 80 Pulse Rate [ Anterior Bilateral] Pulse Rate [ Anterior] Respiratory 20 Rate Respiratory Rate [Anterior Bilateral] Respiratory Rate [Anterior] Blood Pressure 133/67 O2 Sat by Pulse 97 Oximetry 10/04/21 10/04/21 10/04/21 12:00 14:35 14:36 Temperature Pulse Rate Pulse Rate [ 74 Anterior Bilateral] Pulse Rate [ 76 Anterior] Respiratory Rate Respiratory 19 Rate [Anterior Bilateral] Respiratory 19 Rate [Anterior] Blood Pressure O2 Sat by Pulse 95 98 Oximetry - Lab 10/04/21 08:54 10/04/21 09:22 Most recent lab results ABG pH 7.472 (7.320-7.450) H 10/02/21 20:28 ABG O2 Saturation 89.1 (0-100) 10/02/21 20:28 Calcium 9.0 mg/dL (8.4-10.2) 10/04/21 09:22 Magnesium 2.10 mg/dL (1.7-2.3) 10/02/21 19:19 Medications & Allergies - Medications Allergies/Adverse Reactions: Allergies shellfish derived Adverse Reaction (Verified 09/22/21 09:46) Anaphylaxis Home Medications: Home Medications Medication Instructions Recorded Confirmed Last Taken Type AtorvaSTATin [Lipitor] 40 mg PO QHS 02/25/21 10/03/21 10/02/21 History Cinacalcet [Sensipar] 60 mg PO DAILY 02/25/21 10/03/21 10/02/21 History Vit B Complx C/Folic Acid/Zinc 1 tab PO DAILY 02/25/21 10/03/21 10/02/21 History [Dialyvite 800-Zinc 50 mg Tab] carvediloL [Coreg] 12.5 mg PO QDAY 02/25/21 10/03/21 10/02/21 History Calcium Acetate 2,001 mg PO TIDWM 09/15/21 10/03/21 10/02/21 History Aspirin EC [Halfprin EC] 81 mg PO QDAY 09/18/21 10/03/21 10/02/21 History Isosorbide Mononitrate [Isosorbide 60 mg PO QAM 09/18/21 10/03/21 10/02/21 History Mononitrate ER] Latanoprost 0.005% 1 drop OU QPM 09/18/21 10/03/21 10/02/21 History NIFEdipine [Adalat cc] 90 mg PO DAILY #90 09/21/21 10/03/21 10/02/21 Rx levoFLOXacin [Levaquin] 250 mg PO QDAY #3 tablet 09/26/21 10/03/21 10/02/21 Rx Dorzolamide HCl/Timolol Maleat 1 drop OU BID 10/03/21 10/03/21 Unknown History [Cosopt Eye Drops] Active Medications: Generic Name Dose Route Start Last Admin Trade Name Freq PRN Reason Stop Dose Admin Acetaminophen 650 mg 10/02/21 22:11 Acetaminophen 325 Mg Tab PO Q4H PRN Pain MILD(1-3)/Fever >100.5/GOINS Albuterol 2.5 mg 10/02/21 22:11 Albuterol 2.5 Mg/3 Ml Nebu IH Q3HRT PRN Shortness Of Breath Albuterol/Ipratropium 1 ampul 10/03/21 02:00 10/04/21 14:35 Ipratropium/Albuterol Sulfate 3 Ml Ampul.Neb IH 1 ampul Q6HRT LYNDON Administration Atorvastatin Calcium 40 mg 10/03/21 22:00 10/03/21 22:42 Atorvastatin 40 Mg Tab PO 40 mg QHS LYNDON Administration Calcium Acetate 2,001 mg 10/03/21 08:00 10/04/21 17:12 Calcium Acetate 667 Mg Cap PO 2,001 mg TIDWM LYNDON Administration Carvedilol 12.5 mg 10/03/21 10:00 10/04/21 09:45 Carvedilol 12.5 Mg Tab PO 12.5 mg QDAY LYNDON Administration Cholecalciferol 1,000 unit 10/03/21 10:00 10/04/21 09:45 Cholecalciferol (Vit D3) 1000 Unit (25 Mcg) Tab PO 1,000 unit DAILY LYNDON Administration Cinacalcet 60 mg 10/03/21 10:00 10/04/21 09:46 Cinacalcet 30 Mg Tab PO 60 mg DAILY LYNDON Administration Epoetin Chong-epbx 20,000 unit 10/03/21 09:00 10/03/21 11:45 Epoetin Chong-Epbx 20,000 Unit/1 Ml Vial IV 20,000 unit CALI PRN Administration hemodialysis Famotidine 10 mg 10/03/21 10:00 10/04/21 09:43 Famotidine 10 Mg Tab PO 10 mg BID LYNDON Administration Hydromorphone HCl 0.5 mg 10/02/21 22:11 10/03/21 13:43 Hydromorphone 1 Mg/1 Ml Inj IV 0.5 mg Q3H PRN Administration Pain , Severe (7-10) Cefepime HCl 1 gm in 100 mls @ 200 mls/hr 10/03/21 22:00 10/03/21 22:37 Cefepime/Ns 1 Gm/100 Ml IV 200 mls/hr Q24H LYNDON Administration Protocol Sodium Chloride 100 mls @ 999 mls/hr 10/03/21 09:00 Nacl 0.9% IV CALI PRN Hypotension Isosorbide Mononitrate 60 mg 10/03/21 10:00 10/04/21 09:47 Isosorbide Mononitrate Er 60 Mg Tab PO 60 mg QAM [facility] Administration Latanoprost 1 drops 10/03/21 18:00 Latanoprost 0.005% Ophth Soln 2.5 Ml OU QPM [facility] Morphine Sulfate 2 mg 10/02/21 22:11 10/04/21 17:16 Morphine 2 Mg/1 Ml Inj IV 2 mg Q4H PRN Administration Pain, Moderate (4-6) Multivit/Ca Carb/B Cmplx/FA/Prenat 1 cap 10/03/21 10:00 10/04/21 09:47 Folic Acid/Vit B Comp W-C 1 Mg (Renal Caps) PO 1 cap QDAY LYNDON Administration Nifedipine 90 mg 10/03/21 10:00 10/04/21 09:47 Nifedipine Xl 90 Mg Tab PO 90 mg QDAY LYNDON Administration Ondansetron HCl 4 mg 10/02/21 22:11 Ondansetron 4 Mg/2 Ml Inj IV Q8H PRN Nausea And Vomiting Sodium Chloride 10 ml 10/03/21 10:00 10/04/21 09:48 Sodium Chloride 0.9% 10 Ml Flush Syringe IV 10 ml BID LYNDON Administration Sodium Chloride 10 ml 10/02/21 22:11 Sodium Chloride 0.9% 10 Ml Flush Syringe IV PRN PRN LINE FLUSH
[2021-10-04] MEDS: CEFEPIME/NS 1 GM/100 ML 1 GM/100 ML BAG IV SCH (21:51)
[2021-10-05] MEDS: IPRATROPIUM/ALBUTEROL SULFATE 3 ML AMPUL.NEB IH SCH ×4 (02:37→20:30)
[2021-10-05] MEDS: CALCIUM ACETATE 667 MG CAP PO SCH ×3 (08:01→17:42)
[2021-10-05] MEDS: FOLIC ACID/VIT B COMP W-C 1 MG (RENAL CAPS) PO SCH (09:26)
[2021-10-05] MEDS: FAMOTIDINE 10 MG TAB PO SCH ×2 (09:26→21:03)
[2021-10-05] MEDS: carvediloL 12.5 MG TAB PO SCH (09:27)
[2021-10-05] MEDS: CINACALCET 30 MG TAB PO SCH (09:27)
[2021-10-05] MEDS: NIFEdipine XL 90 MG TAB PO SCH (09:28)
[2021-10-05] MEDS: CHOLECALCIFEROL (VIT D3) 1000 UNIT (25 mcg) TAB PO SCH (09:28)
[2021-10-05] MEDS: LATANOPROST 0.005% OPHTH SOLN 2.5 ML OU SCH (17:43)
[2021-10-05] MEDS: CEFEPIME/NS 1 GM/100 ML 1 GM/100 ML BAG IV SCH (21:02)
[2021-10-06] MEDS: IPRATROPIUM/ALBUTEROL SULFATE 3 ML AMPUL.NEB IH SCH ×3 (07:50→21:10)
--- NOTE | 2021-10-06 09:06 | Progress Note ---
Assessment and Plan Assessment and plan: Alves PCR negative Patient is on 10 L NC oxygen today Wean as tolerated -- Hyperkalemia; Current Visit: Yes Status: Acute Patient received hemodialysis, today's labs are pending Closely monitor electrolytes, HD per schedule --End stage renal disease on dialysis Current Visit: Yes Status: Acute Nephrology following, HD per schedule -- Anemia 6.8-7.6 Current Visit: Yes Status: Acute Received 1 unit of PRBC Hb improved to 7.6 Closely monitor H&H and transfuse additional PRBC as needed --Hypoxia patient is receiving 10 L of nasal cannula oxygen today Current Visit: Yes Status: Acute Patient was on 3 L supplemental oxygen, today patient is requiring 10 L nasal cannula oxygen Wean as tolerated, home O2 evaluation -- Generalized weakness Current Visit: Yes Status: Acute Multifactorial, due to underlying disease process Treat the underlying cause, supportive care -- Hypotension/resolved Current Visit: Yes Status: Acute Blood pressure is reasonable level --Right lower lobe pneumonia Current Visit: No Status: Acute Continue cefepime renally dosed total 5-7 days DC vancomycin, follow cultures -- Hypertension Current Visit: No Status: Acute Coreg 12.5 mg p.o. daily. Imdur 60 mg p.o. every morning. Nifedipine 90 mg p.o. daily. We will monitor the blood pressure closely -- Sepsis due to pneumonia Current Visit: Yes Status: Acute Leukocytosis, lactic acidosis, bilateral lung infiltrates Continue empiric antibiotics, follow cultures --PUI; Alves PCR test negative Current Visit: Yes Status: Acute isolation, pending alves PCR test Check inflammatory markers, ID consult Oxygen evaluation Home O2 evaluation prior to discharge --DVT prophylaxis Current Visit: No Status: Acute Subcu heparin We will closely monitor the patient and adjust the management as needed Follow pending labs and tests Plan of care reviewed with the patient and his nurse Brief history: 66-year-old male patient with significant history of end-stage renal disease on hemodialysis MWF was admitted through emergency room with generalized weakness and low-grade fever and shortness of breath. Patient was placed as PUI, chest x- ray pneumonia, started on empiric antibiotics cefepime, Alves PCR test is positive. Nephrology evaluated the patient and hemodialysis per schedule 10/05 ;: Alves PCR test negative, home O2 evaluation prior to discharge Patient requiring 10 L nasal cannula oxygen today[was on 3 L yesterday] Wean as tolerated, home O2 evaluation prior to discharge Disposition; follow oxygen needs, home O2 evaluation Discharge when stable and cleared by nephrology 10/06: Appears patient was recently in the hospital and treated significantly with BiPAP but at some point discharged after achieving all euvolemia. It is reported that he came back to the hospital was noted to be on high oxygen demand with 10 L although he tells me that his back pain was what prompted him to come back to the hospital. Discussed with case management today it appears the patient lives in a personal detention and has had multiple repeated admission. I have gone ahead to order x-ray of the back but lumbar and thoracic spine. I also consulted ID as patient has mild underlying sepsis and also pulmonary as there was evidence of consolidation on previous imaging. Renal input is noted. Continue to monitor blood pressure. Wean oxygen as tolerated patient will likely benefit from PT evaluation considering his back pain he may be a candidate for SNF if appropriate. History Interval history: Patient seen and examined, still on oxygen at 5liters. C/O back pain. 01/13 mid back with no radiation. Chronic but worse than normal Hospitalist Physical - Physical exam Narrative exam: General appearance: Present: mild distress, appears uncomfortable but states its due to back pain - EENT Eyes: Present: PERRL, EOM intact - Neck Neck: Present: supple, normal ROM - Respiratory Respiratory effort: normal Respiratory: bilateral: diminished, negative: rales, rhonchi, wheezing - Cardiovascular Rhythm: regular Heart Sounds: Present: S1 & S2 - Extremities Extremities: no ischemia, No edema - Abdominal General gastrointestinal: soft, non-tender, non-distended, normal bowel sounds - Integumentary Integumentary: Present: clear, warm - Psychiatric Psychiatric: appropriate mood/affect, cooperative - Neurologic Neurologic: CNII-XII intact, moves all extremities - Constitutional Vitals: Temp Pulse Resp BP Pulse Ox 98.7 F 78 20 123/68 96 10/06/21 05:11 10/06/21 05:12 10/06/21 07:53 10/06/21 05:11 10/06/21 07:53 General appearance: Present: no acute distress, well-nourished, obese HEART Score - HEART Score Troponin: Troponin T 1.690 ng/mL (0.00-0.029) H* 10/02/21 19:19 Results - Labs CBC & Chem 7: 10/04/21 08:54 10/04/21 09:22 Labs: Laboratory Last Values WBC 12.4 K/mm3 (4.5-11.0) H 10/04/21 08:54 RBC 2.86 M/mm3 (3.65-5.03) L 10/04/21 08:54 Hgb 8.2 gm/dl (11.8-15.2) L 10/04/21 08:54 Hct 25.4 % (35.5-45.6) L 10/04/21 08:54 MCV 89 fl (84-94) 10/04/21 08:54 MCH 29 pg (28-32) 10/04/21 08:54 MCHC 32 % (32-34) 10/04/21 08:54 RDW 16.7 % (13.2-15.2) H 10/04/21 08:54 Plt Count 345 K/mm3 (140-440) 10/04/21 08:54 Lymph % (Auto) 7.9 % (13.4-35.0) L 10/04/21 08:54 [place] % (Auto) 8.5 % (0.0-7.3) H 10/04/21 08:54 Eos % (Auto) 1.4 % (0.0-4.3) 10/04/21 08:54 Baso % (Auto) 0.2 % (0.0-1.8) 10/04/21 08:54 Lymph # (Auto) 1.0 K/mm3 (1.2-5.4) L 10/04/21 08:54 [place] # (Auto) 1.1 K/mm3 (0.0-0.8) H 10/04/21 08:54 Eos # (Auto) 0.2 K/mm3 (0.0-0.4) 10/04/21 08:54 Baso # (Auto) 0.0 K/mm3 (0.0-0.1) 10/04/21 08:54 Seg Neutrophils % 82.0 % (40.0-70.0) H 10/04/21 08:54 Seg Neutrophils # 10.1 K/mm3 (1.8-7.7) H 10/04/21 08:54 PT 16.2 Sec. (12.2-14.9) H 10/02/21 19:19 INR 1.17 (0.87-1.13) H 10/02/21 19:19 APTT 42.5 Sec. (24.2-36.6) H 10/02/21 19:19 ABG pH 7.472 (7.320-7.450) H 10/02/21 20:28 POC ABG pCO2 35.6 mmHg (32.0-48.0) 10/02/21 20: POC ABG pO2 56.9 mmHg (83-108) L 10/02/21 20:28 POC ABG HCO3 25.4 10/02/21 20:28 ABG O2 Saturation 89.1 (0-100) 10/02/21 20: POC ABG Base Excess 1.7 10/02/21 20: ABG Hemoglobin 7.1 (12.0-17.5) L 10/02/21 20: ABG Oxyhemoglobin 87.4 (94-98) L 10/02/21 20:28 ABG Methemoglobin 0.3 (0.0-1.5) 10/02/21 20: Carboxyhemoglobin 1.6 (0.5-1.5) H 10/02/21 20: FiO2 % 28.0 10/02/21 20:28 Sodium 133 mmol/L (137-145) L 10/04/21 09:22 Potassium 4.0 mmol/L (3.6-5.0) D 10/04/21 09:22 Chloride 93.1 mmol/L (98-107) L 10/04/21 09:22 Carbon Dioxide 24 mmol/L (22-30) 10/04/21 09:22 Anion Gap 20 mmol/L 10/04/21 09:22 BUN 60 mg/dL (9-20) H 10/04/21 09:22 Creatinine 7.9 mg/dL (0.8-1.3) H 10/04/21 09:22 Estimated GFR 8 ml/min 10/04/21 09:22 BUN/Creatinine Ratio 8 % 10/04/21 09:22 Glucose 131 mg/dL (75-100) H 10/04/21 09:22 Lactic Acid 1.40 mmol/L (0.7-2.0) 10/02/21 21:25 Calcium 9.0 mg/dL (8.4-10.2) 10/04/21 09:22 Magnesium 2.10 mg/dL (1.7-2.3) 10/02/21 19:19 Total Bilirubin 0.20 mg/dL (0.1-1.2) 10/02/21 19:19 AST 76 units/L (5-40) H 10/02/21 19:19 ALT 56 units/L (7-56) 10/02/21 19:19 Alkaline Phosphatase 131 units/L (35-129) H 10/02/21 19:19 Total Creatine Kinase 199 units/L (55-170) H 10/02/21 19:19 Troponin T 1.690 ng/mL (0.00-0.029) H* 10/02/21 19:19 Total Protein 6.9 g/dL (6.3-8.2) 10/02/21 19:19 Albumin 3.7 g/dL (3.9-5) L 10/02/21 19:19 Albumin/Globulin Ratio 1.2 % 10/02/21 19:19 Triglycerides 66 mg/dL (2-149) 10/02/21 19:19 Cholesterol 90 mg/dL (50-199) 10/02/21 19:19 LDL Cholesterol Direct 38 mg/dL (50-130) L 10/02/21 19:19 HDL Cholesterol 48 mg/dL (40-59) 10/02/21 19:19 Cholesterol/HDL Ratio 1.87 % 10/02/21 19:19 TSH 1.470 mlU/mL (0.270-4.200) 10/02/21 19:19 Free T4 1.53 ng/dL (0.76-1.46) H 10/02/21 19:19 Random Vancomycin 18.9 ug/mL (0-40.0) 10/04/21 09:22 SARS-CoV-2 (PCR) Negative (Negative) 10/05/21 14:10 Blood Type O POSITIVE 10/02/21 20:45 Antibody Screen Negative 10/02/21 20:45 Crossmatch See Detail 10/02/21 20:45 Microbiology: Microbiology 10/02/21 19:18 Peripheral/Venous Blood Culture - Preliminary NO GROWTH AFTER 72 HOURS 10/02/21 19:18 Peripheral/Venous Blood Culture - Preliminary NO GROWTH AFTER 72 HOURS Active Medications - Current Medications Current Medications: Generic Name Dose Route Start Last Admin Trade Name Freq PRN Reason Stop Dose Admin Acetaminophen 650 mg 10/02/21 22:11 Acetaminophen 325 Mg Tab PO Q4H PRN Pain MILD(1-3)/Fever >100.5/GOINS Albuterol 2.5 mg 10/02/21 22:11 Albuterol 2.5 Mg/3 Ml Nebu IH Q3HRT PRN Shortness Of Breath Albuterol/Ipratropium 1 ampul 10/05/21 20:00 10/05/21 20:30 Ipratropium/Albuterol Sulfate 3 Ml Ampul.Neb IH Not Given TIDRT [facility] Atorvastatin Calcium 40 mg 10/03/21 22:00 10/05/21 21:03 Atorvastatin 40 Mg Tab PO 40 mg QHS LYNDON Administration Calcium Acetate 2,001 mg 10/03/21 08:00 10/05/21 17:42 Calcium Acetate 667 Mg Cap PO 2,001 mg TIDWM LYNDON Administration Carvedilol 12.5 mg 10/03/21 10:00 10/05/21 09:27 Carvedilol 12.5 Mg Tab PO 12.5 mg QDAY LYNDON Administration Cholecalciferol 1,000 unit 10/03/21 10:00 10/05/21 09:28 Cholecalciferol (Vit D3) 1000 Unit (25 Mcg) Tab PO 1,000 unit DAILY LYNDON Administration Cinacalcet 60 mg 10/03/21 10:00 10/05/21 09:27 Cinacalcet 30 Mg Tab PO 60 mg DAILY LYNDON Administration Epoetin Chong-epbx 20,000 unit 10/03/21 09:00 10/03/21 11:45 Epoetin Chong-Epbx 20,000 Unit/1 Ml Vial IV 20,000 unit CALI PRN Administration hemodialysis Famotidine 10 mg 10/03/21 10:00 10/05/21 21:03 Famotidine 10 Mg Tab PO 10 mg BID LYNDON Administration Hydromorphone HCl 0.5 mg 10/02/21 22:11 10/03/21 13:43 Hydromorphone 1 Mg/1 Ml Inj IV 0.5 mg Q3H PRN Administration Pain , Severe (7-10) Cefepime HCl 1 gm in 100 mls @ 200 mls/hr 10/03/21 22:00 10/05/21 21:02 Cefepime/Ns 1 Gm/100 Ml IV 200 mls/hr Q24H LYNDON Administration Protocol Sodium Chloride 100 mls @ 999 mls/hr 10/03/21 09:00 Nacl 0.9% IV CALI PRN Hypotension Isosorbide Mononitrate 60 mg 10/03/21 10:00 10/05/21 17:44 Isosorbide Mononitrate Er 60 Mg Tab PO Not Given QAM LYNDON Latanoprost 1 drops 10/03/21 18:00 10/05/21 17:43 Latanoprost 0.005% Ophth Soln 2.5 Ml OU Not Given QPM LYNDON Morphine Sulfate 2 mg 10/02/21 22:11 10/04/21 22:33 Morphine 2 Mg/1 Ml Inj IV 2 mg Q4H PRN Administration Pain, Moderate (4-6) Multivit/Ca Carb/B Cmplx/FA/Prenat 1 cap 10/03/21 10:00 10/05/21 09:26 Folic Acid/Vit B Comp W-C 1 Mg (Renal Caps) PO 1 cap QDAY LYNDON Administration Nifedipine 90 mg 10/03/21 10:00 10/05/21 09:28 Nifedipine Xl 90 Mg Tab PO 90 mg QDAY LYNDON Administration Ondansetron HCl 4 mg 10/02/21 22:11 Ondansetron 4 Mg/2 Ml Inj IV Q8H PRN Nausea And Vomiting Sodium Chloride 10 ml 10/03/21 10:00 10/05/21 21:04 Sodium Chloride 0.9% 10 Ml Flush Syringe IV Not Given BID LYNDON Sodium Chloride 10 ml 10/02/21 22:11 Sodium Chloride 0.9% 10 Ml Flush Syringe IV PRN PRN LINE FLUSH
[2021-10-06] MEDS: FAMOTIDINE 10 MG TAB PO SCH ×2 (09:22→21:03)
[2021-10-06] MEDS: CALCIUM ACETATE 667 MG CAP PO SCH ×3 (09:22→17:47)
[2021-10-06] MEDS: FOLIC ACID/VIT B COMP W-C 1 MG (RENAL CAPS) PO SCH (09:22)
[2021-10-06] MEDS: CHOLECALCIFEROL (VIT D3) 1000 UNIT (25 mcg) TAB PO SCH (09:23)
[2021-10-06] MEDS: carvediloL 12.5 MG TAB PO SCH (09:23)
[2021-10-06] MEDS: CINACALCET 30 MG TAB PO SCH (09:24)
[2021-10-06] MEDS: NIFEdipine XL 90 MG TAB PO SCH (09:24)
--- NOTE | 2021-10-06 09:43 | Progress Note ---
Subjective Date of service: 10/06/21 Principal diagnosis: esrd Interval history: # ESRD: HD yesterday for hyperkalemia, solute clearance, volume. Continue HD MWF or prn - daily labs - renally dose meds - avoid nephrotoxins - renal diet - verbal consent obtained for HD # Anemia: last hemoglobin 7.3->8.2, stable from prior, ESAs with HD # HTN: UF as tolerated. BP soft but stable. May need to hold nifedipine, isosorbide # Secondary Hyperparathyroidism: continue home binders as needed, vitamin D analogs prn Subjective Interval history: events noted Chart, labs, vitals reviewed in detail Objective - Exam Narrative Exam: Exam deferred given COVID-19 pandemic, primary team exam reviewed in detail Objective - Vital Signs Vital signs: Vital Signs - 12hr 10/05/21 10/05/21 10/06/21 22:00 22:26 02:55 Temperature 98.0 F Pulse Rate 72 Respiratory 18 Rate Blood Pressure 113/62 O2 Sat by Pulse 95 93 98 Oximetry 10/06/21 10/06/21 10/06/21 05:11 05:12 07:53 Temperature 98.7 F Pulse Rate 78 78 Respiratory 20 20 Rate Blood Pressure 123/68 O2 Sat by Pulse 87 95 96 Oximetry 10/06/21 09:23 Temperature Pulse Rate 77 Respiratory Rate Blood Pressure 121/61 O2 Sat by Pulse Oximetry - Lab 10/04/21 08:54 10/04/21 09:22 Most recent lab results ABG pH 7.472 (7.320-7.450) H 10/02/21 20:28 ABG O2 Saturation 89.1 (0-100) 10/02/21 20:28 Calcium 9.0 mg/dL (8.4-10.2) 10/04/21 09:22 Magnesium 2.10 mg/dL (1.7-2.3) 10/02/21 19:19 Medications & Allergies - Medications Allergies/Adverse Reactions: Allergies shellfish derived Adverse Reaction (Verified 09/22/21 09:46) Anaphylaxis Home Medications: Home Medications Medication Instructions Recorded Confirmed Last Taken Type AtorvaSTATin [Lipitor] 40 mg PO QHS 02/25/21 10/03/21 10/02/21 History Cinacalcet [Sensipar] 60 mg PO DAILY 02/25/21 10/03/21 10/02/21 History Vit B Complx C/Folic Acid/Zinc 1 tab PO DAILY 02/25/21 10/03/21 10/02/21 History [Dialyvite 800-Zinc 50 mg Tab] carvediloL [Coreg] 12.5 mg PO QDAY 02/25/21 10/03/21 10/02/21 History Calcium Acetate 2,001 mg PO TIDWM 09/15/21 10/03/21 10/02/21 History Aspirin EC [Halfprin EC] 81 mg PO QDAY 09/18/21 10/03/21 10/02/21 History Isosorbide Mononitrate [Isosorbide 60 mg PO QAM 09/18/21 10/03/21 10/02/21 Hist ory Mononitrate ER] Latanoprost 0.005% 1 drop OU QPM 09/18/21 10/03/21 10/02/21 History NIFEdipine [Adalat cc] 90 mg PO DAILY #90 09/21/21 10/03/21 10/02/21 Rx levoFLOXacin [Levaquin] 250 mg PO QDAY #3 tablet 09/26/21 10/03/21 10/02/21 Rx Dorzolamide HCl/Timolol Maleat 1 drop OU BID 10/03/21 10/03/21 Unknown History [Cosopt Eye Drops] Active Medications: Generic Name Dose Route Start Last Admin Trade Name Freq PRN Reason Stop Dose Admin Acetaminophen 650 mg 10/02/21 22:11 Acetaminophen 325 Mg Tab PO Q4H PRN Pain MILD(1-3)/Fever >100.5/GOINS Albuterol 2.5 mg 10/02/21 22:11 Albuterol 2.5 Mg/3 Ml Nebu IH Q3HRT PRN Shortness Of Breath Albuterol/Ipratropium 1 ampul 10/05/21 20:00 10/05/21 20:30 Ipratropium/Albuterol Sulfate 3 Ml Ampul.Neb IH Not Given TIDRT LYNDON Atorvastatin Calcium 40 mg 10/03/21 22:00 10/05/21 21:03 Atorvastatin 40 Mg Tab PO 40 mg QHS LYNDON Administration Calcium Acetate 2,001 mg 10/03/21 08:00 10/06/21 09:22 Calcium Acetate 667 Mg Cap PO 2,001 mg TIDWM LYNDON Administration Carvedilol 12.5 mg 10/03/21 10:00 10/06/21 09:23 Carvedilol 12.5 Mg Tab PO 12.5 mg QDAY LYNDON Administration Cholecalciferol 1,000 unit 10/03/21 10:00 10/06/21 09:23 Cholecalciferol (Vit D3) 1000 Unit (25 Mcg) Tab PO 1,000 unit DAILY LYNDON Administration Cinacalcet 60 mg 10/03/21 10:00 10/06/21 09:24 Cinacalcet 30 Mg Tab PO 60 mg DAILY LYNDON Administration Epoetin Chong-epbx 20,000 unit 10/03/21 09:00 10/03/21 11:45 Epoetin Chong-Epbx 20,000 Unit/1 Ml Vial IV 20,000 unit CALI PRN Administration hemodialysis Famotidine 10 mg 10/03/21 10:00 10/06/21 09:22 Famotidine 10 Mg Tab PO 10 mg BID LYNDON Administration Hydromorphone HCl 0.5 mg 10/02/21 22:11 10/03/21 13:43 Hydromorphone 1 Mg/1 Ml Inj IV 0.5 mg Q3H PRN Administration Pain , Severe (7-10) Cefepime HCl 1 gm in 100 mls @ 200 mls/hr 10/03/21 22:00 10/05/21 21:02 Cefepime/Ns 1 Gm/100 Ml IV 10/08/21 23:59 200 mls/hr Q24H LYNDON Administration Protocol Sodium Chloride 100 mls @ 999 mls/hr 10/03/21 09:00 Nacl 0.9% IV CALI PRN Hypotension Isosorbide Mononitrate 60 mg 10/03/21 10:00 10/06/21 09:24 Isosorbide Mononitrate Er 60 Mg Tab PO Not Given QAM LYNDON Latanoprost 1 drops 10/03/21 18:00 10/05/21 17:43 Latanoprost 0.005% Ophth Soln 2.5 Ml OU Not Given QPM [facility] Morphine Sulfate 2 mg 10/02/21 22:11 10/04/21 22:33 Morphine 2 Mg/1 Ml Inj IV 2 mg Q4H PRN Administration Pain, Moderate (4-6) Multivit/Ca Carb/B Cmplx/FA/Prenat 1 cap 10/03/21 10:00 10/06/21 09:22 Folic Acid/Vit B Comp W-C 1 Mg (Renal Caps) PO 1 cap QDAY LYNDON Administration Nifedipine 90 mg 10/03/21 10:00 10/06/21 09:24 Nifedipine Xl 90 Mg Tab PO Not Given QDAY LYNDON Ondansetron HCl 4 mg 10/02/21 22:11 Ondansetron 4 Mg/2 Ml Inj IV Q8H PRN Nausea And Vomiting Sodium Chloride 10 ml 10/03/21 10:00 10/06/21 09:24 Sodium Chloride 0.9% 10 Ml Flush Syringe IV 10 ml BID LYNDON Administration Sodium Chloride 10 ml 10/02/21 22:11 Sodium Chloride 0.9% 10 Ml Flush Syringe IV PRN PRN LINE FLUSH
--- NOTE | 2021-10-06 11:43 | Consultation ---
History of Present Illness - Reason for Consult Consult date: 10/06/21 - History of Present Illness 66-year-old male past medical history ESRD on HD presented to hospital complaining of weakness after dialysis. He was lethargic on admission and was hypoxic with hypotension. He was recently admitted for respiratory failure and at that time required BiPAP. He tested negative for Covid at that time. Afebrile since admission with a white count 12.4. Covid negative. Currently on cefepime. Blood cultures no growth so far. On 3 L nasal cannula. Imaging personally reviewed: Chest x-ray: Bilateral pulmonary opacities Review of Systems: Bold if positive, otherwise negative General: fevers, chills, rigors HEENT: visual disturbance, diplopia, eye pain Respiratory: cough, sputum, hemoptysis, shortness of breath Cardiovascular: chest pain, syncope Gastrointestinal: nausea, vomiting, diarrhea, abdominal pain Genitourinary: dysuria, hematuria, flank pain Musculoskeletal: neck pain, back pain, joint pain, edema Neurologic: headaches, seizures Hematologic: easy bruising or bleeding Endocrine: night sweats, acute weight loss Skin: rash, jaundice, redness Psychiatric: suicidal, homicidal ideation Past History Past Medical History: CAD, ESRD, renal failure, other (Pneumonia) Medications and Allergies Allergies Allergy/AdvReac Type Severity Reaction Status Date / Time shellfish derived AdvReac Anaphylaxis Verified 09/22/21 09:46 Home Medications Medication Instructions Recorded Confirmed Last Taken Type AtorvaSTATin [Lipitor] 40 mg PO QHS 02/25/21 10/03/21 10/02/21 History Cinacalcet [Sensipar] 60 mg PO DAILY 02/25/21 10/03/21 10/02/21 History Vit B Complx C/Folic Acid/Zinc 1 tab PO DAILY 02/25/21 10/03/21 10/02/21 History [Dialyvite 800-Zinc 50 mg Tab] carvediloL [Coreg] 12.5 mg PO QDAY 02/25/21 10/03/21 10/02/21 History Calcium Acetate 2,001 mg PO TIDWM 09/15/21 10/03/21 10/02/21 History Aspirin EC [Halfprin EC] 81 mg PO QDAY 09/18/21 10/03/21 10/02/21 History Isosorbide Mononitrate [Isosorbide 60 mg PO QAM 09/18/21 10/03/21 10/02/21 History Mononitrate ER] Latanoprost 0.005% 1 drop OU QPM 09/18/21 10/03/21 10/02/21 History NIFEdipine [Adalat cc] 90 mg PO DAILY #90 09/21/21 10/03/21 10/02/21 Rx levoFLOXacin [Levaquin] 250 mg PO QDAY #3 tablet 09/26/21 10/03/21 10/02/21 Rx Dorzolamide HCl/Timolol Maleat 1 drop OU BID 10/03/21 10/03/21 Unknown History [Cosopt Eye Drops] Active Meds: Active Medications Acetaminophen (Acetaminophen 325 Mg Tab) 650 mg PO Q4H PRN PRN Reason: Pain MILD(1-3)/Fever >100.5/GOINS Albuterol (Albuterol 2.5 Mg/3 Ml Nebu) 2.5 mg IH Q3HRT PRN PRN Reason: Shortness Of Breath Albuterol/Ipratropium (Ipratropium/Albuterol Sulfate 3 Ml Ampul.Neb) 1 ampul IH TIDRT [facility] Last Admin: 10/06/21 07:50 Dose: 1 ampul Atorvastatin Calcium (Atorvastatin 40 Mg Tab) 40 mg PO QHS [facility] Last Admin: 10/05/21 21:03 Dose: 40 mg Calcium Acetate (Calcium Acetate 667 Mg Cap) 2,001 mg PO TIDWM [facility] Last Admin: 10/06/21 09:22 Dose: 2,001 mg Carvedilol (Carvedilol 12.5 Mg Tab) 12.5 mg PO QDAY [facility] Last Admin: 10/06/21 09:23 Dose: 12.5 mg Cholecalciferol (Cholecalciferol (Vit D3) 1000 Unit (25 Mcg) Tab) 1,000 unit PO DAILY [facility] Last Admin: 10/06/21 09:23 Dose: 1,000 unit Cinacalcet (Cinacalcet 30 Mg Tab) 60 mg PO DAILY [facility] Last Admin: 10/06/21 09:24 Dose: 60 mg Epoetin Chong-epbx (Epoetin Chong-Epbx 20,000 Unit/1 Ml Vial) 20,000 unit IV CALI PRN PRN Reason: hemodialysis Last Admin: 10/03/21 11:45 Dose: 20,000 unit Famotidine (Famotidine 10 Mg Tab) 10 mg PO BID [facility] Last Admin: 10/06/21 09:22 Dose: 10 mg Hydromorphone HCl (Hydromorphone 1 Mg/1 Ml Inj) 0.5 mg IV Q3H PRN PRN Reason: Pain , Severe (7-10) Last Admin: 10/03/21 13:43 Dose: 0.5 mg Cefepime HCl (Cefepime/Ns 1 Gm/100 Ml) 1 gm in 100 mls @ 200 mls/hr IV Q24H [facility]; Protocol Stop: 10/08/21 23:59 Last Admin: 10/05/21 21:02 Dose: 200 mls/hr Sodium Chloride (Nacl 0.9%) 100 mls @ 999 mls/hr IV CALI PRN PRN Reason: Hypotension Isosorbide Mononitrate (Isosorbide Mononitrate Er 60 Mg Tab) 60 mg PO QAM [facility] Last Admin: 10/06/21 09:24 Dose: Not Given Latanoprost (Latanoprost 0.005% Ophth Soln 2.5 Ml) 1 drops OU QPM [facility] Last Admin: 10/05/21 17:43 Dose: Not Given Morphine Sulfate (Morphine 2 Mg/1 Ml Inj) 2 mg IV Q4H PRN PRN Reason: Pain, Moderate (4-6) Last Admin: 10/04/21 22:33 Dose: 2 mg Multivit/Ca Carb/B Cmplx/FA/Prenat (Folic Acid/Vit B Comp W-C 1 Mg (Renal Caps)) 1 cap PO QDAY [facility] Last Admin: 10/06/21 09:22 Dose: 1 cap Nifedipine (Nifedipine Xl 90 Mg Tab) 90 mg PO QDAY [facility] Last Admin: 10/06/21 09:24 Dose: Not Given Ondansetron HCl (Ondansetron 4 Mg/2 Ml Inj) 4 mg IV Q8H PRN PRN Reason: Nausea And Vomiting Sodium Chloride (Sodium Chloride 0.9% 10 Ml Flush Syringe) 10 ml IV BID [facility] Last Admin: 10/06/21 09:24 Dose: 10 ml Sodium Chloride (Sodium Chloride 0.9% 10 Ml Flush Syringe) 10 ml IV PRN PRN PRN Reason: LINE FLUSH Physical Examination - Physical Exam Narrative exam: Physical Exam: Constitutional: Alert, cooperative. No acute distress Head, Ears, Nose: Normocephalic, atraumatic. External ears, nose normal Eyes: Conjunctivae/corneas clear. No icterus. No ptosis. Neck: Supple, no meningeal signs Oral: dentition fair, no thrush Cardiovascular: S1, S2 normal. Respiratory: Good air entry, clear to auscultation bilaterally GI: Soft, non-tender; bowel sounds normal. No peritoneal signs. Musculoskeletal: No pedal edema, no cyanosis. Skin: No rash or abscess Hem/Lymphatic: No palpable cervical or supraclavicular nodes. No lymphangitis Psych: Mood ok. Affect normal Neurological: Awake, alert, oriented. No gross abnormality - Constitutional Vitals: Vital Signs Temp Pulse Resp BP Pulse Ox 98.7 F 77 20 121/61 96 10/06/21 05:11 10/06/21 09:23 10/06/21 07:53 10/06/21 09:23 10/06/21 07:53 Temperature -Last 24 Hours Temperature 98.7 F Temperature 98.0 F Results - Labs CBC & Chem 7: 10/04/21 08:54 10/04/21 09:22 Assessment and Plan Cultures: Blood culture no growth so far COVID-19 PCR negative A/P: 66-year-old male past medical history ESRD on HD admitted with pneumonia #Acute hypoxic respiratory failure: Currently on 3 L nasal cannula. Secondary to bilateral pneumonia #Bilateral pneumonia: Currently on cefepime, continue to complete 5 days. Covid negative #ESRD on HD: Renally dose medications Recs: -Continue renally dosed cefepime, complete 5 days. Thank you for the consult, we will continue to follow. Xavier Caraballo MD [facility] ([facility] O: [phone] F: [phone]
--- NOTE | 2021-10-06 11:43 | Consultation ---
History of Present Illness Consult date: 10/06/21 Past History Past Medical History: CAD, ESRD, renal failure, other (Pneumonia) Medications and Allergies Allergies Allergy/AdvReac Type Severity Reaction Status Date / Time shellfish derived AdvReac Anaphylaxis Verified 09/22/21 09:46 Home Medications Medication Instructions Recorded Confirmed Last Taken Type AtorvaSTATin [Lipitor] 40 mg PO QHS 02/25/21 10/03/21 10/02/21 History Cinacalcet [Sensipar] 60 mg PO DAILY 02/25/21 10/03/21 10/02/21 History Vit B Complx C/Folic Acid/Zinc 1 tab PO DAILY 02/25/21 10/03/21 10/02/21 History [Dialyvite 800-Zinc 50 mg Tab] carvediloL [Coreg] 12.5 mg PO QDAY 02/25/21 10/03/21 10/02/21 History Calcium Acetate 2,001 mg PO TIDWM 09/15/21 10/03/21 10/02/21 History Aspirin EC [Halfprin EC] 81 mg PO QDAY 09/18/21 10/03/21 10/02/21 History Isosorbide Mononitrate [Isosorbide 60 mg PO QAM 09/18/21 10/03/21 10/02/21 History Mononitrate ER] Latanoprost 0.005% 1 drop OU QPM 09/18/21 10/03/21 10/02/21 History NIFEdipine [Adalat cc] 90 mg PO DAILY #90 09/21/21 10/03/21 10/02/21 Rx levoFLOXacin [Levaquin] 250 mg PO QDAY #3 tablet 09/26/21 10/03/21 10/02/21 Rx Dorzolamide HCl/Timolol Maleat 1 drop OU BID 10/03/21 10/03/21 Unknown History [Cosopt Eye Drops] Active Meds: Active Medications Acetaminophen (Acetaminophen 325 Mg Tab) 650 mg PO Q4H PRN PRN Reason: Pain MILD(1-3)/Fever >100.5/GOINS Albuterol (Albuterol 2.5 Mg/3 Ml Nebu) 2.5 mg IH Q3HRT PRN PRN Reason: Shortness Of Breath Albuterol/Ipratropium (Ipratropium/Albuterol Sulfate 3 Ml Ampul.Neb) 1 ampul IH TIDRT [facility] Last Admin: 10/06/21 07:50 Dose: 1 ampul Atorvastatin Calcium (Atorvastatin 40 Mg Tab) 40 mg PO QHS [facility] Last Admin: 10/05/21 21:03 Dose: 40 mg Calcium Acetate (Calcium Acetate 667 Mg Cap) 2,001 mg PO TIDWM [facility] Last Admin: 10/06/21 09:22 Dose: 2,001 mg Carvedilol (Carvedilol 12.5 Mg Tab) 12.5 mg PO QDAY [facility] Last Admin: 10/06/21 09:23 Dose: 12.5 mg Cholecalciferol (Cholecalciferol (Vit D3) 1000 Unit (25 Mcg) Tab) 1,000 unit PO DAILY [facility] Last Admin: 10/06/21 09:23 Dose: 1,000 unit Cinacalcet (Cinacalcet 30 Mg Tab) 60 mg PO DAILY [facility] Last Admin: 10/06/21 09:24 Dose: 60 mg Epoetin Chong-epbx (Epoetin Chong-Epbx 20,000 Unit/1 Ml Vial) 20,000 unit IV CALI PRN PRN Reason: hemodialysis Last Admin: 10/03/21 11:45 Dose: 20,000 unit Famotidine (Famotidine 10 Mg Tab) 10 mg PO BID [facility] Last Admin: 10/06/21 09:22 Dose: 10 mg Hydromorphone HCl (Hydromorphone 1 Mg/1 Ml Inj) 0.5 mg IV Q3H PRN PRN Reason: Pain , Severe (7-10) Last Admin: 10/03/21 13:43 Dose: 0.5 mg Cefepime HCl (Cefepime/Ns 1 Gm/100 Ml) 1 gm in 100 mls @ 200 mls/hr IV Q24H [facility]; Protocol Stop: 10/08/21 23:59 Last Admin: 10/05/21 21:02 Dose: 200 mls/hr Sodium Chloride (Nacl 0.9%) 100 mls @ 999 mls/hr IV CALI PRN PRN Reason: Hypotension Isosorbide Mononitrate (Isosorbide Mononitrate Er 60 Mg Tab) 60 mg PO QAM [facility] Last Admin: 10/06/21 09:24 Dose: Not Given Latanoprost (Latanoprost 0.005% Oph Soln 2.5 Ml) 1 drops OU QPM [facility] Last Admin: 10/05/21 17:43 Dose: Not Given Morphine Sulfate (Morphine 2 Mg/1 Ml Inj) 2 mg IV Q4H PRN PRN Reason: Pain, Moderate (4-6) Last Admin: 10/04/21 22:33 Dose: 2 mg Multivit/Ca Carb/B Cmplx/FA/Prenat (Folic Acid/Vit B Comp W-C 1 Mg (Renal Caps)) 1 cap PO QDAY [facility] Last Admin: 10/06/21 09:22 Dose: 1 cap Nifedipine (Nifedipine Xl 90 Mg Tab) 90 mg PO QDAY [facility] Last Admin: 10/06/21 09:24 Dose: Not Given Ondansetron HCl (Ondansetron 4 Mg/2 Ml Inj) 4 mg IV Q8H PRN PRN Reason: Nausea And Vomiting Sodium Chloride (Sodium Chloride 0.9% 10 Ml Flush Syringe) 10 ml IV BID [facility] Last Admin: 10/06/21 09:24 Dose: 10 ml Sodium Chloride (Sodium Chloride 0.9% 10 Ml Flush Syringe) 10 ml IV PRN PRN PRN Reason: LINE FLUSH Review of Systems All systems: negative Physical Examination Vital signs: Vital Signs Pulse Ox 92 10/02/21 18:37 Results - Laboratory Findings CBC and BMP: 10/04/21 08:54 10/04/21 09:22 ABG ABG pH 7.472 (7.320-7.450) H 10/02/21 20:28 POC ABG pCO2 35.6 mmHg (32.0-48.0) 10/02/21 20:28 POC ABG pO2 56.9 mmHg (83-108) L 10/02/21 20:28 POC ABG HCO3 25.4 10/02/21 20:28 ABG O2 Saturation 89.1 (0-100) 10/02/21 20:28 PT/INR, D-dimer PT 16.2 Sec. (12.2-14.9) H 10/02/21 19:19 INR 1.17 (0.87-1.13) H 10/02/21 19:19 Abnormal lab findings: Abnormal Labs 10/02/21 10/02/21 10/02/21 19:18 19:19 19:19 WBC 15.4 H RBC 2.39 L Hgb 6.8 L Hct 21.3 L MCH MCHC RDW 17.0 H Lymph % (Auto) 4.6 L Yates % (Auto) 8.6 H Lymph # (Auto) 0.7 L Yates # (Auto) 1.3 H Seg Neutrophils % 86.6 H Seg Neutrophils # 13.3 H PT INR APTT ABG pH POC ABG pO2 ABG Hemoglobin ABG Oxyhemoglobin Carboxyhemoglobin Sodium Potassium 5.6 H Chloride 95.6 L Carbon Dioxide BUN 64 H Creatinine 7.7 H Glucose 147 H Lactic Acid 2.30 H* AST 76 H Alkaline Phosphatase 131 H Total Creatine Kinase Troponin T Albumin 3.7 L LDL Cholesterol Direct Free T4 Crossmatch 10/02/21 10/02/21 10/02/21 19:19 19:19 19:19 WBC RBC Hgb Hct MCH MCHC RDW Lymph % (Auto) Yates % (Auto) Lymph # (Auto) Yates # (Auto) Seg Neutrophils % Seg Neutrophils # PT 16.2 H INR 1.17 H APTT 42.5 H ABG pH POC ABG pO2 ABG Hemoglobin ABG Oxyhemoglobin Carboxyhemoglobin Sodium Potassium Chloride Carbon Dioxide BUN Creatinine Glucose Lactic Acid AST Alkaline Phosphatase Total Creatine Kinase 199 H Troponin T 1.690 H* Albumin LDL Cholesterol Direct 38 L Free T4 1.53 H Crossmatch 10/02/21 10/02/21 10/03/21 20:28 20:45 07:28 WBC 14.7 H RBC 2.83 L Hgb 7.6 L Hct 25.2 L MCH 27 L MCHC 30 L RDW 16.8 H Lymph % (Auto) 6.4 L Yates % (Auto) 9.4 H Lymph # (Auto) 0.9 L Yates # (Auto) 1.4 H Seg Neutrophils % 83.9 H Seg Neutrophils # 12.4 H PT INR APTT ABG pH 7.472 H POC ABG pO2 56.9 L ABG Hemoglobin 7.1 L ABG Oxyhemoglobin 87.4 L Carboxyhemoglobin 1.6 H Sodium Potassium Chloride Carbon Dioxide BUN Creatinine Glucose Lactic Acid AST Alkaline Phosphatase Total Creatine Kinase Troponin T Albumin LDL Cholesterol Direct Free T4 Crossmatch See Detail 10/03/21 10/04/21 10/04/21 07:28 08:54 09:22 WBC 12.4 H RBC 2.86 L Hgb 8.2 L Hct 25.4 L MCH MCHC RDW 16.7 H Lymph % (Auto) 7.9 L Yates % (Auto) 8.5 H Lymph # (Auto) 1.0 L Yates # (Auto) 1.1 H Seg Neutrophils % 82.0 H Seg Neutrophils # 10.1 H PT INR APTT ABG pH POC ABG pO2 ABG Hemoglobin ABG Oxyhemoglobin Carboxyhemoglobin Sodium 133 L Potassium 5.5 H Chloride 93.1 L Carbon Dioxide 20 L BUN 73 H 60 H Creatinine 8.6 H 7.9 H Glucose 126 H 131 H Lactic Acid AST Alkaline Phosphatase Total Creatine Kinase Troponin T Albumin LDL Cholesterol Direct Free T4 Crossmatch - Diagnostic Findings Chest x-ray: report reviewed, image reviewed Additional studies: CHEST 1 VIEW 10/02/21 INDICATION: weakness, hypotension. COMPARISON: 09/25/2021 FINDINGS: Support devices: None. Heart: Stable. Lungs/Pleura: Previously seen bilateral pulmonary opacities have improved but persist. On today's exam, airspace disease is greatest in the left mid to lower lung. No pneu mothorax. IMPRESSION: 1. Bilateral pulmonary opacities persist but have improved, particularly in the right lung.
[2021-10-06] MEDS: EPOETIN ALFA-EPBX 20,000 UNIT/1 ML VIAL IV PRN (15:00)
[2021-10-06] MEDS: CEFEPIME/NS 1 GM/100 ML 1 GM/100 ML BAG IV SCH (20:59)
[2021-10-07] MEDS: IPRATROPIUM/ALBUTEROL SULFATE 3 ML AMPUL.NEB IH SCH ×3 (08:10→20:55)
--- NOTE | 2021-10-07 08:55 | XRay Report ---
Lumbar spine 3 views INDICATION: Back pain FINDINGS: Endplate changes with anterior posterior disc ossified throughout. Facet degenerative sung es seen throughout. No compression fracture or subluxation. Signer Name: Cedric Moore MD Signed: 10/07/2021 8:50 AM Workstation Name: [id number]
--- NOTE | 2021-10-07 08:55 | Progress Note ---
Subjective Date of service: 10/07/21 Principal diagnosis: esrd Interval history: # ESRD: HD yesterday for hyperkalemia, solute clearance, volume. Continue HD MWF or prn - daily labs - renally dose meds - avoid nephrotoxins - renal diet - verbal consent obtained for HD # Anemia: last hemoglobin 7.3->8.2, stable from prior, ESAs with HD # HTN: UF as tolerated. BP soft but stable. May need to hold nifedipine, isosorbide # Secondary Hyperparathyroidism: continue home binders as needed, vitamin D analogs prn COVID infection Subjective Interval history: events noted Chart, labs, vitals reviewed in detail Objective - Exam Narrative Exam: Exam deferred given COVID-19 pandemic, primary team exam reviewed in detail Objective - Vital Signs Vital signs: Vital Signs - 12hr 10/06/21 10/06/21 10/07/21 21:03 22:00 06:28 Temperature 98.1 F 98.4 F Pulse Rate 83 82 Respiratory 20 16 20 Rate Blood Pressure 140/64 140/75 O2 Sat by Pulse 98 95 99 Oximetry - Lab 10/04/21 08:54 10/04/21 09:22 Most recent lab results ABG pH 7.472 (7.320-7.450) H 10/02/21 20:28 ABG O2 Saturation 89.1 (0-100) 10/02/21 20:28 Calcium 9.0 mg/dL (8.4-10.2) 10/04/21 09:22 Magnesium 2.10 mg/dL (1.7-2.3) 10/02/21 19:19 Medications & Allergies - Medications Allergies/Adverse Reactions: Allergies shellfish derived Adverse Reaction (Verified 09/22/21 09:46) Anaphylaxis Home Medications: Home Medications Medication Instructions Recorded Confirmed Last Taken Type AtorvaSTATin [Lipitor] 40 mg PO QHS 02/25/21 10/03/21 10/02/21 History Cinacalcet [Sensipar] 60 mg PO DAILY 02/25/21 10/03/21 10/02/21 History Vit B Complx C/Folic Acid/Zinc 1 tab PO DAILY 02/25/21 10/03/21 10/02/21 History [Dialyvite 800-Zinc 50 mg Tab] carvediloL [Coreg] 12.5 mg PO QDAY 0610/03/21 10/02/21 History Calcium Acetate 2,001 mg PO TIDWM 09/15/21 10/03/21 10/02/21 History Aspirin EC [Halfprin EC] 81 mg PO QDAY 09/18/21 10/03/21 10/02/21 History Isosorbide Mononitrate [Isosorbide 60 mg PO QAM 09/18/21 10/03/21 10/02/21 History Mononitrate ER] Latanoprost 0.005% 1 drop OU QPM 09/18/21 10/03/21 10/02/21 History NIFEdipine [Adalat cc] 90 mg PO DAILY #90 09/21/21 10/03/21 10/02/21 Rx levoFLOXacin [Levaquin] 250 mg PO QDAY #3 tablet 09/26/21 10/03/21 10/02/21 Rx Dorzolamide HCl/Timolol Maleat 1 drop OU BID 10/03/21 10/03/21 Unknown History [Cosopt Eye Drops] Active Medications: Generic Name Dose Route Start Last Admin Trade Name Freq PRN Reason Stop Dose Admin Acetaminophen 650 mg 10/02/21 22:11 Acetaminophen 325 Mg Tab PO Q4H PRN Pain MILD(1-3)/Fever >100.5/GIONS Albuterol 2.5 mg 10/02/21 22:11 Albuterol 2.5 Mg/3 Ml Nebu IH Q3HRT PRN Shortness Of Breath Albuterol/Ipratropium 1 ampul 10/05/21 20:00 10/06/21 21:10 Ipratropium/Albuterol Sulfate 3 Ml Ampul.Neb IH Not Given TIDRT [facility] Atorvastatin Calcium 40 mg 10/03/21 22:00 10/06/21 20:59 Atorvastatin 40 Mg Tab PO 40 mg QHS [facility] Administration Calcium Acetate 2,001 mg 10/03/21 08:00 10/06/21 17:47 Calcium Acetate 667 Mg Cap PO Not Given TIDWM [facility] Carvedilol 12.5 mg 10/03/21 10:00 10/06/21 09:23 Carvedilol 12.5 Mg Tab PO 12.5 mg QDAY [facility] Administration Cholecalciferol 1,000 unit 10/03/21 10:00 10/06/21 09:23 Cholecalciferol (Vit D3) 1000 Unit (25 Mcg) Tab PO 1,000 unit DAILY [facility] Administration Cinacalcet 60 mg 10/03/21 10:00 10/06/21 09:24 Cinacalcet 30 Mg Tab PO 60 mg DAILY [facility] Administration Epoetin Chong-epbx 20,000 unit 10/03/21 09:00 10/06/21 15:00 Epoetin Chong-Epbx 20,000 Unit/1 Ml Vial IV 20,000 unit CALI PRN Administration hemodialysis Famotidine 10 mg 10/03/21 10:00 10/06/21 21:03 Famotidine 10 Mg Tab PO 10 mg BID [facility] Administration Hydromorphone HCl 0.5 mg 10/02/21 22:11 10/03/21 13:43 Hydromorphone 1 Mg/1 Ml Inj IV 0.5 mg Q3H PRN Administration Pain , Severe (7-10) Cefepime HCl 1 gm in 100 mls @ 200 mls/hr 10/03/21 22:00 10/06/21 20:59 Cefepime/Ns 1 Gm/100 Ml IV 10/08/21 23:59 200 mls/hr Q24H [facility] Administration Protocol Sodium Chloride 100 mls @ 999 mls/hr 10/03/21 09:00 Nacl 0.9% IV CALI PRN Hypotension Isosorbide Mononitrate 60 mg 10/03/21 10:00 10/06/21 09:24 Isosorbide Mononitrate Er 60 Mg Tab PO Not Given QAM [facility] Latanoprost 1 drops 10/03/21 18:00 10/05/21 17:43 Latanoprost 0.005% Ophth Soln 2.5 Ml OU Not Given QPM [facility] Morphine Sulfate 2 mg 10/02/21 22:11 10/04/21 22:33 Morphine 2 Mg/1 Ml Inj IV 2 mg Q4H PRN Administration Pain, Moderate (4-6) Multivit/Ca Carb/B Cmplx/FA/Prenat 1 cap 10/03/21 10:00 10/06/21 09:22 Folic Acid/Vit B Comp W-C 1 Mg (Renal Caps) PO 1 cap QDAY [facility] Administration Nifedipine 90 mg 10/03/21 10:00 10/06/21 09:24 Nifedipine Xl 90 Mg Tab PO Not Given QDAY [facility] Ondansetron HCl 4 mg 10/02/21 22:11 Ondansetron 4 Mg/2 Ml Inj IV Q8H PRN Nausea And Vomiting Sodium Chloride 10 ml 10/03/21 10:00 10/06/21 21:01 Sodium Chloride 0.9% 10 Ml Flush Syringe IV 10 ml BID [facility] Administration Sodium Chloride 10 ml 10/02/21 22:11 Sodium Chloride 0.9% 10 Ml Flush Syringe IV PRN PRN LINE FLUSH
--- NOTE | 2021-10-07 08:56 | XRay Report ---
Thoracic spine 2 views INDICATION: Back pain FINDINGS: Alignment appears normal. [facility] like changes with anterior disc osteophytes throughout the [place]. No subluxation or compression fractures seen. Signer Name: Cedric Moore MD Signed: 10/07/2021 8:50 AM Workstation Name: [id number]
[2021-10-07] MEDS: NIFEdipine XL 90 MG TAB PO SCH ×2 (10:22→10:42)
[2021-10-07] MEDS: CALCIUM ACETATE 667 MG CAP PO SCH ×5 (10:23→23:53)
[2021-10-07] MEDS: FOLIC ACID/VIT B COMP W-C 1 MG (RENAL CAPS) PO SCH ×2 (10:23→10:43)
[2021-10-07] MEDS: CHOLECALCIFEROL (VIT D3) 1000 UNIT (25 mcg) TAB PO SCH ×2 (10:24→10:43)
[2021-10-07] MEDS: CINACALCET 30 MG TAB PO SCH ×2 (10:24→10:36)
[2021-10-07] MEDS: FAMOTIDINE 10 MG TAB PO SCH ×3 (10:25→22:01)
[2021-10-07] MEDS: carvediloL 12.5 MG TAB PO SCH ×2 (10:40→10:41)
--- NOTE | 2021-10-07 12:22 | Discharge Summary ---
Providers - Providers Date of Admission: 10/02/21 22:11 Date of discharge: 10/07/21 Attending physician: ERUM JACOBO 10/02/21 20:59 Consult to Physician [CONS] Urgent Comment: Consulting Provider: ARNALDO CHUNG Physician Instructions: Reason For Exam: ESRD, HYPERKALEMIA 10/06/21 08:18 Consult to Physician [CONS] Routine Comment: Consulting Provider: MANUEL MONTGOMERY Physician Instructions: Reason For Exam: respiratory failure 10/06/21 09:03 Consult to Physician [CONS] Routine Comment: Consulting Provider: ELDA FLEMING Physician Instructions: Reason For Exam: pneumonia 10/06/21 09:12 Physical Therapy Evaluation and Treat [CONS] Stat Comment: Reason For Exam: eval and treat 10/06/21 13:53 Physical Therapy Evaluation and Treat [CONS] Routine Comment: Reason For Exam: debility Primary care physician: JOSE DANIEL MILLER Hospitalization Condition: Stable Disposition: 06 HOME HEALTH CARE SERVICE Time spent for discharge: 34 minutes Exam - Constitutional Vitals: Temp Pulse Resp BP Pulse Ox 98.4 F 78 13 130/72 95 10/07/21 06:28 10/07/21 10:41 10/07/21 11:04 10/07/21 10:41 10/07/21 11:04 Plan Follow up with: JOSE DANIEL MILLER MD [Primary Care Provider] - 7 Days Prescriptions: levoFLOXacin [Levaquin TAB] 250 mg PO QDAY #3 tablet
--- NOTE | 2021-10-07 14:00 | Progress Note ---
Assessment and Plan Acute hypoxemic respiratory failure Bilateral Pneumonia Sepsis End stage renal disease on dialysis PUI COVID-19 virus infection Hypertension - repeat CXR in am - complete empiric CAP therapy with Rocephin and Zithromax - continue to wean supplemental oxygen to keep O2 sats > 90% - bronchodilators (AL) with pulm hygiene per RT - HD/UF per nephrology prescription for toxin and volume management - avoid nephrotoxins, renally dose all medications - accuchecks with glycemic control per SSI for target blood glucose < 180 mg/dL - tobacco abstinence counseled at the bedside - home oxygen evaluation at discharge - mobility protocols to prevent pressure ulcers - PT/OT as tolerated - prn analgesia per pain score - Wound care per RN/WCT - GI & VTE prophylaxis - Flu & pneumovax per protocol - Pulmonary out patient follow up for PFTs and optimization of respiratory status - continue other care per attending / other consultants ... re-evaluate in am & prn COVID SPECIFIC INTERVENTIONS - COVID-19 PCR is negative Subjective Date of service: 10/07/21 Principal diagnosis: Acute hypoxemic respiratory failure; Pneumonia; ESRD; HTN Interval history: Patient is seen today for: Acute hypoxemic respiratory failure; Pneumonia; ESRD; HTN Seen and examined at bedside; 24hour events reviewed; nursing and respiratory care staff consulted; no adverse overnight events reported to me; resting in bed; no emesis or overt aspiration; remains on supplemental oxygen at 5-6L flow; denies N/V/F/C/chest pains or palpitation Objective Vital Signs - 12hr 10/07/21 10/07/21 10/07/21 06:28 10:32 10:40 Temperature 98.4 F Pulse Rate 82 76 76 Respiratory 20 Rate Blood Pressure 140/75 130/72 130/72 O2 Sat by Pulse 99 Oximetry 10/07/21 10/07/21 10:41 11:04 Temperature Pulse Rate 78 Respiratory 13 Rate Blood Pressure 130/72 O2 Sat by Pulse 95 Oximetry Constitutional: no acute distress, other (elderly obese male with mildly increased respiratory effort at rest) Eyes: non-icteric ENT: oropharynx moist Neck: supple, no lymphadenopathy, no JVD Effort: mildly labored Ascultation: Bilateral: diminished breath sounds, rhonchi (bases) Percussion: Bilateral: not dull Cardiovascular: regular rate and rhythm Gastrointestinal: normoactive bowel sounds, soft, non-tender, non-distended (protuberant) Integumentary: rash (stasis dermatitis) Extremities: no cyanosis, pulses normal, no ischemia or petechiae, edema (2+ R>L) Neurologic: non-focal exam (grossly), pupils equal and round, CN II-XII normal Psychiatric: mood appropriate, affect normal CBC and BMP: 10/04/21 08:54 10/04/21 09:22 ABG, PT/INR, D-dimer: ABG ABG pH 7.472 (7.320-7.450) H 10/02/21 20:28 POC ABG pCO2 35.6 mmHg (32.0-48.0) 10/02/21 20: POC ABG pO2 56.9 mmHg (83-108) L 10/02/21 20:28 POC ABG HCO3 25.4 10/02/21 20:28 ABG O2 Saturation 89.1 (0-100) 10/02/21 20:28 PT/INR, D-dimer PT 16.2 Sec. (12.2-14.9) H 10/02/21 19:19 INR 1.17 (0.87-1.13) H 10/02/21 19:19 Abnormal lab findings: Abnormal Labs 10/02/21 10/02/21 10/02/21 19:18 19:19 19:19 WBC 15.4 H RBC 2.39 L Hgb 6.8 L Hct 21.3 L MCH MCHC RDW 17.0 H Lymph % (Auto) 4.6 L [place] % (Auto) 8.6 H Lymph # (Auto) 0.7 L [place] # (Auto) 1.3 H Seg Neutrophils % 86.6 H Seg Neutrophils # 13.3 H PT INR APTT ABG pH POC ABG pO2 ABG Hemoglobin ABG Oxyhemoglobin Carboxyhemoglobin Sodium Potassium 5.6 H Chloride 95.6 L Carbon Dioxide BUN 64 H Creatinine 7.7 H Glucose 147 H Lactic Acid 2.30 H* AST 76 H Alkaline Phosphatase 131 H Total Creatine Kinase Troponin T Albumin 3.7 L LDL Cholesterol Direct Free T4 Crossmatch 10/02/21 10/02/21 10/02/21 19:19 19:19 19:19 WBC RBC Hgb Hct MCH MCHC RDW Lymph % (Auto) [place] % (Auto) Lymph # (Auto) [place] # (Auto) Seg Neutrophils % Seg Neutrophils # PT 16.2 H INR 1.17 H APTT 42.5 H ABG pH POC ABG pO2 ABG Hemoglobin ABG Oxyhemoglobin Carboxyhemoglobin Sodium Potassium Chloride Carbon Dioxide BUN Creatinine Glucose Lactic Acid AST Alkaline Phosphatase Total Creatine Kinase 199 H Troponin T 1.690 H* Albumin LDL Cholesterol Direct 38 L Free T4 1.53 H Crossmatch 10/02/21 10/02/21 10/03/21 20:28 20:45 07:28 WBC 14.7 H RBC 2.83 L Hgb 7.6 L Hct 25.2 L MCH 27 L MCHC 30 L RDW 16.8 H Lymph % (Auto) 6.4 L [place] % (Auto) 9.4 H Lymph # (Auto) 0.9 L [place] # (Auto) 1.4 H Seg Neutrophils % 83.9 H Seg Neutrophils # 12.4 H PT INR APTT ABG pH 7.472 H POC ABG pO2 56.9 L ABG Hemoglobin 7.1 L ABG Oxyhemoglobin 87.4 L Carboxyhemoglobin 1.6 H Sodium Potassium Chloride Carbon Dioxide BUN Creatinine Glucose Lactic Acid AST Alkaline Phosphatase Total Creatine Kinase Troponin T Albumin LDL Cholesterol Direct Free T4 Crossmatch See Detail 10/03/21 10/04/21 10/04/21 07:28 08:54 09:22 WBC 12.4 H RBC 2.86 L Hgb 8.2 L Hct 25.4 L MCH MCHC RDW 16.7 H Lymph % (Auto) 7.9 L [place] % (Auto) 8.5 H Lymph # (Auto) 1.0 L [place] # (Auto) 1.1 H Seg Neutrophils % 82.0 H Seg Neutrophils # 10.1 H PT INR APTT ABG pH POC ABG pO2 ABG Hemoglobin ABG Oxyhemoglobin Carboxyhemoglobin Sodium 133 L Potassium 5.5 H Chloride 93.1 L Carbon Dioxide 20 L BUN 73 H 60 H Creatinine 8.6 H 7.9 H Glucose 126 H 131 H Lactic Acid AST Alkaline Phosphatase Total Creatine Kinase Troponin T Albumin LDL Cholesterol Direct Free T4 Crossmatch Chest x-ray: image reviewed (mild bilateral infiltrates; hypoventilation) Allied health notes reviewed: nursing
--- NOTE | 2021-10-07 14:05 | Progress Note ---
Assessment and Plan Cultures: Blood culture no growth so far COVID-19 PCR negative A/P: 66-year-old male past medical history ESRD on HD admitted with pneumonia #Acute hypoxic respiratory failure: Currently on 3 L nasal cannula. Secondary to bilateral pneumonia #Bilateral pneumonia: Currently on cefepime, continue to complete 5 days. Covid negative #ESRD on HD: Renally dose medications Recs: -Continue renally dosed cefepime, complete 5 days. Last day today Thank you for the consult, we will continue to follow. Xavier Caraballo MD [facility] ([facility] O: [phone] F: [phone] Subjective Date of service: 10/07/21 Principal diagnosis: Acute hypoxemic respiratory failure; Pneumonia; ESRD; HTN Interval history: Afebrile, no acute changes. On 3 L nasal cannula. Objective - Exam Narrative Exam: Physical Exam: Constitutional: Alert, cooperative. No acute distress Head, Ears, Nose: Normocephalic, atraumatic. External ears, nose normal Eyes: Conjunctivae/corneas clear. No icterus. No ptosis. Neck: Supple, no meningeal signs Oral: dentition fair, no thrush Cardiovascular: S1, S2 normal. Respiratory: Good air entry, clear to auscultation bilaterally GI: Soft, non-tender; bowel sounds normal. No peritoneal signs. Musculoskeletal: No pedal edema, no cyanosis. Skin: No rash or abscess Hem/Lymphatic: No palpable cervical or supraclavicular nodes. No lymphangitis Psych: Mood ok. Affect normal Neurological: Awake, alert, oriented. No gross abnormality - Constitutional Vitals: Vital Signs Temp Pulse Resp BP Pulse Ox 98.4 F 78 13 130/72 95 10/07/21 06:28 10/07/21 10:41 10/07/21 11:04 10/07/21 10:41 10/07/21 11:04 Temperature -Last 24 Hours Temperature 98.4 F Temperature 98.1 F Temperature 98.2 F - Labs CBC & Chem 7: 10/04/21 08:54 10/04/21 09:22
[2021-10-07] MEDS: CEFEPIME/NS 1 GM/100 ML 1 GM/100 ML BAG IV SCH (22:01)
[2021-10-07] MEDS: LATANOPROST 0.005% OPHTH SOLN 2.5 ML OU SCH ×2 (23:53→23:54)
[2021-10-08 07:34] VITALS: BP 116/63
[2021-10-08 08:33] LABS: Basophils % (Auto) 0.3 % (0.0-1.8); Eosinophils # (Auto) 0.1 K/mm3 (0.0-0.4); Eosinophils % (Auto) 0.7 % (0.0-4.3); Hematocrit 29.9 % (35.5-45.6); Hemoglobin 9.4 gm/dl (11.8-15.2); Lymphocytes # (Auto) 0.6 K/mm3 (1.2-5.4); Mean Corpuscular HGB Conc 31 % (32-34); Mean Corpuscular Volume 89 fl (84-94); Monocytes # (Auto) 1.4 K/mm3 (0.0-0.8); Platelet Count 398 K/mm3 (140-440); Red Blood Count 3.36 M/mm3 (3.65-5.03); Red Cell Distribution Width 16.3 % (13.2-15.2)
[2021-10-08] MEDS: CALCIUM ACETATE 667 MG CAP PO SCH (08:43)
[2021-10-08] MEDS: IPRATROPIUM/ALBUTEROL SULFATE 3 ML AMPUL.NEB IH SCH (08:50)
--- NOTE | 2021-10-08 09:14 | XRay Report ---
CHEST 1 VIEW INDICATION: Pulm edema; hypoxemia. COMPARISON: 10/02/2021 FINDINGS: Support devices: None. Heart: Stable. Lungs/Pleura: Right basilar airspace disease has worsened. There is also worsening airspace disease i n the left mid to lower lung. Small right pleural effusion. No pneumothorax. IMPRESSION: 1. Interval worsening. Signer Name: Jacky Humphreys MD Signed: 10/08/2021 9:10 AM Workstation Name: [id number]
--- NOTE | 2021-10-08 10:25 | Progress Note ---
Subjective Date of service: 10/08/21 Principal diagnosis: Acute hypoxemic respiratory failure; Pneumonia; ESRD; HTN Interval history: # ESRD: HD yesterday for hyperkalemia, solute clearance, volume. Continue HD MWF or prn - daily labs - renally dose meds - avoid nephrotoxins - renal diet - verbal consent obtained for HD can return to home clinic # Anemia: last hemoglobin 7.3->8.2, stable from prior, ESAs with HD # HTN: UF as tolerated. BP soft but stable. May need to hold nifedipine, isosorbide # Secondary Hyperparathyroidism: continue home binders as needed, vitamin D analogs prn COVID infection Subjective Interval history: events noted Chart, labs, vitals reviewed in detail Objective - Exam Narrative Exam: Exam deferred given COVID-19 pandemic, primary team exam reviewed in detail Objective - Vital Signs Vital signs: Vital Signs - 12hr 10/08/21 05:46 Temperature 98.3 F Pulse Rate 89 Respiratory 20 Rate Blood Pressure 116/63 O2 Sat by Pulse 95 Oximetry - Lab 10/08/21 08:14 10/08/21 08:14 Most recent lab results ABG pH 7.472 (7.320-7.450) H 10/02/21 20:28 ABG O2 Saturation 89.1 (0-100) 10/02/21 20:28 Calcium 9.0 mg/dL (8.4-10.2) 10/08/21 08:14 Magnesium 2.10 mg/dL (1.7-2.3) 10/02/21 19:19 Medications & Allergies - Medications Allergies/Adverse Reactions: Allergies shellfish derived Adverse Reaction (Verified 09/22/21 09:46) Anaphylaxis Home Medications: Home Medications Medication Instructions Recorded Confirmed Last Taken Type AtorvaSTATin [Lipitor] 40 mg PO QHS 02/25/21 10/03/21 10/02/21 History Cinacalcet [Sensipar] 60 mg PO DAILY 02/25/21 10/03/21 10/02/21 History Vit B Complx C/Folic Acid/Zinc 1 tab PO DAILY 02/25/21 10/03/21 10/02/21 History [Dialyvite 800-Zinc 50 mg Tab] carvediloL [Coreg] 12.5 mg PO QDAY 02/25/21 10/03/21 10/02/21 History Calcium Acetate 2,001 mg PO TIDWM 09/15/21 10/03/21 10/02/21 History Aspirin EC [Halfprin EC] 81 mg PO QDAY 09/18/21 10/03/21 10/02/21 History Isosorbide Mononitrate [Isosorbide 60 mg PO QAM 09/18/21 10/03/21 10/02/21 History Mononitrate ER] Latanoprost 0.005% 1 drop OU QPM 09/18/21 10/03/21 10/02/21 History NIFEdipine [Adalat cc] 90 mg PO DAILY #90 09/21/21 10/03/21 10/02/21 Rx Dorzolamide HCl/Timolol Maleat 1 drop OU BID 10/03/21 10/03/21 Unknown History [Cosopt Eye Drops] Cholecalciferol Vit D3 [Vitamin D3 1,000 unit PO DAILY tablet 10/07/21 Unknown Rx 1,000 UNIT TAB] Active Medications: Generic Name Dose Route Start Last Admin Trade Name Freq PRN Reason Stop Dose Admin Acetaminophen 650 mg 10/02/21 22:11 Acetaminophen 325 Mg Tab PO Q4H PRN Pain MILD(1-3)/Fever >100.5/GOINS Albuterol 2.5 mg 10/02/21 22:11 Albuterol 2.5 Mg/3 Ml Nebu IH Q3HRT PRN Shortness Of Breath Albuterol/Ipratropium 1 ampul 10/05/21 20:00 10/07/21 20:55 Ipratropium/Albuterol Sulfate 3 Ml Ampul.Neb IH 1 ampul TIDRT LYNDON Administration Atorvastatin Calcium 40 mg 10/03/21 22:00 10/07/21 22:01 Atorvastatin 40 Mg Tab PO 40 mg QHS LYNDON Administration Calcium Acetate 2,001 mg 10/03/21 08:00 10/08/21 08:43 Calcium Acetate 667 Mg Cap PO 2,001 mg TIDWM LYNDON Administration Carvedilol 12.5 mg 10/03/21 10:00 10/07/21 10:41 Carvedilol 12.5 Mg Tab PO 12.5 mg QDAY LYNDON Administration Cholecalciferol 1,000 unit 10/03/21 10:00 10/07/21 10:43 Cholecalciferol (Vit D3) 1000 Unit (25 Mcg) Tab PO 1,000 unit DAILY LYNDON Administration Cinacalcet 60 mg 10/03/21 10:00 10/07/21 10:36 Cinacalcet 30 Mg Tab PO 60 mg DAILY LYNDON Administration Epoetin Chong-epbx 20,000 unit 10/03/21 09:00 10/06/21 15:00 Epoetin Chong-Epbx 20,000 Unit/1 Ml Vial IV 20,000 unit CALI PRN Administration hemodialysis Famotidine 10 mg 10/03/21 10:00 10/07/21 22:01 Famotidine 10 Mg Tab PO 10 mg BID LYNDON Administration Hydromorphone HCl 0.5 mg 10/02/21 22:11 10/03/21 13:43 Hydromorphone 1 Mg/1 Ml Inj IV 0.5 mg Q3H PRN Administration Pain , Severe (7-10) Cefepime HCl 1 gm in 100 mls @ 200 mls/hr 10/03/21 22:00 10/07/21 22:01 Cefepime/Ns 1 Gm/100 Ml IV 10/08/21 23:59 200 mls/hr Q24H LYNDON Administration Protocol Sodium Chloride 100 mls @ 999 mls/hr 10/03/21 09:00 Nacl 0.9% IV CALI PRN Hypotension Isosorbide Mononitrate 60 mg 10/03/21 10:00 10/07/21 10:32 Isosorbide Mononitrate Er 60 Mg Tab PO 60 mg QAM LYNDON Administration Latanoprost 1 drops 10/03/21 18:00 10/07/21 23:54 Latanoprost 0.005% Ophth Soln 2.5 Ml OU Not Given QPM [facility] Morphine Sulfate 2 mg 10/02/21 22:11 10/04/21 22:33 Morphine 2 Mg/1 Ml Inj IV 2 mg Q4H PRN Administration Pain, Moderate (4-6) Multivit/Ca Carb/B Cmplx/FA/Prenat 1 cap 10/03/21 10:00 10/07/21 10:43 Folic Acid/Vit B Comp W-C 1 Mg (Renal Caps) PO 1 cap QDAY LYNDON Administration Nifedipine 90 mg 10/03/21 10:00 10/07/21 10:42 Nifedipine Xl 90 Mg Tab PO 90 mg QDAY LYNDON Administration Ondansetron HCl 4 mg 10/02/21 22:11 Ondansetron 4 Mg/2 Ml Inj IV Q8H PRN Nausea And Vomiting Sodium Chloride 10 ml 10/03/21 10:00 10/07/21 22:04 Sodium Chloride 0.9% 10 Ml Flush Syringe IV 10 ml BID LYNDON Administration Sodium Chloride 10 ml 10/02/21 22:11 Sodium Chloride 0.9% 10 Ml Flush Syringe IV PRN PRN LINE FLUSH
--- NOTE | 2021-10-08 10:39 | Progress Note ---
Subjective Date of service: 10/08/21 Principal diagnosis: Acute hypoxemic respiratory failure; Pneumonia; ESRD; HTN Objective Vital Signs - 12hr 10/08/21 05:46 Temperature 98.3 F Pulse Rate 89 Respiratory 20 Rate Blood Pressure 116/63 O2 Sat by Pulse 95 Oximetry Constitutional: no acute distress, other (elderly obese male with mildly increased respiratory effort at rest) Eyes: non-icteric ENT: oropharynx moist Neck: supple, no lymphadenopathy, no JVD Effort: mildly labored Ascultation: Bilateral: diminished breath sounds, rhonchi (bases) Percussion: Bilateral: not dull Cardiovascular: regular rate and rhythm Gastrointestinal: normoactive bowel sounds, soft, non-tender, non-distended (protuberant) Integumentary: rash (stasis dermatitis) Extremities: no cyanosis, pulses normal, no ischemia or petechiae, edema (2+ R>L) Neurologic: non-focal exam (grossly), pupils equal and round, CN II-XII normal Psychiatric: mood appropriate, affect normal CBC and BMP: 10/08/21 08:14 10/08/21 08:14 ABG, PT/INR, D-dimer: ABG ABG pH 7.472 (7.320-7.450) H 10/02/21 20:28 POC ABG pCO2 35.6 mmHg (32.0-48.0) 10/02/21 20:28 POC ABG pO2 56.9 mmHg (83-108) L 10/02/21 20:28 POC ABG HCO3 25.4 10/02/21 20:28 ABG O2 Saturation 89.1 (0-100) 10/02/21 20:28 PT/INR, D-dimer PT 16.2 Sec. (12.2-14.9) H 10/02/21 19:19 INR 1.17 (0.87-1.13) H 10/02/21 19:19 Abnormal lab findings: Abnormal Labs 10/02/21 10/02/21 10/02/21 19:18 19:19 19:19 WBC 15.4 H RBC 2.39 L Hgb 6.8 L Hct 21.3 L MCH MCHC RDW 17.0 H Lymph % (Auto) 4.6 L [place] % (Auto) 8.6 H Lymph # (Auto) 0.7 L [place] # (Auto) 1.3 H Seg Neutrophils % 86.6 H Seg Neutrophils # 13.3 H PT INR APTT ABG pH POC ABG pO2 ABG Hemoglobin ABG Oxyhemoglobin Carboxyhemoglobin Sodium Potassium 5.6 H Chloride 95.6 L Carbon Dioxide BUN 64 H Creatinine 7.7 H Glucose 147 H Lactic Acid 2.30 H* AST 76 H Alkaline Phosphatase 131 H Total Creatine Kinase Troponin T Albumin 3.7 L LDL Cholesterol Direct Free T4 Crossmatch 10/02/21 10/02/21 10/02/21 19:19 19:19 19:19 WBC RBC Hgb Hct MCH MCHC RDW Lymph % (Auto) [place] % (Auto) Lymph # (Auto) [place] # (Auto) Seg Neutrophils % Seg Neutrophils # PT 16.2 H INR 1.17 H APTT 42.5 H ABG pH POC ABG pO2 ABG Hemoglobin ABG Oxyhemoglobin Carboxyhemoglobin Sodium Potassium Chloride Carbon Dioxide BUN Creatinine Glucose Lactic Acid AST Alkaline Phosphatase Total Creatine Kinase 199 H Troponin T 1.690 H* Albumin LDL Cholesterol Direct 38 L Free T4 1.53 H Crossmatch 10/02/21 10/02/21 10/03/21 20:28 20:45 07:28 WBC 14.7 H RBC 2.83 L Hgb 7.6 L Hct 25.2 L MCH 27 L MCHC 30 L RDW 16.8 H Lymph % (Auto) 6.4 L [place] % (Auto) 9.4 H Lymph # (Auto) 0.9 L [place] # (Auto) 1.4 H Seg Neutrophils % 83.9 H Seg Neutrophils # 12.4 H PT INR APTT ABG pH 7.472 H POC ABG pO2 56.9 L ABG Hemoglobin 7.1 L ABG Oxyhemoglobin 87.4 L Carboxyhemoglobin 1.6 H Sodium Potassium Chloride Carbon Dioxide BUN Creatinine Glucose Lactic Acid AST Alkaline Phosphatase Total Creatine Kinase Troponin T Albumin LDL Cholesterol Direct Free T4 Crossmatch See Detail 10/03/21 10/04/21 10/04/21 07:28 08:54 09:22 WBC 12.4 H RBC 2.86 L Hgb 8.2 L Hct 25.4 L MCH MCHC RDW 16.7 H Lymph % (Auto) 7.9 L [place] % (Auto) 8.5 H Lymph # (Auto) 1.0 L [place] # (Auto) 1.1 H Seg Neutrophils % 82.0 H Seg Neutrophils # 10.1 H PT INR APTT ABG pH POC ABG pO2 ABG Hemoglobin ABG Oxyhemoglobin Carboxyhemoglobin Sodium 133 L Potassium 5.5 H Chloride 93.1 L Carbon Dioxide 20 L BUN 73 H 60 H Creatinine 8.6 H 7.9 H Glucose 126 H 131 H Lactic Acid AST Alkaline Phosphatase Total Creatine Kinase Troponin T Albumin LDL Cholesterol Direct Free T4 Crossmatch 10/08/21 10/08/21 08:14 08:14 WBC 12.1 H RBC 3.36 L Hgb 9.4 L Hct 29.9 L MCH MCHC 31 L RDW 16.3 H Lymph % (Auto) 5.0 L [place] % (Auto) 12.0 H Lymph # (Auto) 0.6 L [place] # (Auto) 1.4 H Seg Neutrophils % 82.0 H Seg Neutrophils # 9.9 H PT INR APTT ABG pH POC ABG pO2 ABG Hemoglobin ABG Oxyhemoglobin Carboxyhemoglobin Sodium Potassium Chloride 95.3 L Carbon Dioxide BUN 76 H Creatinine 10.5 H Glucose Lactic Acid AST Alkaline Phosphatase Total Creatine Kinase Troponin T Albumin LDL Cholesterol Direct Free T4 Crossmatch Allied health notes reviewed: nursing
--- NOTE | 2021-10-08 13:33 | Progress Note ---
Assessment and Plan Cultures: Blood culture no growth so far COVID-19 PCR negative A/P: 66-year-old male past medical history ESRD on HD admitted with pneumonia #Acute hypoxic respiratory failure: Currently on 3 L nasal cannula. Secondary to bilateral pneumonia #Bilateral pneumonia: Currently on cefepime, continue to complete 5 days. Covid negative #ESRD on HD: Renally dose medications Recs: -Completed empiric cefepime. Thank you for the consult, we will continue to follow. Xavier Caraballo MD [facility] [place] [facility] O: [phone] F: [phone] Subjective Date of service: 10/08/21 Principal diagnosis: Acute hypoxemic respiratory failure; Pneumonia; ESRD; HTN Interval history: Afebrile, white count 12.1. On 4 L nasal cannula. Imaging personally viewed: Chest x-ray: Interval worsening. Objective - Exam Narrative Exam: Physical Exam: Constitutional: Alert, cooperative. No acute distress Head, Ears, Nose: Normocephalic, atraumatic. External ears, nose normal Eyes: Conjunctivae/corneas clear. No icterus. No ptosis. Neck: Supple, no meningeal signs Oral: dentition fair, no thrush Cardiovascular: S1, S2 normal. Respiratory: Good air entry, clear to auscultation bilaterally GI: Soft, non-tender; bowel sounds normal. No peritoneal signs. Musculoskeletal: No pedal edema, no cyanosis. Skin: No rash or abscess Hem/Lymphatic: No palpable cervical or supraclavicular nodes. No lymphangitis Psych: Mood ok. Affect normal Neurological: Awake, alert, oriented. No gross abnormality - Constitutional Vitals: Vital Signs Temp Pulse Resp BP Pulse Ox 98.3 F 89 20 116/63 100 10/08/21 05:46 10/08/21 05:46 10/08/21 05:46 10/08/21 05:46 10/08/21 08:00 Temperature -Last 24 Hours Temperature 98.3 F Temperature 98.5 F Temperature 98.1 F - Labs CBC & Chem 7: 10/08/21 08:14 10/08/21 08:14 Labs: Abnormal lab results 10/08/21 10/08/21 Range/Units 08:14 08:14 WBC 12.1 H (4.5-11.0) K/mm3 RBC 3.36 L (3.65-5.03) M/mm3 Hgb 9.4 L (11.8-15.2) gm/dl Hct 29.9 L (35.5-45.6) % MCHC 31 L (32-34) % RDW 16.3 H (13.2-15.2) % Lymph % (Auto) 5.0 L (13.4-35.0) % [place] % (Auto) 12.0 H (0.0-7.3) % Lymph # (Auto) 0.6 L (1.2-5.4) K/mm3 [place] # (Auto) 1.4 H (0.0-0.8) K/mm3 Seg Neutrophils % 82.0 H (40.0-70.0) % Seg Neutrophils # 9.9 H (1.8-7.7) K/mm3 Chloride 95.3 L (98-107) mmol/L BUN 76 H (9-20) mg/dL Creatinine 10.5 H (0.8-1.3) mg/dL
== END 2021-10-08 08:50 | disposition home health service (06) | DRG 871 ==
LOC: EDUNIT# → ED 18:31 → 4A 22:11 → 3A 23:39
PROVIDERS: ADMIT Hospitalist; ATTEND Internal Medicine
PROC: 4A033R1 Measurement of Arterial Saturation, Peripheral, Percutaneous Approach (ICD-10-PCS; 2021-10-02)
PROC: 30233N1 Transfusion of Nonautologous Red Blood Cells into Peripheral Vein, Percutaneous Approach (ICD-10-PCS; principal; 2021-10-03)
PROC: 5A1D70Z Performance of Urinary Filtration, Intermittent, Less than 6 Hours Per Day (ICD-10-PCS; 2021-10-03)
PROC: 5A1D70Z Performance of Urinary Filtration, Intermittent, Less than 6 Hours Per Day (ICD-10-PCS; 2021-10-06)
DX: A41.9 Sepsis, unspecified organism (principal); J18.9 Pneumonia, unspecified organism; N18.6 End stage renal disease; J96.01 Acute respiratory failure with hypoxia; I12.0 Hypertensive chronic kidney disease with stage 5 chronic kidney disease or end stage renal disease; N25.81 Secondary hyperparathyroidism of renal origin; E87.5 Hyperkalemia; D64.9 Anemia, unspecified; I25.10 Atherosclerotic heart disease of native coronary artery without angina pectoris; Z20.822 Contact with and (suspected) exposure to COVID-19
CPT/HCPCS: 36415; 71045; 72070; 72100; 80048; 80053; 80061; 80202; 82140; 82271; 82550; 82805; 83735; 84439; 84443; 84484; 85025; 85610; 85730; 86850; 86900; 86901; 86920; 87040; 93005; 93010; 94640; 94644; 94760; G0378; J3490; Q9967; J0610; J0692; J0885; J1170; J1815; J2270; J3370; J7040; J7050; P9016; U0003

== ENCOUNTER 2022-01-20 18:35 | Emergency (ER) | payer MEDICARE ==
[2022-01-21] MEDS ORDERED: ACETAMINOPHEN 500 MG TAB PO ONE (01:01)
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
[2022-01-21 11:15] VITALS: BP 148/96
== END 2022-01-21 11:14 | disposition home or self-care (01) ==
LOC: ED 18:35
DX: S86.919A Strain of unspecified muscle(s) and tendon(s) at lower leg level, unspecified leg, initial encounter (principal); I10 Essential (primary) hypertension; Z86.73 Personal history of transient ischemic attack (TIA), and cerebral infarction without residual deficits; N28.9 Disorder of kidney and ureter, unspecified; Z13.30 Encounter for screening examination for mental health and behavioral disorders, unspecified; Z91.013 Allergy to seafood; Z79.899 Other long term (current) drug therapy; V89.2XXA Person injured in unspecified motor-vehicle accident, traffic, initial encounter; Y93.89 Activity, other specified; Y92.89 Other specified places as the place of occurrence of the external cause; Y99.8 Other external cause status
CPT/HCPCS: 99283